=== PATIENT | male | born 1970 | race Two or more races ===

== ENCOUNTER 2017-09-03 15:36 | Emergency (ER) | payer SELFPAY ==
[~2017-09-03] VITALS: Ht 175.3 cm; Wt 95.3 kg
[2017-09-03 17:24] LABS: Basophils # (auto) 0.1 uL; Basophils % (auto) 0.7 % (0.0-2.0); Eosinophils # (auto) 0.1 uL; Hematocrit 48.8 % (41.0-53.0); Hemoglobin 16.6 g/dL (13.5-17.5); Lymphocytes % (auto) 23.8 % (10.0-50.0); Mean Corpuscular Hemoglobin 30.8 pg (28.0-32.0); Mean Corpuscular Volume 90.4 fL (80.0-100.0); Mean Platelet Volume 7.3 fL (6.9-10.8); Monocytes # (auto) 0.6 uL; Monocytes % (auto) 7.5 % (0.0-12.0); Neutrophils # (auto) 5.8 uL; Platelet Count (auto) 259 10^3/uL (140-450); Red Cell Distribution Width 13.4 % (11.8-14.3); White Blood Cell 8.6 10^3/uL (4.4-10.8)
[2017-09-03 17:44] LABS: BUN/Creatinine Ratio 15.4; Bilirubin, Total 0.7 mg/dL (0.2-1.0); Calcium 8.7 mg/dL (8.5-10.1); Potassium 3.6 mmol/L (3.5-5.1); Total Protein 7.9 g/dL (6.4-8.2)
[2017-09-03 18:57] VITALS: BP 168/132
[2017-09-03] MEDS ORDERED: cloNIDine HCL 0.1 MG TAB PO ONE (19:15)
== END 2017-09-03 18:46 | disposition home or self-care (01) ==
LOC: ER 15:41
DX: M54.9 Dorsalgia, unspecified (principal); I16.0 Hypertensive urgency; N28.9 Disorder of kidney and ureter, unspecified; I12.0 Hypertensive chronic kidney disease with stage 5 chronic kidney disease or end stage renal disease; N18.9 Chronic kidney disease, unspecified
CPT/HCPCS: 36415; 80053; 85025; 93971

== ENCOUNTER 2021-12-06 10:05 | Inpatient (IN) | payer MEDICAID, OTHER ==
[~2021-12-06] VITALS: Ht 177.8 cm; Wt 88.4 kg
[2021-12-06 11:29] LABS: Basophils # (auto) 0 10 ^3/uL (0-0.2); Basophils % (auto) 0.3 % (0.0-2.0); Eosinophils # (auto) 0 10 ^3/uL (0-0.8); Eosinophils % (auto) 0.1 % (0.0-7.0); Hematocrit 47.1 % (41.0-53.0); Hemoglobin 16.3 g/dL (13.5-17.5); Lymphocytes % (auto) 11.4 % (10.0-50.0); Mean Corpuscular Hemoglobin 31.4 pg (28.0-32.0); Mean Corpuscular Hgb Conc. 34.6 g/dL (32.0-36.0); Mean Corpuscular Volume 90.7 fL (80.0-100.0); Monocytes # (auto) 0.7 10 ^3/uL (0-1.3); Monocytes % (auto) 7.3 % (0.0-12.0); Neutrophils # (auto) 7.4 10 ^3/uL (1.6-8.6); Neutrophils % (auto) 80.9 % (37.0-80.0); Nucleated Red Blood Cells % 0.1 %; Red Blood Cells 5.19 10^6/uL (4.5-5.90); Red Cell Distribution Width 13.5 % (11.8-14.3); White Blood Cell 9.1 10^3/uL (4.4-10.8)
[2021-12-06 12:27] LABS: Albumin 4.1 g/dL (3.4-5.0); Calcium 9.1 mg/dL (8.5-10.1); Magnesium 3.1 mg/dL (1.6-2.6); Potassium 3.7 mmol/L (3.5-5.1)
[2021-12-06 12:33] LABS: BUN/Creatinine Ratio 15.5; Total Protein 8.3 g/dL (6.4-8.2)
[2021-12-06] MEDS ORDERED: MORPHINE SULFATE INJECTION 2 MG/ML SYRG IV PRN (21:30)
[2021-12-06] MEDS ORDERED: NITROGLYCERIN 0.4 MG SL TAB SL PRN (21:30)
[2021-12-06] MEDS ORDERED: SODIUM CHLORIDE 0.9% 1,000 ML IV ONE (21:45)
[2021-12-06 23:58] VITALS: BP 130/91
[2021-12-07 07:53] LABS: Basophils # (auto) 0 10 ^3/uL (0-0.2); Basophils % (auto) 0.5 % (0.0-2.0); Eosinophils # (auto) 0 10 ^3/uL (0-0.8); Hematocrit 41.4 % (41.0-53.0); Hemoglobin 14.4 g/dL (13.5-17.5); Lymphocytes # (auto) 1.4 10 ^3/uL (0.4-5.4); Lymphocytes % (auto) 33.1 % (10.0-50.0); Mean Corpuscular Hemoglobin 31.6 pg (28.0-32.0); Mean Corpuscular Hgb Conc. 34.9 g/dL (32.0-36.0); Mean Corpuscular Volume 90.6 fL (80.0-100.0); Monocytes # (auto) 0.7 10 ^3/uL (0-1.3); Neutrophils % (auto) 48.4 % (37.0-80.0); Nucleated Red Blood Cells % 0.2 %; Red Blood Cells 4.57 10^6/uL (4.5-5.90); Red Cell Distribution Width 13.2 % (11.8-14.3); White Blood Cell 4.1 10^3/uL (4.4-10.8)
[2021-12-07 08:09] LABS: Calcium 8.2 mg/dL (8.5-10.1); Potassium 3.2 mmol/L (3.5-5.1)
[2021-12-07 08:17] LABS: BUN/Creatinine Ratio 21.2
[2021-12-07] MEDS ORDERED: ENOXAPARIN SOD 40 MG/0.4 ML SYRINGE SC SCH (10:00)
[2021-12-07 13:00] VITALS: BP 124/92
[2021-12-07] MEDS ORDERED: DexAMETHasone SOD PHOS 10MG/1ML VIAL INJ IV ONE (14:17)
[2021-12-07] MEDS ORDERED: IVERMECTIN 3 MG TAB PO ONE (14:17)
[2021-12-07] MEDS ORDERED: CHOLECALCIFEROL (VITD3) 2,000 UNIT CAP/TAB PO ONE (14:17)
[2021-12-07] MEDS ORDERED: ASCORBIC ACID 1,000 MG TAB PO ONE (14:17)
[2021-12-07] MEDS ORDERED: ZINC SULFATE 220mg CAP or TAB PO ONE (14:17)
[2021-12-07] MEDS ORDERED: ASPirin-EC 81 mg tab PO ONE (14:30)
[2021-12-07 14:59] LABS: Urine WBC None Seen /hpf (0 - 3)
[2021-12-07] MEDS ORDERED: CAR125T PO (15:01)
[2021-12-07] MEDS ORDERED: ASPI-498 PO (15:01)
[2021-12-07] MEDS ORDERED: HYDR50TA15 PO (15:01)
[2021-12-07] MEDS ORDERED: ATOR40TA52 PO (15:01)
[2021-12-07] MEDS ORDERED: AMLO-496 PO (15:01)
[2021-12-07 15:08] LABS: Urine Bacteria NONE SEEN /hpf (None Seen); Urine Blood Negative /uL (Negative); Urine Specific Gravity 1.013 (1.001-1.035)
[2021-12-07 15:18] LABS: Amphetamine Screen, Urine NEGATIVE (NEGATIVE); Barbiturate Scree,Urine NEGATIVE (NEGATIVE); Benzodiazephine Screen, Urine NEGATIVE (NEGATIVE); Cannabinoid Screen, Urine POSITIVE (NEGATIVE); Cocaine Screen, Urine NEGATIVE (NEGATIVE); Opiate Scree,Urine NEGATIVE (NEGATIVE); Phencyclidine Screen, Urine NEGATIVE (NEGATIVE)
[2021-12-07 17:00] VITALS: BP 128/92
[2021-12-07] MEDS: ENOXAPARIN SOD 40 MG/0.4 ML SYRINGE SC SCH (21:14)
[2021-12-07 22:00] VITALS: BP 129/87
[2021-12-07] MEDS: ALBUTEROL SULF HFA 90MCG INH 200DOSE IN PRN (22:38)
[2021-12-08 05:00] VITALS: BP 123/74
[2021-12-08] MEDS: ALBUTEROL SULF HFA 90MCG INH 200DOSE IN PRN ×2 (05:57→08:53)
[2021-12-08 06:17] LABS: Albumin 3.7 g/dL (3.4-5.0); Calcium 8.6 mg/dL (8.5-10.1); Potassium 3.5 mmol/L (3.5-5.1)
[2021-12-08 06:23] LABS: BUN/Creatinine Ratio 16.7; Bilirubin, Total 0.5 mg/dL (0.2-1.0); CRP High Sensitivity 0.07 mg/dL (< 0.3); Total Protein 7.1 g/dL (6.4-8.2)
[2021-12-08 07:46] LABS: Thyroid Stimulating Hormone 0.38 uIU/mL (0.358-3.74)
[2021-12-08 08:00] VITALS: BP 122/78
[2021-12-08 09:00] VITALS: BP 122/78
[2021-12-08] MEDS ORDERED: IVERMECTIN 3 MG TAB PO SCH (10:00)
[2021-12-08] MEDS ORDERED: PANTOPRAZOLE 40 MG TAB PO SCH (10:00)
[2021-12-08] MEDS: ENOXAPARIN SOD 40 MG/0.4 ML SYRINGE SC SCH (10:00)
[2021-12-08] MEDS ORDERED: ASPirin-EC 81 mg tab PO SCH (10:00)
[2021-12-08] MEDS ORDERED: ASCORBIC ACID 1,000 MG TAB PO SCH (10:00)
[2021-12-08] MEDS ORDERED: ZINC SULFATE 220mg CAP or TAB PO SCH (10:00)
[2021-12-08] MEDS ORDERED: DexAMETHasone SOD PHOS 10MG/1ML VIAL INJ IV SCH (10:00)
[2021-12-08] MEDS ORDERED: CHOLECALCIFEROL (VITD3) 2,000 UNIT CAP/TAB PO SCH (10:00)
[2021-12-08] MEDS ORDERED: DEX4T PO (12:40)
[2021-12-08] MEDS ORDERED: ZINC220T6 PO (12:40)
[2021-12-08] MEDS ORDERED: ASCO10003 PO (12:40)
[2021-12-08] MEDS ORDERED: ALBUAER3 IN (12:40)
[2021-12-08] MEDS ORDERED: FAMO20TA10 PO (12:40)
[2021-12-08] MEDS ORDERED: IVER3TAB PO (12:40)
[2021-12-08] MEDS ORDERED: CHOL20007 PO (12:40)
== END 2021-12-08 16:23 | disposition home or self-care (01) | DRG 137 ==
LOC: EDBD 10:05 → ER 10:05 → TELE 21:27 → TELE-EAST 23:34 → OBSVTOIN 12-07 14:15
PROVIDERS: ADMIT Internal Medicine; ATTEND Internal Medicine
DX: U07.1 COVID-19 (principal); N17.0 Acute kidney failure with tubular necrosis; I50.33 Acute on chronic diastolic (congestive) heart failure; I25.110 Atherosclerotic heart disease of native coronary artery with unstable angina pectoris; I13.0 Hypertensive heart and chronic kidney disease with heart failure and stage 1 through stage 4 chronic kidney disease, or unspecified chronic kidney disease; N18.32 Chronic kidney disease, stage 3b; E55.9 Vitamin D deficiency, unspecified; E78.5 Hyperlipidemia, unspecified; F12.90 Cannabis use, unspecified, uncomplicated; Z98.61 Coronary angioplasty status
CPT/HCPCS: 36415; 71045; 80048; 80053; 80061; 80307; 81001; 82306; 82728; 83605; 83615; 83735; 83880; 84443; 84484; 85025; 85379; 86141; 87081; 87426; 93005; 93306; 94640; 96360; 96372; G0378; J1100

== ENCOUNTER 2023-08-29 08:33 | Inpatient (IN) | payer MEDICAID ==
[~2023-08-29] VITALS: Ht 177.8 cm; Wt 98.5 kg
[~2023-08-29 08:33] MED LIST: ALBUAER3 IN; AMLO1TAB23 PO; ASCO10003 PO; ASPI-498 PO; ATOR40TA52 PO; CAR125T PO; DEX4T PO; HYDR-4297 PO; IVER3TAB PO; ZINC220T6 PO
[2023-08-29] MEDS ORDERED: SODIUM CHLORIDE 0.9% 1,000 ML IV ONE (09:15)
[2023-08-29 09:17] VITALS: PULSE 50; RESP 16; O2SAT 96
[2023-08-29 10:00] LABS: Alanine Aminotransferase 25 U/L (7-40); Alkaline Phosphatase 64 U/L (46-116); Anion Gap 4 (5-15); Aspartate Aminotransferase 14 U/L (13-40); BUN/Creatinine Ratio 9.6 (10.0-20.0); Bilirubin, Total 0.8 mg/dL (0.2-1.0); Blood Urea Nitrogen 17 mg/dL (9-23); Calcium 9.2 mg/dL (8.5-10.1); Carbon Dioxide 27 mmol/L (20-30); Chloride 109 mmol/L (98-107); Glucose 147 mg/dL (74-106); Sodium 140 mmol/L (136-145)
[2023-08-29 10:01] LABS: Total Protein 6.7 g/dL (5.7-8.2)
[2023-08-29 10:07] LABS: Basophils # (auto) 0.1 10 ^3/uL (0-0.2); Basophils % (auto) 0.4 % (0.0-2.0); Eosinophils # (auto) 0.1 10 ^3/uL (0-0.8); Eosinophils % (auto) 0.9 % (0.0-7.0); Hematocrit 41.2 % (41.0-53.0); Hemoglobin 14.3 g/dL (13.5-17.5); Lymphocytes # (auto) 1.1 10 ^3/uL (0.4-5.4); Lymphocytes % (auto) 8.8 % (10.0-50.0); Mean Corpuscular Hemoglobin 32.1 pg (28.0-32.0); Mean Corpuscular Hgb Conc. 34.8 g/dL (32.0-36.0); Mean Corpuscular Volume 92.3 fL (80.0-100.0); Monocytes # (auto) 0.7 10 ^3/uL (0-1.3); Monocytes % (auto) 5.3 % (0.0-12.0); Neutrophils # (auto) 10.6 10 ^3/uL (1.6-8.6); Neutrophils % (auto) 84.6 % (37.0-80.0); Red Blood Cells 4.46 10^6/uL (4.5-5.90); Red Cell Distribution Width 13.9 % (11.8-14.3); White Blood Cell 12.5 10^3/uL (4.4-10.8)
[2023-08-29 10:16] LABS: INR 1.04 (0.9-1.15); Partial Thromboplastin Time 26.8 SEC (24.5-34.5); Prothrombin Time 10.9 sec (9.3-11.8)
[2023-08-29 11:21] LABS: Urine Bacteria NONE SEEN /hpf (None Seen); Urine Blood Negative /uL (Negative); Urine Clarity Clear (Clear); Urine Color Yellow (Yellow); Urine Protein, UAD Negative (Negative); Urine Specific Gravity 1.013 (1.001-1.035); Urine Urobilinogen Normal (Negative); Urine WBC 1 /hpf (0 - 3); Urine pH 5.5 (5.0-8.0)
[2023-08-29] MEDS ORDERED: AZITHROMYCIN 500MG/ 250ML 250 ML IV ONE (13:15)
[2023-08-29] MEDS ORDERED: cefTRIAXone 1GM/50ML D5W 50 ML IV ONE (13:15)
[2023-08-29] MEDS ORDERED: MORPHINE SULFATE 4 MG/ML SYR/VIAL IV PRN (15:15)
[2023-08-29] MEDS ORDERED: NITROGLYCERIN 0.4 MG SL TAB SL PRN (15:15)
[2023-08-29] MEDS ORDERED: ACETAMINOPHEN 325 MG TAB PO PRN (15:15)
[2023-08-29] MEDS ORDERED: hydrALAZINE HCL 20 MG/ML VL IV PRN (15:45)
[2023-08-29 15:51] LABS: Creatinine, Urine 114.94 mg/dL (30.0-125.0)
[2023-08-29] MEDS: ENOXAPARIN SOD 100 MG/1 ML SYRINGE SC SCH ×2 (15:53→23:21)
[2023-08-29 16:12] LABS: Triglycerides 128 mg/dL (< 150)
[2023-08-29 16:13] LABS: LDL Cholesterol 78 mg/dL (< 100)
[2023-08-29 16:14] LABS: Cholesterol 129 mg/dL (< 200); HDL Cholesterol 30 mg/dL (40-59)
[2023-08-29 16:25] LABS: INR 1.02 (0.9-1.15); Prothrombin Time 10.7 sec (9.3-11.8)
[2023-08-29] MEDS ORDERED: MAGNESIUM SULFATE 1GM/100ML 100 ML IV ONE (19:15)
[2023-08-29 19:30] VITALS: PULSE 102; RESP 23; O2SAT 98
[2023-08-29 19:46] LABS: Amphetamine Screen, Urine Neg (NEGATIVE); Barbiturate Scree,Urine Neg (NEGATIVE); Benzodiazephine Screen, Urine Pos (NEGATIVE); Cannabinoid Screen, Urine Pos (NEGATIVE); Cocaine Screen, Urine Neg (NEGATIVE); Opiate Scree,Urine Pos (NEGATIVE); Phencyclidine Screen, Urine Neg (NEGATIVE)
[2023-08-29 22:00] VITALS: BP_SYST 156; BP_SYST 164; BP_DIAS 113; PULSE 78; PULSE 96; RESP 18; TEMP 97.9; O2SAT 97
[2023-08-29] MEDS: ATORVASTATIN 20 MG TAB PO SCH ×2 (22:00→23:22)
[2023-08-29] MEDS: RANOLAZINE ER 500 MG TAB PO SCH ×2 (22:00→23:22)
[2023-08-29] MEDS: CARVEDILOL 3.125 MG TAB PO SCH ×2 (22:00→23:23)
[2023-08-29] MEDS: ISOSORBIDE MONONITRATE 20 MG TAB PO SCH ×2 (22:00→23:24)
[2023-08-30] VITALS (7 sets, daily range): BP systolic 139–156; BP diastolic 60–110; PULSE 59–70; RESP 16–19; TEMP 97.4–98; O2SAT 97–99
[2023-08-30] MEDS ORDERED: AML5T GT (03:08)
[2023-08-30] MEDS ORDERED: NITR1SPR TL (03:08)
[2023-08-30] MEDS ORDERED: CARV6.25 PO (03:08)
[2023-08-30] MEDS ORDERED: CLOP75TA28 PO (03:08)
[2023-08-30] MEDS ORDERED: ALPR0.5T PO (03:08)
[2023-08-30] MEDS ORDERED: RANO500T3 PO (03:08)
[2023-08-30] MEDS: PANTOPRAZOLE 40 MG/10 ML VIAL INJ IV SCH (09:00)
[2023-08-30] MEDS: ASPirin 81 mg TAB PO SCH (09:00)
[2023-08-30] MEDS: CARVEDILOL 3.125 MG TAB PO SCH ×2 (09:01→21:55)
[2023-08-30] MEDS: CLOPIDOGREL BISULFATE 75 MG TAB PO SCH (09:02)
[2023-08-30] MEDS: ISOSORBIDE MONONITRATE 20 MG TAB PO SCH ×2 (09:02→21:54)
[2023-08-30] MEDS: RANOLAZINE ER 500 MG TAB PO SCH ×2 (09:02→21:56)
[2023-08-30] MEDS: DOCUSATE SOD 100 MG CAP PO SCH (09:07)
[2023-08-30] MEDS: ENOXAPARIN SOD 100 MG/1 ML SYRINGE SC SCH ×2 (09:07→21:56)
[2023-08-30 10:19] LABS: Urine Bacteria NONE SEEN /hpf (None Seen); Urine Blood Negative /uL (Negative); Urine Clarity Clear (Clear); Urine Protein, UAD Negative (Negative); Urine Specific Gravity 1.011 (1.001-1.035); Urine Urobilinogen Normal (Negative); Urine WBC <1 /hpf (0 - 3)
[2023-08-30 10:20] LABS: Urine Color Straw (Yellow)
[2023-08-30] MEDS: ONDANSETRON HCL 4 MG/2 ML VIAL IV PRN (12:16)
[2023-08-30] MEDS: ATORVASTATIN 20 MG TAB PO SCH (21:55)
[2023-08-31 08:00] VITALS: PULSE 57; PULSE 59; RESP 18; O2SAT 97
[2023-08-31 09:00] VITALS: BP 129/85; PULSE 59; RESP 19; TEMP 98.5; O2SAT 98
[2023-08-31] MEDS: ENOXAPARIN SOD 100 MG/1 ML SYRINGE SC SCH ×2 (09:57→21:57)
[2023-08-31] MEDS: DOCUSATE SOD 100 MG CAP PO SCH (09:58)
[2023-08-31] MEDS: ISOSORBIDE MONONITRATE 20 MG TAB PO SCH ×2 (09:58→21:57)
[2023-08-31] MEDS: PANTOPRAZOLE 40 MG/10 ML VIAL INJ IV SCH (10:00)
[2023-08-31] MEDS: ASPirin 81 mg TAB PO SCH (10:00)
[2023-08-31] MEDS: CLOPIDOGREL BISULFATE 75 MG TAB PO SCH (10:00)
[2023-08-31] MEDS: CARVEDILOL 3.125 MG TAB PO SCH ×2 (10:00→22:00)
[2023-08-31] MEDS: RANOLAZINE ER 500 MG TAB PO SCH ×2 (10:00→22:00)
[2023-08-31] MEDS: ONDANSETRON HCL 4 MG/2 ML VIAL IV PRN (10:02)
[2023-08-31 10:55] LABS: Basophils # (auto) 0 10 ^3/uL (0-0.2); Basophils % (auto) 0.6 % (0.0-2.0); Eosinophils # (auto) 0.2 10 ^3/uL (0-0.8); Eosinophils % (auto) 2.7 % (0.0-7.0); Hematocrit 43.2 % (41.0-53.0); Hemoglobin 14.9 g/dL (13.5-17.5); Lymphocytes # (auto) 1.5 10 ^3/uL (0.4-5.4); Lymphocytes % (auto) 25.4 % (10.0-50.0); Mean Corpuscular Hemoglobin 31.6 pg (28.0-32.0); Mean Corpuscular Hgb Conc. 34.4 g/dL (32.0-36.0); Mean Corpuscular Volume 92.1 fL (80.0-100.0); Monocytes # (auto) 0.6 10 ^3/uL (0-1.3); Monocytes % (auto) 11.3 % (0.0-12.0); Neutrophils # (auto) 3.4 10 ^3/uL (1.6-8.6); Nucleated Red Blood Cells % 0.3 %; White Blood Cell 5.7 10^3/uL (4.4-10.8)
[2023-08-31 11:15] LABS: Alanine Aminotransferase 24 U/L (7-40); Alkaline Phosphatase 69 U/L (46-116); Anion Gap 7 (5-15); Aspartate Aminotransferase 13 U/L (13-40); BUN/Creatinine Ratio 10.2 (10.0-20.0); Bilirubin, Total 0.8 mg/dL (0.2-1.0); Blood Urea Nitrogen 19 mg/dL (9-23); Calcium 9.3 mg/dL (8.7-10.4); Carbon Dioxide 24 mmol/L (20-30); Chloride 106 mmol/L (98-107); Glucose 117 mg/dL (74-106); Potassium 3.7 mmol/L (3.5-5.1); Sodium 137 mmol/L (136-145); Total Protein 6.9 g/dL (5.7-8.2)
[2023-08-31 13:24] VITALS: BP 121/100; PULSE 84; RESP 17; TEMP 98; O2SAT 99
[2023-08-31] MEDS: hydrALAZINE HCL 25 MG TAB PO SCH ×2 (14:00→22:00)
[2023-08-31 17:00] VITALS: BP 109/82; PULSE 96; RESP 18; TEMP 97.2; O2SAT 97
[2023-08-31 20:00] VITALS: PULSE 64; PULSE 87; RESP 18
[2023-08-31] MEDS: ATORVASTATIN 20 MG TAB PO SCH (22:00)
[2023-08-31 23:32] VITALS: BP 120/84; PULSE 71; RESP 16; O2SAT 97
[2023-09-01 05:17] VITALS: BP 112/79; PULSE 77; RESP 16; TEMP 97.7; O2SAT 95
[2023-09-01] MEDS: hydrALAZINE HCL 25 MG TAB PO SCH ×3 (06:00→22:00)
[2023-09-01 08:00] VITALS: PULSE 60; PULSE 65; RESP 18; O2SAT 97
[2023-09-01 08:49] LABS: Chloride 107 mmol/L (98-107); Potassium 3.8 mmol/L (3.5-5.1); Sodium 139 mmol/L (136-145)
[2023-09-01 08:50] LABS: Anion Gap 7 (5-15); Carbon Dioxide 25 mmol/L (20-30)
[2023-09-01 08:51] LABS: Calcium 9.3 mg/dL (8.7-10.4)
[2023-09-01 08:55] LABS: Blood Urea Nitrogen 20 mg/dL (9-23); Glucose 100 mg/dL (74-106)
[2023-09-01 09:10] VITALS: BP 130/74; PULSE 59; RESP 19; TEMP 98.4; O2SAT 99
[2023-09-01] MEDS: ENOXAPARIN SOD 100 MG/1 ML SYRINGE SC SCH ×2 (09:41→22:31)
[2023-09-01] MEDS: ASPirin 81 mg TAB PO SCH (10:00)
[2023-09-01] MEDS: ISOSORBIDE MONONITRATE 20 MG TAB PO SCH ×2 (10:00→22:31)
[2023-09-01] MEDS: DOCUSATE SOD 100 MG CAP PO SCH (10:00)
[2023-09-01] MEDS: POLYETHYLENE GLYCOL 17 GM PWDR PO SCH (10:00)
[2023-09-01] MEDS: CARVEDILOL 3.125 MG TAB PO SCH ×2 (10:00→22:00)
[2023-09-01] MEDS: RANOLAZINE ER 500 MG TAB PO SCH ×2 (10:00→22:00)
[2023-09-01] MEDS: CLOPIDOGREL BISULFATE 75 MG TAB PO SCH (10:00)
[2023-09-01] MEDS: PANTOPRAZOLE 40 MG/10 ML VIAL INJ IV SCH (10:00)
[2023-09-01 20:00] VITALS: PULSE 82
[2023-09-01 22:00] VITALS: BP 146/117; PULSE 67; RESP 18; TEMP 98.7; O2SAT 99
[2023-09-01] MEDS: ATORVASTATIN 20 MG TAB PO SCH (22:00)
[2023-09-02 05:00] VITALS: BP 127/89; PULSE 76; RESP 18; TEMP 98.3; O2SAT 99
[2023-09-02] MEDS: hydrALAZINE HCL 25 MG TAB PO SCH ×2 (06:00→14:00)
[2023-09-02 10:46] VITALS: BP 160/112; PULSE 60; RESP 18; TEMP 98.4; O2SAT 100
[2023-09-02] MEDS: ISOSORBIDE MONONITRATE 20 MG TAB PO SCH (10:57)
[2023-09-02] MEDS: POLYETHYLENE GLYCOL 17 GM PWDR PO SCH (10:57)
[2023-09-02] MEDS: RANOLAZINE ER 500 MG TAB PO SCH (10:57)
[2023-09-02] MEDS: ASPirin 81 mg TAB PO SCH (10:58)
[2023-09-02] MEDS: CARVEDILOL 3.125 MG TAB PO SCH (10:58)
[2023-09-02] MEDS: PANTOPRAZOLE 40 MG/10 ML VIAL INJ IV SCH (10:58)
[2023-09-02] MEDS: DOCUSATE SOD 100 MG CAP PO SCH (10:58)
[2023-09-02] MEDS: CLOPIDOGREL BISULFATE 75 MG TAB PO SCH (10:59)
[2023-09-02] MEDS ORDERED: HYDR-4297 PO (11:23)
[2023-09-10] MEDS ORDERED: ISO20T PO (10:07)
== END 2023-09-02 14:24 | disposition home or self-care (01) | DRG 194 ==
LOC: ER 08:33 → TELE 15:11 → TELE-EAST 21:12
PROVIDERS: ADMIT Nurse Practitioner Family; ATTEND Family Medicine
DX: I13.0 Hypertensive heart and chronic kidney disease with heart failure and stage 1 through stage 4 chronic kidney disease, or unspecified chronic kidney disease (principal); N17.0 Acute kidney failure with tubular necrosis; I24.9 Acute ischemic heart disease, unspecified; I73.9 Peripheral vascular disease, unspecified; I50.33 Acute on chronic diastolic (congestive) heart failure; N18.4 Chronic kidney disease, stage 4 (severe); R00.1 Bradycardia, unspecified; D72.829 Elevated white blood cell count, unspecified; E83.42 Hypomagnesemia; F41.9 Anxiety disorder, unspecified; K21.9 Gastro-esophageal reflux disease without esophagitis; I25.10 Atherosclerotic heart disease of native coronary artery without angina pectoris; I16.0 Hypertensive urgency; K59.00 Constipation, unspecified; I25.2 Old myocardial infarction; Z86.73 Personal history of transient ischemic attack (TIA), and cerebral infarction without residual deficits; Z82.49 Family history of ischemic heart disease and other diseases of the circulatory system; Z91.148 Patient's other noncompliance with medication regimen for other reason
CPT/HCPCS: 36415; 70450; 71045; 74176; 76775; 80048; 80053; 80061; 80307; 81001; 82570; 82962; 83036; 83735; 83880; 84100; 84300; 84443; 84484; 85025; 85379; 85610; 85730; 93005; 93306; 93886; 93975; 96365; 96367; 96368; C9113; G0378; J0696; J2405

== ENCOUNTER 2023-09-02 18:44 | Emergency (ER) | payer SELFPAY ==
[~2023-09-02] VITALS: Ht 175.3 cm; Wt 81.0 kg
[~2023-09-02 18:44] MED LIST changes: +ALPR0.5T PO; +AML5T GT; -AMLO1TAB23 PO; -CAR125T PO; +CARV6.25 PO; +CLOP75TA28 PO; +NITR1SPR TL; +RANO500T3 PO
[2023-09-02] MEDS ORDERED: ASPirin 325 MG TAB PO ONE (19:00)
[2023-09-02 19:06] LABS: Basophils # (auto) 0 10 ^3/uL (0-0.2); Basophils % (auto) 0.5 % (0.0-2.0); Eosinophils # (auto) 0.1 10 ^3/uL (0-0.8); Hematocrit 45.2 % (41.0-53.0); Hemoglobin 15.6 g/dL (13.5-17.5); Lymphocytes # (auto) 1.3 10 ^3/uL (0.4-5.4); Lymphocytes % (auto) 16.5 % (10.0-50.0); Mean Corpuscular Hemoglobin 31.8 pg (28.0-32.0); Mean Corpuscular Hgb Conc. 34.5 g/dL (32.0-36.0); Mean Corpuscular Volume 92.2 fL (80.0-100.0); Monocytes # (auto) 0.9 10 ^3/uL (0-1.3); Monocytes % (auto) 11.9 % (0.0-12.0); Neutrophils # (auto) 5.4 10 ^3/uL (1.6-8.6); Neutrophils % (auto) 70.1 % (37.0-80.0); Nucleated Red Blood Cells % 0.1 %; Red Blood Cells 4.91 10^6/uL (4.5-5.90); Red Cell Distribution Width 13.7 % (11.8-14.3); White Blood Cell 7.7 10^3/uL (4.4-10.8)
[2023-09-02 19:23] LABS: INR 1.03 (0.9-1.15); Partial Thromboplastin Time 32.3 SEC (24.5-34.5); Prothrombin Time 10.8 sec (9.3-11.8)
[2023-09-02 19:30] LABS: Alanine Aminotransferase 251 U/L (7-40); Albumin 4.4 g/dL (3.2-4.8); Alkaline Phosphatase 84 U/L (46-116); Anion Gap 8 (5-15); Aspartate Aminotransferase 150 U/L (13-40); BUN/Creatinine Ratio 10.6 (10.0-20.0); Bilirubin, Total 0.9 mg/dL (0.2-1.0); Blood Urea Nitrogen 25 mg/dL (9-23); Calcium 9.4 mg/dL (8.7-10.4); Carbon Dioxide 23 mmol/L (20-30); Chloride 107 mmol/L (98-107); Glucose 120 mg/dL (74-106); Potassium 4.3 mmol/L (3.5-5.1); Sodium 138 mmol/L (136-145); Total Protein 7.3 g/dL (5.7-8.2)
[2023-09-02 19:47] LABS: Blood Alcohol < 3.0 mg/dL (<10); Lipase 45 U/L (12-53)
[2023-09-02 19:54] VITALS: PULSE 86; RESP 17; TEMP 98.5; O2SAT 97
[2023-09-02] MEDS ORDERED: LORazepam 2MG/ML-1ML VIAL IV ONE (20:45)
[2023-09-02 21:04] LABS: Urine Bacteria NONE SEEN /hpf (None Seen); Urine Blood Negative /uL (Negative); Urine Clarity Clear (Clear); Urine Color Yellow (Yellow); Urine Protein, UAD TRACE (Negative); Urine Specific Gravity 1.014 (1.001-1.035); Urine Urobilinogen Normal (Negative); Urine WBC <1 /hpf (0 - 3)
[2023-09-02 21:17] LABS: Amphetamine Screen, Urine Neg (NEGATIVE); Barbiturate Scree,Urine Neg (NEGATIVE); Benzodiazephine Screen, Urine Pos (NEGATIVE); Cannabinoid Screen, Urine Pos (NEGATIVE); Cocaine Screen, Urine Neg (NEGATIVE); Opiate Scree,Urine Neg (NEGATIVE); Phencyclidine Screen, Urine Neg (NEGATIVE)
[2023-09-02] MEDS ORDERED: hydrALAZINE HCL 25 MG TAB PO ONE (22:15)
[2023-09-02] MEDS ORDERED: METOCLOPRAMIDE HCL 5MG/ml INJ 2ml VIAL IV ONE (22:30)
[2023-09-02] MEDS ORDERED: diphenhdrAMINE HCL 50 MG/1 ML VL IV ONE (22:30)
[2023-09-03 01:12] VITALS: BP 127/87; PULSE 84; RESP 16; O2SAT 97
== END 2023-09-03 03:04 | disposition home or self-care (01) ==
LOC: ER 18:44
DX: G43.909 Migraine, unspecified, not intractable, without status migrainosus (principal); F41.9 Anxiety disorder, unspecified; I13.0 Hypertensive heart and chronic kidney disease with heart failure and stage 1 through stage 4 chronic kidney disease, or unspecified chronic kidney disease; N18.9 Chronic kidney disease, unspecified; I50.89 Other heart failure; Z98.890 Other specified postprocedural states; Z79.899 Other long term (current) drug therapy; Z79.82 Long term (current) use of aspirin
CPT/HCPCS: 36415; 71045; 73562; 80053; 80307; 80320; 81001; 82962; 83690; 83880; 84484; 85025; 85610; 85730; 93005; 96374; 96375; 99285; J1200; J2060; J2765

== ENCOUNTER 2023-09-09 04:43 | Inpatient (IN) | payer MEDICAID ==
[~2023-09-09] VITALS: Ht 177.8 cm; Wt 84.7 kg
[2023-09-09 06:03] LABS: Basophils # (auto) 0.1 10 ^3/uL (0-0.2); Basophils % (auto) 0.7 % (0.0-2.0); Eosinophils # (auto) 0.1 10 ^3/uL (0-0.8); Eosinophils % (auto) 2.1 % (0.0-7.0); Hematocrit 39.9 % (41.0-53.0); Hemoglobin 14.1 g/dL (13.5-17.5); Lymphocytes # (auto) 2.2 10 ^3/uL (0.4-5.4); Lymphocytes % (auto) 31.1 % (10.0-50.0); Mean Corpuscular Hemoglobin 32.7 pg (28.0-32.0); Mean Corpuscular Hgb Conc. 35.3 g/dL (32.0-36.0); Mean Corpuscular Volume 92.6 fL (80.0-100.0); Monocytes # (auto) 0.8 10 ^3/uL (0-1.3); Monocytes % (auto) 10.8 % (0.0-12.0); Neutrophils # (auto) 3.9 10 ^3/uL (1.6-8.6); Neutrophils % (auto) 55.3 % (37.0-80.0); Nucleated Red Blood Cells % 0.2 %; Red Blood Cells 4.31 10^6/uL (4.5-5.90); Red Cell Distribution Width 13.7 % (11.8-14.3); White Blood Cell 7.1 10^3/uL (4.4-10.8)
[2023-09-09 06:18] LABS: INR 1.03 (0.9-1.15); Partial Thromboplastin Time 29.2 SEC (24.5-34.5); Prothrombin Time 10.8 sec (9.3-11.8)
[2023-09-09 06:24] LABS: Alanine Aminotransferase 56 U/L (7-40); Alkaline Phosphatase 64 U/L (46-116); Anion Gap 10 (5-15); Aspartate Aminotransferase 20 U/L (13-40); BUN/Creatinine Ratio 6.7 (10.0-20.0); Bilirubin, Total 0.9 mg/dL (0.2-1.0); Blood Urea Nitrogen 12 mg/dL (9-23); Calcium 8.8 mg/dL (8.5-10.1); Carbon Dioxide 20 mmol/L (20-30); Chloride 111 mmol/L (98-107); Glucose 101 mg/dL (74-106); Potassium 3.5 mmol/L (3.5-5.1); Sodium 141 mmol/L (136-145); Total Protein 6.8 g/dL (5.7-8.2)
[2023-09-09 08:43] VITALS: PULSE 61; RESP 12; O2SAT 100
[2023-09-09] MEDS ORDERED: ASPirin-EC 81 mg tab PO ONE (09:30)
[2023-09-09] MEDS ORDERED: RANOLAZINE ER 500 MG TAB PO ONE (11:45)
[2023-09-09] MEDS ORDERED: MORPHINE SULFATE INJ 2 MG/ml SYRG IV PRN (11:45)
[2023-09-09] MEDS ORDERED: CITALOPRAM HYDROBR 20 MG TAB PO ONE (11:45)
[2023-09-09] MEDS ORDERED: ATORVASTATIN 20 MG TAB PO ONE (11:45)
[2023-09-09] MEDS ORDERED: amLODIPine BESYLATE 5 MG TAB PO ONE (11:45)
[2023-09-09] MEDS ORDERED: CARVEDILOL 3.125 MG TAB PO ONE (11:45)
[2023-09-09] MEDS ORDERED: hydrALAZINE HCL 25 MG TAB PO ONE (11:45)
[2023-09-09] MEDS ORDERED: ALPRAZolam 0.5 MG TAB PO ONE (11:45)
[2023-09-09] MEDS ORDERED: NITROGLYCERIN 0.4 MG SL TAB SL PRN ×2 (11:45)
[2023-09-09 12:29] LABS: Magnesium 1.8 mg/dL (1.6-2.6)
[2023-09-09] MEDS ORDERED: CLOPIDOGREL BISULFATE 75 MG TAB PO ONE (16:30)
[2023-09-09 17:39] VITALS: BP 128/88; PULSE 66; RESP 18; TEMP 98.5
[2023-09-09 20:00] VITALS: BP 129/89; PULSE 57; PULSE 61; RESP 18; TEMP 98.4
[2023-09-09] MEDS: ISOSORBIDE MONONITRATE 20 MG TAB PO SCH (22:00)
[2023-09-09] MEDS ORDERED: RANOLAZINE ER 500 MG TAB PO SCH (22:00)
[2023-09-09] MEDS: CARVEDILOL 3.125 MG TAB PO SCH (22:00)
[2023-09-09] MEDS ORDERED: ATORVASTATIN 20 MG TAB PO SCH (22:00)
[2023-09-09] MEDS: RANOLAZINE ER 500 MG TAB PO SCH (22:03)
[2023-09-09] MEDS: ALPRAZolam 0.25 MG TAB PO SCH (22:03)
[2023-09-09 23:14] VITALS: BP 129/89; PULSE 61; RESP 18; TEMP 98.4; O2SAT 97
[2023-09-10 04:47] VITALS: BP 118/72; PULSE 60; RESP 18; TEMP 98.5; O2SAT 99
[2023-09-10 06:22] LABS: Urine WBC None Seen /hpf (0 - 3)
[2023-09-10 06:26] LABS: Basophils # (auto) 0.1 10 ^3/uL (0-0.2); Basophils % (auto) 0.8 % (0.0-2.0); Eosinophils # (auto) 0.2 10 ^3/uL (0-0.8); Eosinophils % (auto) 2.3 % (0.0-7.0); Hemoglobin 13.8 g/dL (13.5-17.5); Lymphocytes # (auto) 1.6 10 ^3/uL (0.4-5.4); Lymphocytes % (auto) 23.5 % (10.0-50.0); Mean Corpuscular Hemoglobin 31.9 pg (28.0-32.0); Mean Corpuscular Hgb Conc. 34.5 g/dL (32.0-36.0); Mean Corpuscular Volume 92.5 fL (80.0-100.0); Monocytes # (auto) 0.8 10 ^3/uL (0-1.3); Monocytes % (auto) 11.9 % (0.0-12.0); Neutrophils # (auto) 4.3 10 ^3/uL (1.6-8.6); Neutrophils % (auto) 61.5 % (37.0-80.0); Red Blood Cells 4.33 10^6/uL (4.5-5.90); Red Cell Distribution Width 13.7 % (11.8-14.3); White Blood Cell 6.9 10^3/uL (4.4-10.8)
[2023-09-10 06:28] LABS: Chloride 109 mmol/L (98-107); Potassium 3.4 mmol/L (3.5-5.1); Sodium 140 mmol/L (136-145)
[2023-09-10 06:29] LABS: Anion Gap 8 (5-15); Calcium 8.7 mg/dL (8.5-10.1); Carbon Dioxide 23 mmol/L (20-30)
[2023-09-10 06:34] LABS: BUN/Creatinine Ratio 8.8 (10.0-20.0); Blood Urea Nitrogen 16 mg/dL (9-23); Glucose 95 mg/dL (74-106)
[2023-09-10 06:43] LABS: Amphetamine Screen, Urine Neg (NEGATIVE); Barbiturate Scree,Urine Neg (NEGATIVE); Benzodiazephine Screen, Urine Pos (NEGATIVE); Cannabinoid Screen, Urine Pos (NEGATIVE); Cocaine Screen, Urine Neg (NEGATIVE); Opiate Scree,Urine Neg (NEGATIVE); Phencyclidine Screen, Urine Neg (NEGATIVE)
[2023-09-10 06:51] LABS: Urine Bacteria NONE SEEN /hpf (None Seen); Urine Blood Negative /uL (Negative); Urine Clarity Clear (Clear); Urine Color Yellow (Yellow); Urine Protein, UAD TRACE (Negative); Urine Specific Gravity 1.017 (1.001-1.035); Urine Urobilinogen Normal (Negative); Urine pH 6.5 (5.0-8.0)
[2023-09-10] MEDS ORDERED: POTASSIUM EFFERVESENT TAB 25 MEQ PO ONE (08:15)
[2023-09-10 08:30] VITALS: PULSE 57; PULSE 66; RESP 18
[2023-09-10] MEDS: ISOSORBIDE MONONITRATE 20 MG TAB PO SCH (09:03)
[2023-09-10] MEDS: CARVEDILOL 3.125 MG TAB PO SCH ×2 (09:03→12:09)
[2023-09-10 09:22] VITALS: BP 135/88; PULSE 54; RESP 18; TEMP 97.3; O2SAT 99
[2023-09-10] MEDS ORDERED: hydrALAZINE HCL 25 MG TAB PO SCH (10:00)
[2023-09-10] MEDS ORDERED: amLODIPine BESYLATE 5 MG TAB PO SCH (10:00)
[2023-09-10] MEDS ORDERED: CITALOPRAM HYDROBR 20 MG TAB PO SCH (10:00)
[2023-09-10] MEDS ORDERED: ASPirin 81 mg TAB PO SCH (10:00)
[2023-09-10] MEDS ORDERED: ISO20T PO ×2 (10:07)
[2023-09-10] MEDS: ALPRAZolam 0.25 MG TAB PO SCH (12:09)
[2023-09-10] MEDS: RANOLAZINE ER 500 MG TAB PO SCH (12:09)
[2023-09-10 13:00] VITALS: BP 145/97; PULSE 63; RESP 18; TEMP 98.3; O2SAT 95
[2023-09-10] MEDS ORDERED: ISOSORBIDE MONONITRATE 20 MG TAB PO SCH (22:00)
== END 2023-09-10 15:28 | disposition home or self-care (01) | DRG 199 ==
LOC: ER 04:43 → TELE 11:51 → TELE-WESTW 18:28
PROVIDERS: ADMIT Internal Medicine Pulmonary Disease; ATTEND Internal Medicine Pulmonary Disease
DX: I16.0 Hypertensive urgency (principal); I50.32 Chronic diastolic (congestive) heart failure; I71.21 Aneurysm of the ascending aorta, without rupture; F41.9 Anxiety disorder, unspecified; I25.10 Atherosclerotic heart disease of native coronary artery without angina pectoris; I13.0 Hypertensive heart and chronic kidney disease with heart failure and stage 1 through stage 4 chronic kidney disease, or unspecified chronic kidney disease; N18.31 Chronic kidney disease, stage 3a; G89.29 Other chronic pain; Z98.61 Coronary angioplasty status; I25.2 Old myocardial infarction; Z79.899 Other long term (current) drug therapy; Z82.49 Family history of ischemic heart disease and other diseases of the circulatory system; Z87.891 Personal history of nicotine dependence; Z91.148 Patient's other noncompliance with medication regimen for other reason
CPT/HCPCS: 36415; 71045; 80048; 80053; 80307; 81001; 83690; 83735; 83880; 84484; 85025; 85610; 85730; 93005; G0378

== ENCOUNTER 2023-10-06 15:27 | Inpatient (IN) | payer MEDICAID ==
[~2023-10-06] VITALS: Ht 177.8 cm; Wt 81.8 kg
[~2023-10-06 15:27] MED LIST changes: +ISO20T PO
[2023-10-06 16:16] LABS: Basophils # (auto) 0 10 ^3/uL (0-0.2); Basophils % (auto) 0.8 % (0.0-2.0); Eosinophils # (auto) 0.1 10 ^3/uL (0-0.8); Eosinophils % (auto) 1.2 % (0.0-7.0); Hematocrit 40.6 % (41.0-53.0); Lymphocytes % (auto) 17.1 % (10.0-50.0); Mean Corpuscular Hemoglobin 31.9 pg (28.0-32.0); Mean Corpuscular Hgb Conc. 34.4 g/dL (32.0-36.0); Mean Corpuscular Volume 92.7 fL (80.0-100.0); Monocytes # (auto) 0.6 10 ^3/uL (0-1.3); Monocytes % (auto) 10.1 % (0.0-12.0); Neutrophils # (auto) 4.2 10 ^3/uL (1.6-8.6); Neutrophils % (auto) 70.8 % (37.0-80.0); Nucleated Red Blood Cells % 0.1 %; Red Blood Cells 4.38 10^6/uL (4.5-5.90); Red Cell Distribution Width 13.8 % (11.8-14.3); White Blood Cell 5.9 10^3/uL (4.4-10.8)
[2023-10-06 16:30] LABS: Alanine Aminotransferase 33 U/L (7-40); Albumin 4.3 g/dL (3.2-4.8); Alkaline Phosphatase 78 U/L (46-116); Anion Gap 9 (5-15); Aspartate Aminotransferase 29 U/L (13-40); BUN/Creatinine Ratio 11.3 (10.0-20.0); Bilirubin, Total 0.5 mg/dL (0.2-1.0); Blood Urea Nitrogen 21 mg/dL (9-23); Calcium 9.1 mg/dL (8.7-10.4); Carbon Dioxide 23 mmol/L (20-30); Chloride 108 mmol/L (98-107); Glucose 122 mg/dL (74-106); Potassium 3.5 mmol/L (3.5-5.1); Sodium 140 mmol/L (136-145)
[2023-10-06] MEDS ORDERED: ASPirin 325 MG TAB PO ONE (16:30)
[2023-10-06] MEDS ORDERED: NITROGLYCERIN 0.4 MG SL TAB SL ONE (17:00)
[2023-10-06 18:27] VITALS: PULSE 79; RESP 18; O2SAT 99
[2023-10-06] MEDS ORDERED: NITROGLYCERIN 0.4 MG SL TAB SL PRN (18:45)
[2023-10-06] MEDS ORDERED: MORPHINE SULFATE INJ 2 MG/ml SYRG IV PRN (18:45)
[2023-10-06] MEDS ORDERED: ACETAMINOPHEN 325 MG TAB PO PRN (18:45)
[2023-10-07] VITALS: O2SAT 98
[2023-10-07] MEDS: ISOSORBIDE MONONITRATE 20 MG TAB PO SCH ×3 (00:01→22:26)
[2023-10-07] MEDS: RANOLAZINE ER 500 MG TAB PO SCH ×3 (00:02→22:24)
[2023-10-07] MEDS: ALPRAZolam 0.5 MG TAB PO SCH ×3 (00:02→22:26)
[2023-10-07 00:56] LABS: Urine Bacteria NONE SEEN /hpf (None Seen); Urine Blood Negative /uL (Negative); Urine Clarity Clear (Clear); Urine Color Yellow (Yellow); Urine Protein, UAD 1+ (Negative); Urine Specific Gravity 1.023 (1.001-1.035); Urine Urobilinogen Normal (Negative); Urine WBC <1 /hpf (0 - 3); Urine pH 5.5 (5.0-8.0)
[2023-10-07 04:37] LABS: Basophils # (auto) 0.1 10 ^3/uL (0-0.2); Eosinophils # (auto) 0.2 10 ^3/uL (0-0.8); Eosinophils % (auto) 2.6 % (0.0-7.0); Hematocrit 36.4 % (41.0-53.0); Hemoglobin 12.4 g/dL (13.5-17.5); Lymphocytes # (auto) 2.1 10 ^3/uL (0.4-5.4); Lymphocytes % (auto) 31.1 % (10.0-50.0); Mean Corpuscular Hemoglobin 32.1 pg (28.0-32.0); Mean Corpuscular Volume 94.4 fL (80.0-100.0); Monocytes # (auto) 0.8 10 ^3/uL (0-1.3); Monocytes % (auto) 11.5 % (0.0-12.0); Neutrophils # (auto) 3.6 10 ^3/uL (1.6-8.6); Neutrophils % (auto) 53.8 % (37.0-80.0); Red Blood Cells 3.85 10^6/uL (4.5-5.90); Red Cell Distribution Width 13.6 % (11.8-14.3); White Blood Cell 6.6 10^3/uL (4.4-10.8)
[2023-10-07 04:59] LABS: Alanine Aminotransferase 30 U/L (7-40); Albumin 3.5 g/dL (3.2-4.8); Alkaline Phosphatase 58 U/L (46-116); Anion Gap 5 (5-15); Aspartate Aminotransferase 24 U/L (13-40); BUN/Creatinine Ratio 10.2 (10.0-20.0); Bilirubin, Total 0.5 mg/dL (0.2-1.0); Blood Urea Nitrogen 17 mg/dL (9-23); Calcium 8.3 mg/dL (8.5-10.1); Carbon Dioxide 27 mmol/L (20-30); Chloride 109 mmol/L (98-107); Glucose 149 mg/dL (74-106); Sodium 141 mmol/L (136-145)
[2023-10-07] MEDS ORDERED: ASPirin 81 mg TAB PO SCH (10:00)
[2023-10-07] MEDS ORDERED: ASCORBIC ACID 1,000 MG TAB PO SCH (10:00)
[2023-10-07] MEDS ORDERED: CLOPIDOGREL BISULFATE 75 MG TAB PO SCH (10:00)
[2023-10-07] MEDS ORDERED: ZINC SULFATE 220mg CAP or TAB PO SCH (10:00)
[2023-10-07] MEDS ORDERED: amLODIPine BESYLATE 5 MG TAB GT SCH (10:00)
[2023-10-07 10:45] VITALS: PULSE 66; RESP 20; O2SAT 97
[2023-10-07] MEDS: hydrALAZINE HCL 25 MG TAB PO SCH ×2 (11:27→22:25)
[2023-10-07] MEDS ORDERED: POTASSIUM CHL 20 Meq TABLET PO ONE (14:30)
[2023-10-07] MEDS ORDERED: SODIUM CHLORIDE 0.9% 1,000 ML IV SCH (16:30)
[2023-10-07] MEDS ORDERED: ATORVASTATIN 20 MG TAB PO SCH (18:00)
[2023-10-07 20:00] VITALS: TEMP 98.8
[2023-10-07 20:05] VITALS: PULSE 68; RESP 22; O2SAT 96
[2023-10-08] VITALS: BP 111/52; PULSE 75; RESP 12; O2SAT 96
[2023-10-08 08:07] LABS: PSA Free 0.29 ng/mL; Prostate Specific Antigen 0.9 ng/mL (0.0-4.0)
== END 2023-10-08 00:19 | disposition left against medical advice (07) | DRG 198 ==
LOC: EDBD 15:27 → ER 15:27 → TELE 18:40
PROVIDERS: ADMIT Nurse Practitioner Family; ATTEND Internal Medicine
DX: I25.10 Atherosclerotic heart disease of native coronary artery without angina pectoris (principal); N17.9 Acute kidney failure, unspecified; I13.0 Hypertensive heart and chronic kidney disease with heart failure and stage 1 through stage 4 chronic kidney disease, or unspecified chronic kidney disease; I24.9 Acute ischemic heart disease, unspecified; G20.A1 Parkinson's disease without dyskinesia, without mention of fluctuations; I50.32 Chronic diastolic (congestive) heart failure; R07.89 Other chest pain; N40.0 Benign prostatic hyperplasia without lower urinary tract symptoms; F02.84 Dementia in other diseases classified elsewhere, unspecified severity, with anxiety; E87.6 Hypokalemia; I35.1 Nonrheumatic aortic (valve) insufficiency; J44.9 Chronic obstructive pulmonary disease, unspecified; N18.32 Chronic kidney disease, stage 3b; Z53.29 Procedure and treatment not carried out because of patient's decision for other reasons; Z79.82 Long term (current) use of aspirin; Z82.49 Family history of ischemic heart disease and other diseases of the circulatory system; I25.2 Old myocardial infarction; Z86.73 Personal history of transient ischemic attack (TIA), and cerebral infarction without residual deficits; Z87.891 Personal history of nicotine dependence; Z91.199 Patient's noncompliance with other medical treatment and regimen due to unspecified reason; Z95.5 Presence of coronary angioplasty implant and graft
CPT/HCPCS: 36415; 70450; 71045; 80053; 81001; 83880; 84154; 84484; 85025; 93005; G0378

== ENCOUNTER 2024-01-07 15:04 | Inpatient (IN) | payer MEDICAID, OTHER ==
[~2024-01-07] VITALS: Ht 177.8 cm; Wt 94.4 kg
[~2024-01-07 15:04] MED LIST changes: -CARV6.25 PO; -DEX4T PO; -IVER3TAB PO
[2024-01-07 15:57] LABS: Basophils # (auto) 0.1 10 ^3/uL (0-0.2); Basophils % (auto) 1.3 % (0.0-2.0); Eosinophils # (auto) 0.2 10 ^3/uL (0-0.8); Eosinophils % (auto) 3.7 % (0.0-7.0); Hematocrit 44.9 % (41.0-53.0); Hemoglobin 14.9 g/dL (13.5-17.5); Lymphocytes # (auto) 1.8 10 ^3/uL (0.4-5.4); Lymphocytes % (auto) 31.1 % (10.0-50.0); Mean Corpuscular Hemoglobin 30.9 pg (28.0-32.0); Mean Corpuscular Hgb Conc. 33.3 g/dL (32.0-36.0); Monocytes # (auto) 0.7 10 ^3/uL (0-1.3); Monocytes % (auto) 11.3 % (0.0-12.0); Neutrophils # (auto) 3.1 10 ^3/uL (1.6-8.6); Neutrophils % (auto) 52.6 % (37.0-80.0); Nucleated Red Blood Cells % 0.1 %; Red Blood Cells 4.82 10^6/uL (4.5-5.90); White Blood Cell 5.9 10^3/uL (4.4-10.8)
[2024-01-07 16:18] LABS: Alanine Aminotransferase 41 U/L (7-40); Albumin 4.2 g/dL (3.2-4.8); Alkaline Phosphatase 73 U/L (46-116); Anion Gap 8 (5-15); Aspartate Aminotransferase 26 U/L (13-40); BUN/Creatinine Ratio 17.9 (10.0-20.0); Bilirubin, Total 0.4 mg/dL (0.2-1.0); Blood Urea Nitrogen 25 mg/dL (9-23); Carbon Dioxide 22 mmol/L (20-30); Chloride 112 mmol/L (98-107); Glucose 79 mg/dL (74-106); Potassium 3.9 mmol/L (3.5-5.1); Sodium 142 mmol/L (136-145); Total Protein 6.8 g/dL (5.7-8.2)
[2024-01-07 17:08] LABS: Prothrombin Time 10.5 sec (9.3-11.8)
[2024-01-07] MEDS: hydrALAZINE HCL 20 MG/ML VL IV ONE (19:00)
[2024-01-07] MEDS: MORPHINE SULFATE 4 MG/ML SYR/VIAL IV ONE (19:00)
[2024-01-07] MEDS ORDERED: ONDANSETRON HCL 4 MG/2 ML VIAL IV PRN (20:00)
[2024-01-07 20:38] LABS: INR 0.97 (0.9-1.15); Prothrombin Time 10.2 sec (9.3-11.8)
[2024-01-07] MEDS: ATORVASTATIN 20 MG TAB PO SCH (22:42)
[2024-01-07] MEDS: METOPROLOL TARTRATE 25 MG TAB PO SCH (22:42)
[2024-01-08] VITALS (8 sets, daily range): BP systolic 157–179; BP diastolic 93–118; PULSE 67–100; RESP 12–20; TEMP 97.7–98.1; O2SAT 94–98
[2024-01-08] MEDS: MORPHINE SULFATE 4 MG/ML SYR/VIAL IV PRN (01:24)
[2024-01-08 06:46] LABS: Basophils # (auto) 0.1 10 ^3/uL (0-0.2); Basophils % (auto) 0.7 % (0.0-2.0); Eosinophils # (auto) 0.3 10 ^3/uL (0-0.8); Hematocrit 42.2 % (41.0-53.0); Hemoglobin 14.2 g/dL (13.5-17.5); Lymphocytes # (auto) 2.4 10 ^3/uL (0.4-5.4); Lymphocytes % (auto) 30.8 % (10.0-50.0); Mean Corpuscular Hemoglobin 31.3 pg (28.0-32.0); Mean Corpuscular Hgb Conc. 33.7 g/dL (32.0-36.0); Mean Corpuscular Volume 92.9 fL (80.0-100.0); Monocytes # (auto) 0.8 10 ^3/uL (0-1.3); Neutrophils # (auto) 4.1 10 ^3/uL (1.6-8.6); Neutrophils % (auto) 53.5 % (37.0-80.0); Nucleated Red Blood Cells % 0.2 %; Red Blood Cells 4.54 10^6/uL (4.5-5.90); Red Cell Distribution Width 14.1 % (11.8-14.3); White Blood Cell 7.7 10^3/uL (4.4-10.8)
[2024-01-08 06:48] LABS: Alanine Aminotransferase 32 U/L (7-40); Albumin 3.7 g/dL (3.2-4.8); Alkaline Phosphatase 63 U/L (46-116); Anion Gap 7 (5-15); Aspartate Aminotransferase 18 U/L (13-40); BUN/Creatinine Ratio 16.2 (10.0-20.0); Bilirubin, Total 0.4 mg/dL (0.2-1.0); Blood Urea Nitrogen 25 mg/dL (9-23); Calcium 8.5 mg/dL (8.7-10.4); Carbon Dioxide 24 mmol/L (20-30); Chloride 110 mmol/L (98-107); Glucose 96 mg/dL (74-106); Potassium 3.7 mmol/L (3.5-5.1); Sodium 141 mmol/L (136-145); Total Protein 6.3 g/dL (5.7-8.2)
[2024-01-08] MEDS: DOCUSATE SOD 100 MG CAP PO SCH (09:51)
[2024-01-08] MEDS: CLOPIDOGREL BISULFATE 75 MG TAB PO SCH (09:51)
[2024-01-08] MEDS: ASPirin 81 mg TAB PO SCH (09:52)
[2024-01-08] MEDS ORDERED: NIFEdipine ER 30 MG TAB PO ONE (10:15)
[2024-01-08] MEDS: NIFEdipine ER 30 MG TAB PO ONE (10:25)
[2024-01-08] MEDS: hydrALAZINE HCL 20 MG/ML VL IV PRN (13:36)
[2024-01-08] MEDS: MORPHINE SULFATE INJ 2 MG/ml SYRG IV PRN (17:09)
[2024-01-08] MEDS: ISOSORBIDE MONONITRATE 20 MG TAB PO SCH (21:13)
[2024-01-08] MEDS: hydrALAZINE HCL 25 MG TAB PO SCH (21:14)
[2024-01-08] MEDS: CARVEDILOL 3.125 MG TAB PO SCH (21:15)
[2024-01-08] MEDS: RANOLAZINE ER 500 MG TAB PO SCH (21:15)
[2024-01-09] VITALS (8 sets, daily range): BP systolic 141–170; BP diastolic 93–124; PULSE 58–74; RESP 17–19; TEMP 97.6–98.3; O2SAT 96–99
[2024-01-09] MEDS: NIFEdipine ER 30 MG TAB PO SCH (09:09)
[2024-01-09] MEDS ORDERED: NIFEdipine ER 30 MG TAB PO SCH (10:00)
[2024-01-09 10:14] LABS: Chloride 107 mmol/L (98-107); Potassium 3.4 mmol/L (3.5-5.1); Sodium 140 mmol/L (136-145)
[2024-01-09 10:15] LABS: Anion Gap 4 (5-15); Calcium 9.1 mg/dL (8.5-10.1); Carbon Dioxide 29 mmol/L (20-30)
[2024-01-09 10:20] LABS: BUN/Creatinine Ratio 15.1 (10.0-20.0); Blood Urea Nitrogen 28 mg/dL (9-23); Glucose 136 mg/dL (74-106)
[2024-01-09 10:30] LABS: Basophils # (auto) 0.1 10 ^3/uL (0-0.2); Basophils % (auto) 0.8 % (0.0-2.0); Eosinophils # (auto) 0.3 10 ^3/uL (0-0.8); Hematocrit 44.8 % (41.0-53.0); Lymphocytes # (auto) 1.7 10 ^3/uL (0.4-5.4); Lymphocytes % (auto) 23.6 % (10.0-50.0); Mean Corpuscular Hemoglobin 31.1 pg (28.0-32.0); Mean Corpuscular Hgb Conc. 33.4 g/dL (32.0-36.0); Mean Corpuscular Volume 93.1 fL (80.0-100.0); Monocytes # (auto) 0.7 10 ^3/uL (0-1.3); Monocytes % (auto) 10.1 % (0.0-12.0); Neutrophils # (auto) 4.4 10 ^3/uL (1.6-8.6); Neutrophils % (auto) 61.5 % (37.0-80.0); Nucleated Red Blood Cells % 0.1 %; Red Blood Cells 4.81 10^6/uL (4.5-5.90); Red Cell Distribution Width 14.3 % (11.8-14.3); White Blood Cell 7.2 10^3/uL (4.4-10.8)
[2024-01-09] MEDS ORDERED: ALBUAER3 INH (13:45)
[2024-01-09] MEDS ORDERED: ALPR0.254 PO (13:48)
[2024-01-09] MEDS ORDERED: AMLO1TAB21 PO (13:49)
[2024-01-09] MEDS ORDERED: HYDR25TA87 PO (13:51)
[2024-01-09] MEDS ORDERED: ISOS10TA5 PO (13:52)
[2024-01-09] MEDS ORDERED: ZOLP5TAB5 PO (14:16)
[2024-01-09] MEDS ORDERED: BECL80AE11 INH (15:01)
[2024-01-09] MEDS ORDERED: LOSA50TA46 PO (15:01)
[2024-01-09] MEDS ORDERED: ASPI-543 PO (15:01)
[2024-01-09] MEDS ORDERED: PROP60CA34 PO (15:01)
[2024-01-09] MEDS ORDERED: TRAZ-227 PO (15:01)
[2024-01-09] MEDS ORDERED: GABA-339 PO (15:01)
[2024-01-09] MEDS ORDERED: CHOL20007 PO (15:01)
[2024-01-09] MEDS ORDERED: CARV6.2551 PO (15:01)
[2024-01-09] MEDS ORDERED: HYDR25TA4 PO (15:01)
[2024-01-09] MEDS ORDERED: CLON0.2T PO (15:01)
[2024-01-09] MEDS ORDERED: ESCI5TAB PO (15:01)
[2024-01-10] VITALS (8 sets, daily range): BP systolic 144–160; BP diastolic 89–104; PULSE 56–66; RESP 17–18; TEMP 97.5–98.3; O2SAT 97–100
[2024-01-10] MEDS: ACETAMINOPHEN 325 MG TAB PO PRN (01:53)
[2024-01-10] MEDS: NITROGLYCERIN 0.4 MG SL TAB SL PRN (02:00)
[2024-01-10 06:08] LABS: Basophils # (auto) 0.1 10 ^3/uL (0-0.2); Eosinophils # (auto) 0.2 10 ^3/uL (0-0.8); Eosinophils % (auto) 3.5 % (0.0-7.0); Hematocrit 41.8 % (41.0-53.0); Hemoglobin 14.2 g/dL (13.5-17.5); Lymphocytes # (auto) 2.1 10 ^3/uL (0.4-5.4); Lymphocytes % (auto) 30.5 % (10.0-50.0); Mean Corpuscular Hemoglobin 31.7 pg (28.0-32.0); Mean Corpuscular Volume 93.2 fL (80.0-100.0); Monocytes # (auto) 0.8 10 ^3/uL (0-1.3); Monocytes % (auto) 11.9 % (0.0-12.0); Neutrophils # (auto) 3.7 10 ^3/uL (1.6-8.6); Neutrophils % (auto) 53.1 % (37.0-80.0); Nucleated Red Blood Cells % 0.1 %; Red Blood Cells 4.48 10^6/uL (4.5-5.90); Red Cell Distribution Width 13.6 % (11.8-14.3); White Blood Cell 6.9 10^3/uL (4.4-10.8)
[2024-01-10 06:20] LABS: Anion Gap 5 (5-15); Carbon Dioxide 26 mmol/L (20-30); Chloride 109 mmol/L (98-107); Potassium 3.7 mmol/L (3.5-5.1); Sodium 140 mmol/L (136-145)
[2024-01-10 06:21] LABS: Calcium 8.8 mg/dL (8.5-10.1)
[2024-01-10 06:26] LABS: BUN/Creatinine Ratio 14.3 (10.0-20.0); Blood Urea Nitrogen 25 mg/dL (9-23); Glucose 86 mg/dL (74-106)
[2024-01-10] MEDS ORDERED: ALPR0.5T PO (10:44)
[2024-01-10] MEDS ORDERED: HYDR25TA87 PO (11:38)
[2024-01-10] MEDS ORDERED: NIFE1TAB31 PO (11:41)
== END 2024-01-10 14:09 | disposition home or self-care (01) | DRG 199 ==
LOC: ER 15:04 → EDUNIT# 15:04 → EDBD 15:04 → TELE 19:54 → TELE-CENTR 01-08 12:29
PROVIDERS: ADMIT Internal Medicine; ATTEND Internal Medicine
DX: I16.0 Hypertensive urgency (principal); N17.0 Acute kidney failure with tubular necrosis; N18.4 Chronic kidney disease, stage 4 (severe); E78.5 Hyperlipidemia, unspecified; I12.9 Hypertensive chronic kidney disease with stage 1 through stage 4 chronic kidney disease, or unspecified chronic kidney disease; F32.A Depression, unspecified; R07.89 Other chest pain; F02.84 Dementia in other diseases classified elsewhere, unspecified severity, with anxiety; R51.9 Headache, unspecified; I25.2 Old myocardial infarction; I25.10 Atherosclerotic heart disease of native coronary artery without angina pectoris; Z82.49 Family history of ischemic heart disease and other diseases of the circulatory system; Z87.891 Personal history of nicotine dependence; I69.954 Hemiplegia and hemiparesis following unspecified cerebrovascular disease affecting left non-dominant side
CPT/HCPCS: 36415; 71045; 80048; 80053; 83735; 84484; 85025; 85610; 87081; 93005; 93306; 99291; G0378

== ENCOUNTER 2024-03-04 23:05 | Inpatient (IN) | payer MEDICAID ==
[~2024-03-04] VITALS: Ht 177.8 cm; Wt 98.1 kg
[~2024-03-04 23:05] MED LIST changes: -ALBUAER3 IN; +ALPR0.254 PO; -AML5T GT; +APIX5TAB PO; +BECL80AE11 INH; +CARV6.2551 PO; +CEPH500C PO; +CHOL20007 PO; +CLON0.2T PO; +ESCI5TAB PO; +GABA-339 PO; -HYDR-4297 PO; +HYDR25TA4 PO; +HYDR25TA87 PO; -ISO20T PO; +ISOS10TA5 PO; +LOSA-534 PO; +NIFE1TAB31 PO; -NITR1SPR TL; +PROP60CA34 PO; +TRAZ-227 PO; +ZOLP5TAB5 PO
[2024-03-04 23:36] VITALS: PULSE 114; RESP 13; O2SAT 97
[2024-03-04 23:43] LABS: Basophils # (auto) 0.1 10 ^3/uL (0-0.2); Basophils % (auto) 1.3 % (0.0-2.0); Eosinophils # (auto) 0.3 10 ^3/uL (0-0.8); Eosinophils % (auto) 3.7 % (0.0-7.0); Hematocrit 41.3 % (41.0-53.0); Lymphocytes # (auto) 2.4 10 ^3/uL (0.4-5.4); Lymphocytes % (auto) 27.4 % (10.0-50.0); Mean Corpuscular Hemoglobin 30.8 pg (28.0-32.0); Mean Corpuscular Volume 90.6 fL (80.0-100.0); Monocytes # (auto) 1.1 10 ^3/uL (0-1.3); Monocytes % (auto) 12.3 % (0.0-12.0); Neutrophils # (auto) 4.9 10 ^3/uL (1.6-8.6); Neutrophils % (auto) 55.3 % (37.0-80.0); Nucleated Red Blood Cells % 0.1 %; Red Blood Cells 4.56 10^6/uL (4.5-5.90); Red Cell Distribution Width 13.9 % (11.8-14.3); White Blood Cell 8.8 10^3/uL (4.4-10.8)
[2024-03-04 23:59] LABS: Alanine Aminotransferase 40 U/L (7-40); Albumin 4.2 g/dL (3.2-4.8); Alkaline Phosphatase 91 U/L (46-116); Anion Gap 9 (5-15); Aspartate Aminotransferase 23 U/L (13-40); BUN/Creatinine Ratio 16.8 (10.0-20.0); Bilirubin, Total < 0.2 mg/dL (0.2-1.0); Blood Urea Nitrogen 28 mg/dL (9-23); Calcium 9.4 mg/dL (8.7-10.4); Carbon Dioxide 19 mmol/L (20-30); Chloride 109 mmol/L (98-107); Glucose 133 mg/dL (74-106); Potassium 3.7 mmol/L (3.5-5.1); Sodium 137 mmol/L (136-145); Total Protein 7.6 g/dL (5.7-8.2)
[2024-03-05] MEDS: KETOROLAC TROMETH 30 MG/ML 1ML VIAL IV ONE (01:46)
[2024-03-05] MEDS: ONDANSETRON HCL 4 MG/2 ML VIAL IV ONE (02:19)
[2024-03-05] MEDS: MORPHINE SULFATE 4 MG/ML SYR/VIAL IV ONE (02:20)
[2024-03-05] MEDS ORDERED: ACETAMINOPHEN 325 MG TAB PO PRN (03:15)
[2024-03-05 07:30] VITALS: PULSE 72; RESP 19; O2SAT 95
[2024-03-05] MEDS: ISOSORBIDE DINITRATE 10 MG TAB PO SCH (10:00)
[2024-03-05] MEDS: ASPirin 81 mg TAB PO SCH (10:00)
[2024-03-05] MEDS: RANOLAZINE ER 500 MG TAB PO SCH (10:00)
[2024-03-05] MEDS: LOSARTAN POTASSIUM 50 MG TAB PO SCH (10:00)
[2024-03-05] MEDS: APIXABAN 5 MG TAB PO SCH (10:00)
[2024-03-05] MEDS: amLODIPine BESYLATE 5 MG TAB PO SCH (10:00)
[2024-03-05] MEDS: CLOPIDOGREL BISULFATE 75 MG TAB PO SCH (10:25)
[2024-03-05] MEDS: CARVEDILOL 12.5 MG TAB PO SCH (10:26)
[2024-03-05 14:36] VITALS: BP 105/77; PULSE 60; RESP 18; TEMP 98.5; O2SAT 98
[2024-03-05 16:52] VITALS: BP 120/74; PULSE 80; RESP 17; TEMP 97.8; O2SAT 97
[2024-03-05 20:00] VITALS: PULSE 76
[2024-03-05] MEDS: HYDROcodone-ACET 7.5/325MG TAB PO ONE (20:15)
[2024-03-05 21:00] VITALS: BP 126/80; PULSE 68; RESP 16; O2SAT 97
[2024-03-05] MEDS: ATORVASTATIN 20 MG TAB PO SCH (21:13)
[2024-03-06 05:00] VITALS: BP 99/57; PULSE 61; RESP 19; TEMP 98.2; O2SAT 97
[2024-03-06 06:14] LABS: Basophils # (auto) 0 10 ^3/uL (0-0.2); Basophils % (auto) 0.7 % (0.0-2.0); Eosinophils # (auto) 0.3 10 ^3/uL (0-0.8); Eosinophils % (auto) 4.7 % (0.0-7.0); Hematocrit 38.1 % (41.0-53.0); Hemoglobin 12.8 g/dL (13.5-17.5); Lymphocytes # (auto) 1.6 10 ^3/uL (0.4-5.4); Lymphocytes % (auto) 27.2 % (10.0-50.0); Mean Corpuscular Hemoglobin 30.6 pg (28.0-32.0); Mean Corpuscular Hgb Conc. 33.6 g/dL (32.0-36.0); Monocytes # (auto) 0.6 10 ^3/uL (0-1.3); Neutrophils # (auto) 3.3 10 ^3/uL (1.6-8.6); Neutrophils % (auto) 56.4 % (37.0-80.0); Red Blood Cells 4.19 10^6/uL (4.5-5.90); White Blood Cell 5.8 10^3/uL (4.4-10.8)
[2024-03-06 06:21] LABS: Anion Gap 6 (5-15); Carbon Dioxide 24 mmol/L (20-30); Chloride 109 mmol/L (98-107); Potassium 3.6 mmol/L (3.5-5.1); Sodium 139 mmol/L (136-145)
[2024-03-06 06:27] LABS: BUN/Creatinine Ratio 14.9 (10.0-20.0); Blood Urea Nitrogen 30 mg/dL (9-23); Glucose 109 mg/dL (74-106)
[2024-03-06 08:00] VITALS: PULSE 61
[2024-03-06 08:52] VITALS: BP 128/87; PULSE 59; RESP 17; TEMP 98.4; O2SAT 99
[2024-03-06] MEDS: MORPHINE SULFATE INJ 2 MG/ml SYRG IV PRN (12:25)
[2024-03-06] MEDS ORDERED: ESCI20TA PO (14:13)
[2024-03-06] MEDS ORDERED: CARV25TA55 PO (14:13)
[2024-03-06] MEDS ORDERED: CLON-818 PO (14:13)
[2024-03-06] MEDS ORDERED: ISOS20TA5 PO (14:18)
[2024-03-06] MEDS ORDERED: AMLO1TAB22 PO (14:18)
[2024-03-06] MEDS ORDERED: LOSA-534 PO (14:18)
[2024-03-06] MEDS ORDERED: ALBU108A5 INH (14:20)
[2024-03-06 17:03] VITALS: BP 112/74; PULSE 66; RESP 17; TEMP 97.6; O2SAT 97
[2024-03-06 20:00] VITALS: PULSE 70; RESP 18
[2024-03-06 21:00] VITALS: BP 118/50; PULSE 65; RESP 18; TEMP 97.9; O2SAT 98
[2024-03-07] VITALS (11 sets, daily range): BP systolic 101–163; BP diastolic 54–100; PULSE 55–62; RESP 16–18; TEMP 97.6–98.7; O2SAT 97–100
[2024-03-07 06:54] LABS: Basophils # (auto) 0.1 10 ^3/uL (0-0.2); Basophils % (auto) 0.9 % (0.0-2.0); Eosinophils # (auto) 0.3 10 ^3/uL (0-0.8); Eosinophils % (auto) 4.8 % (0.0-7.0); Hematocrit 36.7 % (41.0-53.0); Hemoglobin 12.5 g/dL (13.5-17.5); Lymphocytes # (auto) 2.1 10 ^3/uL (0.4-5.4); Lymphocytes % (auto) 35.4 % (10.0-50.0); Mean Corpuscular Hemoglobin 30.7 pg (28.0-32.0); Mean Corpuscular Volume 90.4 fL (80.0-100.0); Monocytes # (auto) 0.8 10 ^3/uL (0-1.3); Monocytes % (auto) 13.1 % (0.0-12.0); Neutrophils # (auto) 2.7 10 ^3/uL (1.6-8.6); Neutrophils % (auto) 45.8 % (37.0-80.0); Red Blood Cells 4.06 10^6/uL (4.5-5.90); Red Cell Distribution Width 13.4 % (11.8-14.3); White Blood Cell 5.9 10^3/uL (4.4-10.8)
[2024-03-07 07:08] LABS: Alanine Aminotransferase 22 U/L (7-40); Alkaline Phosphatase 71 U/L (46-116); Anion Gap 7 (5-15); BUN/Creatinine Ratio 16.3 (10.0-20.0); Blood Urea Nitrogen 32 mg/dL (9-23); Calcium 8.7 mg/dL (8.5-10.1); Carbon Dioxide 24 mmol/L (20-30); Chloride 109 mmol/L (98-107); Glucose 91 mg/dL (74-106); Potassium 3.7 mmol/L (3.5-5.1); Sodium 140 mmol/L (136-145)
[2024-03-07 07:09] LABS: Albumin 3.7 g/dL (3.2-4.8); Aspartate Aminotransferase 15 U/L (13-40)
[2024-03-07 07:10] LABS: Bilirubin, Total 0.4 mg/dL (0.2-1.0); Total Protein 6.5 g/dL (5.7-8.2)
[2024-03-07] MEDS: cloNIDine HCL 0.1 MG TAB PO PRN (08:42)
[2024-03-07] MEDS: ONDANSETRON HCL 4 MG/2 ML VIAL IV PRN (08:43)
[2024-03-07] MEDS: CARVEDILOL 12.5 MG TAB PO SCH (21:24)
[2024-03-08] VITALS (9 sets, daily range): BP systolic 106–151; BP diastolic 76–101; PULSE 49–69; RESP 18–20; TEMP 98–98.5; O2SAT 93–99
[2024-03-08 06:38] LABS: Basophils # (auto) 0.1 10 ^3/uL (0-0.2); Basophils % (auto) 0.9 % (0.0-2.0); Eosinophils # (auto) 0.3 10 ^3/uL (0-0.8); Eosinophils % (auto) 4.4 % (0.0-7.0); Hematocrit 37.1 % (41.0-53.0); Hemoglobin 12.6 g/dL (13.5-17.5); Lymphocytes # (auto) 2.1 10 ^3/uL (0.4-5.4); Lymphocytes % (auto) 34.9 % (10.0-50.0); Mean Corpuscular Hemoglobin 30.9 pg (28.0-32.0); Mean Corpuscular Hgb Conc. 33.9 g/dL (32.0-36.0); Mean Corpuscular Volume 91.2 fL (80.0-100.0); Monocytes # (auto) 0.8 10 ^3/uL (0-1.3); Monocytes % (auto) 13.4 % (0.0-12.0); Neutrophils # (auto) 2.8 10 ^3/uL (1.6-8.6); Neutrophils % (auto) 46.4 % (37.0-80.0); Red Blood Cells 4.07 10^6/uL (4.5-5.90); Red Cell Distribution Width 13.6 % (11.8-14.3)
[2024-03-08 06:50] LABS: Alanine Aminotransferase 20 U/L (7-40); Albumin 3.5 g/dL (3.2-4.8); Alkaline Phosphatase 69 U/L (46-116); Anion Gap 4 (5-15); Aspartate Aminotransferase 14 U/L (13-40); BUN/Creatinine Ratio 14.5 (10.0-20.0); Bilirubin, Total 0.4 mg/dL (0.2-1.0); Blood Urea Nitrogen 27 mg/dL (9-23); Carbon Dioxide 27 mmol/L (20-30); Chloride 108 mmol/L (98-107); Glucose 89 mg/dL (74-106); Potassium 4.1 mmol/L (3.5-5.1); Sodium 139 mmol/L (136-145)
[2024-03-08 06:51] LABS: Total Protein 6.4 g/dL (5.7-8.2)
[2024-03-08] MEDS ORDERED: SACUBITRIL-VALSARTAN 24mg/26mg TAB PO ONE (17:15)
[2024-03-08] MEDS: SACUBITRIL-VALSARTAN 24mg/26mg TAB PO ONE (17:47)
[2024-03-09 01:00] VITALS: BP 152/91; PULSE 52; RESP 20; TEMP 98; O2SAT 98
[2024-03-09] MEDS ORDERED: ASPirin 81 mg TAB PO ONE (01:15)
[2024-03-09] MEDS ORDERED: MORPHINE SULFATE 4 MG/ML SYR/VIAL IV PRN (01:15)
[2024-03-09] MEDS ORDERED: NITROGLYCERIN 0.4 MG SL TAB SL PRN (01:15)
[2024-03-09 05:00] VITALS: BP 131/90; PULSE 61; RESP 18; TEMP 98.8; O2SAT 98
[2024-03-09 08:00] VITALS: BP 150/80; PULSE 53; PULSE 56; RESP 20; TEMP 97.7; O2SAT 100
[2024-03-09 08:45] VITALS: BP 150/80; PULSE 56; RESP 20; TEMP 97.7; O2SAT 100
[2024-03-09] MEDS: SACUBITRIL-VALSARTAN 24mg/26mg TAB PO SCH (09:04)
[2024-03-09] MEDS ORDERED: ASPirin 81 mg TAB PO SCH (10:00)
[2024-03-09] MEDS: CARVEDILOL 12.5 MG TAB PO SCH (10:00)
[2024-03-09 11:57] VITALS: BP 150/80; PULSE 56; RESP 20; TEMP 97.7; O2SAT 100
[2024-03-25] MEDS ORDERED: ACET500C8 PO (16:19)
[2024-03-25] MEDS ORDERED: NITR0.4S29 SL (16:19)
[2024-03-25] MEDS ORDERED: OMEG-20 PO (16:19)
[2024-03-25] MEDS ORDERED: SACU1TAB7 PO (16:19)
[2024-03-25] MEDS ORDERED: POTA8TAB38 PO (16:19)
[2024-03-25] MEDS ORDERED: ISOS20TA5 PO (16:19)
== END 2024-03-09 12:15 | disposition home or self-care (01) | DRG 199 ==
LOC: EDBD 23:05 → EDUNIT# 23:05 → ER 23:05 → OVERFLOW 03-05 03:11 → WEST WING 03-05 12:54 → TELE-WESTW 03-05 17:29
PROVIDERS: ADMIT Internal Medicine Pulmonary Disease; ATTEND Surgery
DX: I16.0 Hypertensive urgency (principal); N17.0 Acute kidney failure with tubular necrosis; R20.0 Anesthesia of skin; I13.0 Hypertensive heart and chronic kidney disease with heart failure and stage 1 through stage 4 chronic kidney disease, or unspecified chronic kidney disease; I50.32 Chronic diastolic (congestive) heart failure; R55 Syncope and collapse; R07.89 Other chest pain; M19.071 Primary osteoarthritis, right ankle and foot; R00.1 Bradycardia, unspecified; I69.354 Hemiplegia and hemiparesis following cerebral infarction affecting left non-dominant side; E78.5 Hyperlipidemia, unspecified; N18.32 Chronic kidney disease, stage 3b; F17.200 Nicotine dependence, unspecified, uncomplicated; F41.9 Anxiety disorder, unspecified; G47.30 Sleep apnea, unspecified; I25.10 Atherosclerotic heart disease of native coronary artery without angina pectoris; Z95.5 Presence of coronary angioplasty implant and graft; I25.2 Old myocardial infarction; Z82.49 Family history of ischemic heart disease and other diseases of the circulatory system; Z82.3 Family history of stroke; Z79.01 Long term (current) use of anticoagulants; Z79.82 Long term (current) use of aspirin; Z79.02 Long term (current) use of antithrombotics/antiplatelets; Z79.899 Other long term (current) drug therapy
CPT/HCPCS: 36415; 70450; 70551; 71045; 73700; 80048; 80053; 83880; 84484; 85025; 93005; 93970; 95819; 96374; 96375; G0378; J1885; J2405

== ENCOUNTER → 2024-03-17 | Outpatient (CLI) | payer MEDICAID ==
[~2024-03-17] VITALS: Ht 177.8 cm; Wt 88.5 kg
[~2024-03-17] MED LIST changes: +ACET500C8 PO; +ADENOSINE 74 MG in GIVE UN-DILUTED 0 ML IV ONE; +ADENOSINE 90 MG/30 ML INJ IV ONE; +ALBU108A5 INH; +AMLO1TAB22 PO; +CARV25TA55 PO; +CLON-818 PO; +ESCI20TA PO; +ISOS20TA5 PO; +NITR0.4S29 SL; +OMEG-20 PO; +POTA8TAB38 PO; +SACU1TAB7 PO
== END | disposition home or self-care (01) ==
LOC: Rad HDHVI 14:38
PROVIDERS: ATTEND Internal Medicine Cardiovascular Disease
DX: I11.0 Hypertensive heart disease with heart failure (principal); I50.9 Heart failure, unspecified; I25.10 Atherosclerotic heart disease of native coronary artery without angina pectoris; R07.89 Other chest pain; E78.00 Pure hypercholesterolemia, unspecified; Z82.49 Family history of ischemic heart disease and other diseases of the circulatory system
CPT/HCPCS: 78452; 93005; 96374; 96375; A9500; J0153

== ENCOUNTER → 2024-03-25 | Outpatient (CLI) | payer MEDICAID ==
[~2024-03-25] MED LIST changes: -ADENOSINE 74 MG in GIVE UN-DILUTED 0 ML IV ONE; -ADENOSINE 90 MG/30 ML INJ IV ONE; -ALPR0.254 PO; -ASPI-498 PO; -CARV6.2551 PO; -CLON0.2T PO; -ESCI5TAB PO; -ISOS10TA5 PO; -RANO500T3 PO
[2024-03-25 14:20] VITALS: BP 129/84; PULSE 88; RESP 18; O2SAT 98
[2024-03-25 14:36] VITALS: BP 127/71; PULSE 56; RESP 18; O2SAT 98
== END | disposition home or self-care (01) ==
LOC: Rad HDHVI 14:11
PROVIDERS: ATTEND Internal Medicine Cardiovascular Disease
DX: Z01.818 Encounter for other preprocedural examination (principal); R00.1 Bradycardia, unspecified
CPT/HCPCS: 71046; 93005; G0463

== ENCOUNTER 2024-04-08 01:50 | Inpatient (IN) | payer MEDICAID ==
[~2024-04-08] VITALS: Ht 182.9 cm; Wt 97.9 kg
[2024-04-08] VITALS (8 sets, daily range): BP systolic 109–142; BP diastolic 65–91; PULSE 60–72; RESP 12–20; TEMP 97.9–98.2; O2SAT 95–100
[~2024-04-08 01:50] MED LIST changes: -AMLO1TAB22 PO; -APIX5TAB PO; -ASCO10003 PO; -ATOR40TA52 PO; -CEPH500C PO; -CLON-818 PO; -ESCI20TA PO; -HYDR25TA4 PO; -HYDR25TA87 PO; -ISOS20TA5 PO; -LOSA-534 PO; -NIFE1TAB31 PO; -POTA8TAB38 PO; -PROP60CA34 PO; -TRAZ-227 PO; -ZINC220T6 PO; -ZOLP5TAB5 PO
[2024-04-08 02:07] LABS: Basophils # (auto) 0.1 10 ^3/uL (0-0.2); Basophils % (auto) 1.3 % (0.0-2.0); Eosinophils # (auto) 0.3 10 ^3/uL (0-0.8); Hematocrit 41.9 % (41.0-53.0); Hemoglobin 14.1 g/dL (13.5-17.5); Lymphocytes # (auto) 2.4 10 ^3/uL (0.4-5.4); Lymphocytes % (auto) 30.4 % (10.0-50.0); Mean Corpuscular Hemoglobin 30.8 pg (28.0-32.0); Mean Corpuscular Hgb Conc. 33.6 g/dL (32.0-36.0); Mean Corpuscular Volume 91.7 fL (80.0-100.0); Monocytes # (auto) 0.8 10 ^3/uL (0-1.3); Monocytes % (auto) 9.9 % (0.0-12.0); Neutrophils # (auto) 4.3 10 ^3/uL (1.6-8.6); Neutrophils % (auto) 54.4 % (37.0-80.0); Nucleated Red Blood Cells % 0.2 %; Red Blood Cells 4.57 10^6/uL (4.5-5.90); Red Cell Distribution Width 14.8 % (11.8-14.3); White Blood Cell 7.9 10^3/uL (4.4-10.8)
[2024-04-08 02:25] LABS: Alanine Aminotransferase 13 U/L (7-40); Albumin 3.9 g/dL (3.2-4.8); Alkaline Phosphatase 92 U/L (46-116); Anion Gap 9 (5-15); Aspartate Aminotransferase 20 U/L (13-40); Blood Urea Nitrogen 19 mg/dL (9-23); Calcium 9.1 mg/dL (8.5-10.1); Carbon Dioxide 20 mmol/L (20-30); Chloride 111 mmol/L (98-107); Glucose 146 mg/dL (74-106); Magnesium 1.9 mg/dL (1.6-2.6); Potassium 4.2 mmol/L (3.5-5.1); Sodium 140 mmol/L (136-145)
[2024-04-08 02:26] LABS: Bilirubin, Total 0.4 mg/dL (0.2-1.0)
[2024-04-08 02:27] LABS: INR 0.92 (0.9-1.15); Partial Thromboplastin Time 25.4 SEC (24.5-34.5); Prothrombin Time 9.8 sec (9.3-11.8)
[2024-04-08] MEDS ORDERED: ACETAMINOPHEN 325 MG TAB PO PRN (05:00)
[2024-04-08] MEDS ORDERED: MORPHINE SULFATE INJ 2 MG/ml SYRG IV PRN (05:00)
[2024-04-08] MEDS ORDERED: hydrALAZINE HCL 20 MG/ML VL IV PRN ×2 (05:00→10:30)
[2024-04-08] MEDS ORDERED: ONDANSETRON HCL 4 MG/2 ML VIAL IV PRN (05:00)
[2024-04-08] MEDS ORDERED: NITROGLYCERIN 0.4 MG SL TAB SL PRN (05:00)
[2024-04-08] MEDS ORDERED: APIXABAN 5 MG TAB PO SCH (10:00)
[2024-04-08] MEDS ORDERED: cloNIDine HCL 0.1 MG TAB PO SCH (10:00)
[2024-04-08] MEDS: SACUBITRIL-VALSARTAN 24mg/26mg TAB PO SCH (10:00)
[2024-04-08] MEDS: CARVEDILOL 12.5 MG TAB PO SCH (10:00)
[2024-04-08] MEDS: amLODIPine BESYLATE 5 MG TAB PO SCH (10:00)
[2024-04-08 10:59] LABS: Triglycerides 263 mg/dL (< 150)
[2024-04-08] MEDS: ASPirin 81 mg TAB PO SCH (10:59)
[2024-04-08 11:00] LABS: LDL Cholesterol 134 mg/dL (< 100)
[2024-04-08] MEDS: CLOPIDOGREL BISULFATE 75 MG TAB PO ONE (11:00)
[2024-04-08 11:01] LABS: Cholesterol 205 mg/dL (< 200); HDL Cholesterol 38 mg/dL (40-59)
[2024-04-08] MEDS: SODIUM CHLORIDE 0.9% 1,000 ML IV SCH (11:07)
[2024-04-08] MEDS: ACETYLCYSTEINE ORAL for CIN 20%(200MG/ML) 4ML PO ONE (12:29)
[2024-04-08] MEDS: IODIXANOL 320MG/ML 100ML BTL IV ONE ×2 (12:49→14:05)
[2024-04-08] MEDS: LIDOCAINE 2%HCL (LOCAL ANESTH.) INJ 20ML MDV ONE (12:49)
[2024-04-08] MEDS: VERAPAMIL 2.5MG/ML INJ 2ML VIAL IV ONE (14:04)
[2024-04-08] MEDS: fentaNYL CITRATE 100 MCG/2 ML VL ONE (14:04)
[2024-04-08] MEDS: MIDAZOLAM HCL 2MG/2ML 2ml VIAL (1mg/ml) ONE (14:05)
[2024-04-08] MEDS: HEPARIN SODIUM (PORCINE) 5000 UNITS/ML 1ML VIAL ONE (14:09)
[2024-04-08] MEDS: ATORVASTATIN 20 MG TAB PO SCH (21:28)
[2024-04-08] MEDS: ACETYLCYSTEINE ORAL for CIN 20%(200MG/ML) 4ML PO SCH (21:30)
[2024-04-09 01:00] VITALS: BP 139/86; PULSE 64; RESP 20; TEMP 97.9; O2SAT 98
[2024-04-09 02:13] LABS: Urine Bacteria None Seen /hpf (None Seen)
[2024-04-09 02:33] LABS: Amphetamine Screen, Urine Neg (NEGATIVE); Barbiturate Scree,Urine Neg (NEGATIVE); Benzodiazephine Screen, Urine Pos (NEGATIVE); Cannabinoid Screen, Urine Neg (NEGATIVE); Cocaine Screen, Urine Neg (NEGATIVE); Opiate Scree,Urine Neg (NEGATIVE); Phencyclidine Screen, Urine Neg (NEGATIVE)
[2024-04-09 03:02] LABS: Urine Blood Negative /uL (Negative); Urine Clarity Clear (Clear); Urine Color Light-Yellow (Yellow); Urine Mucus FEW (None Seen); Urine Protein, UAD Negative (Negative); Urine Specific Gravity 1.031 (1.001-1.035); Urine Urobilinogen Normal (Negative); Urine WBC <1 /hpf (0 - 3); Urine pH 5.5 (5.0-9.0)
[2024-04-09 05:00] VITALS: BP 137/69; PULSE 62; RESP 20; TEMP 97.8; O2SAT 97
[2024-04-09 07:44] LABS: Basophils # (auto) 0.1 10 ^3/uL (0-0.2); Basophils % (auto) 0.8 % (0.0-2.0); Eosinophils # (auto) 0.4 10 ^3/uL (0-0.8); Eosinophils % (auto) 5.1 % (0.0-7.0); Hematocrit 42.6 % (41.0-53.0); Hemoglobin 14.2 g/dL (13.5-17.5); Lymphocytes % (auto) 27.6 % (10.0-50.0); Mean Corpuscular Hemoglobin 30.4 pg (28.0-32.0); Mean Corpuscular Hgb Conc. 33.4 g/dL (32.0-36.0); Mean Corpuscular Volume 91.1 fL (80.0-100.0); Monocytes # (auto) 0.7 10 ^3/uL (0-1.3); Monocytes % (auto) 9.2 % (0.0-12.0); Neutrophils # (auto) 4.1 10 ^3/uL (1.6-8.6); Neutrophils % (auto) 57.3 % (37.0-80.0); Nucleated Red Blood Cells % 0.1 %; Red Blood Cells 4.68 10^6/uL (4.5-5.90); Red Cell Distribution Width 14.4 % (11.8-14.3); White Blood Cell 7.1 10^3/uL (4.4-10.8)
[2024-04-09 08:00] VITALS: BP 144/96; PULSE 60; RESP 19; TEMP 98; O2SAT 99
[2024-04-09 08:05] LABS: Alanine Aminotransferase 13 U/L (7-40); Alkaline Phosphatase 85 U/L (46-116); Anion Gap 7 (5-15); Calcium 8.9 mg/dL (8.5-10.1); Carbon Dioxide 22 mmol/L (20-30); Chloride 111 mmol/L (98-107); Glucose 95 mg/dL (74-106); Sodium 140 mmol/L (136-145)
[2024-04-09 08:06] LABS: BUN/Creatinine Ratio 9.9 (10.0-20.0); Blood Urea Nitrogen 19 mg/dL (9-23); Magnesium 1.8 mg/dL (1.6-2.6)
[2024-04-09 08:07] LABS: Albumin 3.5 g/dL (3.2-4.8); Aspartate Aminotransferase < 8 U/L (13-40)
[2024-04-09 08:08] LABS: Bilirubin, Total 0.7 mg/dL (0.2-1.0); Phosphorus 2.7 mg/dL (2.4-5.1); Total Protein 6.4 g/dL (5.7-8.2)
[2024-04-09 08:50] VITALS: BP 144/96; PULSE 60; RESP 19; TEMP 98; O2SAT 99
[2024-04-09] MEDS: CLOPIDOGREL BISULFATE 75 MG TAB PO SCH (11:24)
[2024-04-09] MEDS ORDERED: ATOR20TA50 PO (12:40)
[2024-04-09] MEDS ORDERED: ASPI-325 PO (12:40)
[2024-04-09] MEDS ORDERED: AML5T PO (12:40)
[2024-04-09] MEDS ORDERED: [UNRECOGNIZED DRUG - CODE] PO (12:40)
[2024-04-09 12:56] VITALS: BP 139/85; PULSE 60; RESP 18; TEMP 98.4; O2SAT 98
[2024-04-09] MEDS ORDERED: ATORVASTATIN 20 MG TAB PO SCH (22:00)
== END 2024-04-09 13:14 | disposition left against medical advice (07) | DRG 191 ==
LOC: EDBD 01:50 → ER 01:50 → OVERFLOW 05:03 → TELE-E-ADS 10:18 → TELE-WESTW 18:00
PROVIDERS: ADMIT Internal Medicine Pulmonary Disease; ATTEND Internal Medicine Pulmonary Disease
PROC: 4A023N7 Measurement of Cardiac Sampling and Pressure, Left Heart, Percutaneous Approach (ICD-10-PCS; principal; 2024-04-08)
PROC: B211YZZ Fluoroscopy of Multiple Coronary Arteries using Other Contrast (ICD-10-PCS; 2024-04-08)
DX: I20.0 Unstable angina (principal); N17.9 Acute kidney failure, unspecified; I13.0 Hypertensive heart and chronic kidney disease with heart failure and stage 1 through stage 4 chronic kidney disease, or unspecified chronic kidney disease; I50.9 Heart failure, unspecified; G20.A1 Parkinson's disease without dyskinesia, without mention of fluctuations; I69.354 Hemiplegia and hemiparesis following cerebral infarction affecting left non-dominant side; Z53.29 Procedure and treatment not carried out because of patient's decision for other reasons; N18.32 Chronic kidney disease, stage 3b; E78.5 Hyperlipidemia, unspecified; I16.0 Hypertensive urgency; F02.84 Dementia in other diseases classified elsewhere, unspecified severity, with anxiety; I25.2 Old myocardial infarction; Z95.0 Presence of cardiac pacemaker; Z82.49 Family history of ischemic heart disease and other diseases of the circulatory system; Z82.3 Family history of stroke; Z98.61 Coronary angioplasty status
CPT/HCPCS: 36415; 71045; 80053; 80061; 80307; 81001; 82306; 82607; 83036; 83605; 83735; 83880; 84100; 84443; 84484; 85025; 85610; 85730; 93005; 93458; 99152; 99291; G0378; J2250; Q9967

== ENCOUNTER 2024-07-27 11:47 | Inpatient (IN) | payer MEDICAID ==
[~2024-07-27] VITALS: Ht 177.8 cm; Wt 103.3 kg
[~2024-07-27 11:47] MED LIST changes: +AML5T PO; +ASPI-325 PO; +ATOR20TA50 PO; +[UNRECOGNIZED DRUG - CODE] PO
[2024-07-27 12:24] LABS: Basophils # (auto) 0 10 ^3/uL (0-0.2); Basophils % (auto) 0.7 % (0.0-2.0); Eosinophils # (auto) 0.2 10 ^3/uL (0-0.8); Eosinophils % (auto) 2.3 % (0.0-7.0); Hematocrit 42.2 % (41.0-53.0); Hemoglobin 14.9 g/dL (13.5-17.5); Lymphocytes # (auto) 1.6 10 ^3/uL (0.4-5.4); Mean Corpuscular Hemoglobin 32.9 pg (28.0-32.0); Mean Corpuscular Hgb Conc. 35.4 g/dL (32.0-36.0); Monocytes # (auto) 0.6 10 ^3/uL (0-1.3); Monocytes % (auto) 7.9 % (0.0-12.0); Neutrophils # (auto) 4.7 10 ^3/uL (1.6-8.6); Neutrophils % (auto) 66.1 % (37.0-80.0); Nucleated Red Blood Cells % 0.1 %; Platelet Count (auto) 230 10^3/uL (140-450); Red Blood Cells 4.54 10^6/uL (4.5-5.90); Red Cell Distribution Width 14.3 % (11.8-14.3); White Blood Cell 7.2 10^3/uL (4.4-10.8)
[2024-07-27 12:32] LABS: Chloride 110 mmol/L (98-107); Potassium 4.1 mmol/L (3.5-5.1); Sodium 137 mmol/L (136-145)
[2024-07-27 12:33] LABS: Anion Gap 6 (5-15); Carbon Dioxide 21 mmol/L (20-30)
[2024-07-27 12:34] LABS: Calcium 9.6 mg/dL (8.7-10.4)
[2024-07-27 12:38] LABS: BUN/Creatinine Ratio 11.8 (10.0-20.0); Blood Urea Nitrogen 22 mg/dL (9-23); Glucose 96 mg/dL (74-106)
[2024-07-27 16:42] VITALS: PULSE 62; RESP 19; O2SAT 98
[2024-07-27] MEDS ORDERED: MECLIZINE HCL 25 MG TAB PO PRN (19:30)
[2024-07-27] MEDS ORDERED: ACETAMINOPHEN 325 MG TAB PO PRN (19:30)
[2024-07-27] MEDS ORDERED: HYDROcodone-ACET 5/325MG TAB PO PRN (19:30)
[2024-07-27] MEDS ORDERED: DOCUSATE SOD 100 MG CAP PO PRN (19:30)
[2024-07-27] MEDS ORDERED: NITROGLYCERIN 0.4 MG SL TAB SL PRN (20:00)
[2024-07-27] MEDS: CARVEDILOL 3.125 MG TAB PO SCH (22:00)
[2024-07-27] MEDS: SODIUM CHLORIDE 0.9% 1,000 ML IV SCH (22:27)
[2024-07-27] MEDS: ATORVASTATIN 20 MG TAB PO SCH (22:27)
[2024-07-28] MEDS: ONDANSETRON HCL 4 MG/2 ML VIAL IV PRN (02:07)
[2024-07-28] MEDS: MORPHINE SULFATE INJ 2 MG/ml SYRG IV PRN (02:08)
[2024-07-28 05:06] LABS: Basophils # (auto) 0 10 ^3/uL (0-0.2); Basophils % (auto) 0.7 % (0.0-2.0); Eosinophils # (auto) 0.2 10 ^3/uL (0-0.8); Eosinophils % (auto) 3.8 % (0.0-7.0); Hematocrit 39.5 % (41.0-53.0); Hemoglobin 13.7 g/dL (13.5-17.5); Mean Corpuscular Hemoglobin 32.3 pg (28.0-32.0); Mean Corpuscular Hgb Conc. 34.6 g/dL (32.0-36.0); Mean Corpuscular Volume 93.5 fL (80.0-100.0); Monocytes # (auto) 0.8 10 ^3/uL (0-1.3); Monocytes % (auto) 13.6 % (0.0-12.0); Neutrophils % (auto) 48.9 % (37.0-80.0); Platelet Count (auto) 216 10^3/uL (140-450); Red Blood Cells 4.23 10^6/uL (4.5-5.90); Red Cell Distribution Width 14.4 % (11.8-14.3); White Blood Cell 6.2 10^3/uL (4.4-10.8)
[2024-07-28 05:16] LABS: Alanine Aminotransferase 20 U/L (7-40); Alkaline Phosphatase 66 U/L (46-116); Anion Gap 5 (5-15); Aspartate Aminotransferase 14 U/L (13-40); BUN/Creatinine Ratio 15.4 (10.0-20.0); Blood Urea Nitrogen 27 mg/dL (9-23); Calcium 8.5 mg/dL (8.7-10.4); Carbon Dioxide 23 mmol/L (20-30); Chloride 113 mmol/L (98-107); Glucose 73 mg/dL (74-106); Potassium 4.1 mmol/L (3.5-5.1); Sodium 141 mmol/L (136-145)
[2024-07-28 05:17] LABS: Bilirubin, Total 0.6 mg/dL (0.2-1.0); Total Protein 6.6 g/dL (5.7-8.2)
[2024-07-28 08:45] VITALS: PULSE 61; RESP 14; O2SAT 95
[2024-07-28] MEDS: FAMOTIDINE (10MG/ML) 2ML VL IV SCH (09:46)
[2024-07-28] MEDS: CLOPIDOGREL BISULFATE 75 MG TAB PO SCH (09:46)
[2024-07-28] MEDS: ASPirin 81 mg TAB PO SCH (09:47)
[2024-07-28 11:30] LABS: Urine Bacteria None Seen /hpf (None Seen)
[2024-07-28 11:53] LABS: Urine Blood Negative /uL (Negative); Urine Clarity Clear (Clear); Urine Color Light-Yellow (Yellow); Urine Protein, UAD Negative (Negative); Urine Specific Gravity 1.012 (1.001-1.035); Urine Urobilinogen Normal (Negative); Urine WBC <1 /hpf (0 - 3)
[2024-07-28 20:00] VITALS: PULSE 70
[2024-07-28 21:50] VITALS: BP 140/98; PULSE 68; RESP 16; TEMP 98.6; O2SAT 99
[2024-07-28 21:53] VITALS: PULSE 88; RESP 14; O2SAT 98
[2024-07-28] MEDS ORDERED: CARV6.2551 PO (22:29)
[2024-07-28] MEDS ORDERED: ATOR40TA52 PO (22:29)
[2024-07-28 22:30] VITALS: BP 140/98; PULSE 68; RESP 14; TEMP 98.6; O2SAT 99
[2024-07-29] VITALS (8 sets, daily range): BP systolic 120–143; BP diastolic 60–90; PULSE 60–91; RESP 19–20; TEMP 97.7–98.5; O2SAT 96–99
[2024-07-29 09:23] LABS: Chloride 113 mmol/L (98-107); Potassium 3.8 mmol/L (3.5-5.1); Sodium 141 mmol/L (136-145)
[2024-07-29 09:24] LABS: Anion Gap 5 (5-15); Carbon Dioxide 23 mmol/L (20-30)
[2024-07-29 09:25] LABS: Calcium 8.7 mg/dL (8.7-10.4)
[2024-07-29 09:30] LABS: Blood Urea Nitrogen 23 mg/dL (9-23); Glucose 101 mg/dL (74-106)
[2024-07-30] VITALS (11 sets, daily range): BP systolic 96–166; BP diastolic 72–107; PULSE 60–74; RESP 18–20; TEMP 97.7–98.9; O2SAT 94–99
[2024-07-30 11:40] LABS: Amphetamine Screen, Urine Neg (NEGATIVE); Barbiturate Scree,Urine Neg (NEGATIVE); Benzodiazephine Screen, Urine Neg (NEGATIVE); Cannabinoid Screen, Urine Neg (NEGATIVE); Cocaine Screen, Urine Neg (NEGATIVE); Opiate Scree,Urine Neg (NEGATIVE); Phencyclidine Screen, Urine Neg (NEGATIVE)
[2024-07-30 16:27] LABS: Chloride 108 mmol/L (98-107); Potassium 4.1 mmol/L (3.5-5.1); Sodium 139 mmol/L (136-145)
[2024-07-30 16:28] LABS: Anion Gap 8 (5-15); Carbon Dioxide 23 mmol/L (20-30)
[2024-07-30] MEDS ORDERED: hydrALAZINE HCL 20 MG/ML VL IV PRN (16:30)
[2024-07-30 16:33] LABS: BUN/Creatinine Ratio 12.4 (10.0-20.0); Blood Urea Nitrogen 23 mg/dL (9-23); Glucose 96 mg/dL (74-106)
[2024-07-31 01:00] VITALS: BP 140/83; PULSE 61; RESP 19; TEMP 97.6; O2SAT 98
[2024-07-31 05:00] VITALS: BP 133/80; PULSE 69; RESP 22; TEMP 98.1; O2SAT 99
[2024-07-31 06:43] LABS: Anion Gap 6 (5-15); Carbon Dioxide 24 mmol/L (20-30); Chloride 110 mmol/L (98-107); Sodium 140 mmol/L (136-145)
[2024-07-31 06:45] LABS: Calcium 9.3 mg/dL (8.7-10.4)
[2024-07-31 06:49] LABS: BUN/Creatinine Ratio 16.3 (10.0-20.0); Blood Urea Nitrogen 31 mg/dL (9-23); Glucose 95 mg/dL (74-106)
[2024-07-31 08:00] VITALS: PULSE 60; PULSE 71; RESP 16; O2SAT 97
[2024-07-31 09:19] VITALS: BP 149/76; PULSE 71; RESP 16; TEMP 98.3; O2SAT 97
[2024-07-31] MEDS ORDERED: CARVEDILOL 3.125 MG TAB PO ONE (11:15)
[2024-07-31 12:03] VITALS: BP 149/76; PULSE 71
[2024-07-31] MEDS ORDERED: CARVEDILOL 3.125 MG TAB PO SCH (22:00)
== END 2024-07-31 15:06 | disposition home or self-care (01) | DRG 58 ==
LOC: EDBD 11:47 → ER 11:47 → TELE 19:52 → TELE-WESTW 07-28 21:48
PROVIDERS: ADMIT Nurse Practitioner Family; ATTEND Internal Medicine Geriatric Medicine
DX: G47.19 Other hypersomnia (principal); N17.9 Acute kidney failure, unspecified; I69.354 Hemiplegia and hemiparesis following cerebral infarction affecting left non-dominant side; I12.9 Hypertensive chronic kidney disease with stage 1 through stage 4 chronic kidney disease, or unspecified chronic kidney disease; N18.32 Chronic kidney disease, stage 3b; I25.10 Atherosclerotic heart disease of native coronary artery without angina pectoris; F41.9 Anxiety disorder, unspecified; F17.200 Nicotine dependence, unspecified, uncomplicated; G47.30 Sleep apnea, unspecified; E78.5 Hyperlipidemia, unspecified; I73.9 Peripheral vascular disease, unspecified; Z98.61 Coronary angioplasty status; Z82.3 Family history of stroke; Z82.49 Family history of ischemic heart disease and other diseases of the circulatory system; I25.2 Old myocardial infarction; Z79.82 Long term (current) use of aspirin; Z79.02 Long term (current) use of antithrombotics/antiplatelets; Z79.899 Other long term (current) drug therapy; Z95.0 Presence of cardiac pacemaker
CPT/HCPCS: 36415; 70450; 70551; 71045; 80048; 80053; 80307; 81001; 83036; 84484; 85025; 87081; 93005; 93886; 95819; G0378; J2405; J3490

== ENCOUNTER 2024-08-19 11:21 | Inpatient (IN) | payer MEDICAID ==
[~2024-08-19] VITALS: Ht 175.3 cm; Wt 98.7 kg
[~2024-08-19 11:21] MED LIST changes: -ACET500C8 PO; -AML5T PO; -ASPI-325 PO; -ATOR20TA50 PO; +ATOR40TA52 PO; -CARV25TA55 PO; +CARV6.2551 PO; -CHOL20007 PO; -GABA-339 PO; -NITR0.4S29 SL; -OMEG-20 PO; -[UNRECOGNIZED DRUG - CODE] PO
[2024-08-19 11:46] VITALS: PULSE 64; RESP 18; O2SAT 96
[2024-08-19] MEDS: SODIUM CHLORIDE 0.9% 1,000 ML IV ONE ×2 (12:00→16:45)
[2024-08-19] MEDS: MORPHINE SULFATE INJ 2 MG/ml SYRG IV ONE ×2 (12:03→16:45)
[2024-08-19 12:06] LABS: Basophils # (auto) 0.1 10 ^3/uL (0-0.2); Basophils % (auto) 0.9 % (0.0-2.0); Eosinophils # (auto) 0.1 10 ^3/uL (0-0.8); Eosinophils % (auto) 2.4 % (0.0-7.0); Hematocrit 39.7 % (41.0-53.0); Hemoglobin 13.9 g/dL (13.5-17.5); Lymphocytes # (auto) 1.4 10 ^3/uL (0.4-5.4); Lymphocytes % (auto) 23.1 % (10.0-50.0); Mean Corpuscular Hemoglobin 32.4 pg (28.0-32.0); Mean Corpuscular Volume 92.5 fL (80.0-100.0); Monocytes # (auto) 0.6 10 ^3/uL (0-1.3); Monocytes % (auto) 9.1 % (0.0-12.0); Neutrophils % (auto) 64.5 % (37.0-80.0); Platelet Count (auto) 260 10^3/uL (140-450); Red Blood Cells 4.29 10^6/uL (4.5-5.90); Red Cell Distribution Width 14.5 % (11.8-14.3); White Blood Cell 6.2 10^3/uL (4.4-10.8)
[2024-08-19 12:20] LABS: Alanine Aminotransferase 27 U/L (7-40); Alkaline Phosphatase 77 U/L (46-116); Anion Gap 8 (5-15); Aspartate Aminotransferase 15 U/L (13-40); BUN/Creatinine Ratio 10.6 (10.0-20.0); Bilirubin, Total 0.7 mg/dL (0.2-1.0); Blood Urea Nitrogen 19 mg/dL (9-23); Carbon Dioxide 21 mmol/L (20-30); Chloride 111 mmol/L (98-107); Glucose 162 mg/dL (74-106); Potassium 3.5 mmol/L (3.5-5.1); Sodium 140 mmol/L (136-145); Total Protein 6.7 g/dL (5.7-8.2)
[2024-08-19] MEDS ORDERED: ACETAMINOPHEN 325 MG TAB PO PRN ×2 (14:00→23:00)
[2024-08-19] MEDS ORDERED: ALPRAZolam 0.5 MG TAB PO PRN ×2 (14:00→16:30)
[2024-08-19] MEDS ORDERED: ONDANSETRON HCL 4 MG/2 ML VIAL IV PRN ×2 (14:00→23:00)
[2024-08-19] MEDS ORDERED: NITROGLYCERIN 0.4 MG SL TAB SL PRN ×2 (14:00→23:00)
[2024-08-19 14:30] LABS: INR 0.99 (0.9-1.15); Prothrombin Time 10.5 sec (9.3-11.8)
[2024-08-19] MEDS: FUROSEMIDE 20 MG/2 ML VIAL IV ONE (14:47)
[2024-08-19 15:10] LABS: Urine Bacteria None Seen /hpf (None Seen); Urine WBC None Seen /hpf (0 - 3)
[2024-08-19 15:42] LABS: Urine Blood Negative /uL (Negative); Urine Clarity Clear (Clear); Urine Color Light-Yellow (Yellow); Urine Protein, UAD Negative (Negative); Urine Specific Gravity 1.011 (1.001-1.035); Urine Urobilinogen Normal (Negative); Urine pH 5.5 (5.0-9.0)
[2024-08-19] MEDS: NITROGLYCERIN 0.4 MG SL TAB SL PRN (16:25)
[2024-08-19] MEDS: ATORVASTATIN 20 MG TAB PO SCH (16:33)
[2024-08-19] MEDS: CARVEDILOL 3.125 MG TAB PO SCH ×2 (16:34→23:00)
[2024-08-19 18:02] VITALS: BP 167/91; PULSE 60; RESP 18; TEMP 97.9; O2SAT 96; O2SAT 97
[2024-08-19] MEDS: FUROSEMIDE 20 MG/2 ML VIAL IV SCH (19:04)
[2024-08-19 20:00] VITALS: PULSE 62
[2024-08-19 21:00] VITALS: BP 158/98; PULSE 61; RESP 20; TEMP 98.3; O2SAT 99
[2024-08-19] MEDS ORDERED: Sacubitril-Valsartan (Entresto 49-51 mg) 1 TAB PO SCH ×2 (22:00)
[2024-08-19] MEDS ORDERED: CARVEDILOL 3.125 MG TAB PO SCH (22:00)
[2024-08-19] MEDS: Sacubitril-Valsartan (Entresto 49-51 mg) 1 TAB PO SCH (23:00)
[2024-08-20] VITALS (8 sets, daily range): BP systolic 126–173; BP diastolic 90–113; PULSE 59–92; RESP 18–20; TEMP 97.7–98.3; O2SAT 97–99
[2024-08-20] MEDS: MORPHINE SULFATE INJ 2 MG/ml SYRG IV PRN (02:11)
[2024-08-20] MEDS: cloNIDine HCL 0.1 MG TAB PO ONE (02:45)
[2024-08-20] MEDS: CARVEDILOL 3.125 MG TAB PO ONE (03:00)
[2024-08-20 06:43] LABS: Alanine Aminotransferase 21 U/L (7-40); Albumin 4.1 g/dL (3.2-4.8); Alkaline Phosphatase 81 U/L (46-116); Anion Gap 8 (5-15); Aspartate Aminotransferase 13 U/L (13-40); BUN/Creatinine Ratio 10.3 (10.0-20.0); Blood Urea Nitrogen 18 mg/dL (9-23); Calcium 9.1 mg/dL (8.7-10.4); Carbon Dioxide 24 mmol/L (20-30); Chloride 110 mmol/L (98-107); Cholesterol 125 mg/dL (< 200); Glucose 105 mg/dL (74-106); LDL Cholesterol 72 mg/dL (< 100); Potassium 3.3 mmol/L (3.5-5.1); Sodium 142 mmol/L (136-145); Triglycerides 134 mg/dL (< 150)
[2024-08-20 06:44] LABS: Bilirubin, Total 0.9 mg/dL (0.2-1.0); HDL Cholesterol 31 mg/dL (40-59)
[2024-08-20] MEDS: FUROSEMIDE 20 MG/2 ML VIAL IV SCH (06:51)
[2024-08-20 07:03] LABS: Basophils # (auto) 0.1 10 ^3/uL (0-0.2); Basophils % (auto) 0.7 % (0.0-2.0); Eosinophils # (auto) 0.2 10 ^3/uL (0-0.8); Eosinophils % (auto) 2.9 % (0.0-7.0); Hematocrit 43.8 % (41.0-53.0); Lymphocytes % (auto) 28.2 % (10.0-50.0); Mean Corpuscular Hemoglobin 32.3 pg (28.0-32.0); Mean Corpuscular Hgb Conc. 34.3 g/dL (32.0-36.0); Mean Corpuscular Volume 94.3 fL (80.0-100.0); Monocytes # (auto) 0.9 10 ^3/uL (0-1.3); Monocytes % (auto) 12.4 % (0.0-12.0); Neutrophils % (auto) 55.8 % (37.0-80.0); Nucleated Red Blood Cells % 0.2 %; Platelet Count (auto) 247 10^3/uL (140-450); Red Blood Cells 4.64 10^6/uL (4.5-5.90); Red Cell Distribution Width 14.5 % (11.8-14.3); White Blood Cell 7.2 10^3/uL (4.4-10.8)
[2024-08-20] MEDS: FUROSEMIDE 20 MG/2 ML VIAL ONE (08:00)
[2024-08-20] MEDS: ALPRAZolam 0.5 MG TAB PO PRN (09:16)
[2024-08-20] MEDS: ASPirin 81 mg TAB PO SCH (09:16)
[2024-08-20] MEDS: DOCUSATE SOD 100 MG CAP PO SCH (09:16)
[2024-08-20] MEDS: CLOPIDOGREL BISULFATE 75 MG TAB PO SCH (09:16)
[2024-08-20] MEDS: PATIENTS OWN MEDICATION (Atorvastatin Calcium 1 TAB) PO SCH (10:00)
[2024-08-20] MEDS ORDERED: CLOPIDOGREL BISULFATE 75 MG TAB PO SCH ×2 (10:00)
[2024-08-20] MEDS ORDERED: ASPirin 81 mg TAB PO SCH ×2 (10:00)
[2024-08-20] MEDS ORDERED: PATIENTS OWN MEDICATION (Atorvastatin Calcium 1 TAB) PO SCH ×2 (10:00)
[2024-08-20] MEDS ORDERED: DOCUSATE SOD 100 MG CAP PO SCH (10:00)
[2024-08-20] MEDS ORDERED: Sacubitril-Valsartan (Entresto 49-51 mg) 1 TAB PO SCH (10:00)
[2024-08-20] MEDS: POTASSIUM CHL 20 Meq TABLET PO ONE (11:15)
[2024-08-21 01:00] VITALS: BP 142/104; PULSE 86; RESP 20; TEMP 98.5; O2SAT 97
[2024-08-21 06:56] VITALS: BP 155/98; PULSE 77; RESP 18; TEMP 98.4; O2SAT 96
[2024-08-21 08:00] VITALS: PULSE 72
[2024-08-21 09:00] VITALS: BP 148/104; PULSE 74; RESP 15; TEMP 98.2; O2SAT 92
[2024-08-21 11:14] LABS: Chloride 105 mmol/L (98-107); Potassium 3.4 mmol/L (3.5-5.1)
[2024-08-21 11:15] LABS: Anion Gap 7 (5-15); Calcium 9.4 mg/dL (8.7-10.4); Carbon Dioxide 24 mmol/L (20-30)
[2024-08-21 11:16] LABS: Sodium 136 mmol/L (136-145)
[2024-08-21 11:20] LABS: BUN/Creatinine Ratio 12.6 (10.0-20.0); Blood Urea Nitrogen 23 mg/dL (9-23); Glucose 122 mg/dL (74-106)
[2024-08-21] MEDS ORDERED: TRAM-626 PO (12:08)
[2024-08-21] MEDS: POTASSIUM CHL 20 Meq TABLET PO ONE (12:15)
[2024-08-21 12:50] VITALS: BP 138/104; PULSE 105; RESP 15; TEMP 96.6; O2SAT 92
== END 2024-08-21 16:00 | disposition home or self-care (01) | DRG 198 ==
LOC: EDBD 11:21 → ER 11:21 → TELE-E-ADS 14:02 → ER 15:28 → TELE-EAST 08-20 03:20
PROVIDERS: ADMIT Nurse Practitioner Family; ATTEND Internal Medicine Geriatric Medicine
DX: R07.89 Other chest pain (principal); I25.10 Atherosclerotic heart disease of native coronary artery without angina pectoris; I69.354 Hemiplegia and hemiparesis following cerebral infarction affecting left non-dominant side; I12.9 Hypertensive chronic kidney disease with stage 1 through stage 4 chronic kidney disease, or unspecified chronic kidney disease; E78.5 Hyperlipidemia, unspecified; F41.9 Anxiety disorder, unspecified; G47.30 Sleep apnea, unspecified; N18.9 Chronic kidney disease, unspecified; E87.6 Hypokalemia; I25.2 Old myocardial infarction; Z95.0 Presence of cardiac pacemaker; Z79.82 Long term (current) use of aspirin; Z79.02 Long term (current) use of antithrombotics/antiplatelets; Z95.5 Presence of coronary angioplasty implant and graft
CPT/HCPCS: 36415; 71045; 80048; 80053; 80061; 81001; 83735; 84484; 85025; 85610; 93005; G0378

== ENCOUNTER 2024-08-22 14:43 | Inpatient (IN) | payer MEDICAID ==
[~2024-08-22] VITALS: Ht 177.8 cm; Wt 101.0 kg
[~2024-08-22 14:43] MED LIST changes: +TRAM-626 PO
[2024-08-22 15:00] VITALS: PULSE 76; RESP 17; O2SAT 97
[2024-08-22] MEDS: SODIUM CHLORIDE 0.9% 1,000 ML IV ONE ×2 (15:22→16:07)
[2024-08-22 16:00] LABS: Basophils # (auto) 0 10 ^3/uL (0-0.2); Basophils % (auto) 0.2 % (0.0-2.0); Eosinophils # (auto) 0 10 ^3/uL (0-0.8); Eosinophils % (auto) 0.3 % (0.0-7.0); Hematocrit 45.6 % (41.0-53.0); Hemoglobin 15.6 g/dL (13.5-17.5); Lymphocytes # (auto) 1.1 10 ^3/uL (0.4-5.4); Lymphocytes % (auto) 9.2 % (10.0-50.0); Mean Corpuscular Hemoglobin 31.9 pg (28.0-32.0); Mean Corpuscular Hgb Conc. 34.2 g/dL (32.0-36.0); Mean Corpuscular Volume 93.1 fL (80.0-100.0); Monocytes # (auto) 0.9 10 ^3/uL (0-1.3); Monocytes % (auto) 7.5 % (0.0-12.0); Neutrophils # (auto) 10.2 10 ^3/uL (1.6-8.6); Neutrophils % (auto) 82.8 % (37.0-80.0); Nucleated Red Blood Cells % 0.1 %; Platelet Count (auto) 265 10^3/uL (140-450); Red Blood Cells 4.89 10^6/uL (4.5-5.90); Red Cell Distribution Width 14.3 % (11.8-14.3); White Blood Cell 12.3 10^3/uL (4.4-10.8)
[2024-08-22] MEDS: IOHEXOL 350 MG/ML 100ML IJ ONE (16:02)
[2024-08-22] MEDS: ONDANSETRON HCL 4 MG/2 ML VIAL IV ONE (16:06)
[2024-08-22] MEDS: MORPHINE SULFATE 4 MG/ML SYR/VIAL IV ONE (16:07)
[2024-08-22 16:12] LABS: Alanine Aminotransferase 16 U/L (7-40); Alkaline Phosphatase 77 U/L (46-116)
[2024-08-22 16:13] LABS: Albumin 3.7 g/dL (3.2-4.8); Anion Gap 8 (5-15); Aspartate Aminotransferase 12 U/L (13-40); BUN/Creatinine Ratio 11.9 (10.0-20.0); Bilirubin, Total < 0.2 mg/dL (0.2-1.0); Blood Urea Nitrogen 28 mg/dL (9-23); Calcium 8.7 mg/dL (8.7-10.4); Carbon Dioxide 20 mmol/L (20-30); Chloride 110 mmol/L (98-107); Glucose 171 mg/dL (74-106); Magnesium 1.9 mg/dL (1.6-2.6); Potassium 3.9 mmol/L (3.5-5.1); Sodium 138 mmol/L (136-145); Total Protein 6.5 g/dL (5.7-8.2)
[2024-08-22] MEDS: NOREPINEPHRINE 8 MG/250ML KIT 250 ML IV ONE (16:19)
[2024-08-22 16:20] LABS: INR 1.06 (0.9-1.15); Partial Thromboplastin Time 25.8 SEC (24.5-34.5); Prothrombin Time 11.2 sec (9.3-11.8)
[2024-08-22] MEDS: NOREPINEPHRINE 8 MG/250ML KIT 250 ML IV SCH (16:24)
[2024-08-22] MEDS ORDERED: DOCUSATE SOD 100 MG CAP PO PRN (23:30)
[2024-08-22] MEDS ORDERED: ACETAMINOPHEN 325 MG TAB PO PRN (23:30)
[2024-08-22] MEDS ORDERED: HYDROcodone-ACET 5/325MG TAB PO PRN (23:30)
[2024-08-22 23:31] LABS: Urine Bacteria None Seen /hpf (None Seen)
[2024-08-22 23:42] LABS: Urine Blood Negative /uL (Negative); Urine Clarity Clear (Clear); Urine Color Light-Yellow (Yellow); Urine Protein, UAD Negative (Negative); Urine Specific Gravity 1.013 (1.001-1.035); Urine Urobilinogen Normal (Negative); Urine WBC 1 /hpf (0 - 3)
[2024-08-22] MEDS ORDERED: NITROGLYCERIN 0.4 MG SL TAB SL PRN (23:45)
[2024-08-22] MEDS: SODIUM CHLORIDE 0.9% 1,000 ML IV SCH (23:49)
[2024-08-22] MEDS: cefTRIAXone 1GM/50ML D5W 50 ML IV ONE (23:49)
[2024-08-22 23:57] LABS: Amphetamine Screen, Urine Neg (NEGATIVE); Barbiturate Scree,Urine Neg (NEGATIVE); Benzodiazephine Screen, Urine Pos (NEGATIVE); Cannabinoid Screen, Urine Neg (NEGATIVE); Cocaine Screen, Urine Neg (NEGATIVE); Opiate Scree,Urine Neg (NEGATIVE); Phencyclidine Screen, Urine Neg (NEGATIVE)
[2024-08-23] MEDS: MORPHINE SULFATE INJ 2 MG/ml SYRG IV PRN (00:42)
[2024-08-23] MEDS: ONDANSETRON HCL 4 MG/2 ML VIAL IV PRN (01:29)
[2024-08-23 08:00] VITALS: PULSE 87; RESP 12; O2SAT 97
[2024-08-23] MEDS: cefTRIAXone 1GM/50ML D5W 50 ML IV SCH (09:12)
[2024-08-23] MEDS: ASPirin 81 mg TAB PO SCH (10:00)
[2024-08-23] MEDS: SODIUM CHLORIDE 0.9% 1,000 ML IV SCH (11:30)
[2024-08-23 12:06] LABS: Basophils # (auto) 0.1 10 ^3/uL (0-0.2); Basophils % (auto) 0.6 % (0.0-2.0); Eosinophils # (auto) 0.2 10 ^3/uL (0-0.8); Eosinophils % (auto) 1.7 % (0.0-7.0); Hematocrit 42.8 % (41.0-53.0); Hemoglobin 14.8 g/dL (13.5-17.5); Lymphocytes # (auto) 1.6 10 ^3/uL (0.4-5.4); Lymphocytes % (auto) 16.1 % (10.0-50.0); Mean Corpuscular Hemoglobin 32.2 pg (28.0-32.0); Mean Corpuscular Hgb Conc. 34.6 g/dL (32.0-36.0); Mean Corpuscular Volume 92.9 fL (80.0-100.0); Monocytes # (auto) 1.6 10 ^3/uL (0-1.3); Monocytes % (auto) 15.8 % (0.0-12.0); Neutrophils # (auto) 6.6 10 ^3/uL (1.6-8.6); Neutrophils % (auto) 65.8 % (37.0-80.0); Nucleated Red Blood Cells % 0.2 %; Platelet Count (auto) 253 10^3/uL (140-450); Red Blood Cells 4.61 10^6/uL (4.5-5.90); Red Cell Distribution Width 14.6 % (11.8-14.3); White Blood Cell 10.1 10^3/uL (4.4-10.8)
[2024-08-23 12:26] LABS: Albumin 3.9 g/dL (3.2-4.8); Alkaline Phosphatase 74 U/L (46-116); Anion Gap 10 (5-15); Aspartate Aminotransferase 13 U/L (13-40); BUN/Creatinine Ratio 10.1 (10.0-20.0); Blood Urea Nitrogen 22 mg/dL (9-23); Calcium 8.8 mg/dL (8.7-10.4); Carbon Dioxide 20 mmol/L (20-30); Chloride 109 mmol/L (98-107); Glucose 166 mg/dL (74-106); Magnesium 1.7 mg/dL (1.6-2.6); Phosphorus 1.9 mg/dL (2.4-5.1); Potassium 3.1 mmol/L (3.5-5.1); Sodium 139 mmol/L (136-145)
[2024-08-23 12:27] LABS: Bilirubin, Total 0.3 mg/dL (0.2-1.0); Total Protein 6.7 g/dL (5.7-8.2)
[2024-08-23 12:46] LABS: Alanine Aminotransferase 15 U/L (7-40)
[2024-08-23] MEDS: POTASSIUM CHL 20MEQ/100ML 100 ML IV ONE (15:00)
[2024-08-23] MEDS: ATORVASTATIN 20 MG TAB PO SCH (22:03)
[2024-08-24] VITALS (7 sets, daily range): BP systolic 114–124; BP diastolic 61–78; PULSE 76–96; RESP 14–17; TEMP 98–99.4; O2SAT 94–98
[2024-08-24] MEDS: traMADol HCL 50 MG TAB PO ONE (00:48)
[2024-08-24 05:17] LABS: Basophils # (auto) 0 10 ^3/uL (0-0.2); Basophils % (auto) 0.4 % (0.0-2.0); Eosinophils # (auto) 0.1 10 ^3/uL (0-0.8); Eosinophils % (auto) 0.9 % (0.0-7.0); Hematocrit 41.8 % (41.0-53.0); Hemoglobin 14.6 g/dL (13.5-17.5); Lymphocytes # (auto) 1.3 10 ^3/uL (0.4-5.4); Lymphocytes % (auto) 12.2 % (10.0-50.0); Mean Corpuscular Hgb Conc. 34.9 g/dL (32.0-36.0); Mean Corpuscular Volume 94.6 fL (80.0-100.0); Monocytes # (auto) 1.6 10 ^3/uL (0-1.3); Monocytes % (auto) 14.7 % (0.0-12.0); Neutrophils # (auto) 7.9 10 ^3/uL (1.6-8.6); Neutrophils % (auto) 71.8 % (37.0-80.0); Platelet Count (auto) 213 10^3/uL (140-450); Red Blood Cells 4.42 10^6/uL (4.5-5.90); Red Cell Distribution Width 14.5 % (11.8-14.3)
[2024-08-24 05:32] LABS: Alanine Aminotransferase 13 U/L (7-40); Albumin 3.7 g/dL (3.2-4.8); Alkaline Phosphatase 68 U/L (46-116); Anion Gap 8 (5-15); Aspartate Aminotransferase 12 U/L (13-40); BUN/Creatinine Ratio 8.1 (10.0-20.0); Blood Urea Nitrogen 16 mg/dL (9-23); Calcium 8.7 mg/dL (8.7-10.4); Carbon Dioxide 21 mmol/L (20-30); Chloride 110 mmol/L (98-107); Glucose 124 mg/dL (74-106); Magnesium 1.6 mg/dL (1.6-2.6); Potassium 3.3 mmol/L (3.5-5.1); Sodium 139 mmol/L (136-145); Total Protein 6.5 g/dL (5.7-8.2); Uric Acid 9.9 mg/dL (3.7-9.2)
[2024-08-24] MEDS: NAPROXEN 500 MG TAB PO PRN (12:58)
[2024-08-25] VITALS (10 sets, daily range): BP systolic 108–152; BP diastolic 58–109; PULSE 55–82; RESP 16–20; TEMP 97.9–98.6; O2SAT 94–98
[2024-08-26] VITALS (8 sets, daily range): BP systolic 114–151; BP diastolic 70–100; PULSE 60–97; RESP 16–24; TEMP 97.8–98.2; O2SAT 95–99
== END 2024-08-26 18:00 | disposition home or self-care (01) | DRG 720 ==
LOC: EDBD 14:43 → EDUNIT# 14:43 → ER 14:43 → OVERFLOW 23:45 → TELE-WESTW 08-24 09:30 → TELE-CENTR 08-25 21:20
PROVIDERS: ADMIT Nurse Practitioner Family; ATTEND Internal Medicine
DX: A41.9 Sepsis, unspecified organism (principal); J96.01 Acute respiratory failure with hypoxia; N17.0 Acute kidney failure with tubular necrosis; E11.22 Type 2 diabetes mellitus with diabetic chronic kidney disease; I95.9 Hypotension, unspecified; D72.829 Elevated white blood cell count, unspecified; N18.4 Chronic kidney disease, stage 4 (severe); E11.65 Type 2 diabetes mellitus with hyperglycemia; E87.6 Hypokalemia; I20.81 Angina pectoris with coronary microvascular dysfunction; I12.9 Hypertensive chronic kidney disease with stage 1 through stage 4 chronic kidney disease, or unspecified chronic kidney disease; Z79.899 Other long term (current) drug therapy; Z82.3 Family history of stroke; Z86.73 Personal history of transient ischemic attack (TIA), and cerebral infarction without residual deficits; Z82.49 Family history of ischemic heart disease and other diseases of the circulatory system; Z88.1 Allergy status to other antibiotic agents; Z76.5 Malingerer [conscious simulation]
CPT/HCPCS: 36415; 71045; 71250; 76775; 80053; 80307; 81001; 82306; 83615; 83735; 83880; 83970; 84100; 84484; 84550; 85025; 85610; 85730; 87040; 93005; 96374; 96375; 99291; G0378; J2405; J3480

== ENCOUNTER 2025-03-07 16:23 | Inpatient (IN) | payer MEDICAID ==
[~2025-03-07] VITALS: Ht 170.2 cm; Wt 106.0 kg
--- NOTE | 2025-03-07 16:31 | ED.PDOC ---
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 Patient describes pain as sharp, constant, rating a 8/10 on the pain scale and has no alleviating factors. Patient reports pain feels similar to previous NM episodes. EMS reports patient drove himself to urgent care for c/o. On scene, EMS administrated one NTG but had no pain relief. Patient is currently on Eliquis for his PE diagnosed last month and additionally is on Plavix. Patient denies any substance, alcohol or tobacco use. Chief Complaint: Chest Pain Time Seen by MD: 16:19 Primary Care Provider: UNKNOWN Reviewed Notes: Nurses Notes, [employer] Member Notes, Medications, Allergies Allergies: Coded Allergies: Amlodipine (Verified Allergy, Severe, 03/07/25) Vancomycin (Verified Allergy, Intermediate, 08/23/24) Home Meds Active Scripts Tramadol HCl (Tramadol HCl) 50 Mg Tab, 50 MG PO Q6HP PRN for 30 Days, #20 TAB Prov:SADE WILSON MD 08/21/24 Alprazolam (Xanax) 0.5 Mg Tb, 1 TAB PO BID PRN, #30 TAB Prov:DWAINE JOHN MD 01/10/24 Reported Medications Atorvastatin Calcium (ATORVASTATIN CALCIUM) 40 Mg Tab, 1 TAB PO DAILY 07/28/24 Carvedilol (Carvedilol) 6.25 Mg Tab, 1 TAB PO BID 07/28/24 Clopidogrel Bisulfate (Plavix) 75 Mg Tab, 1 TAB PO DAILY, #90 TAB 1 Refill 03/25/24 Sacubitril-Valsartan (Entresto 49-51 mg) 1 Tab Tab, 1 TAB PO BID, TAB 03/25/24 Beclomethasone Dipropionate (Qvar Redihaler) 80 Mcg/Act Aer, 2 PUFF INH BID 03/06/24 Albuterol Sulfate (Albuterol Sulfate Hfa) 108 Mcg/Act Aer, 2 PUFF INH Q4HR PRN for WHEEZING 03/06/24 Information Source: Patient, Emergency Med Personnel Mode of Arrival: EMS Severity: Moderate Timing: Hours Duration: Since onset Prehospital treatment: 12 Lead EKG, Aws Developer, NTG Location: Chest (L), Substernal Radiation: Neck, Jaw, Shoulder (L) Quality: Sharp Onset: At Rest Cardiac Risk Factors: Family History, Hyperlipidemia, HTN PE Risk Factors: None History of: Similar pain in past, NM, DVT/PE (PE ), Aspirin Modifying Factors: Nothing Associated Signs and Symptoms: SOB, N/V (nausea only ) Past Medical History PAST MEDICAL HISTORY: CAD, CKF, CVA, High Lipids, HTN, NM, PE Surgical History: Hernia Repair, Pacemaker, PTCA (6) Family History Family History: Reviewed,noncontributory to illness, Family hx of Cancer, Family hx of stroke Social History Smoker: Non-Smoker Alcohol: Denies ETOH Use Drugs: Denies Drug Use Lives In: Home Constitutional: reports: chills; denies: diaphoresis, fatigue, fever, malaise, sweats, weakness, others EENTM: denies: blurred vision, double vision, ear bleeding, ear discharge, ear drainage, ear pain, ear ringing, eye pain, eye redness, hearing loss, mouth pain, mouth swelling, nasal discharge, nose bleeding, nose congestion, nose pain, photophobia, tearing, throat pain, throat swelling, voice changes, others Respiratory: reports: shortness of breath; denies: cough, hemoptysis, orthopnea, SOB at rest, SOB with excertion, stridor, wheezing, others Cardiovascular: reports: chest pain, lightheadedness; denies: dizzy spells, diaphoresis, Dyspnea on exertion, edema, irregular heart beat, left arm pain, palpitations, PND, syncope, others Gastrointestinal: denies: abdomen distended, abdominal pain, blood streaked bowels, constipated, diarrhea, dysphagia, difficulty swallowing, hematemesis, melena, nausea, poor appetite, poor fluid intake, rectal bleeding, rectal pain, vomiting, others Genitourinary: denies: burning, dysuria, flank pain, frequency, hematuria, incontinence, penile discharge, penile sore, pain, testicle pain, testicle swelling, urgency, others Neurological: denies: dizziness, fainting, headache, left sided numbness, left sided weakness, numbness, paresthesia, pre-existing deficit, right sided numbness, right sided weakness, seizure, speech problems, tingling, tremors, weakness, others Musculoskeletal: reports: neck pain, others (left sided jaw and shoulder pain ); denies: back pain, gout, joint pain, joint swelling, muscle pain, muscle stiffness Integumetry: denies: bruises, change in color, change in hair/nails, dryness, laceration, lesions, lumps, rash, wounds, others Allergic/Immunocompromised: denies: Difficulty Healing, Frequent Infections, Hives, Itching, others Hematologic/Lymphatic: denies: anemia, blood clots, easy bleeding, easy bruising, swollen glands, others Endocrine: denies: excessive hunger, excessive sweating, excessive thirst, excessive urination, flushing, intolerance to cold, intolerance to heat, unexplained weight gain, unexplained weight loss, others Psychiatric: denies: anxiety, bipolar disorder, depression, hopeless, panic disorder, schizophrenia, sleepless, suicidal, others All Other Systems: Reviewed and Negative Physical Exam General Appearance: Moderate Distress HEENT: Normal ENT Inspection, Pharynx Normal, TMs Normal Neck: Full Range of Motion, Non-Tender, Normal, Normal Inspection Respiratory: Chest Non-Tender, Lungs Clear, No Accessory Muscle Use, No Res piratory Distress, Normal Breath Sounds Cardiovascular: No Edema, No JVD, No Murmur, No Gallop, Normal Peripheral Pulses, Regular Rate/Rhythm Breast Exam: Deferred Gastrointestinal: No Organomegaly, Non Tender, No Pulsatile Mass, Normal Bowel Sounds, Soft Genitalia: Deferred Pelvic: Deferred Rectal: Deferred Extremities: No calf tenderness, Normal capillary refill, Normal inspection, Normal range of motion, Non-tender, No pedal edema Musculoskeletal : Apperance: Normal Neurologic: Alert, mica paster II-XII nml as Tested, No Motor Deficits, Normal Affect, Normal Mood, No Sensory Deficits Cerebellar Function: Normal Reflexes: Normal Skin: Dry, Normal Color, Warm Lymphatic: No Adenopathy EKG EKG : Pulse Rate (adult): 73 Cardiac Rhythm: NSR Hypertrophy: LAE Was a procedure done? Was a procedure done?: No CP Differential Dx Differential Diagnosis: N/A Differential Diagnosis: Angina, Cholelithiasis, Costochondritis, Gastritis, Myocardial Infarction, Pericarditis, Pulmonary Embolus X-Ray, Labs, Meds, VS Vital Signs Date Time Temp Pulse Resp B/P (MAP) Pulse Ox O2 Delivery O2 Flow Rate FiO2 03/07/25 18:12 78 16 172/121 (138) 98 03/07/25 17:15 68 03/07/25 16:44 97.9 80 18 157/117 (130) 97 97.9 03/07/25 16:44 80 18 98 Room Air* 0 21 03/07/25 16:31 73 03/07/25 16:25 99.0 83 16 188/129 (148) 97 99.0 03/07/25 16:23 73 Lab Test 03/07/25 18:12 03/07/25 16:54 Range/Units Troponin I High Sensitivity Pending 21 </=54 ng/L White Blood Count 6.8 4.4-10.8 10^3/uL Red Blood Count 4.67 4.5-5.90 10^6/uL Hemoglobin 14.9 13.5-17.5 g/dL Hematocrit 42.8 41.0-53.0 % Mean Corpuscular Volume 91.6 80.0-100.0 fL Mean Corpuscular Hemoglobin 31.8 28.0-32.0 pg Mean Corpuscular Hemoglobin Concent 34.8 32.0-36.0 g/dL Red Cell Distribution Width 13.7 11.8-14.3 % Platelet Count 242 140-450 10^3/uL Mean Platelet Volume 6.9 6.9-10.8 fL Neutrophils (%) (Auto) 59.0 37.0-80.0 % Lymphocytes (%) (Auto) 23.7 10.0-50.0 % Monocytes (%) (Auto) 10.4 0.0-12.0 % Eosinophils (%) (Auto) 5.8 0.0-7.0 % Basophils (%) (Auto) 1.1 0.0-2.0 % Neutrophils # (Auto) 4.0 1.6-8.6 10 ^3/uL Lymphocytes # (Auto) 1.6 0.4-5.4 10 ^3/uL Monocytes # (Auto) 0.7 0-1.3 10 ^3/uL Eosinophils # (Auto) 0.4 0-0.8 10 ^3/uL Basophils # (Auto) 0.1 0-0.2 10 ^3/uL Nucleated Red Blood Cells 0.1 % Sodium Level 141 136-145 mmol/L Potassium Level 3.6 3.5-5.1 mmol/L Chloride Level 110 H 98-107 mmol/L Carbon Dioxide Level 22 20-31 mmol/L Anion Gap 9 5-15 Blood Urea Nitrogen 22 9-23 mg/dL Creatinine 1.74 H 0.700-1.30 mg/dL Glomerular Filtration Rate Calc 47 >90 mL/min BUN/Creatinine Ratio 12.6 10.0-20.0 Serum Glucose 90 74-106 mg/dL Calcium Level 9.1 8.7-10.4 mg/dL B-Type Natriuretic Peptide 64.65 0-100 pg/mL CHEST RADIOGRAPH IMPRESSION: 1. No significant change from 08/22/2024. IV Hep-Lock was established The patient is already on blood thinners so not taking aspirin The patient's CBC is within normal limits The chemistry panel is within normal limits The BNP is 64.65 The troponin level is negative The patient was being admitted to the hospitalist Images Reviewed?: Images reviewed and evaluated by me Time of 1ST Reevaluation: 16:25 Reevaluation 1ST: Unchanged Patient Education/Counseling: Diagnosis, Treatment, Prognosis Family Education/Counseling: No Family Present Departure 1 Departure Time of Disposition: 18:47 Impression: Primary Impression: ACS (acute coronary syndrome) Additional Impression: CKD (chronic kidney disease) stage 3, GFR 30-59 ml/min Qualified Codes: N18.31 - Chronic kidney disease, stage 3a Disposition: ADMITTED INPATIENT Admit to: Tele Condition: Fair Critical Care Note Critical Care Time?: Yes Stability Stability form required: Yes Unstable for transfer: Telemetry monitoring (Telemetry monitoring required), ED Physician Assesment (Clinical assesment) Heart Score Heart Score: Heart Score Response (Comments) Value History Highly Suspicious 2 EKG Normal 0 Age 45-64 1 Risk Factors >3 or Hx ASHD 2 Troponin Normal limit 0 Total 5 I personally scribed for RYAN PERRY MD ([email or web address]) on 03/07/25 at 16:31. Electronically submitted by Malu Matias ([email or web address]). I personally scribed for RYAN PERRY MD ([email or web address]) on 03/07/25 at 18:42. Electronically submitted by Malu Matias ([facility]). RYAN PERRY MD Mar 07, 2025 16:31
[2025-03-07 16:44] VITALS: PULSE 80; RESP 18; O2SAT 98
--- NOTE | 2025-03-07 17:01 | DVH ---
CHEST RADIOGRAPH Indication: cp Technique: Single frontal view of the chest was obtained Comparison: XY CHEST PORTABLE on DOS: 08/22/24, XY CHEST PORTABLE on DOS: 08/19/24, XY CHEST PORTABLE o n DOS: 07/27/24 FINDINGS: Lines and Tubes: Pacemaker in place unchanged Lungs: No focal consolidation. Pleura: No effusion. No pneumothorax. Cardiomediastinal contours: Unremarkable Bones: No acute osseous abnormality. IMPRESSION: 1. No significant change from 08/22/2024.
[2025-03-07 17:02] LABS: Basophils # (auto) 0.1 10 ^3/uL (0-0.2); Basophils % (auto) 1.1 % (0.0-2.0); Eosinophils # (auto) 0.4 10 ^3/uL (0-0.8); Eosinophils % (auto) 5.8 % (0.0-7.0); Hematocrit 42.8 % (41.0-53.0); Hemoglobin 14.9 g/dL (13.5-17.5); Lymphocytes # (auto) 1.6 10 ^3/uL (0.4-5.4); Lymphocytes % (auto) 23.7 % (10.0-50.0); Mean Corpuscular Hemoglobin 31.8 pg (28.0-32.0); Mean Corpuscular Hgb Conc. 34.8 g/dL (32.0-36.0); Mean Corpuscular Volume 91.6 fL (80.0-100.0); Monocytes # (auto) 0.7 10 ^3/uL (0-1.3); Monocytes % (auto) 10.4 % (0.0-12.0); Nucleated Red Blood Cells % 0.1 %; Platelet Count (auto) 242 10^3/uL (140-450); Red Blood Cells 4.67 10^6/uL (4.5-5.90); Red Cell Distribution Width 13.7 % (11.8-14.3); White Blood Cell 6.8 10^3/uL (4.4-10.8)
[2025-03-07 17:14] LABS: Potassium 3.6 mmol/L (3.5-5.1); Sodium 141 mmol/L (136-145)
[2025-03-07 17:15] LABS: Anion Gap 9 (5-15); Carbon Dioxide 22 mmol/L (20-31)
[2025-03-07 17:16] LABS: Calcium 9.1 mg/dL (8.7-10.4)
[2025-03-07 17:18] LABS: Chloride 110 mmol/L (98-107)
[2025-03-07 17:20] LABS: BUN/Creatinine Ratio 12.6 (10.0-20.0); Blood Urea Nitrogen 22 mg/dL (9-23); Glucose 90 mg/dL (74-106)
[2025-03-07] MEDS: ACETAMINOPHEN 325 MG TAB PO ONE (21:00)
[2025-03-07] MEDS: ONDANSETRON HCL 4 MG/2 ML VIAL IV ONE ×2 (21:00→22:17)
[2025-03-07] MEDS: MORPHINE SULFATE 4 MG/ML SYR/VIAL IV ONE (22:17)
[2025-03-07] MEDS: NITROGLYCERIN 50MG/250ML 250 ML IV ONE (22:30)
[2025-03-07] MEDS ORDERED: NITROGLYCERIN 0.4 MG SL TAB SL PRN (23:00)
[2025-03-07] MEDS ORDERED: ONDANSETRON HCL 4 MG/2 ML VIAL IV PRN (23:00)
--- NOTE | 2025-03-07 23:04 | DVHHPRES ---
History of Present Illness Resident Creating Document: DEVEN COSBY RESIDENT History of Present Illness Jose Osuna is a 54-year-old male patient presents to the ED with chief complaint of constant, radiating towards jaw/neck/shoulder, retrosternal oppressive chest pain intensity 08/11 which started today at 11:00 a.m., associated with bilateral hand numbness, nausea, chills and dyspnea in functional class IV. Patient reports systolic blood pressure of 240 mmHg, he is compliant with all his home medication. Denies palpitation, syncope, vomiting, diarrhea, bleeding, sick contacts, recent travel and other motor or sensory deficits. Past medical history: Hypertension, dyslipidemia, myocardial infarction 6 opportunities with a total of 6 stents placed (Dr. Couch) last one was over a year ago, presented strokes in 2 opportunities (11/20/2023 and 01/21/2024), per patient presents "tear in aorta" (per EMR has ascending aortic aneurysm dilatati on of 4.2 cm), chronic kidney disease, PE on Eliquis, bradyarrhythmia with requirement of permanent pacemaker placement in 03/2024, obstructive sleep apnea with indications CPAP during bedtime, early onset of dementia (probable vascular), Parkinson's disease, anxiety, vaso-occlusive disease. Surgical history: PCI with placement of 6 stents last coronary angiography on 04/2024 which showed chronic [id number] coronary disease, 03/2024 permanent pacemaker placement, hernia repair Family history: Mother had stroke, cancer, GA, and hypertension. Father had heart disease. Social history: Denies tobacco, alcohol and other drug abuse Allergies: Denies Home medication: Carvedilol 6.25mg PO bid,, Entresto and Plavix, apixaban 5 mg p.o. b.i.d., tramadol, atorvastatin 40mg PO daily, Albuterol PRN Patient seen and examined at bedside. Continues with retrosternal oppressive chest pain, intensity decreased (/10). Currently is on a nitroglycerin drip. Ordered Win CT due to history of tear of aorta. Past Medical History Per HPI Past Surgical History Per HPI Family History Per HPI Past Social History Per HPI Review of Systems Review of Systems Per HPI Allergies: Coded Allergies: Amlodipine (Verified Allergy, Severe, 03/07/25) Vancomycin (Verified Allergy, Intermediate, 08/23/24) Medications Current Medications Medications Dose Ordered Sig/[place] Route Start Time Stop Time Status Last Admin Dose Admin Ondansetron HCl 4 mg Q4HP PRN IV 03/07/25 23:00 Morphine Sulfate 2 mg Q4HPRN PRN IV 03/07/25 23:00 Nitroglycerin 0.4 mg Q5MINP PRN SL 03/07/25 23:00 UNV Morphine Sulfate 2 mg Q30M PRN IV 03/07/25 23:00 Exam Vital Signs Vital Signs Date Time Temp Pulse Resp B/P (MAP) Pulse Ox O2 Delivery O2 Flow Rate FiO2 03/07/25 22:30 211/129 03/07/25 22:17 75 19 03/07/25 21:30 98.2 97 98.2 03/07/25 16:44 Room Air* 0 21 Exam Physical Examination Patient lying in bed, in no acute distress General: Lucid, afebrile, mucosae are moist Cardiovascular: Normal S1 and S2. No murmurs, gallops or rubs. Has generator of pacemaker in left subclavian area Respiratory: Normal ventilation mechanics. Clear lung sounds on auscultation Abdomen: Soft, nontender, no organomegaly, normal bowel sounds MSK/skin: Mobilizes 4 limbs. Skin is dry and warm Neurological: Oriented in 3 spheres. No motor no sensitive deficits. Pupils are isocoric and reactive Labs/Xrays Labs Test 03/07/25 18:12 03/07/25 16:54 Range/Units Troponin I High Sensitivity 20 </=54 ng/L White Blood Count 6.8 4.4-10.8 10^3/uL Red Blood Count 4.67 4.5-5.90 10^6/uL Hemoglobin 14.9 13.5-17.5 g/dL Hematocrit 42.8 41.0-53.0 % Mean Corpuscular Volume 91.6 80.0-100.0 fL Mean Corpuscular Hemoglobin 31.8 28.0-32.0 pg Mean Corpuscular Hemoglobin Concent 34.8 32.0-36.0 g/dL Red Cell Distribution Width 13.7 11.8-14.3 % Platelet Count 242 140-450 10^3/uL Mean Platelet Volume 6.9 6.9-10.8 fL Neutrophils (%) (Auto) 59.0 37.0-80.0 % Lymphocytes (%) (Auto) 23.7 10.0-50.0 % Monocytes (%) (Auto) 10.4 0.0-12.0 % Eosinophils (%) (Auto) 5.8 0.0-7.0 % Basophils (%) (Auto) 1.1 0.0-2.0 % Neutrophils # (Auto) 4.0 1.6-8.6 10 ^3/uL Lymphocytes # (Auto) 1.6 0.4-5.4 10 ^3/uL Monocytes # (Auto) 0.7 0-1.3 10 ^3/uL Eosinophils # (Auto) 0.4 0-0.8 10 ^3/uL Basophils # (Auto) 0.1 0-0.2 10 ^3/uL Nucleated Red Blood Cells 0.1 % Sodium Level 141 136-145 mmol/L Potassium Level 3.6 3.5-5.1 mmol/L Chloride Level 110 H 98-107 mmol/L Carbon Dioxide Level 22 20-31 mmol/L Anion Gap 9 5-15 Blood Urea Nitrogen 22 9-23 mg/dL Creatinine 1.74 H 0.700-1.30 mg/dL Glomerular Filtration Rate Calc 47 >90 mL/min BUN/Creatinine Ratio 12.6 10.0-20.0 Serum Glucose 90 74-106 mg/dL Calcium Level 9.1 8.7-10.4 mg/dL B-Type Natriuretic Peptide 64.65 0-100 pg/mL Assessment/Plan Assessment/Plan Assessment: Hypertensive emergency Rule out aortic dissection Rule out ACS - questionable unstable angina (TABATHA 4, SALOME: 49, CRUSADE: 43) Recent diagnosis of PE currently on apixaban Obstructive sleep apnea on CPAP Coronary artery disease history of GA- status PCI in multiple opportunities Vaso-occlusive disease History of multiple strokes - probable vascular dementia History of ascending aorta aneurysm Chronic kidney disease stage IIIb Bradycardia arrhythmia -status post permanent pacemaker placement DDD Anxiety Hypertension Dyslipidemia Plan: Ordered Angio CT to rule out aortic dissection. We will continue blood thinners once aortic dissection is ruled out Patient is currently on a nitroglycerin drip, status ICU. Probable cause of angina secondary to increased afterload. Optimize loading conditions Patient's last coronary angiogram completed on 04/2024 where he presented chronic [id number] coronary disease and no procedure was completed at that point. Goals of care discussed with patient for over 18 minutes: Full code status Discussed plan with Dr. Senior, patient and nurses: Ordered angio CT to rule out aortic dissection, once ruled out we will continue with blood thinners (patient is on Plavix and Eliquis), he is ICU status due to hypertensive emergency with requirement of IV nitroglycerin, planning on optimizing loading conditions at this point. If patient continues symptomatic with normal blood pressure, consider consulting Cardiology for eventual coronary angiography. Patient has poor prognosis Plan discussed with: Patient, Other (Nurses) My Orders Orders - DEVEN COSBY RESIDENT Procedure Category Date Status Time Aortagram W/Runoff XY 03/07/25 Transmitted 22:[address] 03/07/25 Logged 22:52 Admit ADMIT 03/07/25 Transmitted 22:55 Code Status CODE 03/07/25 Transmitted 22:55 Vital Signs GINNY 03/07/25 In Process 22:55 Review Orders With GINNY 03/07/25 In Process Adm. 22:55 Npo (Nothing By DIET 03/08/25 Transmitted Mouth) Diet Breakfast Notify Md Of Changes GINNY 03/07/25 In Process From Base 22:55 Advance Directive GINNY 03/07/25 In Process 22:55 Echo 2d Mode Cardiac US 03/07/25 Logged DOP 22:55 Patient Condition ORDERS 03/07/25 Transmitted 22:55 Allergies GINNY 03/07/25 In Process 22:55 Ondansetron Hcl PHA 03/07/25 In Process (Zofran) 23:00 Drug Screen LAB 03/07/25 Logged 22:55 Morphine Sulfate PHA 03/07/25 In Process Injection 23:00 Nitroglycerin PHA 03/07/25 Logged Sublingual (Ntrostat 23:00 Morphine Sulfate PHA 03/07/25 In Process Injection 23:00 Oxygen By Nasal RT 03/07/25 Transmitted Cannula 22:55 Stat Ekg For Chest GINNY 03/07/25 In Process Pain 22:55 Notify Of Changes GINNY 03/07/25 In Process From Base 22:55 Production Control Specialist For GINNY 03/07/25 In Process 24 Hours 22:55 Emergency Dysrhythmia GINNY 03/07/25 In Process Protocol 22:55 Rhythm Strips Once GINNY 03/07/25 In Process Every Shift 22:55 Date of Service: Mar 08, 2025 Billing Provider: CHELO SENIOR MD Common Visit Codes: [id number] INP/OBS CARE (HIGH) DEVEN COSBY RESIDENT Mar 07, 2025 23:04 CHELO SENIOR MD Mar 15, 2025 22:02
[2025-03-07] MEDS: MORPHINE SULFATE INJ 2 MG/ml SYRG IV PRN (23:13)
[2025-03-07 23:29] VITALS: PULSE 78; O2SAT 94
[2025-03-08] VITALS (65 sets, daily range): BP systolic 109–183; BP diastolic 61–146; PULSE 61–108; RESP 11–28; TEMP 97–98.8; O2SAT 90–98
--- NOTE | 2025-03-08 01:13 | DVH ---
CT ANGIOGRAM ABDOMEN AND PELVIS HISTORY: Rule out Aortic dissection COMPARISON: None TECHNIQUE: Helical axial CT images of the abdomen and pelvis were obtained with intravenous contrast . Multiplanar reformats. 3-D postprocessing is performed by technologist including MIP imaging. One o r more of the following radiation dose reduction techniques were used for this examination: automated exposure control, adjustment of the mA and/or kV according to patient size, use of iterative reconst ruction technique. FINDINGS: Vasculature: Mild aortoiliac atherosclerotic changes. Otherwise no evidence of aortic aneurysm or dis section at this time. The imaged major aortic branch vessels appear patent. IMAGED THORAX: Mediastinum: Left ventricular hypertrophy is noted. Coronary artery calcifications. No pericardial e ffusion. No mediastinal adenopathy. No central pulmonary embolism. Pleural cavity: No sizable pleural effusion Lungs: Mild atelectasis/ scarring in the left lower lobe. Imaged lungs are otherwise grossly clear. ABDOMEN AND PELVIS: Liver: No discrete hepatic lesions as visualized. Gallbladder and biliary system: No sizable, radiopaque cholelithiasis or biliary ductal dilatation. Pancreas: Negative. Spleen: Negative. Adrenal Glands: Approximately 1.2 cm fat containing left adrenal lesion. This may be an adenoma or my elolipoma. Kidneys and collecting system: No hydroureteronephrosis. Cystic hypodensities in the right kidney. Ul trasound may be obtained to further evaluate. Bowel: No evidence of bowel obstruction. Visualized appendix appears normal caliber. No free intraper itoneal air or fluid identified. Pelvis: No sizable bladder calculus. Osseous structures: No destructive osseous lesions identified. IMPRESSION: No evidence of aortic aneurysm or dissection. A few other findings as above. HS:Y
[2025-03-08] MEDS: MORPHINE SULFATE INJ 2 MG/ml SYRG IV PRN (02:15)
[2025-03-08] MEDS ORDERED: APIX2.5T PO (02:41)
[2025-03-08 04:01] LABS: Basophils # (auto) 0.1 10 ^3/uL (0-0.2); Basophils % (auto) 1.1 % (0.0-2.0); Eosinophils # (auto) 0.3 10 ^3/uL (0-0.8); Eosinophils % (auto) 4.4 % (0.0-7.0); Hematocrit 42.7 % (41.0-53.0); Hemoglobin 14.7 g/dL (13.5-17.5); Lymphocytes # (auto) 2.2 10 ^3/uL (0.4-5.4); Lymphocytes % (auto) 33.2 % (10.0-50.0); Mean Corpuscular Hemoglobin 31.7 pg (28.0-32.0); Mean Corpuscular Hgb Conc. 34.5 g/dL (32.0-36.0); Mean Corpuscular Volume 91.9 fL (80.0-100.0); Monocytes # (auto) 0.6 10 ^3/uL (0-1.3); Neutrophils # (auto) 3.3 10 ^3/uL (1.6-8.6); Neutrophils % (auto) 51.3 % (37.0-80.0); Nucleated Red Blood Cells % 0.3 %; Platelet Count (auto) 234 10^3/uL (140-450); Red Blood Cells 4.65 10^6/uL (4.5-5.90); White Blood Cell 6.5 10^3/uL (4.4-10.8)
[2025-03-08 04:04] LABS: Alanine Aminotransferase 18 U/L (7-40); Alkaline Phosphatase 71 U/L (46-116); Anion Gap 9 (5-15); BUN/Creatinine Ratio 11.5 (10.0-20.0); Blood Urea Nitrogen 21 mg/dL (9-23); Calcium 9.2 mg/dL (8.7-10.4); Carbon Dioxide 25 mmol/L (20-31); Chloride 106 mmol/L (98-107); Potassium 3.6 mmol/L (3.5-5.1); Sodium 140 mmol/L (136-145); Total Protein 6.8 g/dL (5.7-8.2)
[2025-03-08 04:05] LABS: Albumin 3.9 g/dL (3.2-4.8); Aspartate Aminotransferase 14 U/L (13-40)
[2025-03-08 04:06] LABS: Bilirubin, Total 0.6 mg/dL (0.2-1.0); Phosphorus 3.2 mg/dL (2.4-5.1)
[2025-03-08 04:20] LABS: Glucose 145 mg/dL (74-106)
--- NOTE | 2025-03-08 06:15 | ECG ---
[facility] Test Date: 2025-03-07 Test Time: 19:36:13 Pat Name: LIBRADO BAEZ Department: ED Room: 0291T Gender: M Cleaners: : 1970 Requested By: RYAN PERRY Order Number: [id number] Reading MD: Marcus Boyce Measurements Intervals [place] Rate: 80 P: 30 W[place]: 160 QRS: -1 QRSD: 99 T: 64 QT: 386 QTc: 446 Interpretive Statements Sinus rhythm Anterior infarct, old Electronically Signed On 03-11-2025 20:37:16 PDT by Marcus Boyce Please click the below link to view image of tracing.
--- NOTE | 2025-03-08 07:32 | ECG ---
[facility] Test Date: 2025-03-07 Test Time: 17:15:25 Pat Name: LIBRADO BAEZ Department: ED Room: 0291T Gender: M Development Trainer: mary grace : 1970 Requested By: RYAN PERRY Order Number: [id number] Reading MD: Marcus Boyce Measurements Intervals [place] Rate: 68 P: 30 GA: 162 QRS: -7 QRSD: 91 T: 76 QT: 398 QTc: 424 Interpretive Statements Sinus rhythm Consider left atrial enlargement Anterior infarct, old Electronically Signed On 03-11-2025 20:32:04 PDT by Marcus Boyce Please click the below link to view image of tracing.
[2025-03-08] MEDS: CARVEDILOL 3.125 MG TAB PO SCH (09:17)
[2025-03-08] MEDS: CLOPIDOGREL BISULFATE 75 MG TAB PO SCH (09:17)
[2025-03-08] MEDS: ENOXAPARIN SOD 100 MG/1 ML SYRINGE SC SCH (09:18)
[2025-03-08] MEDS: PANTOPRAZOLE 40 MG/10 ML VIAL INJ IV SCH (09:18)
[2025-03-08] MEDS: SODIUM CHLORIDE 0.9% 500 ML IV ONE (10:00)
[2025-03-08 10:09] LABS: INR 0.96 (0.9-1.15); Partial Thromboplastin Time 27.1 SEC (24.5-34.5); Prothrombin Time 10.2 sec (9.3-11.8)
--- NOTE | 2025-03-08 10:29 | ECG ---
[facility] Test Date: 2025-03-07 Test Time: 16:20:29 Pat Name: LIBRADO BAEZ Department: ED Room: 0291T Gender: M Shipping Room Helper: mary grace : 1970 Requested By: RYAN PERRY Order Number: [id number] Reading MD: Marcus Boyce Measurements Intervals [place] Rate: 73 P: 34 W[place]: 173 QRS: -5 QRSD: 92 T: 77 QT: 382 QTc: 421 Interpretive Statements Sinus rhythm Probable left atrial enlargement Probable anteroseptal infarct, old Baseline wander in lead(s) I,aVL Electronically Signed On 03-10-2025 14:19:15 PDT by Marcus Boyce Please click the below link to view image of tracing.
[2025-03-08] MEDS: SACUBITRIL-VALSARTAN 24mg/26mg TAB PO SCH (10:31)
[2025-03-08] MEDS: CARVEDILOL 12.5 MG TAB PO ONE (10:33)
--- NOTE | 2025-03-08 12:30 | DVHSR ---
APPROVED REPORT EXAM: Two-dimensional and M-mode echocardiogram with Doppler and color Doppler. Blood Pressure: 123/70 mmHg INDICATION Chest Pain RISK FACTORS Height: 5'7", Weight: 228 DIMENSIONS LVDd4.2 (3.8-5.7cm)LA (2D)4.5 (1.9-4.0cm)Aortic Root (2.0-3.7cm) LVDs2.7 (2.5-4.0cm)LA (MM) (1.9-4.0cm)Aortic Cusp Exc (1.5-2.0cm) EF (%) 65.0 (55-70%)Rt. Atrium (1.9-4.0cm)Asc. Aorta3.9 cm IVSd1.5 (0.7-1.1cm)RV (D) (1.8-2.4cm) PWd1.2 (0.7-1.1cm) Mitral Valve MitralMitral Stenosis E wave0.68m/sMV Mean GR.mmHg A wave1.16m/sMV Peak GR.mmHg E/A ratio0.62D MVAcm2 DECEL [id number] 1/2 Timems Aortic Valve Aortic ValveAortic Stenosis V10.97m/Berna Mean GR.4mmHg V21.34m/Berna Peak GR.7mmHg LVOT Diameter2.0 (1.8-2.4cm)Doppler AVA2.27cm2 AI P 1/2 [id number] Other Information Quality : Technically LimitedRhythm : Technically limited study due to body habitus and pt sitting up Conclusion lvef 55% normal lv function severe LVH --asymetric septal hypertrophy rigth atrium enlarged no severe valve abnormaliites noted
[2025-03-08] MEDS ORDERED: hydrALAZINE HCL 20 MG/ML VL IV PRN (16:00)
--- NOTE | 2025-03-08 16:41 | DVHPN2 ---
Progress Note - Dictate Date Seen: Mar 08, 2025 Medical Necessity Reason Pt with a Central, PICC or Fol: No Subjective PT WITH CHEST PAIN CTA NEGATIVE FOR ANEURYSM HX OF PE HTN AFIB SSS S/P PPI SLEEP APNEA ON CPAP CAD MULTIPLE CORONARY STENTS TROPONIN NEGATIVE ECG NEGATIVE vital signs Vital Sign Date Time Temp Pulse Resp B/P (MAP) Pulse Ox O2 Delivery O2 Flow Rate FiO2 03/08/25 16:00 82 17 159/103 (121) 96 03/08/25 16:00 Room Air* 0 21 03/08/25 15:45 98.7 98.7 Total Intake and Output 03/07/25 03/07/25 03/08/25 15:00 23:00 07:00 Intake Total 1194.5 ml Output Total 600 ml Balance 594.5 ml medications Current Medications Medications Dose Ordered Sig/[place] Route Start Time Stop Time Status Last Admin Dose Admin Ondansetron HCl 4 mg Q4HP PRN IV 03/07/25 23:00 Morphine Sulfate 2 mg Q4HPRN PRN IV 03/07/25 23:00 03/08/25 02:15 2 MG Nitroglycerin 0.4 mg Q5MINP PRN SL 03/07/25 23:00 Hold Morphine Sulfate 2 mg Q30M PRN IV 03/07/25 23:00 03/08/25 08:50 2 MG Enoxaparin Sodium 100 mg Q12HR SC 03/08/25 10:00 03/08/25 09:18 100 MG Clopidogrel Bisulfate 75 mg DAILY PO 03/08/25 10:00 03/08/25 09:17 75 MG Atorvastatin Calcium 40 mg HS PO 03/08/25 22:00 Sacubitril/ Valsartan 2 tab BID PO 03/08/25 10:00 03/08/25 10:31 2 TAB Carvedilol 25 mg BID PO 03/08/25 22:00 Hydralazine HCl 10 mg Q6HP PRN IV 03/08/25 16:00 UNV laboratory and microbiology Laboratory Tests 03/08/25 03:04 Test 03/08/25 03:04 Range/Units Serum Glucose 145 H 74-106 mg/dL Problem List CHEST PAIN CTA NEGATIVE FOR ANEURYSM HX OF PE HTN AFIB SSS S/P PPI SLEEP APNEA ON CPAP CAD MULTIPLE CORONARY STENTS TROPONIN NEGATIVE ECG NEGATIVE Assessment/Plan STRESS CONSIDE CARDIOLITE Plan discussed with: Patient DEBORAH ROMERO MD Mar 08, 2025 16:41
[2025-03-08] MEDS: CARVEDILOL 12.5 MG TAB PO SCH (21:15)
[2025-03-08] MEDS: ATORVASTATIN 20 MG TAB PO SCH (21:16)
--- NOTE | 2025-03-08 22:57 | DVHPNRES ---
Progress Note Date Seen: Mar 08, 2025 Resident Creating Document: CONNIE SAENZROSENDO RESIDENT Medical Necessity Reason Pt with a Central, PICC or Fol: No Subjective Review of Systems Patient is a 54-year-old male patient presented to the ED with chief complaint of chest pain constant, radiating towards jaw/neck/shoulder, retrosternal, severe in intensity 08/11 which started yesterday at 11:00 a.m., associated with bilateral hand numbness, nausea, chills and dyspnea in functional class IV. Patient reports systolic blood pressure of 240 mmHg at home following which she went to the urgent care where his blood pressure was recorded at 220 mmHg, he reports to be compliant with all his home medication. Denies palpitation, syncope, vomiting, diarrhea, bleeding, sick contacts, recent travel and other motor or sensory deficits. Past medical history: Hypertension, dyslipidemia, myocardial infarction with a 6 drug-eluting stents (Dr. 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 Past surgical history: PCI with placement of 6 stents last coronary angiography on 04/2024 which showed chronic [id number] coronary disease, 03/2024 permanent pacemaker placement, hernia repair Family history: Mother had stroke, cancer, [place], and hypertension. Father had heart disease. Social history: Denies tobacco, alcohol and other drug abuse Allergies: Denies Home medication: Carvedilol 25 mg PO bid,, Entresto 49-51 mg b.i.d., clopidogrel 75 mg, apixaban 5 mg p.o. b.i.d., tramadol, atorvastatin 40mg PO daily, Albuterol PRN Review of systems Patient seen and examined at the bedside Patient complained of episodes of left-sided chest pain radiating to his left upper arm. ECG was repeated which showed no ST segment changes, T-wave inversion in lateral leads 1, aVL, V5 and V6 Troponin level within normal limits Patient's blood pressure remained below 160 SBP and nitroglycerin drip was discontinued Objective vital signs Vital Sign Date Time Temp Pulse Resp B/P (MAP) Pulse Ox O2 Delivery O2 Flow Rate FiO2 03/08/25 21:57 74 20 158/89 03/08/25 21:00 98.0 97 98.0 03/08/25 16:00 Room Air* 0 21 Total Intake and Output 03/07/25 03/07/25 03/08/25 14:59 22:59 06:59 Intake Total 1194.5 ml Output Total 600 ml Balance 594.5 ml medications Current Medications Medications Dose Ordered Sig/[place] Route Start Time Stop Time Status Last Admin Dose Admin Ondansetron HCl 4 mg Q4HP PRN IV 03/07/25 23:00 Morphine Sulfate 2 mg Q4HPRN PRN IV 03/07/25 23:00 03/08/25 21:57 2 MG Nitroglycerin 0.4 mg Q5MINP PRN SL 03/07/25 23:00 Hold Morphine Sulfate 2 mg Q30M PRN IV 03/07/25 23:00 03/08/25 08:50 2 MG Enoxaparin Sodium 100 mg Q12HR SC 03/08/25 10:00 03/08/25 21:17 100 MG Clopidogrel Bisulfate 75 mg DAILY PO 03/08/25 10:00 03/08/25 09:17 75 MG Atorvastatin Calcium 40 mg HS PO 03/08/25 22:00 03/08/25 21:16 40 MG Sacubitril/ Valsartan 2 tab BID PO 03/08/25 10:00 03/08/25 21:16 2 TAB Carvedilol 25 mg BID PO 03/08/25 22:00 03/08/25 21:15 25 MG Hydralazine HCl 10 mg Q6HP PRN IV 03/08/25 16:00 Examination Constitutional: Patient was alert and oriented to time, place and person and does not appear to be in any acute distress Gen - no pallor, no icterus, no cyanosis, no clubbing, no LAD, no edema . Skin - Patients skin is warm and dry.. HEENT - normocephalic, atraumatic, moist mucous membranes. Neck - full ROM, no LAD, no JVD Pulmonary - B/L equal breath sounds. no crackles , no wheezing, no stridor. cardiovascular - variable S1,S2 heard, no added sounds, no murmurs heard. Has a generator a pacemaker in the left subclavian area. capillary refill normal <2 secs. GI - soft, nontender abdomen. no hepatospleenomegaly. Bowel sounds normoactive Neurological - Bilateral upper extremity strength 5/5, bilateral lower extremity strength 5/5, no facial droop, normal speech, no tremor, no sensory deficiets. laboratory and microbiology Laboratory Tests 03/08/25 03:04 Test 03/08/25 03:04 Range/Units Serum Glucose 145 H 74-106 mg/dL Microbiology Date/Time Source Procedure Growth Status 03/08/25 02:00 Nose MRSA Screen - Final Complete Problem List/Assessment/Plan Problem List/Assessment/Plan Assessment Hypertensive urgency Typical chest pain, likely unstable angina Aortic dissection ruled out Recently diagnosed PE Obstructive sleep apnea h/o Coronary artery disease s/p PCI with 6 MARIELLE h/o multiple strokes Probable vascular dementia Chronic kidney disease stage 3 h/o bradycardia arrhythmia-s/p permanent pacemaker Hypertensive heart disease CT angio showed no evidence of aortic aneurysm or dissection Echocardiogram showed LVEF 55% with severe LVH, asymmetric septal hypertrophy, right atrium enlarged, no severe valvular abnormalities noted Plan - patient was initially placed on nitroglycerin drip in the ED which was gradually weaned off - started on carvedilol 25 mg b.i.d., Entresto 2 p.o. b.i.d. - hydralazine p.r.n. for SBP more than 160 mmHg - cardiology consulted with Dr. Starr , recommends Cardiolite stress test - patient given 500 mL IV fluid bolus following IV contrast - we will monitor blood pressure, renal function - patient recently diagnosed with a PE in January, on enoxaparin therapeutic dose while inpatient DVT prophylaxis: Enoxaparin PUD prophylaxis: Protonix Goals of care discussed with the patient for over 25 minutes. Full code Plan discussed with Dr. Owen Plan discussed with: Patient, Other (RN ( Theresa )) My Orders My Orders Orders - ALMA SAENZ RESIDENT Procedure Category Date Status Time Cardiac DIET 03/08/25 Transmitted Diet-2gna,Lofat,Lochol Lunch Sacubitril-Valsartan PHA 03/08/25 In Process (Entresto 24-26 Mg 10:00 Transfer Orders XFER 03/08/25 Transmitted 09:57 Carvedilol Tablet PHA 03/08/25 In Process (Coreg Tablet) 22:00 *Consult Dr[address] Starr CONS 03/08/25 Transmitted [place]un[place] 10:01 Hydralazine Injection PHA 03/08/25 In Process (Apresoline Inject 16:00 Bipap/Cpap For Sleep RT 03/08/25 Logged Apnea 17:35 Date of Service: Mar 08, 2025 Billing Provider: JI OWEN MD Common Visit Codes: NOT BILLABLE ALMA SAENZ RESIDENT Mar 08, 2025 22:57 JI OWEN MD Mar 15, 2025 11:04
[2025-03-09] VITALS (8 sets, daily range): BP systolic 142–169; BP diastolic 89–114; PULSE 70–90; RESP 18–20; TEMP 96.3–99.1; O2SAT 96–97
--- NOTE | 2025-03-09 03:04 | DVH ---
Clinical History: LUE PAIN Comparison: None Technique: Duplex Doppler evaluation of the deep venous system of the left upper extremity from the common femor al vein to the popliteal vein including color Doppler and spectral/pulsed waveform analysis was perfo rmed. Findings: The interrogated upper extremity veins demonstrate appropriate compressibility and waveform variabili ty . Impression: 1. No left upper extremity deep venous thrombosis. 2. If clinical concern/symptoms persist or worsen, short-interval follow-up study is suggested.
[2025-03-09] MEDS: PANTOPRAZOLE 40 MG TAB PO SCH (06:00)
[2025-03-09 07:59] LABS: Calcium 9.2 mg/dL (8.7-10.4); Chloride 106 mmol/L (98-107); Potassium 3.5 mmol/L (3.5-5.1); Sodium 139 mmol/L (136-145)
[2025-03-09 08:00] LABS: Anion Gap 9 (5-15); Carbon Dioxide 24 mmol/L (20-31)
[2025-03-09 08:05] LABS: BUN/Creatinine Ratio 9.5 (10.0-20.0); Blood Urea Nitrogen 17 mg/dL (9-23); Glucose 101 mg/dL (74-106)
[2025-03-09] MEDS: KETOROLAC TROMETH 30 MG/ML 1ML VIAL IV ONE (09:15)
--- NOTE | 2025-03-09 11:08 | DVHPN2 ---
Progress Note - Dictate Date Seen: Mar 09, 2025 Medical Necessity Reason Pt with a Central, PICC or Fol: No Subjective PT WITH CHEST PAIN CTA NEGATIVE FOR ANEURYSM HX OF PE HTN AFIB SSS S/P PPI SLEEP APNEA ON CPAP CAD MULTIPLE CORONARY STENTS TROPONIN NEGATIVE ECG NEGATIVE vital signs Vital Sign Date Time Temp Pulse Resp B/P (MAP) Pulse Ox O2 Delivery O2 Flow Rate FiO2 03/09/25 10:37 65 18 140/68 03/09/25 08:30 Room Air* 0 21 03/09/25 05:00 99.1 96 99.1 Total Intake and Output 03/08/25 03/08/25 03/09/25 15:00 23:00 07:00 Intake Total 1.5 ml 1440 ml 1010 ml Output Total 1225 ml 950 ml Balance 1.5 ml 215 ml 60 ml medications Current Medications Medications Dose Ordered Sig/[place] Route Start Time Stop Time Status Last Admin Dose Admin Ondansetron HCl 4 mg Q4HP PRN IV 03/07/25 23:00 Morphine Sulfate 2 mg Q4HPRN PRN IV 03/07/25 23:00 03/09/25 10:37 2 MG Nitroglycerin 0.4 mg Q5MINP PRN SL 03/07/25 23:00 Hold Morphine Sulfate 2 mg Q30M PRN IV 03/07/25 23:00 03/08/25 08:50 2 MG Enoxaparin Sodium 100 mg Q12HR SC 03/08/25 10:00 03/09/25 09:23 100 MG Clopidogrel Bisulfate 75 mg DAILY PO 03/08/25 10:00 03/09/25 09:16 75 MG Atorvastatin Calcium 40 mg HS PO 03/08/25 22:00 03/08/25 21:16 40 MG Sacubitril/ Valsartan 2 tab BID PO 03/08/25 10:00 03/09/25 09:52 2 TAB Carvedilol 25 mg BID PO 03/08/25 22:00 03/09/25 09:53 25 MG Hydralazine HCl 10 mg Q6HP PRN IV 03/08/25 16:00 Pantoprazole Sodium 40 mg DAILY@0600 PO 03/09/25 06:00 laboratory and microbiology Laboratory Tests 03/09/25 06:30 03/08/25 03:04 Test 03/09/25 06:30 Range/Units Serum Glucose 101 74-106 mg/dL Problem List CHEST PAIN CTA NEGATIVE FOR ANEURYSM HX OF PE HTN AFIB SSS S/P PPI SLEEP APNEA ON CPAP CAD MULTIPLE CORONARY STENTS TROPONIN NEGATIVE ECG NEGATIVE Assessment/Plan STRESS CONSIDE CARDIOLITE MAY DC HOME OUT PT WORKUP Plan discussed with: Patient DEBORAH ROMERO MD Mar 09, 2025 11:08
--- NOTE | 2025-03-09 12:22 | ECG ---
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
[2025-03-09] MEDS ORDERED: hydrALAZINE HCL 20 MG/ML VL IV PRN (18:30)
--- NOTE | 2025-03-09 20:23 | DVHPNRES ---
Progress Note Date Seen: Mar 09, 2025 Resident Creating Document: ADRIANLondonCONNIEROSENDO RESIDENT Medical Necessity Reason Pt with a Central, PICC or Fol: No Subjective Review of Systems Patient is a 54-year-old male patient presented to the ED with chief complaint of chest pain constant, radiating towards jaw/neck/shoulder, retrosternal, severe in intensity 08/11 which started yesterday at 11:00 a.m., associated with bilateral hand numbness, nausea, chills and dyspnea in functional class IV. Patient reports systolic blood pressure of 240 mmHg at home following which she went to the urgent care where his blood pressure was recorded at 220 mmHg, he reports to be compliant with all his home medication. Denies palpitation, syncope, vomiting, diarrhea, bleeding, sick contacts, recent travel and other motor or sensory deficits. Past medical history: Hypertension, dyslipidemia, myocardial infarction with a 6 drug-eluting stents (Dr. 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 Past surgical history: PCI with placement of 6 stents last coronary angiography on 04/2024 which showed chronic [id number] coronary disease, 03/2024 permanent pacemaker placement, hernia repair Family history: Mother had stroke, cancer, [place], and hypertension. Father had heart disease. Social history: Denies tobacco, alcohol and other drug abuse Allergies: Denies Home medication: Carvedilol 25 mg PO bid,, Entresto 49-51 mg b.i.d., clopidogrel 75 mg, apixaban 5 mg p.o. b.i.d., tramadol, atorvastatin 40mg PO daily, Albuterol PRN Review of systems Patient seen and examined at the bedside Patient complained of left elbow pain in the morning stating that he has history of gout which might have flared up. moderately tender reports chest pain had improved but still has episodes of dizziness Objective vital signs Vital Sign Date Time Temp Pulse Resp B/P (MAP) Pulse Ox O2 Delivery O2 Flow Rate FiO2 03/09/25 19:10 80 18 155/97 03/09/25 18:30 97.3 97.3 03/09/25 17:00 97 03/09/25 08:30 Room Air* 0 21 Total Intake and Output 03/08/25 03/08/25 03/09/25 15:00 23:00 07:00 Intake Total 1.5 ml 1440 ml 1010 ml Output Total 1225 ml 950 ml Balance 1.5 ml 215 ml 60 ml medications Current Medications Medications Dose Ordered Sig/[place] Route Start Time Stop Time Status Last Admin Dose Admin Ondansetron HCl 4 mg Q4HP PRN IV 03/07/25 23:00 Morphine Sulfate 2 mg Q4HPRN PRN IV 03/07/25 23:00 03/09/25 18:40 2 MG Morphine Sulfate 2 mg Q30M PRN IV 03/07/25 23:00 03/08/25 08:50 2 MG Clopidogrel Bisulfate 75 mg DAILY PO 03/08/25 10:00 03/09/25 09:16 75 MG Atorvastatin Calcium 40 mg HS PO 03/08/25 22:00 03/08/25 21:16 40 MG Sacubitril/ Valsartan 2 tab BID PO 03/08/25 10:00 03/09/25 09:52 2 TAB Carvedilol 25 mg BID PO 03/08/25 22:00 03/09/25 09:53 25 MG Pantoprazole Sodium 40 mg DAILY@0600 PO 03/09/25 06:00 Hydralazine HCl 10 mg Q6HP PRN IV 03/09/25 18:30 Apixaban 5 mg BID PO 03/09/25 22:00 Examination Constitutional: Patient was alert and oriented to time, place and person and does not appear to be in any acute distress Gen - no pallor, no icterus, no cyanosis, no clubbing, no LAD, no edema . Skin - Patients skin is warm and dry.. HEENT - normocephalic, atraumatic, moist mucous membranes. Neck - full ROM, no LAD, no JVD Pulmonary - B/L equal breath sounds. no crackles , no wheezing, no stridor. cardiovascular - variable S1,S2 heard, no added sounds, no murmurs heard. Has a generator a pacemaker in the left subclavian area. capillary refill normal <2 secs. GI - soft, nontender abdomen. no hepatospleenomegaly. Bowel sounds normoactive Neurological - Bilateral upper extremity strength 5/5, bilateral lower extremity strength 5/5, no facial droop, normal speech, no tremor, no sensory deficiets. laboratory and microbiology Laboratory Tests 03/09/25 06:30 03/08/25 03:04 Test 03/09/25 06:30 Range/Units Serum Glucose 101 74-106 mg/dL Microbiology Date/Time Source Procedure Growth Status 03/08/25 02:00 Nose MRSA Screen - Final Complete Problem List/Assessment/Plan Problem List/Assessment/Plan Assessment Hypertensive urgency Typical chest pain, likely unstable angina Aortic dissection ruled out Recently diagnosed PE Obstructive sleep apnea h/o Coronary artery disease s/p PCI with 6 MARIELLE h/o multiple strokes Probable vascular dementia Chronic kidney disease stage 3 h/o bradycardia arrhythmia-s/p permanent pacemaker Hypertensive heart disease CT angio showed no evidence of aortic aneurysm or dissection Echocardiogram showed LVEF 55% with severe LVH, asymmetric septal hypertrophy, right atrium enlarged, no severe valvular abnormalities noted Plan - patient was initially placed on nitroglycerin drip in the ED which was gradually weaned off - started on carvedilol 25 mg b.i.d., Entresto 2 p.o. b.i.d. - hydralazine p.r.n. for SBP more than 170 mmHg - cardiology consulted with Dr. Starr , recommends outpatient cardiolite stress test - patient given 500 mL IV fluid bolus following IV contrast - renal function improving - patient recently diagnosed with a PE in January, on eliquis - patient has an upcoming appointment with Dr. Hernandez, development associate in the outpatient clinic DVT prophylaxis: on eliquis PUD prophylaxis: Protonix Goals of care discussed with the patient for over 29 minutes. Full code Plan discussed with Dr. Bernstein Plan discussed with: Patient My Orders My Orders Orders - ALMA SAENZ RESIDENT Procedure Category Date Status Time Pantoprazole Tablet PHA 03/09/25 In Process (Protonix Tablet) 06:00 Communication Order ORDERS 03/08/25 Transmitted 22:55 Cardiac DIET 03/09/25 Transmitted Diet-2gna,Lofat,Lochol Lunch Hydralazine Injection PHA 03/09/25 In Process (Apresoline Inject 18:30 Apixaban (Eliquis) PHA 03/09/25 In Process 22:00 Melatonin (Melatonin) PHA 03/09/25 In Process 22:00 Dietary Evaluation Review Comments: 1) Advance diet as medically feasible 2) Continue current plan of care Expected Outcomes/Goals: Pt will meet >75% estimated needs Fu 3-5 days Date of Service: Mar 09, 2025 Billing Provider: LIBRADO BERNSTEIN MD Common Visit Codes: [id number] INP/OBS CARE(HIGH) Secondary Visit Codes: [id number] CARE PLAN 30 MINUTES ALMA SAENZ RESIDENT Mar 09, 2025 20:23 LIBRADO BERNSTEIN MD Mar 10, 2025 15:54
[2025-03-09] MEDS: APIXABAN 2.5 MG TAB PO SCH (22:25)
[2025-03-09] MEDS: MELATONIN 5 MG TAB PO ONE (22:25)
[2025-03-09 23:10] LABS: Urine Bacteria None Seen /hpf (None Seen)
[2025-03-09 23:21] LABS: Urine Blood Negative /uL (Negative); Urine Clarity Clear (Clear); Urine Color Colorless (Yellow); Urine Protein, UAD Negative (Negative); Urine Squamous Epithelial Cell None Seen /hpf (<5); Urine Urobilinogen Normal (Negative); Urine WBC < 1 /HPF (0-3)
[2025-03-09 23:33] LABS: Opiate Scree,Urine Neg (NEGATIVE)
[2025-03-09 23:35] LABS: Amphetamine Screen, Urine Neg (NEGATIVE); Barbiturate Scree,Urine Neg (NEGATIVE); Benzodiazephine Screen, Urine Neg (NEGATIVE); Cannabinoid Screen, Urine Neg (NEGATIVE); Cocaine Screen, Urine Neg (NEGATIVE); Phencyclidine Screen, Urine Neg (NEGATIVE)
[2025-03-10] VITALS (8 sets, daily range): BP systolic 141–189; BP diastolic 103–130; PULSE 75–104; RESP 17–18; TEMP 97.4–98.4; O2SAT 94–97
[2025-03-10] MEDS: LABETALOL HCL 20 MG/4 ML VL IV ONE (02:28)
[2025-03-10 07:26] LABS: Calcium 9.1 mg/dL (8.7-10.4); Chloride 106 mmol/L (98-107); Potassium 3.7 mmol/L (3.5-5.1); Sodium 138 mmol/L (136-145)
[2025-03-10 07:27] LABS: Anion Gap 9 (5-15); Carbon Dioxide 23 mmol/L (20-31)
[2025-03-10 07:32] LABS: BUN/Creatinine Ratio 12.4 (10.0-20.0); Glucose 89 mg/dL (74-106)
[2025-03-10 07:38] LABS: Blood Urea Nitrogen 24 mg/dL (9-23)
[2025-03-10] MEDS: COLCHICINE 0.6 MG CAP PO ONE ×2 (11:27→16:08)
[2025-03-10] MEDS: predniSONE 20 MG TAB PO ONE (11:38)
--- NOTE | 2025-03-10 12:31 | DVHPN2 ---
Progress Note - Dictate Date Seen: Mar 10, 2025 Medical Necessity Reason Pt with a Central, PICC or Fol: No Subjective PT WITH CHEST PAIN CTA NEGATIVE FOR ANEURYSM HX OF PE HTN AFIB SSS S/P PPI SLEEP APNEA ON CPAP CAD MULTIPLE CORONARY STENTS TROPONIN NEGATIVE ECG NEGATIVE vital signs Vital Sign Date Time Temp Pulse Resp B/P (MAP) Pulse Ox O2 Delivery O2 Flow Rate FiO2 03/10/25 10:37 84 146/103 03/10/25 09:11 18 03/10/25 08:49 98.2 96 98.2 03/10/25 08:00 Room Air* 0 21 Total Intake and Output 03/09/25 03/09/25 03/10/25 15:00 23:00 07:00 Intake Total 600 ml 400 ml 900 ml Output Total 680 ml 450 ml 1350 ml Balance -80 ml -50 ml -450 ml medications Current Medications Medications Dose Ordered Sig/[place] Route Start Time Stop Time Status Last Admin Dose Admin Ondansetron HCl 4 mg Q4HP PRN IV 03/07/25 23:00 Morphine Sulfate 2 mg Q4HPRN PRN IV 03/07/25 23:00 03/10/25 08:41 2 MG Morphine Sulfate 2 mg Q30M PRN IV 03/07/25 23:00 03/08/25 08:50 2 MG Clopidogrel Bisulfate 75 mg DAILY PO 03/08/25 10:00 03/10/25 09:37 75 MG Atorvastatin Calcium 40 mg HS PO 03/08/25 22:00 03/09/25 22:25 40 MG Sacubitril/ Valsartan 2 tab BID PO 03/08/25 10:00 03/10/25 09:37 2 TAB Carvedilol 25 mg BID PO 03/08/25 22:00 03/10/25 09:37 25 MG Pantoprazole Sodium 40 mg DAILY@0600 PO 03/09/25 06:00 Hydralazine HCl 10 mg Q6HP PRN IV 03/09/25 18:30 Apixaban 5 mg BID PO 03/09/25 22:00 03/10/25 09:36 5 MG Clonidine HCl 0.1 mg TID PRN PO 03/10/25 07:30 laboratory and microbiology Laboratory Tests 03/10/25 06:27 03/08/25 03:04 Test 03/10/25 06:27 Range/Units Serum Glucose 89 74-106 mg/dL Problem List CHEST PAIN CTA NEGATIVE FOR ANEURYSM HX OF PE HTN AFIB SSS S/P PPI SLEEP APNEA ON CPAP CAD MULTIPLE CORONARY STENTS TROPONIN NEGATIVE ECG NEGATIVE Assessment/Plan STRESS CONSIDE CARDIOLITE MAY DC HOME OUT PT WORKUP Dietary Evaluation Review Comments: 1) Advance diet as medically feasible 2) Continue current plan of care Expected Outcomes/Goals: Pt will meet >75% estimated needs Fu 3-5 days Plan discussed with: Patient DEBORAH ROMERO MD Mar 10, 2025 12:31
[2025-03-10] MEDS: cloNIDine HCL 0.1 MG TAB PO PRN (16:37)
[2025-03-10] MEDS: methylPREDNISolone SOD SUCC 40 MG/ML VL IV ONE (17:58)
[2025-03-10] MEDS: ALLOPURINOL 100 MG TAB PO ONE (17:58)
[2025-03-10] MEDS: SODIUM CHLORIDE 0.9% 500 ML IV ONE (18:06)
--- NOTE | 2025-03-10 20:39 | DVHPNRES ---
Progress Note Date Seen: Mar 10, 2025 Resident Creating Document: JHAJJALMA RESIDENT Medical Necessity Reason Pt with a Central, PICC or Fol: No Subjective Review of Systems Patient seen and examined at the bedside Patient complained of left elbow pain in the morning stating that he has history of gout which might have flared up. moderately tender reports chest pain had improved but still has episodes of dizziness Objective vital signs Vital Sign Date Time Temp Pulse Resp B/P (MAP) Pulse Ox O2 Delivery O2 Flow Rate FiO2 03/10/25 18:29 101 18 166/119 03/10/25 17:00 97.4 97 97.4 03/10/25 08:00 Room Air* 0 21 Total Intake and Output 03/09/25 03/09/25 03/10/25 15:00 23:00 07:00 Intake Total 600 ml 400 ml 900 ml Output Total 680 ml 450 ml 1350 ml Balance -80 ml -50 ml -450 ml medications Current Medications Medications Dose Ordered Sig/Lincoln Route Start Time Stop Time Status Last Admin Dose Admin Ondansetron HCl 4 mg Q4HP PRN IV 03/07/25 23:00 Morphine Sulfate 2 mg Q4HPRN PRN IV 03/07/25 23:00 03/10/25 17:59 2 MG Morphine Sulfate 2 mg Q30M PRN IV 03/07/25 23:00 03/08/25 08:50 2 MG Clopidogrel Bisulfate 75 mg DAILY PO 03/08/25 10:00 03/10/25 09:37 75 MG Atorvastatin Calcium 40 mg HS PO 03/08/25 22:00 03/09/25 22:25 40 MG Sacubitril/ Valsartan 2 tab BID PO 03/08/25 10:00 03/10/25 09:37 2 TAB Carvedilol 25 mg BID PO 03/08/25 22:00 03/10/25 09:37 25 MG Pantoprazole Sodium 40 mg DAILY@0600 PO 03/09/25 06:00 Hydralazine HCl 10 mg Q6HP PRN IV 03/09/25 18:30 Apixaban 5 mg BID PO 03/09/25 22:00 03/10/25 09:36 5 MG Allopurinol 100 mg DAILY PO 03/11/25 10:00 Methylprednisolone Sodium Succinate 40 mg BID IV 03/11/25 09:00 Clonidine HCl 0.2 mg TID PRN PO 03/10/25 19:30 Examination Constitutional: Patient was alert and oriented to time, place and person and does not appear to be in any acute distress Gen - no pallor, no icterus, no cyanosis, no clubbing, no LAD, no edema . Skin - Patients skin is warm and dry.. HEENT - normocephalic, atraumatic, moist mucous membranes. Neck - full ROM, no LAD, no JVD Pulmonary - B/L equal breath sounds. no crackles , no wheezing, no stridor. cardiovascular - variable S1,S2 heard, no added sounds, no murmurs heard. Has a generator a pacemaker in the left subclavian area. capillary refill normal <2 secs. GI - soft, nontender abdomen. no hepatospleenomegaly. Bowel sounds normoactive Neurological - Bilateral upper extremity strength 5/5, bilateral lower extremity strength 5/5, no facial droop, normal speech, no tremor, no sensory deficiets. laboratory and microbiology Laboratory Tests 03/10/25 06:27 03/08/25 03:04 Test 03/10/25 06:27 Range/Units Serum Glucose 89 74-106 mg/dL Microbiology Date/Time Source Procedure Growth Status 03/08/25 02:00 Nose MRSA Screen - Final Complete Problem List/Assessment/Plan Problem List/Assessment/Plan Assessment Hypertensive urgency Typical chest pain, likely unstable angina Aortic dissection ruled out Recently diagnosed PE Obstructive sleep apnea h/o Coronary artery disease s/p PCI with 6 MARIELLE h/o multiple strokes Probable vascular dementia Chronic kidney disease stage 3 h/o bradycardia arrhythmia-s/p permanent pacemaker Hypertensive heart disease Acute Gout flare CT angio showed no evidence of aortic aneurysm or dissection Echocardiogram showed LVEF 55% with severe LVH, asymmetric septal hypertrophy, right atrium enlarged, no severe valvular abnormalities noted Plan - patient was initially placed on nitroglycerin drip in the ED which was gradually weaned off - started on carvedilol 25 mg b.i.d., Entresto 2 p.o. b.i.d. - clonidine 0.2mg p.r.n. for SBP more than 160 mmHg - cardiology consulted with Dr. Starr , recommends outpatient cardiolite stress test - patient given 500 mL IV fluid bolus following IV contrast - renal function improving - patient recently diagnosed with a PE in March, on eliquis - patient has an upcoming appointment with Dr. Hernandez, clinical data management director in the outpatient clinic - IV Solu-Medrol and colchicine for acute gout flare-up DVT prophylaxis: on eliquis PUD prophylaxis: Protonix Goals of care discussed with the patient for over 31 minutes. Full code Plan discussed with Dr. Bernstein Plan discussed with: Patient, Other (RN ( Sana )) My Orders My Orders Orders - ALMA SAENZ RESIDENT Procedure Category Date Status Time Allopurinol Tablet PHA 03/11/25 In Process (Zyloprim Tablet) 10:00 Methylprednisolone PHA 03/11/25 In Process Sod Succ (Solu Medrol 09:00 Complete Blood Count LAB 03/11/25 Verified 04:00 Basic Metabolic Panel LAB 03/11/25 Verified 04:00 Electrocardigram EKG 03/10/25 Logged 19:34 Dietary Evaluation Review Comments: 1) Advance diet as medically feasible 2) Continue current plan of care Expected Outcomes/Goals: Pt will meet >75% estimated needs Fu 3-5 days Date of Service: Mar 10, 2025 Billing Provider: LIBRADO BERNSTEIN MD Common Visit Codes: [id number] INP/OBS CARE(HIGH) Secondary Visit Codes: [id number] CARE PLAN 30 MINUTES ALMA SAENZ RESIDENT Mar 10, 2025 20:39 LIBRADO BERNSTEIN MD Mar 13, 2025 20:25
[2025-03-10] MEDS: cloNIDine HCL 0.1 MG TAB PO ONE (21:18)
[2025-03-11] VITALS (7 sets, daily range): BP systolic 164–180; BP diastolic 112–152; PULSE 60–84; RESP 18–20; TEMP 97.4–97.6; O2SAT 96–98
[2025-03-11] MEDS: cloNIDine HCL 0.1 MG TAB PO PRN (06:23)
[2025-03-11 07:50] LABS: Basophils # (auto) 0.1 10 ^3/uL (0-0.2); Basophils % (auto) 0.5 % (0.0-2.0); Eosinophils # (auto) 0 10 ^3/uL (0-0.8); Hematocrit 47.7 % (41.0-53.0); Hemoglobin 16.5 g/dL (13.5-17.5); Lymphocytes # (auto) 0.7 10 ^3/uL (0.4-5.4); Lymphocytes % (auto) 5.6 % (10.0-50.0); Mean Corpuscular Hemoglobin 31.6 pg (28.0-32.0); Mean Corpuscular Hgb Conc. 34.6 g/dL (32.0-36.0); Mean Corpuscular Volume 91.4 fL (80.0-100.0); Monocytes # (auto) 0.6 10 ^3/uL (0-1.3); Monocytes % (auto) 5.6 % (0.0-12.0); Neutrophils # (auto) 10.3 10 ^3/uL (1.6-8.6); Neutrophils % (auto) 88.3 % (37.0-80.0); Platelet Count (auto) 242 10^3/uL (140-450); Red Blood Cells 5.22 10^6/uL (4.5-5.90); Red Cell Distribution Width 13.8 % (11.8-14.3); White Blood Cell 11.7 10^3/uL (4.4-10.8)
[2025-03-11 07:52] LABS: Chloride 105 mmol/L (98-107); Potassium 4.2 mmol/L (3.5-5.1); Sodium 136 mmol/L (136-145)
[2025-03-11 07:53] LABS: Anion Gap 10 (5-15); Carbon Dioxide 21 mmol/L (20-31)
[2025-03-11 07:54] LABS: Calcium 9.9 mg/dL (8.7-10.4)
--- NOTE | 2025-03-11 07:56 | ECG ---
[facility] Test Date: 2025-03-08 Test Time: 18:00:08 Pat Name: LIBRADO BAEZ Department: Room: 0291T A Gender: M Ophthalmic Nurse: kenisha : 1970 Requested By: ALMA SAENZ Order Number: [id number] Reading MD: Marcus Boyce Measurements Intervals Onset Rate: 67 P: 18 CA: 148 QRS: 34 QRSD: 94 T: 67 QT: 389 QTc: 411 Interpretive Statements Sinus rhythm Consider left atrial enlargement Borderline T abnormalities, lateral leads Electronically Signed On 03-11-2025 20:23:33 PDT by Marcus Boyce Please click the below link to view image of tracing.
[2025-03-11 07:58] LABS: BUN/Creatinine Ratio 13.2 (10.0-20.0)
[2025-03-11 07:59] LABS: Blood Urea Nitrogen 25 mg/dL (9-23); Glucose 157 mg/dL (74-106)
[2025-03-11] MEDS: ALLOPURINOL 100 MG TAB PO SCH (10:20)
[2025-03-11] MEDS: methylPREDNISolone SOD SUCC 40 MG/ML VL IV SCH (10:20)
[2025-03-11] MEDS ORDERED: PRED20TA2 PO (10:44)
[2025-03-11] MEDS ORDERED: COLC1CAP PO (10:44)
[2025-03-11] MEDS ORDERED: AMLO1TAB22 PO (10:44)
[2025-03-11] MEDS ORDERED: ALL100T PO (10:44)
[2025-03-11] MEDS ORDERED: CARV25TA55 PO (10:44)
--- NOTE | 2025-03-11 10:45 | DVHDSRES ---
Discharge Summary Date of Admission Resident Creating Document: ALMA SAENZ RESIDENT Mar 07, 2025 at 22:55 Date of Discharge: Mar 11, 2025 Labs/Diagnostic Data: Laboratory Results Test 03/11/25 07:22 03/10/25 06:27 03/09/25 22:30 03/08/25 08:54 White Blood Count 11.7 10^3/uL (4.4-10.8) Red Blood Count 5.22 10^6/uL (4.5-5.90) Hemoglobin 16.5 g/dL (13.5-17.5) Hematocrit 47.7 % (41.0-53.0) Mean Corpuscular Volume 91.4 fL (80.0-100.0) Mean Corpuscular Hemoglobin 31.6 pg (28.0-32.0) Mean Corpuscular Hemoglobin Concent 34.6 g/dL (32.0-36.0) Red Cell Distribution Width 13.8 % (11.8-14.3) Platelet Count 242 10^3/uL (140-450) Mean Platelet Volume 7.1 fL (6.9-10.8) Neutrophils (%) (Auto) 88.3 % (37.0-80.0) Lymphocytes (%) (Auto) 5.6 % (10.0-50.0) Monocytes (%) (Auto) 5.6 % (0.0-12.0) Eosinophils (%) (Auto) 0.0 % (0.0-7.0) Basophils (%) (Auto) 0.5 % (0.0-2.0) Neutrophils # (Auto) 10.3 10 ^3/uL (1.6-8.6) Lymphocytes # (Auto) 0.7 10 ^3/uL (0.4-5.4) Monocytes # (Auto) 0.6 10 ^3/uL (0-1.3) Eosinophils # (Auto) 0 10 ^3/uL (0-0.8) Basophils # (Auto) 0.1 10 ^3/uL (0-0.2) Nucleated Red Blood Cells 0.0 % Sodium Level 136 mmol/L (136-145) Potassium Level 4.2 mmol/L (3.5-5.1) Chloride Level 105 mmol/L (98-107) Carbon Dioxide Level 21 mmol/L (20-31) Anion Gap 10 (5-15) Blood Urea Nitrogen 25 mg/dL (9-23) Creatinine 1.89 mg/dL (0.700-1.30) Glomerular Filtration Rate Calc 42 mL/min (>90) BUN/Creatinine Ratio 13.2 (10.0-20.0) Serum Glucose 157 mg/dL (74-106) Calcium Level 9.9 mg/dL (8.7-10.4) Uric Acid 9.5 mg/dL (3.7-9.2) Urine Color Colorless (Yellow) Urine Clarity Clear (Clear) Urine pH 7.0 (5.0-9.0) Urine Specific Alma 1.010 (1.001-1.035) Urine Protein Negative (Negative) Urine Ketones Negative (Negative) Urine Blood Negative /uL (Negative) Urine Nitrite Negative (Negative) Urine Bilirubin Negative (Negative) Urine Urobilinogen Normal mg/dL (Negative) Urine Leukocyte Esterase Negative /uL (Negative) Urine RBC <1 /hpf (0 - 3) Urine Microscopic WBC < 1 /HPF (0-3) Urine Squamous Epithelial Cells None seen /hpf (<5) Urine Bacteria None seen /hpf (None Seen) Urine Glucose Normal mg/dL (Normal) Urine Opiates Screen Neg (NEGATIVE) Urine Fentanyl Screen Neg (NEGATIVE) Urine Barbiturates Screen Neg (NEGATIVE) Urine Phencyclidine Screen Neg (NEGATIVE) Urine Amphetamines Screen Neg (NEGATIVE) Urine Benzodiazepines Screen Neg (NEGATIVE) Urine Cocaine Screen Neg (NEGATIVE) Urine Cannabinoids Screen Neg (NEGATIVE) Prothrombin Time 10.2 sec (9.3-11.8) Prothrombin Time INR 0.96 (0.9-1.15) Activated Partial Thromboplast Time 27.1 SEC (24.5-34.5) Test 03/08/25 03:04 03/07/25 18:12 03/07/25 16:54 Phosphorus Level 3.2 mg/dL (2.4-5.1) Magnesium Level 2.0 mg/dL (1.6-2.6) Total Bilirubin 0.6 mg/dL (0.2-1.0) Aspartate Amino Transferase (AST) 14 U/L (13-40) Alanine Aminotransferase (ALT) 18 U/L (7-40) Alkaline Phosphatase 71 U/L (46-116) Total Protein 6.8 g/dL (5.7-8.2) Albumin 3.9 g/dL (3.2-4.8) Troponin I High Sensitivity 20 ng/L (</=54) B-Type Natriuretic Peptide 64.65 pg/mL (0-100) Other Laboratory Tests 03/11/25 07:22 Final Diagnosis/Problems List Hypertensive urgency Typical chest pain, likely unstable angina Aortic dissection ruled out Recently diagnosed PE Obstructive sleep apnea h/o Coronary artery disease s/p PCI with 6 MARIELLE h/o multiple strokes Probable vascular dementia Chronic kidney disease stage 3 h/o bradycardia arrhythmia-s/p permanent pacemaker Hypertensive heart disease Acute Gout flare Discharge Disposition: Home Discharge Instruct/Medications Diet: Cardiac 2g Na,low cholest, See Comment Diet comment: avoid red meat, orgran meats and other foods high in purines Activity: No Restrictions, As Tolerated Follow Up/Referral: Follow up with the PCP and the mud jack nozzle worker in one week Medications: as per EMR Discharge Statement: "Patient was advised to return to the ER or call 911 if any headaches, dizziness, shortness of breath, chest pain, abdominal pain, bleeding, fevers, or worsening of medical condition. Patient was counseled about treatment plan, medications, possible side effects, patientverbalized understanding. All questions were answered to the best of my ability. This discharge took greater then 30 minutes in planning, reviewing documentation, counseling the patient, and discussing with other team members." ASSESSMENT ASSESSMENT Assessment Hypertensive urgency Typical chest pain, likely unstable angina Aortic dissection ruled out Recently diagnosed PE Obstructive sleep apnea h/o Coronary artery disease s/p PCI with 6 MARIELLE h/o multiple strokes Probable vascular dementia Chronic kidney disease stage 3 h/o bradycardia arrhythmia-s/p permanent pacemaker Hypertensive heart disease Acute Gout flare ALMA SAENZ RESIDENT Mar 11, 2025 10:45
[2025-03-11] MEDS: COLCHICINE 0.6 MG CAP PO ONE (12:59)
--- NOTE | 2025-03-11 15:24 | DVH ---
EXAM: CT HEAD WITHOUT CONTRAST HISTORY: Post Fall Assessment COMPARISON: CT HEAD WITHOUT CONTRAST on DOS: 07/27/24, CT HEAD WITHOUT CONTRAST on DOS: 03/04/24 TECHNIQUE: Axial images of the head were obtained and reformatted in coronal and sagittal planes. All CT scans at this medical facility are performed using dose modulation techniques as appropriate t o a performed exam including the following: Automated exposure control was utilized; adjustment of th e MA and/or KV according to patient size; and use of iterative reconstruction technique. CT Dose: CTDI volume is 53.76 mGy. Dose-length product is 969.48 mGy*cm FINDINGS: There is no evidence of acute intracranial hemorrhage, mass, mass effect midline shift. There is no h ydrocephalus or extra-axial fluid collection. There are stable prominent Virchow Marky space in the r ight basal ganglia. There is also stable nonspecific hypodense focus adjacent to the frontal horn of the right lateral ventricle. Fenton-white matter differentiation is maintained. The visualized paranasal sinuses and mastoid air cells are clear. The calvarium is intact. IMPRESSION: 1. No acute intracranial process. HS:Y
[2025-03-11] MEDS: cloNIDine 0.2 mg/24hr 7DAY PATCH TD ONE (16:21)
[2025-03-11] MEDS: SACUBITRIL-VALSARTAN 24mg/26mg TAB PO ONE (16:28)
[2025-03-11] MEDS ORDERED: SACU1TAB7 PO (16:51)
[2025-03-11] MEDS ORDERED: LORazepam 2MG/ML-1ML VIAL IV ONE (19:00)
[2025-03-11] MEDS: LABETALOL HCL 20 MG/4 ML VL IV ONE (19:00)
[2025-03-11] MEDS: LORazepam 0.5 MG TAB PO ONE (19:54)
[2025-03-11] MEDS ORDERED: POLYETHYLENE GLYCOL 17 GM PWDR PO ONE (20:30)
--- NOTE | 2025-03-11 22:41 | DVHPNRES ---
Progress Note Date Seen: Mar 11, 2025 Resident Creating Document: JHAJJALMA RESIDENT Medical Necessity Reason Pt with a Central, PICC or Fol: No Subjective Review of Systems Patient seen and examined at the bedside Patient's left elbow pain improved significantly since yesterday reported intermittant chest pressure Objective vital signs Vital Sign Date Time Temp Pulse Resp B/P (MAP) Pulse Ox O2 Delivery O2 Flow Rate FiO2 03/11/25 21:13 100 18 176/120 03/11/25 21:00 97.4 98 97.4 03/11/25 20:20 Room Air* 0 21 Total Intake and Output 03/10/25 03/10/25 03/11/25 15:00 23:00 07:00 Intake Total 1450 ml 1240 ml Balance 1450 ml 1240 ml medications Current Medications Medications Dose Ordered Sig/Lincoln Route Start Time Stop Time Status Last Admin Dose Admin Ondansetron HCl 4 mg Q4HP PRN IV 03/07/25 23:00 Morphine Sulfate 2 mg Q4HPRN PRN IV 03/07/25 23:00 03/11/25 21:13 2 MG Morphine Sulfate 2 mg Q30M PRN IV 03/07/25 23:00 03/08/25 08:50 2 MG Clopidogrel Bisulfate 75 mg DAILY PO 03/08/25 10:00 03/11/25 10:18 75 MG Atorvastatin Calcium 40 mg HS PO 03/08/25 22:00 03/11/25 21:08 40 MG Sacubitril/ Valsartan 2 tab BID PO 03/08/25 10:00 03/11/25 21:07 2 TAB Carvedilol 25 mg BID PO 03/08/25 22:00 03/11/25 21:08 25 MG Pantoprazole Sodium 40 mg DAILY@0600 PO 03/09/25 06:00 Apixaban 5 mg BID PO 03/09/25 22:00 03/11/25 21:08 5 MG Allopurinol 100 mg DAILY PO 03/11/25 10:00 03/11/25 10:20 100 MG Methylprednisolone Sodium Succinate 40 mg BID IV 03/11/25 09:00 03/11/25 21:09 40 MG Clonidine HCl 0.2 mg TID PRN PO 03/10/25 19:30 03/11/25 13:00 0.2 MG Examination Constitutional: Patient was alert and oriented to time, place and person and does not appear to be in any acute distress Gen - no pallor, no icterus, no cyanosis, no clubbing, no LAD, no edema . Skin - Patients skin is warm and dry.. HEENT - normocephalic, atraumatic, moist mucous membranes. Neck - full ROM, no LAD, no JVD Pulmonary - B/L equal breath sounds. no crackles , no wheezing, no stridor. cardiovascular - variable S1,S2 heard, no added sounds, no murmurs heard. Has a generator a pacemaker in the left subclavian area. capillary refill normal <2 secs. GI - soft, nontender abdomen. no hepatospleenomegaly. Bowel sounds normoactive Neurological - Bilateral upper extremity strength 5/5, bilateral lower extremity strength 5/5, no facial droop, normal speech, no tremor, no sensory deficiets. laboratory and microbiology Laboratory Tests 03/11/25 07:22 Test 03/11/25 07:22 Range/Units Serum Glucose 157 H 74-106 mg/dL Microbiology Date/Time Source Procedure Growth Status 03/08/25 02:00 Nose MRSA Screen - Final Complete Problem List/Assessment/Plan Problem List/Assessment/Plan Assessment Hypertensive urgency Typical chest pain, likely unstable angina Aortic dissection ruled out Recently diagnosed PE Obstructive sleep apnea h/o Coronary artery disease s/p PCI with 6 MARIELLE h/o multiple strokes Probable vascular dementia Chronic kidney disease stage 3 h/o bradycardia arrhythmia-s/p permanent pacemaker Hypertensive heart disease Acute Gout flare CT angio showed no evidence of aortic aneurysm or dissection Echocardiogram showed LVEF 55% with severe LVH, asymmetric septal hypertrophy, right atrium enlarged, no severe valvular abnormalities noted Plan - patient was initially placed on nitroglycerin drip in the ED which was gradually weaned off - started on carvedilol 25 mg b.i.d., Entresto 2 p.o. b.i.d. - clonidine 0.2mg p.r.n. for SBP more than 160 mmHg - cardiology consulted with Dr. Starr , recommends outpatient cardiolite stress test - renal function improving - patient recently diagnosed with a PE in January, eliquis - patient has an upcoming appointment with Dr. Hernandez, institute director in the outpatient clinic - steroids and colchicine for acute gout flare-up As patient's blood pressure was not under control even with carvedilol 25mg bid and entresto 49-51mg bid and clonidine 0.2mg PRN, we wanted to start CCB or hydralazine as the next line of management which the patient refused to take as he was instructed by his primary institute director . we called who has recommended increasing frequency of entresto to 3 times a day. Today patient also reported a fall while he was in the restroom following straining to pass stool. Head CT showed no acute intracranial abnormality. Miralax was given. DVT prophylaxis: on eliquis PUD prophylaxis: Protonix Goals of care discussed with the patient for over 33 minutes. Full code Plan discussed with Dr. Bernstein Plan discussed with: Patient, Other (RN ( Lu )) My Orders My Orders Orders - ALMA SAENZ Procedure Category Date Status Time Pt Request For Service PT 03/11/25 Logged 06:59 Discharge DISCHARGE 03/11/25 Transmitted 10:28 Sacubitril-Valsartan PHA 03/12/25 Transmitted (Entresto 24-26 Mg 06:00 Prednisone Tablet PHA 03/12/25 Transmitted 10:00 Basic Metabolic Panel LAB 03/12/25 Verified 04:00 Complete Blood Count LAB 03/12/25 Verified 04:00 Dietary Evaluation Review Comments: 1) Advance diet as medically feasible 2) Continue current plan of care Expected Outcomes/Goals: Pt will meet >75% estimated needs Fu 3-5 days Date of Service: Mar 11, 2025 Billing Provider: LIBRADO BERNSTEIN MD Common Visit Codes: [id number] INP/OBS CARE(HIGH) Secondary Visit Codes: [id number] CARE PLAN 30 MINUTES ALMA SAENZ Mar 11, 2025 22:41 LIBRADO BERNSTEIN MD Mar 13, 2025 20:37
[2025-03-12] MEDS ORDERED: SACUBITRIL-VALSARTAN 24mg/26mg TAB PO SCH ×2 (06:00→08:15)
[2025-03-12 07:07] LABS: Basophils # (auto) 0 10 ^3/uL (0-0.2); Basophils % (auto) 0.2 % (0.0-2.0); Eosinophils # (auto) 0 10 ^3/uL (0-0.8); Hematocrit 47.1 % (41.0-53.0); Hemoglobin 16.2 g/dL (13.5-17.5); Lymphocytes # (auto) 0.7 10 ^3/uL (0.4-5.4); Lymphocytes % (auto) 5.1 % (10.0-50.0); Mean Corpuscular Hemoglobin 31.6 pg (28.0-32.0); Mean Corpuscular Hgb Conc. 34.4 g/dL (32.0-36.0); Mean Corpuscular Volume 91.9 fL (80.0-100.0); Monocytes # (auto) 0.6 10 ^3/uL (0-1.3); Monocytes % (auto) 4.2 % (0.0-12.0); Neutrophils % (auto) 90.5 % (37.0-80.0); Platelet Count (auto) 262 10^3/uL (140-450); Red Blood Cells 5.13 10^6/uL (4.5-5.90); Red Cell Distribution Width 13.5 % (11.8-14.3); White Blood Cell 14.4 10^3/uL (4.4-10.8)
[2025-03-12 07:18] LABS: Chloride 105 mmol/L (98-107); Potassium 4.2 mmol/L (3.5-5.1); Sodium 136 mmol/L (136-145)
[2025-03-12 07:19] VITALS: BP 168/116
[2025-03-12 07:19] LABS: Anion Gap 10 (5-15); Calcium 9.7 mg/dL (8.7-10.4); Carbon Dioxide 21 mmol/L (20-31)
[2025-03-12 07:24] LABS: BUN/Creatinine Ratio 17.9 (10.0-20.0)
[2025-03-12 07:38] LABS: Blood Urea Nitrogen 36 mg/dL (9-23); Glucose 194 mg/dL (74-106)
[2025-03-12 08:00] VITALS: PULSE 63; RESP 18; O2SAT 98
--- NOTE | 2025-03-12 08:13 | DVHPN2 ---
Progress Note - Dictate Date Seen: Mar 11, 2025 Medical Necessity Reason Pt with a Central, PICC or Fol: No Subjective PT WITH CHEST PAIN CTA NEGATIVE FOR ANEURYSM HX OF PE HTN AFIB SSS S/P PPI SLEEP APNEA ON CPAP CAD MULTIPLE CORONARY STENTS TROPONIN NEGATIVE ECG NEGATIVE vital signs Vital Sign Date Time Temp Pulse Resp B/P (MAP) Pulse Ox O2 Delivery O2 Flow Rate FiO2 03/12/25 06:49 97 18 176/99 03/11/25 21:00 97.4 98 97.4 03/11/25 20:20 Room Air* 0 21 Total Intake and Output 03/11/25 03/11/25 03/12/25 15:00 23:00 07:00 Intake Total 1625 ml 300 ml Output Total 1000 ml Balance 625 ml 300 ml medications Current Medications Medications Dose Ordered Sig/Lincoln Route Start Time Stop Time Status Last Admin Dose Admin Ondansetron HCl 4 mg Q4HP PRN IV 03/07/25 23:00 Morphine Sulfate 2 mg Q4HPRN PRN IV 03/07/25 23:00 03/12/25 06:49 2 MG Morphine Sulfate 2 mg Q30M PRN IV 03/07/25 23:00 03/08/25 08:50 2 MG Clopidogrel Bisulfate 75 mg DAILY PO 03/08/25 10:00 03/11/25 10:18 75 MG Atorvastatin Calcium 40 mg HS PO 03/08/25 22:00 03/11/25 21:08 40 MG Carvedilol 25 mg BID PO 03/08/25 22:00 03/11/25 21:08 25 MG Pantoprazole Sodium 40 mg DAILY@0600 PO 03/09/25 06:00 Apixaban 5 mg BID PO 03/09/25 22:00 03/11/25 21:08 5 MG Allopurinol 100 mg DAILY PO 03/11/25 10:00 03/11/25 10:20 100 MG Clonidine HCl 0.2 mg TID PRN PO 03/10/25 19:30 03/11/25 23:26 0.2 MG Sacubitril/ Valsartan 2 tab TID PO 03/12/25 06:00 UNV Prednisone 40 mg DAILY PO 03/12/25 10:00 laboratory and microbiology Laboratory Tests 03/12/25 06:25 Test 03/12/25 06:25 Range/Units Serum Glucose 194 H 74-106 mg/dL Problem List CHEST PAIN CTA NEGATIVE FOR ANEURYSM HX OF PE HTN AFIB SSS S/P PPI SLEEP APNEA ON CPAP CAD MULTIPLE CORONARY STENTS TROPONIN NEGATIVE ECG NEGATIVE Assessment/Plan STRESS CONSIDE CARDIOLITE MAY DC HOME OUT PT WORKUP TITRATE UP ON ENTRESTO ADD CLONIDINE/ CARDURA Dietary Evaluation Review Comments: 1) Advance diet as medically feasible 2) Continue current plan of care Expected Outcomes/Goals: Pt will meet >75% estimated needs Fu 3-5 days Plan discussed with: Patient Critical Care Time(min): 35 DEBORAH ROMERO MD Mar 12, 2025 08:13
[2025-03-12] MEDS: predniSONE 20 MG TAB PO SCH (09:47)
--- NOTE | 2025-03-12 13:16 | DVHDSRES ---
Discharge Summary Date of Admission Resident Creating Document: MELI PEREZ RESIDENT Mar 07, 2025 at 22:55 Date of Discharge: Mar 11, 2025 Admitting Diagnosis Chest pain Labs/Diagnostic Data: Laboratory Results Test 03/12/25 06:25 03/10/25 06:27 03/09/25 22:30 03/08/25 08:54 White Blood Count 14.4 10^3/uL (4.4-10.8) Red Blood Count 5.13 10^6/uL (4.5-5.90) Hemoglobin 16.2 g/dL (13.5-17.5) Hematocrit 47.1 % (41.0-53.0) Mean Corpuscular Volume 91.9 fL (80.0-100.0) Mean Corpuscular Hemoglobin 31.6 pg (28.0-32.0) Mean Corpuscular Hemoglobin Concent 34.4 g/dL (32.0-36.0) Red Cell Distribution Width 13.5 % (11.8-14.3) Platelet Count 262 10^3/uL (140-450) Mean Platelet Volume 7.5 fL (6.9-10.8) Neutrophils (%) (Auto) 90.5 % (37.0-80.0) Lymphocytes (%) (Auto) 5.1 % (10.0-50.0) Monocytes (%) (Auto) 4.2 % (0.0-12.0) Eosinophils (%) (Auto) 0.0 % (0.0-7.0) Basophils (%) (Auto) 0.2 % (0.0-2.0) Neutrophils # (Auto) 13.0 10 ^3/uL (1.6-8.6) Lymphocytes # (Auto) 0.7 10 ^3/uL (0.4-5.4) Monocytes # (Auto) 0.6 10 ^3/uL (0-1.3) Eosinophils # (Auto) 0 10 ^3/uL (0-0.8) Basophils # (Auto) 0 10 ^3/uL (0-0.2) Nucleated Red Blood Cells 0.0 % Sodium Level 136 mmol/L (136-145) Potassium Level 4.2 mmol/L (3.5-5.1) Chloride Level 105 mmol/L (98-107) Carbon Dioxide Level 21 mmol/L (20-31) Anion Gap 10 (5-15) Blood Urea Nitrogen 36 mg/dL (9-23) Creatinine 2.01 mg/dL (0.700-1.30) Glomerular Filtration Rate Calc 39 mL/min (>90) BUN/Creatinine Ratio 17.9 (10.0-20.0) Serum Glucose 194 mg/dL (74-106) Calcium Level 9.7 mg/dL (8.7-10.4) Uric Acid 9.5 mg/dL (3.7-9.2) Urine Color Colorless (Yellow) Urine Clarity Clear (Clear) Urine pH 7.0 (5.0-9.0) Urine Specific [place] 1.010 (1.001-1.035) Urine Protein Negative (Negative) Urine Ketones Negative (Negative) Urine Blood Negative /uL (Negative) Urine Nitrite Negative (Negative) Urine Bilirubin Negative (Negative) Urine Urobilinogen Normal mg/dL (Negative) Urine Leukocyte Esterase Negative /uL (Negative) Urine RBC <1 /hpf (0 - 3) Urine Microscopic WBC < 1 /HPF (0-3) Urine Squamous Epithelial Cells None seen /hpf (<5) Urine Bacteria None seen /hpf (None Seen) Urine Glucose Normal mg/dL (Normal) Urine Opiates Screen Neg (NEGATIVE) Urine Fentanyl Screen Neg (NEGATIVE) Urine Barbiturates Screen Neg (NEGATIVE) Urine Phencyclidine Screen Neg (NEGATIVE) Urine Amphetamines Screen Neg (NEGATIVE) Urine Benzodiazepines Screen Neg (NEGATIVE) Urine Cocaine Screen Neg (NEGATIVE) Urine Cannabinoids Screen Neg (NEGATIVE) Prothrombin Time 10.2 sec (9.3-11.8) Prothrombin Time INR 0.96 (0.9-1.15) Activated Partial Thromboplast Time 27.1 SEC (24.5-34.5) Test 03/08/25 03:04 03/07/25 18:12 03/07/25 16:54 Phosphorus Level 3.2 mg/dL (2.4-5.1) Magnesium Level 2.0 mg/dL (1.6-2.6) Total Bilirubin 0.6 mg/dL (0.2-1.0) Aspartate Amino Transferase (AST) 14 U/L (13-40) Alanine Aminotransferase (ALT) 18 U/L (7-40) Alkaline Phosphatase 71 U/L (46-116) Total Protein 6.8 g/dL (5.7-8.2) Albumin 3.9 g/dL (3.2-4.8) Troponin I High Sensitivity 20 ng/L (</=54) B-Type Natriuretic Peptide 64.65 pg/mL (0-100) Other Laboratory Tests 03/12/25 06:25 Brief Hx & Hospital Course: Patient is a 54-year-old male patient presented to the ED with chief complaint of chest pain constant, radiating towards jaw/neck/shoulder, retrosternal, severe in intensity 08/11 which started yesterday at 11:00 a.m., associated with bilateral hand numbness, nausea, chills and dyspnea in functional class IV. Patient reports systolic blood pressure of 240 mmHg at home following which she went to the urgent care where his blood pressure was recorded at 220 mmHg, he reports to be compliant with all his home medication. Denies palpitation, syncope, vomiting, diarrhea, bleeding, sick contacts, recent travel and other motor or sensory deficits. Past medical history: Hypertension, dyslipidemia, myocardial infarction with a 6 drug-eluting stents (Dr. 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 Past surgical history: PCI with placement of 6 stents last coronary angiography on 04/2024 which showed chronic [id number] coronary disease, 03/2024 permanent pacemaker placement, hernia repair Family history: Mother had stroke, cancer, MS, and hypertension. Father had heart disease. Social history: Denies tobacco, alcohol and other drug abuse Allergies: Denies Home medication: Carvedilol 25 mg PO bid,, Entresto 49-51 mg b.i.d., clopidogrel 75 mg, apixaban 5 mg p.o. b.i.d., tramadol, atorvastatin 40mg PO daily, Albuterol PRN CT angio showed no evidence of aortic aneurysm or dissection Echocardiogram showed LVEF 55% with severe LVH, asymmetric septal hypertrophy, right atrium enlarged, no severe valvular abnormalities noted Patient has a CTA which rule out and out the resection, patient's blood pressure continued to fluctuate throughout his hospitalization, patient was started on different blood pressure medications, he is asymptomatic, he had an episode of near-syncope in which he fell and hit his head, head CT was unremarkable. Patient states feeling well, and no neurologic deficits, patient was given Lopressor medications and we have noticed that the patient would remove his clonidine patch, so blood pressure kept bleeding high. As patient's blood pressure was not under control even with carvedilol 25mg bid and entresto 49-51mg bid and clonidine 0.2mg PRN, we wanted to start CCB or hydralazine as the next line of management which the patient refused to take as he was instructed by his primary director of transportation . we called who has recommended increasing frequency of entresto to 3 times a day. We consulted director of transportation was explain her to be compliant with the medication and with medical therapy. Patient's blood pressure improved and he will follow with director of transportation in outpatient clinic. On my assessment, patient was seen and examined at bedside. Currently states feeling well, denies any significant shortness of breath, chest pain, abdominal pain, dysuria, nausea, vomiting, diarrhea, constipation, dizziness, lightheadedness. Currently tolerating diet. He is ambulatory. Physical examination: Constitutional: Patient was alert and oriented to time, place and person and does not appear to be in any acute distress Gen - no pallor, no icterus, no cyanosis, no clubbing, no LAD, no edema . Skin - Patients skin is warm and dry.. HEENT - normocephalic, atraumatic, moist mucous membranes. Neck - full ROM, no LAD, no JVD Pulmonary - B/L equal breath sounds. no crackles , no wheezing, no stridor. cardiovascular - variable S1,S2 heard, no added sounds, no murmurs heard. Has a generator a pacemaker in the left subclavian area. capillary refill normal <2 secs. GI - soft, nontender abdomen. no hepatospleenomegaly. Bowel sounds normoactive Neurological - Bilateral upper extremity strength 5/5, bilateral lower extremity strength 5/5, no facial droop, normal speech, no tremor, no sensory deficiets. Patient will be discharge home, will continue home medications as prescribed. Follow-up with PCP in 1-2 weeks. Patient verbalized understanding and agree with the DC plan, we spent over 41 minutes explaining the plan. Plan discussed with Dr. Bernstein Consults/Reason for consult Cardiology was following with due to chest pain Operations or Procedures [place] [id number] Ph: [phone] DIAGNOSTIC IMAGING Diagnostic Imaging Report : [id number] Signed PATIENT: LIBRADO HOLLOWAY IACCT: [id number] UNIT: [id number] : 1970 LOC: ER ROOM / BED: / AGE / SEX: 54 / M ADM STATUS: REG ER SERVICE 1625 ORDERING PHYSICIAN: RYAN PERRY MD PROCEDURE(s): CXRP - CHEST PORTABLE REASON: cp ORDER NUMBER(s): [id number], ACCESSION NUMBER(s): [id number] CHEST RADIOGRAPH Indication: cp Technique: Single frontal view of the chest was obtained Comparison: XY CHEST PORTABLE on DOS: 08/22/24, XY CHEST PORTABLE on DOS: 08/19/24, XY CHEST PORTABLE on DOS: 07/27/24 FINDINGS: Lines and Tubes: Pacemaker in place unchanged Lungs: No focal consolidation. Pleura: No effusion. No pneumothorax. Cardiomediastinal contours: Unremarkable Bones: No acute osseous abnormality. IMPRESSION: 1. No significant change from 08/22/2024. ATED BY: MELIDA KENYON Jr., DO DICTATED DATE/TIME: 03/07/251658 SIGNED BY: MELIDA KENYON Jr., SIGNED DATE/TIME: 03/07/251658 CC: [place] [id number] Ph: [phone] DIAGNOSTIC IMAGING Diagnostic Imaging Report : [id number] Signed PATIENT: LIBRADO HOLLOWAY IACCT: [id number] UNIT: [id number] : 1970 LOC: ICU WEST ROOM / BED: 0111-CC / A AGE / SEX: 54 / M ADM STATUS: ADM IN SERVICE 2796 ORDERING PHYSICIAN: DEVEN COSBY RESIDENT PROCEDURE(s): ANGAC - ANGIO AORTIC ABDOMINAL REASON: Rule out Aortic dissection ORDER NUMBER(s): [id number], ACCESSION NUMBER(s): [id number] CT ANGIOGRAM ABDOMEN AND PELVIS HISTORY: Rule out Aortic dissection COMPARISON: None TECHNIQUE: Helical axial CT images of the abdomen and pelvis were obtained with intravenous contrast. Multiplanar reformats. 3-D postprocessing is performed by technologist including MIP imaging. One or more of the following radiation dose reduction techniques were used for this examination: automated exposure control, adjustment of the mA and/or kV according to patient size, use of iterative reconstruction technique. FINDINGS: Vasculature: Mild aortoiliac atherosclerotic changes. Otherwise no evidence of aortic aneurysm or dissection at this time. The imaged major aortic branch vessels appear patent. IMAGED THORAX: Mediastinum: Left ventricular hypertrophy is noted. Coronary artery calcifications. No pericardial effusion. No mediastinal adenopathy. No central pulmonary embolism. Pleural cavity: No sizable pleural effusion Lungs: Mild atelectasis/ scarring in the left lower lobe. Imaged lungs are otherwise grossly clear. ABDOMEN AND PELVIS: Liver: No discrete hepatic lesions as visualized. Gallbladder and biliary system: No sizable, radiopaque cholelithiasis or biliary ductal dilatation. Pancreas: Negative. Spleen: Negative. Adrenal Glands: Approximately 1.2 cm fat containing left adrenal lesion. This may be an adenoma or myelolipoma. Kidneys and collecting system: No hydroureteronephrosis. Cystic hypodensities in the right kidney. Ultrasound may be obtained to further evaluate. Bowel: No evidence of bowel obstruction. Visualized appendix appears normal caliber. No free intraperitoneal air or fluid identified. Pelvis: No sizable bladder calculus. Osseous structures: No destructive osseous lesions identified. IMPRESSION: No evidence of aortic aneurysm or dissection. A few other findings as above. HS:Y ATED BY: ANDI MERCADO MD DICTATED DATE/TIME: 03/08/25109 SIGNED BY: ANDI MERCADO MD SIGNED DATE/TIME: 03/08/25109 CC: [place] [id number] Ph: [phone] DIAGNOSTIC IMAGING Diagnostic Imaging Report : [id number] Signed PATIENT: LIBRADO HOLLOWAY IACCT: [id number] UNIT: [id number] : 1970 [facility]GE / SEX: 54 / M ADM STATUS: ADM IN SERVICE 2323 ORDERING PHYSICIAN: CHARLIE MOREIRA PROCEDURE(s): LUDVT - LT Upper DVT REASON: LUE PAIN ORDER NUMBER(s): [id number], ACCESSION NUMBER(s): [id number] Clinical History: LUE PAIN Comparison: None Technique: Duplex Doppler evaluation of the deep venous system of the left upper extremity from the common femoral vein to the popliteal vein including color Doppler and spectral/pulsed waveform analysis was performed. Findings: The interrogated upper extremity veins demonstrate appropriate compressibility and waveform variability . Impression: 1. No left upper extremity deep venous thrombosis. 2. If clinical concern/symptoms persist or worsen, short-interval follow-up study is suggested. ATED BY: MAICOL OLIVIA MD DICTATED DATE/TIME: 03/09/25300 SIGNED BY: MAICOL OLIVIA MD SIGNED DATE/TIME: 03/09/25300 CC: [place] [id number] Ph: [phone] DIAGNOSTIC IMAGING Diagnostic Imaging Report : [id number] Signed PATIENT: LIBRADO HOLLOWAY IACCT: [id number] UNIT: [id number] : 1970 LOC: [facility] AGE / SEX: 55 / M ADM STATUS: ADM IN SERVICE 1424 ORDERING PHYSICIAN: LIBRADO BERNSTEIN MD PROCEDURE(s): HWOCT - HEAD WITHOUT CONTRAST REASON: Post Fall Assessment ORDER NUMBER(s): [id number], ACCESSION NUMBER(s): [id number] EXAM: CT HEAD WITHOUT CONTRAST HISTORY: Post Fall Assessment COMPARISON: CT HEAD WITHOUT CONTRAST on DOS: 07/27/24, CT HEAD WITHOUT CONTRAST on DOS: 03/04/24 TECHNIQUE: Axial images of the head were obtained and reformatted in coronal and sagittal planes. All CT scans at this medical facility are performed using dose modulation techniques as appropriate to a performed exam including the following: Automated exposure control was utilized; adjustment of the MA and/or KV according to patient size; and use of iterative reconstruction technique. CT Dose: CTDI volume is 53.76 mGy. Dose-length product is 969.48 mGy*cm FINDINGS: There is no evidence of acute intracranial hemorrhage, mass, mass effect midline shift. There is no hydrocephalus or extra-axial fluid collection. There are stable prominent Virchow Marky space in the right basal ganglia. There is also stable nonspecific hypodense focus adjacent to the frontal horn of the right lateral ventricle. Fenton-white matter differentiation is maintained. The visualized paranasal sinuses and mastoid air cells are clear. The calvarium is intact. IMPRESSION: 1. No acute intracranial process. 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 Chronic kidney disease stage 3 h/o bradycardia arrhythmia-s/p permanent pacemaker Hypertensive heart disease Acute Gout flare Discharge Disposition: Home Discharge Instruct/Medications Diet: Cardiac 2g Na,low cholest, See Comment Diet comment: avoid red meat, orgran meats and other foods high in purines Activity: No Restrictions, As Tolerated Follow Up/Referral: Follow up with the PCP and the director of transportation in one week Medications: as per EMR Discharge Statement: "Patient was advised to return to the ER or call 911 if any headaches, dizziness, shortness of breath, chest pain, abdominal pain, bleeding, fevers, or worsening of medical condition. Patient was counseled about treatment plan, medications, possible side effects, patientverbalized understanding. All questions were answered to the best of my ability. 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
--- NOTE | 2025-03-12 14:51 | ECG ---
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
== END 2025-03-12 11:45 | disposition home or self-care (01) | DRG 199 ==
LOC: EDBD 16:23 → ER 16:23 → OVERFLOW 22:55 → ICU WEST 03-08 01:05 → TELE-WESTW 03-08 16:24
PROVIDERS: ADMIT Internal Medicine Pulmonary Disease; ATTEND Internal Medicine Pulmonary Disease
DX: I16.0 Hypertensive urgency (principal); I20.0 Unstable angina; F01.50 Vascular dementia, unspecified severity, without behavioral disturbance, psychotic disturbance, mood disturbance, and anxiety; I11.9 Hypertensive heart disease without heart failure; E78.5 Hyperlipidemia, unspecified; N18.32 Chronic kidney disease, stage 3b; G47.33 Obstructive sleep apnea (adult) (pediatric); M10.9 Gout, unspecified; F41.9 Anxiety disorder, unspecified; Z95.5 Presence of coronary angioplasty implant and graft; Z79.51 Long term (current) use of inhaled steroids; Z79.899 Other long term (current) drug therapy; I25.2 Old myocardial infarction; Z95.0 Presence of cardiac pacemaker; Z86.711 Personal history of pulmonary embolism; Z88.8 Allergy status to other drugs, medicaments and biological substances
CPT/HCPCS: 36415; 70450; 71045; 74175; 80048; 80053; 80307; 81001; 83735; 83880; 84100; 84484; 84550; 85025; 85610; 85730; 87081; 93005; 93306; 93971; 96365; 96375; G0378; J1885; J2405; J2470

== ENCOUNTER → 2025-04-19 | Outpatient (CLI) | payer MEDICAID ==
[~2025-04-19] VITALS: Ht 177.8 cm; Wt 97.5 kg
[~2025-04-19] MED LIST changes: +ADENOSINE 82 MG in GIVE UN-DILUTED 0 ML IV ONE; +ADENOSINE 90 MG/30 ML INJ IV ONE; +ALL100T PO; +APIX2.5T PO; +CARV25TA55 PO; -CARV6.2551 PO; +COLC1CAP PO; +PRED20TA2 PO; +cloNIDine HCL 0.1 MG TAB ONE
== END | disposition home or self-care (01) ==
LOC: Rad HDHVI 13:01
PROVIDERS: ATTEND Internal Medicine Cardiovascular Disease
DX: I49.3 Ventricular premature depolarization (principal); I49.1 Atrial premature depolarization; I13.0 Hypertensive heart and chronic kidney disease with heart failure and stage 1 through stage 4 chronic kidney disease, or unspecified chronic kidney disease; I50.22 Chronic systolic (congestive) heart failure; N18.32 Chronic kidney disease, stage 3b; R07.89 Other chest pain; I25.119 Atherosclerotic heart disease of native coronary artery with unspecified angina pectoris; I63.9 Cerebral infarction, unspecified; E78.5 Hyperlipidemia, unspecified; Z95.0 Presence of cardiac pacemaker; Z86.73 Personal history of transient ischemic attack (TIA), and cerebral infarction without residual deficits
CPT/HCPCS: 78452; 93017; A9500; J0153

== ENCOUNTER 2025-05-03 13:50 | Outpatient (CLI) | payer MEDICAID ==
[~2025-05-03 13:50] MED LIST changes: -ADENOSINE 82 MG in GIVE UN-DILUTED 0 ML IV ONE; -ADENOSINE 90 MG/30 ML INJ IV ONE; -cloNIDine HCL 0.1 MG TAB ONE
== END 2025-05-03 17:00 | disposition home or self-care (01) ==
LOC: Rad HDHVI 13:50
PROVIDERS: ATTEND Internal Medicine Cardiovascular Disease
DX: I08.0 Rheumatic disorders of both mitral and aortic valves (principal); I25.119 Atherosclerotic heart disease of native coronary artery with unspecified angina pectoris; I50.9 Heart failure, unspecified
CPT/HCPCS: 93306

== ENCOUNTER 2025-06-22 08:22 | Inpatient (IN) | payer MEDICARE, MEDICAID ==
[~2025-06-22] VITALS: Ht 177.8 cm; Wt 108.2 kg
--- NOTE | 2025-06-22 08:35 | ECG ---
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
--- NOTE | 2025-06-22 08:57 | ED.PDOC ---
HPI (NEURO) HPI Comments 55 y/o M, BIBA, with PMHx of CVA, CAD, CKF, NC, HTN and HLD presents to the ED for CC of dizziness. EMS reports, patient is coming from [facility] where he c/o dizziness following finishing his breakfast. Patient reports, to have been experiencing symptoms of vertigo prior to having breakfast and believed symptoms to be d/t not having breakfast however, symptoms persisted. Upon arrival to the ED patient c/o substernal chest pain. Patient denies headache, nausea, vomiting, or photophobia. No other associated symptoms, modifiers, recent injuries or sick contacts present at this time. Chief Complaint: Dizziness Time Seen by MD: 08:45 Primary Care Provider: UNKNOWN Reviewed Notes: Nurses Notes, Medications, Allergies Information Source: Patient Mode of Arrival: EMS Severity: Moderate Dizziness/Weakness Severity: Unable to do activities Headache Severity: None Timing: Minutes Duration: Since onset Prehospital treatment: None Onset: At rest Circumstances: Spontaneous Symptoms: Vertigo Before: Normal During: Awake After: Normal Mentation History of: None Modifying factors: Nothing Associated Signs and Symptoms: Chest Pain Past Medical History PAST MEDICAL HISTORY: CAD, CKF, CVA, High Lipids, HTN, NC, PE Surgical History: Hernia Repair, Pacemaker, PTCA Family History Family History: Reviewed,noncontributory to illness, Family hx of Cancer, Family hx of stroke Social History Smoker: Non-Smoker Alcohol: Denies ETOH Use Drugs: Denies Drug Use Lives In: Home Constitutional: denies: chills, diaphoresis, fatigue, fever, malaise, sweats, weakness, others EENTM: denies: blurred vision, double vision, ear bleeding, ear discharge, ear drainage, ear pain, ear ringing, eye pain, eye redness, hearing loss, mouth pain, mouth swelling, nasal discharge, nose bleeding, nose congestion, nose pain, photophobia, tearing, throat pain, throat swelling, voice changes, others Respiratory: denies: cough, hemoptysis, orthopnea, SOB at rest, shortness of breath, SOB with excertion, stridor, wheezing, others Cardiovascular: reports: chest pain; denies: dizzy spells, diaphoresis, Dyspnea on exertion, edema, irregular heart beat, left arm pain, lightheadedness, palpitations, PND, syncope, others Gastrointestinal: denies: abdomen distended, abdominal pain, blood streaked bowels, constipated, diarrhea, dysphagia, difficulty swallowing, hematemesis, melena, nausea, poor appetite, poor fluid intake, rectal bleeding, rectal pain, vomiting, others Genitourinary: denies: burning, dysuria, flank pain, frequency, hematuria, incontinence, penile discharge, penile sore, pain, testicle pain, testicle swelling, urgency, others Neurological: reports: dizziness; denies: fainting, headache, left sided numbness, left sided weakness, numbness, paresthesia, pre-existing deficit, right sided numbness, right sided weakness, seizure, speech problems, tingling, tremors, weakness, others Musculoskeletal: denies: back pain, gout, joint pain, joint swelling, muscle pain, muscle stiffness, neck pain, others Integumetry: denies: bruises, change in color, change in hair/nails, dryness, laceration, lesions, lumps, rash, wounds, others Allergic/Immunocompromised: denies: Difficulty Healing, Frequent Infections, Hives, Itching, others Hematologic/Lymphatic: denies: anemia, blood clots, easy bleeding, easy bruising, swollen glands, others Endocrine: denies: excessive hunger, excessive sweating, excessive thirst, excessive urination, flushing, intolerance to cold, intolerance to heat, unex plained weight gain, unexplained weight loss, others Psychiatric: denies: anxiety, bipolar disorder, depression, hopeless, panic disorder, schizophrenia, sleepless, suicidal, others All Other Systems: Reviewed and Negative Physical Exam General Appearance: Moderate Distress HEENT: Normal ENT Inspection, Pharynx Normal, TMs Normal Neck: Full Range of Motion, Non-Tender, Normal, Normal Inspection Respiratory: Chest Non-Tender, Lungs Clear, No Accessory Muscle Use, No Respiratory Distress, Normal Breath Sounds Cardiovascular: No Edema, No JVD, No Murmur, No Gallop, Normal Peripheral Pulses, Regular Rate/Rhythm Breast Exam: Deferred Gastrointestinal: No Organomegaly, Non Tender, No Pulsatile Mass, Normal Bowel Sounds, Soft Genitalia: Deferred Pelvic: Deferred Rectal: Deferred Extremities: No calf tenderness, Normal capillary refill, Normal inspection, Normal range of motion, Non-tender, No pedal edema Musculoskeletal : Apperance: Normal Neurologic: Alert, hr coordinator II-XII nml as Tested, No Motor Deficits, Normal Affect, Normal Mood, No Sensory Deficits Cerebellar Function: NOT DONE Reflexes: NOT DONE Skin: Dry, Normal Color, Warm Peripheral Pulses: 3+ Radial (R), 3+ Radial (L) Lymphatic: No Adenopathy Was a procedure done? Was a procedure done?: No Differential Diagnosis (SZ) Seizure: Psychogenic Seizure, Closed Head Injury, CVA/TIA, N/A General Weakness: Vertigo: central, Vertigo: peripheral Headache: N/A X-Ray, Labs, Meds, VS Vital Signs Date Time Temp Pulse Resp B/P (MAP) Pulse Ox O2 Delivery O2 Flow Rate FiO2 06/22/25 10:17 68 18 87/63 (71) 95 06/22/25 10:15 98.2 70 15 87/63 (71) 94 98.2 06/22/25 08:48 98.0 71 15 118/74 (89) 99 98.0 06/22/25 08:29 70 06/22/25 08:29 98.5 65 18 112/81 (91) 98 98.5 Lab Test 06/22/25 09:05 Range/Units White Blood Count 7.1 4.4-10.8 10^3/uL Red Blood Count 5.00 4.5-5.90 10^6/uL Hemoglobin 15.8 13.5-17.5 g/dL Hematocrit 45.4 41.0-53.0 % Mean Corpuscular Volume 90.7 80.0-100.0 fL Mean Corpuscular Hemoglobin 31.7 28.0-32.0 pg Mean Corpuscular Hemoglobin Concent 34.9 32.0-36.0 g/dL Red Cell Distribution Width 14.0 11.8-14.3 % Platelet Count 281 140-450 10^3/uL Mean Platelet Volume 7.1 6.9-10.8 fL Neutrophils (%) (Auto) 71.7 37.0-80.0 % Lymphocytes (%) (Auto) 17.3 10.0-50.0 % Monocytes (%) (Auto) 8.8 0.0-12.0 % Eosinophils (%) (Auto) 1.6 0.0-7.0 % Basophils (%) (Auto) 0.6 0.0-2.0 % Neutrophils # (Auto) 5.1 1.6-8.6 10 ^3/uL Lymphocytes # (Auto) 1.2 0.4-5.4 10 ^3/uL Monocytes # (Auto) 0.6 0-1.3 10 ^3/uL Eosinophils # (Auto) 0.1 0-0.8 10 ^3/uL Basophils # (Auto) 0 0-0.2 10 ^3/uL Nucleated Red Blood Cells 0.1 % Sodium Level 140 136-145 mmol/L Potassium Level 3.9 3.5-5.1 mmol/L Chloride Level 105 98-107 mmol/L Carbon Dioxide Level 24 20-31 mmol/L Anion Gap 11 5-15 Blood Urea Nitrogen 30 H 9-23 mg/dL Creatinine 2.09 H 0.700-1.30 mg/dL Glomerular Filtration Rate Calc 37 >90 mL/min BUN/Creatinine Ratio 14.4 10.0-20.0 Serum Glucose 223 H 74-106 mg/dL Calcium Level 9.9 8.7-10.4 mg/dL Troponin I High Sensitivity 12 </=54 ng/L Current Medications Medications (Trade) Dose Ordered Sig/[place]incoln Route Start Time Stop Time Status Last Admin Sodium Chloride 1,000 ml @ 1,000 mls/hr Q1H ONCE IV 06/22/25 10:30 06/22/25 11:29 06/22/25 10:36 Patient alert. Complaining of dizziness chest discomfort. Vitals stable. Answering questions. He does come regularly. EKG reviewed does not show any acute changes. Neurological exam pristine. Reviewed his previous visit. Blood pressure low. Establish intravenous access. Was given fluids. Cardiac marker within normal limits. Had near-syncope while going to the bathroom. Reviewed his previous visit. Explained to the patient. Continue monitoring. Time of 1ST Reevaluation: 09:15 Reevaluation 1ST: Unchanged Patient Education/Counseling: Diagnosis, Treatment Family Education/Counseling: No Family Present Departure 1 Departure Time of Disposition: :25 Impression: Primary Impression: Hypotension, unspecified Qualified Codes: I95.9 - Hypotension, unspecified Additional Impressions: Autonomic disorder Near syncope Disposition: ADMITTED INPATIENT Admit to: Med Surg Condition: Guarded Critical Care Note Critical Care Time?: Yes (90 min-critical care time only) Critical care comment: Continue monitoring Stability Stability form required: No Heart Score Heart Score: Heart Score Response (Comments) Value History Slightly Suspicious 0 EKG Normal 0 Age 45-64 1 Risk Factors >3 or Hx ASHD 2 Troponin Normal limit 0 Total 3 I personally scribed for RILEY ANGELA MD ([email or web address]) on 06/22/25 at 08:57. Electronically submitted by Nicol Haque ([email or web address]). I personally scribed for RILEY ANGELA MD ([email or web address]) on 06/22/25 at 09:07. Electronically submitted by Nicol Haque ([email or web address]). I personally scribed for RILEY ANGELA MD ([email or web address]) on 06/22/25 at 09:14. Electronically submitted by Nicol Haque ([email or web address]). RILEY ANGELA MD Jun 22, 2025 08:57
[2025-06-22 09:30] LABS: Hematocrit 45.4 % (41.0-53.0); Hemoglobin 15.8 g/dL (13.5-17.5); Mean Corpuscular Hemoglobin 31.7 pg (28.0-32.0); Mean Corpuscular Volume 90.7 fL (80.0-100.0); Nucleated Red Blood Cells % 0.1 %
[2025-06-22 09:41] LABS: Chloride 105 mmol/L (98-107); Potassium 3.9 mmol/L (3.5-5.1); Sodium 140 mmol/L (136-145)
[2025-06-22 09:42] LABS: Anion Gap 11 (5-15); Calcium 9.9 mg/dL (8.7-10.4); Carbon Dioxide 24 mmol/L (20-31)
[2025-06-22 09:47] LABS: BUN/Creatinine Ratio 14.4 (10.0-20.0); Blood Urea Nitrogen 30 mg/dL (9-23); Glucose 223 mg/dL (74-106)
[2025-06-22] MEDS: SODIUM CHLORIDE 0.9% 1,000 ML IV ONE ×3 (10:36→12:01)
[2025-06-22 11:29] VITALS: PULSE 69; RESP 11; O2SAT 98
[2025-06-22] MEDS: KETOROLAC TROMETH 30 MG/ML 1ML VIAL IV ONE (12:03)
--- NOTE | 2025-06-22 12:09 | DVH ---
CLINICAL INFORMATION: 55 years old, Male; syncope. TECHNIQUE: Axial imaging was obtained through the brain without contrast. Coronal and sagittal reform atted images were obtained, reviewed, and stored. Images were reviewed in brain and bone windows. Al l CT scans at this medical facility are performed using dose modulation techniques as appropriate to a performed exam including the following: Automated exposure control was utilized; adjustment of the MA and/or KV according to patient size; and use of iterative reconstruction technique. CTDIvol = 56.1 3 mGy DLP = 1104.73 mGy-cm COMPARISON: CT HEAD WITHOUT CONTRAST on DOS: 03/11/25, CT HEAD WITHOUT CONTRAST on DOS: 07/27/24, CT HE AD WITHOUT CONTRAST on DOS: 03/04/24 FINDINGS: There is no acute intracranial hemorrhage. No mass effect or midline shift. Grossly stable appearing hypodense foci in the right basal ganglia and adjacent to the anterior horn of the right la teral ventricle. The ventricles and sulci are within normal limits in size for age. Basal cisterns ar e patent. The calvarium is unremarkable. Paranasal sinuses and mastoid air cells are clear. IMPRESSION: 1. No CT evidence of acute intracranial abnormality. 2. Stable nonacute findings as described above.
[2025-06-22] MEDS ORDERED: NITROGLYCERIN 0.4 MG SL TAB SL PRN (12:15)
[2025-06-22] MEDS ORDERED: ACETAMINOPHEN 325 MG TAB PO PRN (12:15)
[2025-06-22] MEDS: ONDANSETRON HCL 4 MG/2 ML VIAL IV PRN (12:34)
[2025-06-22] MEDS ORDERED: TAMS0.4C39 PO (12:46)
[2025-06-22] MEDS ORDERED: NIFE1TAB30 PO (12:46)
--- NOTE | 2025-06-22 12:47 | DVHHP2 ---
History of Present Illness Reason for Visit: Dizziness History of Present Illness Jose Morrell is a 55-year-old male with past medical history of CVA, chronic kidney disease, AL, hypertension, and hyperlipidemia, who came to the hospital due to dizziness. Patient states he started feeling bad last night. This morning he woke up dizzy and light headed. He thought he just needed to eat. He ate breakfast and was still feeling dizzy, lightheaded, and had blurry vision so he called EMS. Patient did not take any of his medications this morning. 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: CVA Renal/: Chronic renal insuff Endocrine: Diabetes Past Surgical History: Hernia Repair, Other (PTCA wiht cardiac stents, pacemaker) Smoke: No ALCOHOL: none Drugs: None Lives: with Family Domestic Violence: Neg Review of Systems Constitutional: No: Fever, Chills, Sweats, Weakness, Malaise, Other Eyes: No: Pain, Vision change, Conjunctivae inflammation, Eyelid inflammation, Other, Redness ENT: No: Ear pain, Ear discharge, Nose pain, Nose discharge, Nose congestion, Mouth pain, Mouth swelling, Throat pain, Throat swelling, Other Respiratory: No: Cough, Dry, Shortness of breath, SOB with excertion, Wheezing, Hemoptysis, Pleuritic Pain, Sputum, Wheezing, Other Cardiovascular: No: Chest Pain, Palpitations, Orthopnea, Paroxysmal Noc. Dyspnea, Edema, Lt Headedness, Other Gastrointestinal: No: Nausea, Vomiting, Abdominal Pain, Diarrhea, Constipation, Melena, Hematochezia, Other Genitourinary: No Dysuria, No Frequency, No Incontinence, No Hematuria, No Retention, No Other Musculoskeletal: No: other, neck pain, shoulder pain, arm pain, back pain, hand pain, leg pain, foot pain Skin: No: Rash, Lesions, Jaundice, Bruising, Other Neurological: Weakness, Incoordination, Other (dizzzy, blurry vision, lightheaded, syncopal episode); No: Numbness, Change in speech, Confusion, Seizures Allergies: Coded Allergies: Amlodipine (Verified Allergy, Severe, 03/07/25) Vancomycin (Verified Allergy, Intermediate, 08/23/24) Exam Vital Signs Vital Signs Date Time Temp Pulse Resp B/P (MAP) Pulse Ox O2 Delivery O2 Flow Rate FiO2 06/22/25 12:05 116 21 90/55 (67) 97 06/22/25 11:29 Room Air* 0 21 06/22/25 10:15 98.2 98.2 General Appearance: Alert, Oriented X3, Cooperative, moderate distress HEENT: Atraumatic, PERRLA Respiratory: Clear to auscultation, Normal air movement Cardiovascular: Normal S1, Normal S2, Other (SR-ST, hypotensive) Abdominal: Normal bowel sounds, Soft, No tenderness, No hepatospenomegaly Extremities: No clubbing, No cyanosis, No edema, Normal pulses, No tenderness/swelling Skin: No rashes, No breakdown, No significant lesion Neuro: Normal gait, Normal speech, Strength at 5/5 X4 ext Psych/Mental Status: Mental status NL, Mood NL Labs/Xrays Labs Test 06/22/25 09:05 Range/Units White Blood Count 7.1 4.4-10.8 10^3/uL Red Blood Count 5.00 4.5-5.90 10^6/uL Hemoglobin 15.8 13.5-17.5 g/dL Hematocrit 45.4 41.0-53.0 % Mean Corpuscular Volume 90.7 80.0-100.0 fL Mean Corpuscular Hemoglobin 31.7 28.0-32.0 pg Mean Corpuscular Hemoglobin Concent 34.9 32.0-36.0 g/dL Red Cell Distribution Width 14.0 11.8-14.3 % Platelet Count 281 140-450 10^3/uL Mean Platelet Volume 7.1 6.9-10.8 fL Neutrophils (%) (Auto) 71.7 37.0-80.0 % Lymphocytes (%) (Auto) 17.3 10.0-50.0 % Monocytes (%) (Auto) 8.8 0.0-12.0 % Eosinophils (%) (Auto) 1.6 0.0-7.0 % Basophils (%) (Auto) 0.6 0.0-2.0 % Neutrophils # (Auto) 5.1 1.6-8.6 10 ^3/uL Lymphocytes # (Auto) 1.2 0.4-5.4 10 ^3/uL Monocytes # (Auto) 0.6 0-1.3 10 ^3/uL Eosinophils # (Auto) 0.1 0-0.8 10 ^3/uL Basophils # (Auto) 0 0-0.2 10 ^3/uL Nucleated Red Blood Cells 0.1 % Sodium Level 140 136-145 mmol/L Potassium Level 3.9 3.5-5.1 mmol/L Chloride Level 105 98-107 mmol/L Carbon Dioxide Level 24 20-31 mmol/L Anion Gap 11 5-15 Blood Urea Nitrogen 30 H 9-23 mg/dL Creatinine 2.09 H 0.700-1.30 mg/dL Glomerular Filtration Rate Calc 37 >90 mL/min BUN/Creatinine Ratio 14.4 10.0-20.0 Serum Glucose 223 H 74-106 mg/dL Calcium Level 9.9 8.7-10.4 mg/dL Troponin I High Sensitivity 12 </=54 ng/L TECHNIQUE: Axial imaging was obtained through the brain without contrast. FINDINGS: There is no acute intracranial hemorrhage. No mass effect or midline shift. Grossly stable appearing hypodense foci in the right basal ganglia and adjacent to the anterior horn of the right lateral ventricle. The ventricles and sulci are within normal limits in size for age. Basal cisterns are patent. The calvarium is unremarkable. Paranasal sinuses and mastoid air cells are clear. IMPRESSION: 1. No CT evidence of acute intracranial abnormality. 2. Stable nonacute findings as described above. SEPSIS Sepsis Screen Date sepsis recognized/suspect: Jun 22, 2025 Time Sepsis recognized/suspect: 0849 Recent Procedure: No On Antibiotic Therapy: No Respiratory Rate >20: No Heart Rate >90: No Temp<36 C (96.8 F) or >38.3 C: No SBP <90 or MAP <65 mmHG: No New Acute Mental Status Change: No Is the patient on CPAP, BIPAP,: No Physician Orders Head Without Contrast (06/22/25 11:13) Sodium Chloride 0.9% (06/22/25 11:15) Admit (06/22/25 12:11) Code Status (06/22/25 12:11) 2 Gm Sodium Diet (06/22/25 Lunch) Hydrocodone-Acet 5/325mg Tab ([place] 5/32 (06/22/25 12:15) Ondansetron Hcl (Zofran) (06/22/25 12:15) Docusate Sodium Capsule (Colace Capsule) (06/22/25 12:15) Fall Risk Precautions In Place QSHIFT (06/22/25 12:11) Complete Blood Count (06/23/25 04:00) Comprehensive Metabolic Panel (06/23/25 04:00) Echo 2d Mode Cardiac Dop (06/22/25 12:11) Carotid Duplx W Color Dop (06/22/25 12:11) Condition: Serious (06/22/25 12:11) Acetaminophen Tablet (Tylenol Tablet) (06/22/25 12:15) Nitroglycerin Sublingual (Ntrostat Subli (06/22/25 12:15) Morphine Sulfate Injection (06/22/25 12:15) Stat Ekg For Chest Pain (06/22/25 12:11) Notify Md Of Changes From Base (06/22/25 12:11) Unemployment Claims Adjudicator For 24 Hours (06/22/25 12:11) Emergency Dysrhythmia Protocol (06/22/25 12:11) Rhythm Strips Once Every Shift (06/22/25 12:11) Oxygen By Nasal Cannula (06/22/25 12:11) Vital Signs Date Time Temp Pulse Resp B/P (MAP) Pulse Ox O2 Delivery O2 Flow Rate FiO2 06/22/25 12:05 116 21 90/55 (67) 97 06/22/25 11:29 69 11 98 Room Air* 0 21 06/22/25 10:17 68 18 87/63 (71) 95 06/22/25 10:15 98.2 70 15 87/63 (71) 94 98.2 06/22/25 08:48 98.0 71 15 118/74 (89) 99 98.0 06/22/25 08:29 70 06/22/25 08:29 98.5 65 18 112/81 (91) 98 98.5 Laboratory Tests Test 06/22/25 09:05 White Blood Count 7.1 10^3/uL (4.4-10.8) Medications Medications Dose Ordered Sig/Lincoln Route Start Time Stop Time Status Last Admin Dose Admin Ketorolac Tromethamine 15 mg ONCE ONCE IV 06/22/25 12:00 06/22/25 12:01 DC 06/22/25 12:03 15 MG Sodium Chloride 1,000 ml @ 1,000 mls/hr Q1H ONCE IV 06/22/25 10:30 06/22/25 11:29 DC 06/22/25 10:36 1,000 MLS/HR Sodium Chloride 1,000 ml @ 1,000 mls/hr Q1H ONCE IV 06/22/25 11:15 06/22/25 12:14 DC 06/22/25 12:01 1,000 MLS/HR Assessment/Plan Assessment/Plan Assessment: Hypotension, Unspecified, Syncope, acute on chronic kidney injury, Hyperlipidemia, Obstructive sleep apnea, Plan: Admit to Tele, Cardiology consult, IV hydration, IV antibiotics, Blood cultures, Urine analysis, Urine culture, BiPAP while sleeping, Accu checks Q AC&HS with sliding scale, A1c, Home mediations reconciled, carvedilol held Plan discussed with: Patient My Orders Orders - BIGG MURPHY EMBROIDERY DESIGNER Procedure Category Date Status Time Admit ADMIT 06/22/25 Verified 12:11 Code Status CODE 06/22/25 Verified 12:11 2 Gm Sodium Diet DIET 06/22/25 Verified Lunch Hydrocodone-Acet PHA 06/22/25 Verified 5/325mg Tab ([place] 12:15 Ondansetron Hcl PHA 06/22/25 Verified (Zofran) 12:15 Docusate Sodium PHA 06/22/25 Verified Capsule (Colace 12:15 Fall Risk Precautions [facility] 06/22/[address] 12:11 Complete Blood Count LAB 06/23/25 Verified 04:00 Comprehensive LAB 06/23/25 Verified Metabolic Panel 04:00 Echo 2d Mode Cardiac US 06/22/25 Verified DOP 12:11 Carotid Duplx W Color US 06/22/25 Verified DOP 12:11 Condition: Serious [facility] 06/22/25 Verified 12:11 Acetaminophen Tablet PHA 06/22/25 Verified (Tylenol Tablet) 12:15 Nitroglycerin PHA 06/22/25 Verified Sublingual (Ntrostat 12:15 Morphine Sulfate PHA 06/22/25 Verified Injection 12:15 Stat Ekg For Chest [facility] 06/22/25 Verified Pain 12:11 Notify Of Changes [facility] 06/22/25 Verified From Base 12:11 Unemployment Claims Adjudicator For [facility] 06/22/25 Verified 24 Hours 12:11 Emergency Dysrhythmia [facility] 06/22/25 Verified Protocol 12:11 Rhythm Strips Once [facility] 06/22/25 Verified Every Shift 12:11 Oxygen By Nasal RT 06/22/25 Verified Cannula 12:11 Date of Service: Jun 22, 2025 Billing Provider: BIGG MURPHY Common Visit Codes: [id number] INP/OBS CARE (MOD) BIGG MURPHY Jun 22, 2025 12:47
[2025-06-22] MEDS ORDERED: DEXTROSE (50%) 50ML SYRG IV PRN (13:00)
[2025-06-22] MEDS: NOREPINEPHRINE 8 MG/250ML KIT 250 ML IV SCH (13:20)
[2025-06-22] MEDS: NOREPINEPHRINE 8 MG/250ML KIT 250 ML IV ONE (13:39)
[2025-06-22 14:34] LABS: INR 1.0 (0.9-1.15); Partial Thromboplastin Time 26.4 SEC (24.5-34.5); Prothrombin Time 10.6 sec (9.3-11.8)
--- NOTE | 2025-06-22 14:51 | DVHPN2 ---
Progress Note - Dictate Date Seen: Jun 22, 2025 Medical Necessity Reason Pt with a Central, PICC or Fol: No Subjective PT WITH HYPOTENSION SS COMPLEX OF DIZZINESS CT HEAD NEGATIVE CAROTID DUPLEX NEGATIVE ECHO LVH EF >55% MILD MR PMH ; ORGANIC HD HX OF IL S/P PTCA STENT CAD HX OF CVA CAROTID DUPLEC NL CKD STAGE II SLEEP APNEA vital signs Vital Sign Date Time Temp Pulse Resp B/P (MAP) Pulse Ox O2 Delivery O2 Flow Rate FiO2 06/22/25 14:08 80/47 06/22/25 13:15 112 14 95 06/22/25 11:29 Room Air* 0 21 06/22/25 10:15 98.2 98.2 medications Current Medications Medications Dose Ordered Sig/Lincoln Route Start Time Stop Time Status Last Admin Dose Admin Acetaminophen/ Hydrocodone Bitart 1 tab Q4HP PRN PO 06/22/25 12:15 Ondansetron HCl 4 mg Q4HP PRN IV 06/22/25 12:15 06/22/25 12:34 4 MG Docusate Sodium 100 mg BIDPRN PRN PO 06/22/25 12:15 Acetaminophen 650 mg Q6HP PRN PO 06/22/25 12:15 Nitroglycerin 0.4 mg Q5MINP PRN SL 06/22/25 12:15 Morphine Sulfate 2 mg Q30M PRN IV 06/22/25 12:15 Alprazolam 0.5 mg BID PRN PO 06/22/25 12:45 Clopidogrel Bisulfate 75 mg DAILY PO 06/23/25 10:00 Patient Own Medication 1 tab DAILY PO 06/23/25 10:00 Cancel Patient Own Medication 2 puff BID IN 06/22/25 22:00 Patient Own Medication 25 mg BID PO 06/22/25 22:00 UNV Diagnostic Test (Pha) 1 strip ACHS 06/22/25 17:00 Insulin Human Regular HS SC 06/22/25 22:00 Insulin Human Regular AC SC 06/22/25 17:00 Dextrose 50 ml UD PRN IV 06/22/25 13:00 Norepinephrine Bitartrate 250 ml @ 3.75 mls/hr Q24H IV 06/22/25 13:30 06/22/25 13:20 3.75 MLS/HR Atorvastatin Calcium 40 mg HS PO 06/22/25 22:00 Carvedilol 25 mg BIDWM PO 06/22/25 18:00 laboratory and microbiology Laboratory Tests 06/22/25 09:05 Test 06/22/25 09:05 Range/Units Serum Glucose 223 H 74-106 mg/dL Problem List HYPOTENSION SS COMPLEX OF DIZZINESS CT HEAD NEGATIVE CAROTID DUPLEX NEGATIVE ECHO LVH EF >55% MILD MR PMH ; ORGANIC HD HX OF IL S/P PTCA STENT CAD HX OF CVA CAROTID DUPLEC NL CKD STAGE II SLEEP APNEA GOUT Assessment/Plan ORTHOSTATIC BP IV FLUID AUTONOMIC DYSFUNCTION HOLD BP MEDS Plan discussed with: Patient DEBORAH ROMERO MD Jun 22, 2025 14:51
--- NOTE | 2025-06-22 16:02 | DVH ---
Carotid Duplex Date: 06/22/2025 03:29 PM Clinical History: Hypotension, syncope Comparison: US CAROTID DUPLX W COLOR DOP on DOS: 07/28/24, US CAROTID DUPLX W COLOR DOP on DOS: 3 Technique: Duplex Doppler evaluation of the extracranial carotid and vertebral arteries including col or Doppler and spectral/pulsed waveform analysis was performed. Findings: Velocities and ratios within normal limits IMPRESSION: No hemodynamically significant stenosis noted in the right carotid system. No hemodynamically significant stenosis noted in the left carotid system. Reference: Radiology 2003; 229:[id number]
[2025-06-22] MEDS: cefTRIAXone 1GM/50ML D5W 50 ML IV ONE (16:21)
[2025-06-22] MEDS: ACCU-CHEK COMFORT CURVE STRIP VI SCH (17:08)
[2025-06-22] MEDS: InsuLIN REG 1unit/0.01ml Soln (100units/ml) SC SCH ×2 (17:08→22:07)
--- NOTE | 2025-06-22 17:59 | DVHNC2 ---
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: Attending Physician Indication: Hypotension, CVP monitoring Room prepared for procedure: Yes Corporate Representative performed hand hygien: Yes Maximal sterile barrier precau: Mask/Eye shield, Sterile gown Skin Preparation: Chlorhexidine gluconate, Providine iodine Skin preparation completely dr: Yes Insertion site: Right, Internal jugular Central line catheter type: Vjn-[id number] dialysis Number of lumens: 3 Antiseptic ointment applied to: Yes Post Assessment: Chest X-Ray Date of Service: Jun 22, 2025 Billing Provider: RILEY ANGELA MD Common Visit Codes: [id number] INP/OBS CARE (HIGH) Secondary Visit Codes: 41152-THVSYNARL STANDBY SERVICE Consultation Codes: [id number] CONSULT <45MIN Procedure Codes: [id number] NON-TUNNEL CV CATH RILEY ANGELA MD Jun 22, 2025 17:59
[2025-06-22] MEDS ORDERED: CARVEDILOL 12.5 MG TAB PO SCH (18:00)
[2025-06-22 19:20] VITALS: PULSE 84; RESP 15; O2SAT 98
[2025-06-22 20:37] VITALS: BP 114/96; PULSE 64; RESP 12; O2SAT 94
[2025-06-22 20:46] LABS: Urine Protein, UAD TRACE (Negative)
--- NOTE | 2025-06-22 20:53 | DVH ---
CHEST RADIOGRAPH Indication: CENTRAL LINE PLACEMENT Technique: Single frontal view of the chest was obtained Comparison: XY CHEST PORTABLE on DOS: 03/07/25, XY CHEST PORTABLE on DOS: 08/22/24, XY CHEST PORTABLE on DOS: 08/19/24, XY CHEST PORTABLE on DOS: 07/27/24, XY CHEST PORTABLE on DOS: 04/08/24 FINDINGS: Lines and Tubes: Left chest pacer. right IJ line. Lungs: Mild pulmonary vascular congestion. No focal consolidation. Pleura: No effusion. No pneumothorax. Cardiomediastinal contours: Mild cardiomegaly. Bones: No acute osseous abnormality. IMPRESSION: 1. Mild pulmonary vascular congestion. Mild cardiomegaly. No focal consolidations.
[2025-06-22] MEDS: ATORVASTATIN 20 MG TAB PO SCH (21:46)
[2025-06-22] MEDS: MORPHINE SULFATE INJ 2 MG/ml SYRG IV PRN (21:46)
[2025-06-22] MEDS: BECLOMETHASONE DIPROPIONATE IN SCH (22:00)
[2025-06-22] MEDS ORDERED: PATIENTS OWN MEDICATION (Carvedilol 25 MG) PO SCH (22:00)
[2025-06-23] VITALS (8 sets, daily range): BP systolic 116–135; BP diastolic 85–87; PULSE 77–88; RESP 17–23; TEMP 98.1; O2SAT 92–96
[2025-06-23 03:57] LABS: Hematocrit 40.2 % (41.0-53.0); Hemoglobin 14.1 g/dL (13.5-17.5); Mean Corpuscular Hemoglobin 31.8 pg (28.0-32.0); Mean Corpuscular Volume 90.2 fL (80.0-100.0); Nucleated Red Blood Cells % 0.1 %
[2025-06-23 04:13] LABS: Albumin 3.8 g/dL (3.2-4.8); Alkaline Phosphatase 90 U/L (46-116); Anion Gap 10 (5-15); BUN/Creatinine Ratio 16.1 (10.0-20.0); Bilirubin, Total 0.7 mg/dL (0.2-1.0); Carbon Dioxide 21 mmol/L (20-31); Potassium 3.5 mmol/L (3.5-5.1); Sodium 141 mmol/L (136-145); Total Protein 6.5 g/dL (5.7-8.2)
[2025-06-23 04:14] LABS: Alanine Aminotransferase 41 U/L (7-40); Blood Urea Nitrogen 33 mg/dL (9-23); Calcium 8.2 mg/dL (8.7-10.4); Chloride 110 mmol/L (98-107); Glucose 131 mg/dL (74-106)
[2025-06-23] MEDS: cefTRIAXone 1GM/50ML D5W 50 ML IV SCH (09:43)
[2025-06-23] MEDS ORDERED: PATIENTS OWN MEDICATION (Atorvastatin Calcium 1 TAB) PO SCH (10:00)
[2025-06-23] MEDS: CLOPIDOGREL BISULFATE 75 MG TAB PO SCH (10:07)
--- NOTE | 2025-06-23 12:51 | DVHPN2 ---
Progress Note - Dictate Date Seen: Jun 23, 2025 Medical Necessity Reason Pt with a Central, PICC or Fol: No Subjective PT WITH HYPOTENSION SS COMPLEX OF DIZZINESS CT HEAD NEGATIVE CAROTID DUPLEX NEGATIVE ECHO LVH EF >55% MILD MR PMH ; ORGANIC HD HX OF AR S/P PTCA STENT CAD HX OF CVA CAROTID DUPLEC NL CKD STAGE II SLEEP APNEA vital signs Vital Sign Date Time Temp Pulse Resp B/P (MAP) Pulse Ox O2 Delivery O2 Flow Rate FiO2 06/23/25 12:00 128/83 06/23/25 11:45 80 13 94 06/23/25 07:50 Room Air* 0 21 06/23/25 07:16 97.9 97.9 Total Intake and Output 06/22/25 06/22/25 06/23/25 15:00 23:00 07:00 Intake Total 2150 ml 927.50 ml 195.00 ml Balance 2150 ml 927.50 ml 195.00 ml medications Current Medications Medications Dose Ordered Sig/[place] Route Start Time Stop Time Status Last Admin Dose Admin Acetaminophen/ Hydrocodone Bitart 1 tab Q4HP PRN PO 06/22/25 12:15 Ondansetron HCl 4 mg Q4HP PRN IV 06/22/25 12:15 06/23/25 08:42 4 MG Docusate Sodium 100 mg BIDPRN PRN PO 06/22/25 12:15 Acetaminophen 650 mg Q6HP PRN PO 06/22/25 12:15 Nitroglycerin 0.4 mg Q5MINP PRN SL 06/22/25 12:15 Morphine Sulfate 2 mg Q30M PRN IV 06/22/25 12:15 06/23/25 10:46 2 MG Alprazolam 0.5 mg BID PRN PO 06/22/25 12:45 Clopidogrel Bisulfate 75 mg DAILY PO 06/23/25 10:00 06/23/25 10:07 75 MG Patient Own Medication 1 tab DAILY PO 06/23/25 10:00 Cancel Patient Own Medication 2 puff BID IN 06/22/25 22:00 Patient Own Medication 25 mg BID PO 06/22/25 22:00 UNV Diagnostic Test (Pha) 1 strip ACHS 06/22/25 17:00 06/23/25 11:43 1 STRIP Insulin Human Regular HS SC 06/22/25 22:00 06/22/25 22:07 3 UNITS Insulin Human Regular AC SC 06/22/25 17:00 06/23/25 11:43 3 UNITS Dextrose 50 ml UD PRN IV 06/22/25 13:00 Norepinephrine Bitartrate 250 ml @ 3.75 mls/hr Q24H IV 06/22/25 13:30 06/23/25 06:33 26.25 MLS/HR Atorvastatin Calcium 40 mg HS PO 06/22/25 22:00 06/22/25 21:46 40 MG Ceftriaxone Sodium 50 ml @ 100 mls/hr DAILY@09 IV 06/23/25 09:00 06/23/25 09:43 100 MLS/HR laboratory and microbiology Laboratory Tests 06/23/25 03:21 Test 06/23/25 03:21 Range/Units Serum Glucose 131 H 74-106 mg/dL Problem List HYPOTENSION SS COMPLEX OF DIZZINESS CT HEAD NEGATIVE CAROTID DUPLEX NEGATIVE ECHO LVH EF >55% MILD MR PMH ; ORGANIC HD HX OF AR S/P PTCA STENT CAD HX OF CVA CAROTID DUPLEC NL CKD STAGE II SLEEP APNEA GOUT Assessment/Plan ORTHOSTATIC BP IV FLUID AUTONOMIC DYSFUNCTION HOLD BP MEDS AMBULATE PT HOLD BP MEDS WILL CONTINUE TO MONITOR BP AND TITRATE BP MEDS NEEDED Plan discussed with: Patient DEBORAH ROMERO MD Jun 23, 2025 12:51
--- NOTE | 2025-06-23 15:15 | DVHINCON2 ---
Date of service: Jun 23, 2025 Referring Physician Hospitalist Reason for Consultation Chronic kidney disease History of Present Illness 55-year-old male with past medical history of coronary artery disease, chronic kidney disease stage IIIB known to renal office, hypertension, hyperlipidemia, history of stroke, coronary artery disease with ICD/pacemaker. Patient presents to the hospital complaining of dizziness and near-syncope. He was admitted with noted significant hypotension systolic blood pressure was in the 70s. Nephrology consulted due to elevated creatinine level. Upon last evaluation in medical office patient was taking Entresto and carvedilol Allergies: Coded Allergies: Amlodipine (Verified Allergy, Severe, 03/07/25) Vancomycin (Verified Allergy, Intermediate, 08/23/24) Home Meds Active Scripts Sacubitril-Valsartan (Entresto 49-51 mg) 1 Tab Tab, 1 TAB PO TID for 30 Days, #90 TAB Prov:ALMA SAENZ 03/11/25 Carvedilol (Carvedilol) 25 Mg Tab, 25 MG PO BID for 14 Days, #28 TAB 0 Refills Prov:ALMA SAENZ 03/11/25 Allopurinol (ZYLOPRIM TABLET) 100 Mg Tb, 100 MG PO DAILY for 14 Days, #14 TAB 0 Refills Prov:ALMA SAENZ 03/11/25 Colchicine (Colchicine) 0.6 Mg Cap, 0.6 MG PO DAILY for 7 Days, #7 CAP 0 Refills Prov:ALMA SAENZ 03/11/25 Alprazolam (Xanax) 0.5 Mg Tb, 1 TAB PO BID PRN, #30 TAB Prov:DWAINE JOHN MD 01/10/24 Reported Medications Nifedipine (Nifedipine Er) 60 Mg Tab, 1 TAB PO BID 06/22/25 Tamsulosin Hcl (Tamsulosin Hcl) 0.4 Mg Cap, 1 PO DAILY 06/22/25 Apixaban Base (ELIQUIS) 2.5 Mg Tab, 2.5 MG PO BID, TAB 03/08/25 Atorvastatin Calcium (ATORVASTATIN CALCIUM) 40 Mg Tab, 1 TAB PO DAILY 07/28/24 Clopidogrel Bisulfate (Plavix) 75 Mg Tab, 1 TAB PO DAILY, #90 TAB 1 Refill 03/25/24 Beclomethasone Dipropionate (Qvar Redihaler) 80 Mcg/Act Aer, 2 PUFF INH BID 03/06/24 Albuterol Sulfate (Albuterol Sulfate Hfa) 108 Mcg/Act Aer, 2 PUFF INH Q4HR PRN for WHEEZING 03/06/24 Discontinued Scripts Prednisone (Prednisone) 20 Mg Tab, 20 MG PO DAILY for 5 Days, #5 MG Prov:ALMA SAENZ 03/11/25 Tramadol HCl (Tramadol HCl) 50 Mg Tab, 50 MG PO Q6HP PRN for 30 Days, #20 TAB Prov:SADE WILSON MD 08/21/24 Current Medications Current Medications Medications (Trade) Dose Ordered Sig/[place] Route PRN Reason Start Time Stop Time Status Last Admin Clopidogrel Bisulfate (Plavix) 75 mg DAILY PO 06/23/25 10:00 06/23/25 10:07 Patient Own Medication 1 tab DAILY PO 06/23/25 10:00 Cancel Patient Own Medication 2 puff BID IN 06/22/25 22:00 Patient Own Medication 25 mg BID PO 06/22/25 22:00 UNV Diagnostic Test (Pha) (Accu-Chek Comfort Curve T) 1 strip ACHS 06/22/25 17:00 06/23/25 11:43 Insulin Human Regular (InsuLIN R) HS SC 06/22/25 22:00 06/22/25 22:07 Insulin Human Regular (InsuLIN R) AC SC 06/22/25 17:00 06/23/25 11:43 Atorvastatin Calcium (Lipitor) 40 mg HS PO 06/22/25 22:00 06/22/25 21:46 Carvedilol (Coreg Tablet) 25 mg BIDWM PO 06/22/25 18:00 06/22/25 15:27 DC Ceftriaxone Sodium 50 ml @ 100 mls/hr DAILY@ IV 06/23/25 09:00 06/23/25 09:43 Family History: Cerebrovascular accident (CVA) G8 MOTHER, Onset:Unknown FH: cancer G8 MOTHER, Onset:Unknown FH: heart attack G8 MOTHER, Onset:Unknown FH: heart disease G8 MOTHER, Onset:Unknown GRANDPA, Onset:Unknown Hypertension G8 MOTHER, Onset:Unknown H&P Exam Vital Signs/I&O Vital Sign Date Time Temp Pulse Resp B/P (MAP) Pulse Ox O2 Delivery O2 Flow Rate FiO2 06/23/25 14:15 87 17 121/85 (97) 97 06/23/25 07:50 Room Air* 0 21 06/23/25 07:16 97.9 97.9 Intake and Output 06/22/25 06/23/25 19:00 07:00 Intake Total 2957.50 ml 315.00 ml Balance 2957.50 ml 315.00 ml Intake IV Total 2957.50 ml 315.00 ml Physical Exam Middle-aged male Nonacute distress Abdomen is soft 1+ bilateral ankle edema Regular rate and rhythm Labs/Diagnostic Data Labs/Diagnostic Data Laboratory Tests Test 06/23/25 11:36 06/23/25 06:36 06/23/25 03:21 06/22/25 17:04 Range/Units POC Glucose 187 H 134 H 191 H 70-106 mg/dl White Blood Count 9.3 # 4.4-10.8 10^3/uL Red Blood Count 4.45 L 4.5-5.90 10^6/uL Hemoglobin 14.1 13.5-17.5 g/dL Hematocrit 40.2 #L 41.0-53.0 % Mean Corpuscular Volume 90.2 80.0-100.0 fL Mean Corpuscular Hemoglobin 31.8 28.0-32.0 pg Mean Corpuscular Hemoglobin Concent 35.2 32.0-36.0 g/dL Red Cell Distribution Width 13.7 11.8-14.3 % Platelet Count 256 140-450 10^3/uL Mean Platelet Volume 6.8 L 6.9-10.8 fL Neutrophils (%) (Auto) 65.1 37.0-80.0 % Lymphocytes (%) (Auto) 20.7 10.0-50.0 % Monocytes (%) (Auto) 10.7 0.0-12.0 % Eosinophils (%) (Auto) 2.7 0.0-7.0 % Basophils (%) (Auto) 0.8 0.0-2.0 % Neutrophils # (Auto) 6.0 1.6-8.6 10 ^3/uL Lymphocytes # (Auto) 1.9 0.4-5.4 10 ^3/uL Monocytes # (Auto) 1.0 0-1.3 10 ^3/uL Eosinophils # (Auto) 0.2 0-0.8 10 ^3/uL Basophils # (Auto) 0.1 0-0.2 10 ^3/uL Nucleated Red Blood Cells 0.1 % Sodium Level 141 136-145 mmol/L Potassium Level 3.5 3.5-5.1 mmol/L Chloride Level 110 H 98-107 mmol/L Carbon Dioxide Level 21 20-31 mmol/L Anion Gap 10 5-15 Blood Urea Nitrogen 33 H 9-23 mg/dL Creatinine 2.05 H 0.700-1.30 mg/dL Glomerular Filtration Rate Calc 38 >90 mL/min BUN/Creatinine Ratio 16.1 10.0-20.0 Serum Glucose 131 H 74-106 mg/dL Calcium Level 8.2 L 8.7-10.4 mg/dL Total Bilirubin 0.7 0.2-1.0 mg/dL Aspartate Amino Transferase (AST) 29 13-40 U/L Alanine Aminotransferase (ALT) 41 H 7-40 U/L Alkaline Phosphatase 90 46-116 U/L Total Protein 6.5 5.7-8.2 g/dL Albumin 3.8 3.2-4.8 g/dL Test 06/22/25 13:48 06/22/25 11:26 06/22/25 09:05 Range/Units Prothrombin Time 10.6 9.3-11.8 sec Prothrombin Time INR 1.00 0.9-1.15 Activated Partial Thromboplast Time 26.4 24.5-34.5 SEC Urine Color Yellow Yellow Urine Clarity Clear Clear Urine pH 5.5 5.0-9.0 Urine Specific [place] 1.020 1.001-1.035 Urine Protein Trace H Negative Urine Ketones Negative Negative Urine Blood Negative Negative /uL Urine Nitrite Negative Negative Urine Bilirubin Negative Negative Urine Urobilinogen Normal Negative mg/dL Urine Leukocyte Esterase Negative Negative /uL Urine RBC <1 0 - 3 /hpf Urine Microscopic WBC < 1 0-3 /HPF Urine Squamous Epithelial Cells None seen <5 /hpf Urine Bacteria None seen None Seen /hpf Urine Glucose Normal Normal mg/dL White Blood Count 7.1 4.4-10.8 10^3/uL Red Blood Count 5.00 4.5-5.90 10^6/uL Hemoglobin 15.8 13.5-17.5 g/dL Hematocrit 45.4 41.0-53.0 % Mean Corpuscular Volume 90.7 80.0-100.0 fL Mean Corpuscular Hemoglobin 31.7 28.0-32.0 pg Mean Corpuscular Hemoglobin Concent 34.9 32.0-36.0 g/dL Red Cell Distribution Width 14.0 11.8-14.3 % Platelet Count 281 140-450 10^3/uL Mean Platelet Volume 7.1 6.9-10.8 fL Neutrophils (%) (Auto) 71.7 37.0-80.0 % Lymphocytes (%) (Auto) 17.3 10.0-50.0 % Monocytes (%) (Auto) 8.8 0.0-12.0 % Eosinophils (%) (Auto) 1.6 0.0-7.0 % Basophils (%) (Auto) 0.6 0.0-2.0 % Neutrophils # (Auto) 5.1 1.6-8.6 10 ^3/uL Lymphocytes # (Auto) 1.2 0.4-5.4 10 ^3/uL Monocytes # (Auto) 0.6 0-1.3 10 ^3/uL Eosinophils # (Auto) 0.1 0-0.8 10 ^3/uL Basophils # (Auto) 0 0-0.2 10 ^3/uL Nucleated Red Blood Cells 0.1 % Sodium Level 140 136-145 mmol/L Potassium Level 3.9 3.5-5.1 mmol/L Chloride Level 105 98-107 mmol/L Carbon Dioxide Level 24 20-31 mmol/L Anion Gap 11 5-15 Blood Urea Nitrogen 30 H 9-23 mg/dL Creatinine 2.09 H 0.700-1.30 mg/dL Glomerular Filtration Rate Calc 37 >90 mL/min BUN/Creatinine Ratio 14.4 10.0-20.0 Serum Glucose 223 H 74-106 mg/dL Hemoglobin A1c 6.4 H <5.7 % A1C Calcium Level 9.9 8.7-10.4 mg/dL Troponin I High Sensitivity 12 </=54 ng/L Assessment 55-year-old male with past medical history of chronic kidney disease stage 3b, CVA, coronary artery disease, congestive heart failure presents to the hospital with near syncopal episode was noted to be hypotensive. Acute kidney injury hemodynamically mediated in the setting of hypotension Chronic kidney disease stage IIIB; Dr. Lau Coronary artery disease History of CVA Congestive heart failure Near-syncope appears to be volume induced possibly due to blood pressure. Patient currently receiving IV fluids All blood pressure medications on hold Status post pressors to maintain mean arterial pressure greater than 65 now off. Continue to monitoring Monitor urinary output Telemetry monitoring and evaluation of pacemaker and cardiology input has been noted. Avoid nonsteroidal anti-inflammatory drugs, caution was contrast at this time as risk of contrast induced nephropathy is moderate. Care time 60 minutes Plan discussed with: Patient RICKIE COOK MD Jun 23, 2025 15:15
--- NOTE | 2025-06-23 15:24 | DVHPN2 ---
Reviewed: Care Plan, H&P, Labs, Medications Changes from previous H/P or p: No Changes General: Per HPI Eyes: No Pain, No Vision change, No Conjunctivae inflammation, No Eyelid inflammation, No Other, No Redness ENT: No Ear pain, No Ear discharge, No Nose pain, No Nose discharge, No Nose congestion, No Mouth pain, No Mouth swelling, No Throat pain, No Throat swelling, No Other Cardiovascular: No Chest Pain, No Palpitations, No Orthopnea, No Paroxysmal Noc. Dyspnea, No Edema, No Lt Headedness, No Other Respiratory: No Cough, No Dry, No Shortness of breath, No SOB with excertion, No Wheezing, No Hemoptysis, No Pleuritic Pain, No Sputum, No Other Gastrointestinal: No Nausea, No Vomiting, No Abdominal Pain, No Diarrhea, No Constipation, No Melena, No Hematochezia, No Other Genitourinary: No Dysuria, No Frequency, No Incontinence, No Hematuria, No Retention, No Other Musculoskeletal: No other, No neck pain, No shoulder pain, No arm pain, No back pain, No hand pain, No leg pain, No foot pain Skin: No Rash, No Lesions, No Jaundice, No Bruising, No Other Objective Vitals Vital Signs Date Time Temp Pulse Resp B/P (MAP) Pulse Ox O2 Delivery O2 Flow Rate FiO2 06/23/25 14:15 87 17 121/85 (97) 97 06/23/25 07:50 Room Air* 0 21 06/23/25 07:16 97.9 97.9 Intake/Output Intake and Output 06/23/25 07:00 Intake Total 3272.50 ml Balance 3272.50 ml Intake IV Total 3272.50 ml General Appearance: Alert, Oriented X3, Cooperative Cardiovascular: Regular rate, Normal S1, Normal S2 Neuro: Normal gait, Normal speech Medications Current Medications Medications Dose Ordered Sig/[place] Route Start Time Stop Time Status Last Admin Dose Admin Acetaminophen/ Hydrocodone Bitart 1 tab Q4HP PRN PO 06/22/25 12:15 Ondansetron HCl 4 mg Q4HP PRN IV 06/22/25 12:15 06/23/25 08:42 4 MG Docusate Sodium 100 mg BIDPRN PRN PO 06/22/25 12:15 Acetaminophen 650 mg Q6HP PRN PO 06/22/25 12:15 Nitroglycerin 0.4 mg Q5MINP PRN SL 06/22/25 12:15 Morphine Sulfate 2 mg Q30M PRN IV 06/22/25 12:15 06/23/25 10:46 2 MG Alprazolam 0.5 mg BID PRN PO 06/22/25 12:45 Clopidogrel Bisulfate 75 mg DAILY PO 06/23/25 10:00 06/23/25 10:07 75 MG Patient Own Medication 1 tab DAILY PO 06/23/25 10:00 Cancel Patient Own Medication 2 puff BID IN 06/22/25 22:00 Patient Own Medication 25 mg BID PO 06/22/25 22:00 UNV Diagnostic Test (Pha) 1 strip ACHS 06/22/25 17:00 06/23/25 11:43 1 STRIP Insulin Human Regular HS SC 06/22/25 22:00 06/22/25 22:07 3 UNITS Insulin Human Regular AC SC 06/22/25 17:00 06/23/25 11:43 3 UNITS Dextrose 50 ml UD PRN IV 06/22/25 13:00 Norepinephrine Bitartrate 250 ml @ 3.75 mls/hr Q24H IV 06/22/25 13:30 06/23/25 06:33 26.25 MLS/HR Atorvastatin Calcium 40 mg HS PO 06/22/25 22:00 06/22/25 21:46 40 MG Ceftriaxone Sodium 50 ml @ 100 mls/hr DAILY@09 IV 06/23/25 09:00 06/23/25 09:43 100 MLS/HR Laboratory Results Laboratory Tests 06/23/25 03:21 Chemistry Test 06/23/25 03:21 Albumin 3.8 g/dL (3.2-4.8) Calcium Level 8.2 mg/dL (8.7-10.4) L Total Protein 6.5 g/dL (5.7-8.2) LFT Test 06/23/25 03:21 Alanine Aminotransferase (ALT) 41 U/L (7-40) H Alkaline Phosphatase 90 U/L (46-116) Aspartate Amino Transferase (AST) 29 U/L (13-40) Total Bilirubin 0.7 mg/dL (0.2-1.0) Urinalysis Test 06/22/25 11:26 Urine Color Yellow (Yellow) Urine Clarity Clear (Clear) Urine pH 5.5 (5.0-9.0) Urine Specific [place] 1.020 (1.001-1.035) Urine Protein Trace (Negative) H Urine Ketones Negative (Negative) Urine Blood Negative /uL (Negative) Urine Nitrite Negative (Negative) Urine Bilirubin Negative (Negative) Urine Urobilinogen Normal mg/dL (Negative) Urine Leukocyte Esterase Negative /uL (Negative) Urine RBC <1 /hpf (0 - 3) Urine Microscopic WBC < 1 /HPF (0-3) Urine Squamous Epithelial Cells None seen /hpf (<5) Urine Bacteria None seen /hpf (None Seen) Urine Glucose Normal mg/dL (Normal) Microbiology Microbiology Date/Time Source Procedure Growth Status 06/22/25 16:01 Blood Blood Culture - Preliminary Resulted 06/22/25 11:26 Voided Urine Urine Culture - Preliminary Resulted Labs and/or images reviewed: Labs reviewed by me, Image(s) reviewed by me Assessment/Plan Assessment/Plan Hypotension, Unspecified, Syncope, acute on chronic kidney injury, Hyperlipidemia, Obstructive sleep apnea, 06/23/2025 nephro consulted cardio consulted Plan discussed with: Patient Date of Service: Jun 23, 2025 Billing Provider: GIORGIO TOUSSAINT DO Common Visit Codes: [id number] INP/OBS CARE(HIGH) GIORGIO TOUSSAINT DO Jun 23, 2025 15:24
[2025-06-24] VITALS (27 sets, daily range): BP systolic 91–142; BP diastolic 51–92; PULSE 59–92; RESP 11–24; TEMP 97.4–98.3; O2SAT 83–97
[2025-06-24 04:06] LABS: Hematocrit 38.7 % (41.0-53.0); Hemoglobin 13.7 g/dL (13.5-17.5); Mean Corpuscular Hemoglobin 31.8 pg (28.0-32.0); Mean Corpuscular Volume 90.0 fL (80.0-100.0); Nucleated Red Blood Cells % 0.1 %
[2025-06-24 04:12] LABS: Anion Gap 7 (5-15); Carbon Dioxide 24 mmol/L (20-31); Potassium 3.6 mmol/L (3.5-5.1); Sodium 141 mmol/L (136-145)
[2025-06-24 04:16] LABS: Calcium 8.4 mg/dL (8.7-10.4); Chloride 110 mmol/L (98-107)
[2025-06-24 04:17] LABS: BUN/Creatinine Ratio 13.0 (10.0-20.0); Blood Urea Nitrogen 25 mg/dL (9-23); Glucose 113 mg/dL (74-106)
--- NOTE | 2025-06-24 10:06 | DVHPN2 ---
Progress Note - Dictate Date Seen: Jun 24, 2025 Medical Necessity Reason Pt with a Central, PICC or Fol: No Subjective PT WITH HYPOTENSION SS COMPLEX OF DIZZINESS CT HEAD NEGATIVE CAROTID DUPLEX NEGATIVE ECHO LVH EF >55% MILD MR PMH ; ORGANIC HD HX OF PR S/P PTCA STENT CAD HX OF CVA CAROTID DUPLEC NL CKD STAGE II SLEEP APNEA vital signs Vital Sign Date Time Temp Pulse Resp B/P (MAP) Pulse Ox O2 Delivery O2 Flow Rate FiO2 06/24/25 09:58 65 06/24/25 09:58 16 96 Nasal Cannula* 2 28 06/24/25 08:16 112/70 06/24/25 08:00 97.4 97.4 Total Intake and Output 06/23/25 06/23/25 06/24/25 15:00 23:00 07:00 Intake Total 50 ml Output Total 420 ml 1600 ml Balance -370 ml -1600 ml medications Current Medications Medications Dose Ordered Sig/[place] Route Start Time Stop Time Status Last Admin Dose Admin Acetaminophen/ Hydrocodone Bitart 1 tab Q4HP PRN PO 06/22/25 12:15 Ondansetron HCl 4 mg Q4HP PRN IV 06/22/25 12:15 06/23/25 20:35 4 MG Docusate Sodium 100 mg BIDPRN PRN PO 06/22/25 12:15 Acetaminophen 650 mg Q6HP PRN PO 06/22/25 12:15 Nitroglycerin 0.4 mg Q5MINP PRN SL 06/22/25 12:15 Morphine Sulfate 2 mg Q30M PRN IV 06/22/25 12:15 06/24/25 08:16 2 MG Alprazolam 0.5 mg BID PRN PO 06/22/25 12:45 Clopidogrel Bisulfate 75 mg DAILY PO 06/23/25 10:00 06/24/25 08:13 75 MG Patient Own Medication 1 tab DAILY PO 06/23/25 10:00 Cancel Patient Own Medication 2 puff BID IN 06/22/25 22:00 Patient Own Medication 25 mg BID PO 06/22/25 22:00 UNV Diagnostic Test (Pha) 1 strip ACHS 06/22/25 17:00 06/24/25 06:51 1 STRIP Insulin Human Regular HS SC 06/22/25 22:00 06/22/25 22:07 3 UNITS Insulin Human Regular AC SC 06/22/25 17:00 06/23/25 11:43 3 UNITS Dextrose 50 ml UD PRN IV 06/22/25 13:00 Norepinephrine Bitartrate 250 ml @ 3.75 mls/hr Q24H IV 06/22/25 13:30 06/23/25 06:33 26.25 MLS/HR Atorvastatin Calcium 40 mg HS PO 06/22/25 22:00 06/23/25 20:36 40 MG Ceftriaxone Sodium 50 ml @ 100 mls/hr DAILY@09 IV 06/23/25 09:00 06/24/25 08:16 100 MLS/HR laboratory and microbiology Laboratory Tests 06/24/25 03:20 Test 06/24/25 03:20 Range/Units Serum Glucose 113 H 74-106 mg/dL Problem List HYPOTENSION SS COMPLEX OF DIZZINESS CT HEAD NEGATIVE CAROTID DUPLEX NEGATIVE ECHO LVH EF >55% MILD MR PMH ; ORGANIC HD HX OF PR S/P PTCA STENT CAD HX OF CVA CAROTID DUPLEC NL CKD STAGE II SLEEP APNEA GOUT Assessment/Plan ORTHOSTATIC BP IV FLUID AUTONOMIC DYSFUNCTION HOLD BP MEDS AMBULATE PT HOLD BP MEDS WILL CONTINUE TO MONITOR BP AND TITRATE BP MEDS NEEDED check orthostattic bp IF BP STABLE MAY DC HOME WITHOUT BP MEDS Plan discussed with: Patient DEBORAH ROMERO MD Jun 24, 2025 10:06
--- NOTE | 2025-06-24 12:43 | DVHPN2 ---
Progress Note Date Seen: Jun 24, 2025 Medical Necessity Reason Pt with a Central, PICC or Fol: No Subjective Patient reports: Feels better Objective vital signs Vital Sign Date Time Temp Pulse Resp B/P (MAP) Pulse Ox O2 Delivery O2 Flow Rate FiO2 06/24/25 11:55 60 06/24/25 11:55 13 97 Nasal Cannula* 2 28 06/24/25 11:01 91/51 (64) 06/24/25 08:00 97.4 97.4 Total Intake and Output 06/23/25 06/23/25 06/24/25 15:00 23:00 07:00 Intake Total 50 ml Output Total 420 ml 1600 ml Balance -370 ml -1600 ml medications Current Medications Medications Dose Ordered Sig/[place] Route Start Time Stop Time Status Last Admin Dose Admin Acetaminophen/ Hydrocodone Bitart 1 tab Q4HP PRN PO 06/22/25 12:15 Ondansetron HCl 4 mg Q4HP PRN IV 06/22/25 12:15 06/23/25 20:35 4 MG Docusate Sodium 100 mg BIDPRN PRN PO 06/22/25 12:15 Acetaminophen 650 mg Q6HP PRN PO 06/22/25 12:15 Nitroglycerin 0.4 mg Q5MINP PRN SL 06/22/25 12:15 Morphine Sulfate 2 mg Q30M PRN IV 06/22/25 12:15 06/24/25 08:16 2 MG Alprazolam 0.5 mg BID PRN PO 06/22/25 12:45 Clopidogrel Bisulfate 75 mg DAILY PO 06/23/25 10:00 06/24/25 08:13 75 MG Patient Own Medication 1 tab DAILY PO 06/23/25 10:00 Cancel Patient Own Medication 2 puff BID IN 06/22/25 22:00 Patient Own Medication 25 mg BID PO 06/22/25 22:00 UNV Diagnostic Test (Pha) 1 strip ACHS 06/22/25 17:00 06/24/25 11:30 1 STRIP Insulin Human Regular HS SC 06/22/25 22:00 06/22/25 22:07 3 UNITS Insulin Human Regular AC SC 06/22/25 17:00 06/24/25 11:30 2 UNITS Dextrose 50 ml UD PRN IV 06/22/25 13:00 Norepinephrine Bitartrate 250 ml @ 3.75 mls/hr Q24H IV 06/22/25 13:30 06/23/25 06:33 26.25 MLS/HR Atorvastatin Calcium 40 mg HS PO 06/22/25 22:00 06/23/25 20:36 40 MG Ceftriaxone Sodium 50 ml @ 100 mls/hr DAILY@09 IV 06/23/25 09:00 06/24/25 08:16 100 MLS/HR Examination: GENERAL:Normal, CVS:Normal, ABDOMEN:Normal laboratory and microbiology Laboratory Tests 06/24/25 03:20 Test 06/24/25 03:20 Range/Units Serum Glucose 113 H 74-106 mg/dL Microbiology Date/Time Source Procedure Growth Status 06/22/25 16:05 Blood Blood Culture - Preliminary NO GROWTH AFTER 24 HOURS OF INCUBATION. Resulted 06/22/25 11:26 Voided Urine Urine Culture - Final Complete Problem List/Assessment/Plan Problem List/Assessment/Plan 55-year-old male with past medical history of chronic kidney disease stage 3b, [facility], coronary artery disease, congestive heart failure presents to the hospital with near syncopal episode was noted to be hypotensive. Acute kidney injury hemodynamically mediated in the setting of hypotension Chronic kidney disease stage IIIB; Dr. Lau Coronary artery disease History of CVA Congestive heart failure 1 bcx was + rec followup r/o bacteremia Near-syncope appears to be volume induced possibly due to blood pressure. now improving completed IV fluids BP remains low continue to hold meds Status post pressors to maintain mean arterial pressure greater than 65 now off. Continue to monitoring Monitor urinary output Telemetry monitoring and evaluation of pacemaker and cardiology input has been noted. Avoid nonsteroidal anti-inflammatory drugs, caution was contrast at this time as risk of contrast induced nephropathy is moderate. Plan discussed with: Patient Total Time (mins): 33 RICKIE COOK MD Jun 24, 2025 12:43
--- NOTE | 2025-06-24 15:54 | DVHPN2 ---
Reviewed: Care Plan, H&P, Labs, Medications Changes from previous H/P or p: No Changes General: Per HPI Eyes: No Pain, No Vision change, No Conjunctivae inflammation, No Eyelid inflammation, No Other, No Redness ENT: No Ear pain, No Ear discharge, No Nose pain, No Nose discharge, No Nose congestion, No Mouth pain, No Mouth swelling, No Throat pain, No Throat swelling, No Other Cardiovascular: No Chest Pain, No Palpitations, No Orthopnea, No Paroxysmal Noc. Dyspnea, No Edema, No Lt Headedness, No Other Respiratory: No Cough, No Dry, No Shortness of breath, No SOB with excertion, No Wheezing, No Hemoptysis, No Pleuritic Pain, No Sputum, No Other Gastrointestinal: No Nausea, No Vomiting, No Abdominal Pain, No Diarrhea, No Constipation, No Melena, No Hematochezia, No Other Genitourinary: No Dysuria, No Frequency, No Incontinence, No Hematuria, No Retention, No Other Musculoskeletal: No other, No neck pain, No shoulder pain, No arm pain, No back pain, No hand pain, No leg pain, No foot pain Skin: No Rash, No Lesions, No Jaundice, No Bruising, No Other Objective Vitals Vital Signs Date Time Temp Pulse Resp B/P (MAP) Pulse Ox O2 Delivery O2 Flow Rate FiO2 06/24/25 13:46 15 96 Nasal Cannula* 2 28 06/24/25 13:46 72 06/24/25 12:01 97.6 99/65 (76) 97.6 Intake/Output Intake and Output 06/24/25 07:00 Intake Total 50 ml Output Total 2020 ml Balance -1970 ml Intake IV Total 50 ml Output Urine Total 2020 ml General Appearance: Alert, Oriented X3, Cooperative Cardiovascular: Regular rate, Normal S1, Normal S2 Neuro: Normal gait, Normal speech Medications Current Medications Medications Dose Ordered Sig/[place] Route Start Time Stop Time Status Last Admin Dose Admin Acetaminophen/ Hydrocodone Bitart 1 tab Q4HP PRN PO 06/22/25 12:15 Ondansetron HCl 4 mg Q4HP PRN IV 06/22/25 12:15 06/23/25 20:35 4 MG Docusate Sodium 100 mg BIDPRN PRN PO 06/22/25 12:15 Acetaminophen 650 mg Q6HP PRN PO 06/22/25 12:15 Nitroglycerin 0.4 mg Q5MINP PRN SL 06/22/25 12:15 Morphine Sulfate 2 mg Q30M PRN IV 06/22/25 12:15 06/24/25 08:16 2 MG Alprazolam 0.5 mg BID PRN PO 06/22/25 12:45 Clopidogrel Bisulfate 75 mg DAILY PO 06/23/25 10:00 06/24/25 08:13 75 MG Patient Own Medication 1 tab DAILY PO 06/23/25 10:00 Cancel Patient Own Medication 2 puff BID IN 06/22/25 22:00 Patient Own Medication 25 mg BID PO 06/22/25 22:00 UNV Diagnostic Test (Pha) 1 strip ACHS 06/22/25 17:00 06/24/25 11:30 1 STRIP Insulin Human Regular HS SC 06/22/25 22:00 06/22/25 22:07 3 UNITS Insulin Human Regular AC SC 06/22/25 17:00 06/24/25 11:30 2 UNITS Dextrose 50 ml UD PRN IV 06/22/25 13:00 Norepinephrine Bitartrate 250 ml @ 3.75 mls/hr Q24H IV 06/22/25 13:30 06/23/25 06:33 26.25 MLS/HR Atorvastatin Calcium 40 mg HS PO 06/22/25 22:00 06/23/25 20:36 40 MG Ceftriaxone Sodium 50 ml @ 100 mls/hr DAILY@09 IV 06/23/25 09:00 06/24/25 08:16 100 MLS/HR Laboratory Results Laboratory Tests 06/24/25 03:20 Chemistry Test 06/24/25 03:20 Calcium Level 8.4 mg/dL (8.7-10.4) L Phosphorus Level 2.7 mg/dL (2.4-5.1) Urinalysis Test 06/22/25 11:26 Urine Color Yellow (Yellow) Urine Clarity Clear (Clear) Urine pH 5.5 (5.0-9.0) Urine Specific [place] 1.020 (1.001-1.035) Urine Protein Trace (Negative) H Urine Ketones Negative (Negative) Urine Blood Negative /uL (Negative) Urine Nitrite Negative (Negative) Urine Bilirubin Negative (Negative) Urine Urobilinogen Normal mg/dL (Negative) Urine Leukocyte Esterase Negative /uL (Negative) Urine RBC <1 /hpf (0 - 3) Urine Microscopic WBC < 1 /HPF (0-3) Urine Squamous Epithelial Cells None seen /hpf (<5) Urine Bacteria None seen /hpf (None Seen) Urine Glucose Normal mg/dL (Normal) Microbiology Microbiology Date/Time Source Procedure Growth Status 06/22/25 16:05 Blood Blood Culture - Preliminary NO GROWTH AFTER 24 HOURS OF INCUBATION. Resulted 06/22/25 11:26 Voided Urine Urine Culture - Final Complete Labs and/or images reviewed: Labs reviewed by me, Image(s) reviewed by me Assessment/Plan Assessment/Plan Lyle OsunaJose is a 55-year-old male with past medical history of CVA, chronic kidney disease, [place], hypertension, and hyperlipidemia, who came to the hospital due to dizziness. Patient states he started feeling bad last night. This morning he woke up dizzy and light headed. He thought he just needed to eat. He ate breakfast and was still feeling dizzy, lightheaded, and had blurry vision so he called EMS. Patient did not take any of his medications this morning. Hypotension, Unspecified, Syncope, acute on chronic kidney injury, Hyperlipidemia, Obstructive sleep apnea, 06/23/2025 nephro consulted cardio consulted 06/24/2025 symptoms improving Plan discussed with: Patient Date of Service: Jun 24, 2025 Billing Provider: GIORGIO TOUSSAINT DO Common Visit Codes: [id number] INP/OBS CARE(HIGH) GIORGIO TOUSSAINT DO Jun 24, 2025 15:54
[2025-06-25] VITALS (9 sets, daily range): BP systolic 107–128; BP diastolic 66–85; PULSE 73–91; RESP 17–18; TEMP 96.3–98.6; O2SAT 94–99
[2025-06-25 05:53] LABS: Chloride 105 mmol/L (98-107); Sodium 139 mmol/L (136-145)
[2025-06-25 05:54] LABS: Anion Gap 11 (5-15); Calcium 9.6 mg/dL (8.7-10.4); Carbon Dioxide 23 mmol/L (20-31)
[2025-06-25 05:59] LABS: BUN/Creatinine Ratio 12.6 (10.0-20.0); Glucose 94 mg/dL (74-106)
[2025-06-25 06:02] LABS: Blood Urea Nitrogen 24 mg/dL (9-23); Potassium 3.3 mmol/L (3.5-5.1)
[2025-06-25] MEDS: ALPRAZolam 0.5 MG TAB PO PRN (09:58)
--- NOTE | 2025-06-25 11:11 | DVHPN2 ---
Progress Note - Dictate Date Seen: Jun 25, 2025 Medical Necessity Reason Pt with a Central, PICC or Fol: No Subjective Patient seen earlier today, was reporting chest discomfort. Patient's primary RN and given IV morphine for this. vital signs Vital Sign Date Time Temp Pulse Resp B/P (MAP) Pulse Ox O2 Delivery O2 Flow Rate FiO2 06/25/25 09:16 84 18 127/83 06/25/25 09:00 98.1 98 98.1 06/24/25 20:00 Room Air* 0 21 Total Intake and Output 06/24/25 06/24/25 06/25/25 15:00 23:00 07:00 Intake Total 1200 ml Output Total 1100 ml 1050 ml Balance -1100 ml 150 ml medications Current Medications Medications Dose Ordered Sig/[place] Route Start Time Stop Time Status Last Admin Dose Admin Acetaminophen/ Hydrocodone Bitart 1 tab Q4HP PRN PO 06/22/25 12:15 Ondansetron HCl 4 mg Q4HP PRN IV 06/22/25 12:15 06/23/25 20:35 4 MG Docusate Sodium 100 mg BIDPRN PRN PO 06/22/25 12:15 Acetaminophen 650 mg Q6HP PRN PO 06/22/25 12:15 Nitroglycerin 0.4 mg Q5MINP PRN SL 06/22/25 12:15 Morphine Sulfate 2 mg Q30M PRN IV 06/22/25 12:15 06/25/25 09:16 2 MG Alprazolam 0.5 mg BID PRN PO 06/22/25 12:45 06/25/25 09:58 0.5 MG Clopidogrel Bisulfate 75 mg DAILY PO 06/23/25 10:00 06/25/25 09:15 75 MG Patient Own Medication 1 tab DAILY PO 06/23/25 10:00 Cancel Patient Own Medication 2 puff BID IN 06/22/25 22:00 Patient Own Medication 25 mg BID PO 06/22/25 22:00 UNV Diagnostic Test (Pha) 1 strip ACHS 06/22/25 17:00 06/25/25 06:54 1 STRIP Insulin Human Regular HS SC 06/22/25 22:00 06/22/25 22:07 3 UNITS Insulin Human Regular AC SC 06/22/25 17:00 06/24/25 11:30 2 UNITS Dextrose 50 ml UD PRN IV 06/22/25 13:00 Norepinephrine Bitartrate 250 ml @ 3.75 mls/hr Q24H IV 06/22/25 13:30 06/23/25 06:33 26.25 MLS/HR Atorvastatin Calcium 40 mg HS PO 06/22/25 22:00 06/24/25 23:06 40 MG Ceftriaxone Sodium 50 ml @ 100 mls/hr DAILY@09 IV 06/23/25 09:00 06/25/25 09:58 100 MLS/HR objective Gen: nad heent: nc/at, mmm lungs: cta anteriorly cvs: no rub abd: soft, bowel sounds audible ext: no edema laboratory and microbiology Laboratory Tests 06/25/25 04:00 06/24/25 03:20 Test 06/25/25 04:00 Range/Units Serum Glucose 94 74-106 mg/dL Assessment/Plan Acute kidney injury hemodynamically mediated in the setting of hypotension Chronic kidney disease stage IIIB; Dr. Lau Coronary artery disease History of CVA Congestive heart failure 1 bcx was + rec followup r/o bacteremia - essentially stable GFR - discussed with primary RN to notify Cardiology for ongoing evaluation of chest pain/ management recommendations. - general recommendations to avoid Dario I/ ARB, IV contrast studies if able - discussed with Mr. Lyle Osuna. He appears significantly anxious but felt better after conversation Plan discussed with: Patient MERRITT SANON MD Jun 25, 2025 11:11
--- NOTE | 2025-06-25 13:51 | DVHPN2 ---
Progress Note - Dictate Date Seen: Jun 25, 2025 Medical Necessity Reason Pt with a Central, PICC or Fol: No Subjective PT WITH HYPOTENSION SS COMPLEX OF DIZZINESS CT HEAD NEGATIVE CAROTID DUPLEX NEGATIVE ECHO LVH EF >55% MILD MR PMH ; ORGANIC HD HX OF [place] S/P PTCA STENT CAD HX OF CVA CAROTID DUPLEC NL CKD STAGE II SLEEP APNEA vital signs Vital Sign Date Time Temp Pulse Resp B/P (MAP) Pulse Ox O2 Delivery O2 Flow Rate FiO2 06/25/25 09:16 84 18 127/83 06/25/25 09:00 98.1 98 98.1 06/25/25 08:00 Room Air* 0 21 Total Intake and Output 06/24/25 06/24/25 06/25/25 15:00 23:00 07:00 Intake Total 1200 ml Output Total 1100 ml 1050 ml Balance -1100 ml 150 ml medications Current Medications Medications Dose Ordered Sig/[place] Route Start Time Stop Time Status Last Admin Dose Admin Acetaminophen/ Hydrocodone Bitart 1 tab Q4HP PRN PO 06/22/25 12:15 Ondansetron HCl 4 mg Q4HP PRN IV 06/22/25 12:15 06/23/25 20:35 4 MG Docusate Sodium 100 mg BIDPRN PRN PO 06/22/25 12:15 Acetaminophen 650 mg Q6HP PRN PO 06/22/25 12:15 Nitroglycerin 0.4 mg Q5MINP PRN SL 06/22/25 12:15 Morphine Sulfate 2 mg Q30M PRN IV 06/22/25 12:15 06/25/25 09:16 2 MG Alprazolam 0.5 mg BID PRN PO 06/22/25 12:45 06/25/25 09:58 0.5 MG Clopidogrel Bisulfate 75 mg DAILY PO 06/23/25 10:00 06/25/25 09:15 75 MG Patient Own Medication 1 tab DAILY PO 06/23/25 10:00 Cancel Patient Own Medication 2 puff BID IN 06/22/25 22:00 Patient Own Medication 25 mg BID PO 06/22/25 22:00 UNV Diagnostic Test (Pha) 1 strip ACHS 06/22/25 17:00 06/25/25 11:15 1 STRIP Insulin Human Regular HS SC 06/22/25 22:00 06/22/25 22:07 3 UNITS Insulin Human Regular AC SC 06/22/25 17:00 06/24/25 11:30 2 UNITS Dextrose 50 ml UD PRN IV 06/22/25 13:00 Norepinephrine Bitartrate 250 ml @ 3.75 mls/hr Q24H IV 06/22/25 13:30 06/23/25 06:33 26.25 MLS/HR Atorvastatin Calcium 40 mg HS PO 06/22/25 22:00 06/24/25 23:06 40 MG Ceftriaxone Sodium 50 ml @ 100 mls/hr DAILY@09 IV 06/23/25 09:00 06/25/25 09:58 100 MLS/HR laboratory and microbiology Laboratory Tests 06/25/25 04:00 06/24/25 03:20 Test 06/25/25 04:00 Range/Units Serum Glucose 94 74-106 mg/dL Problem List HYPOTENSION SS COMPLEX OF DIZZINESS CT HEAD NEGATIVE CAROTID DUPLEX NEGATIVE ECHO LVH EF >55% MILD MR PMH ; ORGANIC HD HX OF [place]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
[2025-06-25] MEDS: DOCUSATE SOD 100 MG CAP PO PRN (23:24)
[2025-06-26] VITALS (9 sets, daily range): BP systolic 112–131; BP diastolic 77–93; PULSE 83–98; RESP 16–20; TEMP 97.2–98; O2SAT 91–99
[2025-06-26] MEDS: MORPHINE SULFATE INJ 2 MG/ml SYRG IV PRN (03:56)
--- NOTE | 2025-06-26 13:08 | DVHPN2 ---
Reviewed: Care Plan, H&P, Labs, Medications Changes from previous H/P or p: No Changes General: Per HPI Eyes: No Pain, No Vision change, No Conjunctivae inflammation, No Eyelid inflammation, No Other, No Redness ENT: No Ear pain, No Ear discharge, No Nose pain, No Nose discharge, No Nose congestion, No Mouth pain, No Mouth swelling, No Throat pain, No Throat swelling, No Other Cardiovascular: No Chest Pain, No Palpitations, No Orthopnea, No Paroxysmal Noc. Dyspnea, No Edema, No Lt Headedness, No Other Respiratory: No Cough, No Dry, No Shortness of breath, No SOB with excertion, No Wheezing, No Hemoptysis, No Pleuritic Pain, No Sputum, No Other Gastrointestinal: No Nausea, No Vomiting, No Abdominal Pain, No Diarrhea, No Constipation, No Melena, No Hematochezia, No Other Genitourinary: No Dysuria, No Frequency, No Incontinence, No Hematuria, No Retention, No Other Musculoskeletal: No other, No neck pain, No shoulder pain, No arm pain, No back pain, No hand pain, No leg pain, No foot pain Skin: No Rash, No Lesions, No Jaundice, No Bruising, No Other Objective Vitals Vital Signs Date Time Temp Pulse Resp B/P (MAP) Pulse Ox O2 Delivery O2 Flow Rate FiO2 06/26/25 12:39 97.9 94 20 112/77 (89) 97 97.9 06/26/25 08:05 Room Air* 0 21 Intake/Output Intake and Output 06/26/25 07:00 Intake Total 1770 ml Output Total 4250 ml Balance -2480 ml Intake Oral 1770 ml Output Urine Total 4250 ml General Appearance: Alert, Oriented X3, Cooperative Cardiovascular: Regular rate, Normal S1, Normal S2 Neuro: Normal gait, Normal speech Medications Current Medications Medications Dose Ordered Sig/[place] Route Start Time Stop Time Status Last Admin Dose Admin Acetaminophen/ Hydrocodone Bitart 1 tab Q4HP PRN PO 06/22/25 12:15 Ondansetron HCl 4 mg Q4HP PRN IV 06/22/25 12:15 06/25/25 22:18 4 MG Docusate Sodium 100 mg BIDPRN PRN PO 06/22/25 12:15 06/25/25 23:24 100 MG Acetaminophen 650 mg Q6HP PRN PO 06/22/25 12:15 Nitroglycerin 0.4 mg Q5MINP PRN SL 06/22/25 12:15 Morphine Sulfate 2 mg Q30M PRN IV 06/22/25 12:15 06/25/25 21:57 2 MG Alprazolam 0.5 mg BID PRN PO 06/22/25 12:45 06/25/25 23:34 0.5 MG Clopidogrel Bisulfate 75 mg DAILY PO 06/23/25 10:00 06/26/25 09:05 75 MG Patient Own Medication 1 tab DAILY PO 06/23/25 10:00 Cancel Patient Own Medication 2 puff BID IN 06/22/25 22:00 Patient Own Medication 25 mg BID PO 06/22/25 22:00 UNV Diagnostic Test (Pha) 1 strip ACHS 06/22/25 17:00 06/26/25 12:24 1 STRIP Insulin Human Regular HS SC 06/22/25 22:00 06/25/25 23:23 2 UNITS Insulin Human Regular AC SC 06/22/25 17:00 06/26/25 07:00 3 UNITS Dextrose 50 ml UD PRN IV 06/22/25 13:00 Norepinephrine Bitartrate 250 ml @ 3.75 mls/hr Q24H IV 06/22/25 13:30 06/23/25 06:33 26.25 MLS/HR Atorvastatin Calcium 40 mg HS PO 06/22/25 22:00 06/25/25 23:24 40 MG Ceftriaxone Sodium 50 ml @ 100 mls/hr DAILY@09 IV 06/23/25 09:00 06/26/25 08:08 100 MLS/HR Morphine Sulfate 1 mg Q4HP PRN IV 06/25/25 22:45 06/26/25 12:10 1 MG Laboratory Results Laboratory Tests 06/24/25 03:20 06/25/25 04:00 Urinalysis Test 06/22/25 11:26 Urine Color Yellow (Yellow) Urine Clarity Clear (Clear) Urine pH 5.5 (5.0-9.0) Urine Specific [place] 1.020 (1.001-1.035) Urine Protein Trace (Negative) H Urine Ketones Negative (Negative) Urine Blood Negative /uL (Negative) Urine Nitrite Negative (Negative) Urine Bilirubin Negative (Negative) Urine Urobilinogen Normal mg/dL (Negative) Urine Leukocyte Esterase Negative /uL (Negative) Urine RBC <1 /hpf (0 - 3) Urine Microscopic WBC < 1 /HPF (0-3) Urine Squamous Epithelial Cells None seen /hpf (<5) Urine Bacteria None seen /hpf (None Seen) Urine Glucose Normal mg/dL (Normal) Microbiology Microbiology Date/Time Source Procedure Growth Status 06/24/25 17:13 Nose MRSA Screen - Final Complete 06/22/25 16:05 Blood Blood Culture - Preliminary NO GROWTH AFTER 72 HOURS OF INCUBATION. Resulted 06/22/25 11:26 Voided Urine Urine Culture - Final Complete Labs and/or images reviewed: Labs reviewed by me, Image(s) reviewed by me Assessment/Plan Assessment/Plan Lyle Osuna is a 55-year-old male with past medical history of CVA, chronic kidney disease, [place], hypertension, and hyperlipidemia, who came to the hospital due to dizziness. Patient states he started feeling bad last night. This morning he woke up dizzy and light headed. He thought he just needed to eat. He ate breakfast and was still feeling dizzy, lightheaded, and had blurry vision so he called EMS. Patient did not take any of his medications this morning. Hypotension, Unspecified, Syncope, acute on chronic kidney injury, Hyperlipidemia, Obstructive sleep apnea, 06/23/2025 nephro consulted cardio consulted 06/24/2025 symptoms improving 06/25/2025 seen by cardiology no new BP meds Plan discussed with: Patient Date of Service: Jun 25, 2025 Billing Provider: GIORGIO TOUSSAINT DO Common Visit Codes: [id number] INP/OBS CARE(HIGH) GIORGIO TOUSSAINT DO Jun 26, 2025 13:08
--- NOTE | 2025-06-26 15:44 | DVHPN2 ---
Reviewed: Care Plan, H&P, Labs, Medications Changes from previous H/P or p: No Changes General: Per HPI Eyes: No Pain, No Vision change, No Conjunctivae inflammation, No Eyelid inflammation, No Other, No Redness ENT: No Ear pain, No Ear discharge, No Nose pain, No Nose discharge, No Nose congestion, No Mouth pain, No Mouth swelling, No Throat pain, No Throat swelling, No Other Cardiovascular: No Chest Pain, No Palpitations, No Orthopnea, No Paroxysmal Noc. Dyspnea, No Edema, No Lt Headedness, No Other Respiratory: No Cough, No Dry, No Shortness of breath, No SOB with excertion, No Wheezing, No Hemoptysis, No Pleuritic Pain, No Sputum, No Other Gastrointestinal: No Nausea, No Vomiting, No Abdominal Pain, No Diarrhea, No Constipation, No Melena, No Hematochezia, No Other Genitourinary: No Dysuria, No Frequency, No Incontinence, No Hematuria, No Retention, No Other Musculoskeletal: No other, No neck pain, No shoulder pain, No arm pain, No back pain, No hand pain, No leg pain, No foot pain Skin: No Rash, No Lesions, No Jaundice, No Bruising, No Other Objective Vitals Vital Signs Date Time Temp Pulse Resp B/P (MAP) Pulse Ox O2 Delivery O2 Flow Rate FiO2 06/26/25 12:40 84 18 117/83 06/26/25 12:39 97.9 97 97.9 06/26/25 08:05 Room Air* 0 21 Intake/Output Intake and Output 06/26/25 07:00 Intake Total 1770 ml Output Total 4250 ml Balance -2480 ml Intake Oral 1770 ml Output Urine Total 4250 ml General Appearance: Alert, Oriented X3, Cooperative Cardiovascular: Regular rate, Normal S1, Normal S2 Neuro: Normal gait, Normal speech Medications Current Medications Medications Dose Ordered Sig/[place] Route Start Time Stop Time Status Last Admin Dose Admin Acetaminophen/ Hydrocodone Bitart 1 tab Q4HP PRN PO 06/22/25 12:15 Ondansetron HCl 4 mg Q4HP PRN IV 06/22/25 12:15 06/25/25 22:18 4 MG Docusate Sodium 100 mg BIDPRN PRN PO 06/22/25 12:15 06/26/25 13:56 100 MG Acetaminophen 650 mg Q6HP PRN PO 06/22/25 12:15 Nitroglycerin 0.4 mg Q5MINP PRN SL 06/22/25 12:15 Morphine Sulfate 2 mg Q30M PRN IV 06/22/25 12:15 06/25/25 21:57 2 MG Alprazolam 0.5 mg BID PRN PO 06/22/25 12:45 06/25/25 23:34 0.5 MG Clopidogrel Bisulfate 75 mg DAILY PO 06/23/25 10:00 06/26/25 09:05 75 MG Patient Own Medication 1 tab DAILY PO 06/23/25 10:00 Cancel Patient Own Medication 2 puff BID IN 06/22/25 22:00 Patient Own Medication 25 mg BID PO 06/22/25 22:00 UNV Diagnostic Test (Pha) 1 strip ACHS 06/22/25 17:00 06/26/25 12:24 1 STRIP Insulin Human Regular HS SC 06/22/25 22:00 06/25/25 23:23 2 UNITS Insulin Human Regular AC SC 06/22/25 17:00 06/26/25 07:00 3 UNITS Dextrose 50 ml UD PRN IV 06/22/25 13:00 Atorvastatin Calcium 40 mg HS PO 06/22/25 22:00 06/25/25 23:24 40 MG Ceftriaxone Sodium 50 ml @ 100 mls/hr DAILY@09 IV 06/23/25 09:00 06/26/25 08:08 100 MLS/HR Morphine Sulfate 1 mg Q4HP PRN IV 06/25/25 22:45 06/26/25 12:10 1 MG Laboratory Results Laboratory Tests 06/24/25 03:20 06/25/25 04:00 Urinalysis Test 06/22/25 11:26 Urine Color Yellow (Yellow) Urine Clarity Clear (Clear) Urine pH 5.5 (5.0-9.0) Urine Specific [place] 1.020 (1.001-1.035) Urine Protein Trace (Negative) H Urine Ketones Negative (Negative) Urine Blood Negative /uL (Negative) Urine Nitrite Negative (Negative) Urine Bilirubin Negative (Negative) Urine Urobilinogen Normal mg/dL (Negative) Urine Leukocyte Esterase Negative /uL (Negative) Urine RBC <1 /hpf (0 - 3) Urine Microscopic WBC < 1 /HPF (0-3) Urine Squamous Epithelial Cells None seen /hpf (<5) Urine Bacteria None seen /hpf (None Seen) Urine Glucose Normal mg/dL (Normal) Microbiology Microbiology Date/Time Source Procedure Growth Status 06/24/25 17:13 Nose MRSA Screen - Final Complete 06/22/25 16:05 Blood Blood Culture - Preliminary NO GROWTH AFTER 72 HOURS OF INCUBATION. Resulted 06/22/25 11:26 Voided Urine Urine Culture - Final Complete Labs and/or images reviewed: Labs reviewed by me, Image(s) reviewed by me Assessment/Plan Assessment/Plan Lyle OsunaJose is a 55-year-old male with past medical history of CVA, chronic kidney disease, [place], hypertension, and hyperlipidemia, who came to the hospital due to dizziness. Patient states he started feeling bad last night. This morning he woke up dizzy and light headed. He thought he just needed to eat. He ate breakfast and was still feeling dizzy, lightheaded, and had blurry vision so he called EMS. Patient did not take any of his medications this morning. Hypotension, Unspecified, Syncope, acute on chronic kidney injury, Hyperlipidemia, Obstructive sleep apnea, 06/23/2025 nephro consulted cardio consulted 06/24/2025 symptoms improving 06/25/2025 seen by cardiology no new BP meds 06/26/2025 worsening pain in left knee unable to walk, PT consulted, if can ambulate well, possible d/c in AM Plan discussed with: Patient My Orders Orders - GIORGIO TOUSSAINT DO Procedure Category Date Status Time Pt Request For Service PT 06/26/25 Logged 14:12 Date of Service: Jun 26, 2025 Billing Provider: GIORGIO TOUSSAINT DO Common Visit Codes: [id number] INP/OBS CARE(HIGH) GIORGIO TOUSSAINT DO Jun 26, 2025 15:44
[2025-06-26] MEDS: POTASSIUM CHL 20 Meq TABLET PO ONE (16:08)
--- NOTE | 2025-06-26 16:37 | DVHPN2 ---
Progress Note Date Seen: Jun 26, 2025 Medical Necessity Reason Pt with a Central, PICC or Fol: No Subjective Review of Systems Pt states he feels better today. Patient reports: No new complaints, Feels better Objective vital signs Vital Sign Date Time Temp Pulse Resp B/P (MAP) Pulse Ox O2 Delivery O2 Flow Rate FiO2 06/26/25 16:11 91 18 131/93 06/26/25 12:39 97.9 97 97.9 06/26/25 08:05 Room Air* 0 21 Total Intake and Output 06/25/25 06/25/25 06/26/25 15:00 23:00 07:00 Intake Total 1650 ml 120 ml Output Total 2450 ml 1800 ml Balance -800 ml -1680 ml medications Current Medications Medications Dose Ordered Sig/[place] Route Start Time Stop Time Status Last Admin Dose Admin Acetaminophen/ Hydrocodone Bitart 1 tab Q4HP PRN PO 06/22/25 12:15 Ondansetron HCl 4 mg Q4HP PRN IV 06/22/25 12:15 06/25/25 22:18 4 MG Docusate Sodium 100 mg BIDPRN PRN PO 06/22/25 12:15 06/26/25 13:56 100 MG Acetaminophen 650 mg Q6HP PRN PO 06/22/25 12:15 Nitroglycerin 0.4 mg Q5MINP PRN SL 06/22/25 12:15 Morphine Sulfate 2 mg Q30M PRN IV 06/22/25 12:15 06/25/25 21:57 2 MG Alprazolam 0.5 mg BID PRN PO 06/22/25 12:45 06/25/25 23:34 0.5 MG Clopidogrel Bisulfate 75 mg DAILY PO 06/23/25 10:00 06/26/25 09:05 75 MG Patient Own Medication 1 tab DAILY PO 06/23/25 10:00 Cancel Patient Own Medication 2 puff BID IN 06/22/25 22:00 Patient Own Medication 25 mg BID PO 06/22/25 22:00 UNV Diagnostic Test (Pha) 1 strip ACHS 06/22/25 17:00 06/26/25 12:24 1 STRIP Insulin Human Regular HS SC 06/22/25 22:00 06/25/25 23:23 2 UNITS Insulin Human Regular AC SC 06/22/25 17:00 06/26/25 07:00 3 UNITS Dextrose 50 ml UD PRN IV 06/22/25 13:00 Atorvastatin Calcium 40 mg HS PO 06/22/25 22:00 06/25/25 23:24 40 MG Ceftriaxone Sodium 50 ml @ 100 mls/hr DAILY@09 IV 06/23/25 09:00 06/26/25 08:08 100 MLS/HR Morphine Sulfate 1 mg Q4HP PRN IV 06/25/25 22:45 06/26/25 16:11 1 MG Colchicine 0.6 mg DAILY PO 06/27/25 10:00 Examination Gen: NAD, appears stated age Lungs: CTA, bilateral air entry Heart: RRR, normal S1 and S2 Ext: No edema Neuro: A&O x4 laboratory and microbiology Laboratory Tests 06/25/25 04:00 06/24/25 03:20 Test 06/25/25 04:00 Range/Units Serum Glucose 94 74-106 mg/dL Microbiology Date/Time Source Procedure Growth Status 06/24/25 17:13 Nose MRSA Screen - Final Complete 06/22/25 16:05 Blood Blood Culture - Preliminary NO GROWTH AFTER 72 HOURS OF INCUBATION. Resulted 06/22/25 11:26 Voided Urine Urine Culture - Final Complete Labs and/or images reviewed: Labs reviewed by me Problem List/Assessment/Plan Problem List/Assessment/Plan IMP Acute kidney injury hemodynamically mediated in the setting of hypotension Chronic kidney disease stage IIIB; Dr. Lau Coronary artery disease History of CVA Congestive heart failure 1 bcx was + rec followup r/o bacteremia REC - Serial chemistry panels - Strict I&Os - Glycemic control - Avoidance of ACEI/ARB during time course of SKIP - Avoidance of NSAIDs and IV contrast studies if able - Potassium supplementation as needed - We will continue to follow Plan discussed with: Patient Dietary Evaluation Review Comments: 1) CCHO 75gm + renal specific 70gm 2) Refer Analytical Chemistry Teacher for diabetes education Expected Outcomes/Goals: To meet >75% estimated needs Fu 3-5 days VADIM LAURA Jun 26, 2025 16:37
[2025-06-27 01:00] VITALS: BP 116/92; PULSE 89; RESP 18; TEMP 97.7; O2SAT 97
[2025-06-27 05:00] VITALS: BP 122/89; PULSE 80; RESP 18; TEMP 98; O2SAT 98
[2025-06-27 07:09] LABS: Chloride 105 mmol/L (98-107); Potassium 3.7 mmol/L (3.5-5.1); Sodium 140 mmol/L (136-145)
[2025-06-27 07:10] LABS: Anion Gap 10 (5-15); Calcium 9.7 mg/dL (8.7-10.4); Carbon Dioxide 25 mmol/L (20-31)
[2025-06-27 07:15] LABS: BUN/Creatinine Ratio 14.1 (10.0-20.0)
[2025-06-27 07:28] LABS: Blood Urea Nitrogen 27 mg/dL (9-23); Glucose 81 mg/dL (74-106)
[2025-06-27 08:00] VITALS: PULSE 81; RESP 17
--- NOTE | 2025-06-27 09:11 | DVHPN2 ---
Reviewed: Care Plan, H&P, Labs, Medications Changes from previous H/P or p: No Changes General: Per HPI Eyes: No Pain, No Vision change, No Conjunctivae inflammation, No Eyelid inflammation, No Other, No Redness ENT: No Ear pain, No Ear discharge, No Nose pain, No Nose discharge, No Nose congestion, No Mouth pain, No Mouth swelling, No Throat pain, No Throat swelling, No Other Cardiovascular: No Chest Pain, No Palpitations, No Orthopnea, No Paroxysmal Noc. Dyspnea, No Edema, No Lt Headedness, No Other Respiratory: No Cough, No Dry, No Shortness of breath, No SOB with excertion, No Wheezing, No Hemoptysis, No Pleuritic Pain, No Sputum, No Other Gastrointestinal: No Nausea, No Vomiting, No Abdominal Pain, No Diarrhea, No Constipation, No Melena, No Hematochezia, No Other Genitourinary: No Dysuria, No Frequency, No Incontinence, No Hematuria, No Retention, No Other Musculoskeletal: No other, No neck pain, No shoulder pain, No arm pain, No back pain, No hand pain, No leg pain, No foot pain Skin: No Rash, No Lesions, No Jaundice, No Bruising, No Other Objective Vitals Vital Signs Date Time Temp Pulse Resp B/P (MAP) Pulse Ox O2 Delivery O2 Flow Rate FiO2 06/27/25 06:12 83 17 118/78 06/27/25 05:00 98.0 98 98.0 06/26/25 21:56 Room Air* 0 21 Intake/Output Intake and Output 06/27/25 07:00 Intake Total 2210 ml Output Total 1550 ml Balance 660 ml Intake Oral 2160 ml IV Total 50 ml Output Urine Total 1550 ml # Bowel Movements 1 General Appearance: Alert, Oriented X3, Cooperative Cardiovascular: Regular rate, Normal S1, Normal S2 Neuro: Normal gait, Normal speech Medications Current Medications Medications Dose Ordered Sig/[place] Route Start Time Stop Time Status Last Admin Dose Admin Acetaminophen/ Hydrocodone Bitart 1 tab Q4HP PRN PO 06/22/25 12:15 Ondansetron HCl 4 mg Q4HP PRN IV 06/22/25 12:15 06/25/25 22:18 4 MG Docusate Sodium 100 mg BIDPRN PRN PO 06/22/25 12:15 06/26/25 13:56 100 MG Acetaminophen 650 mg Q6HP PRN PO 06/22/25 12:15 Nitroglycerin 0.4 mg Q5MINP PRN SL 06/22/25 12:15 Morphine Sulfate 2 mg Q30M PRN IV 06/22/25 12:15 06/25/25 21:57 2 MG Alprazolam 0.5 mg BID PRN PO 06/22/25 12:45 06/27/25 04:04 0.5 MG Clopidogrel Bisulfate 75 mg DAILY PO 06/23/25 10:00 06/26/25 09:05 75 MG Patient Own Medication 1 tab DAILY PO 06/23/25 10:00 Cancel Patient Own Medication 2 puff BID IN 06/22/25 22:00 Patient Own Medication 25 mg BID PO 06/22/25 22:00 UNV Diagnostic Test (Pha) 1 strip ACHS 06/22/25 17:00 06/27/25 05:41 1 STRIP Insulin Human Regular HS SC 06/22/25 22:00 06/25/25 23:23 2 UNITS Insulin Human Regular AC SC 06/22/25 17:00 06/26/25 16:59 3 UNITS Dextrose 50 ml UD PRN IV 06/22/25 13:00 Atorvastatin Calcium 40 mg HS PO 06/22/25 22:00 06/26/25 22:13 40 MG Ceftriaxone Sodium 50 ml @ 100 mls/hr DAILY@09 IV 06/23/25 09:00 06/26/25 08:08 100 MLS/HR Morphine Sulfate 1 mg Q4HP PRN IV 06/25/25 22:45 06/27/25 05:42 1 MG Colchicine 0.6 mg DAILY PO 06/27/25 10:00 Laboratory Results Laboratory Tests 06/24/25 03:20 06/27/25 06:02 Chemistry Test 06/27/25 06:02 Calcium Level 9.7 mg/dL (8.7-10.4) Urinalysis Test 06/22/25 11:26 Urine Color Yellow (Yellow) Urine Clarity Clear (Clear) Urine pH 5.5 (5.0-9.0) Urine Specific [place] 1.020 (1.001-1.035) Urine Protein Trace (Negative) H Urine Ketones Negative (Negative) Urine Blood Negative /uL (Negative) Urine Nitrite Negative (Negative) Urine Bilirubin Negative (Negative) Urine Urobilinogen Normal mg/dL (Negative) Urine Leukocyte Esterase Negative /uL (Negative) Urine RBC <1 /hpf (0 - 3) Urine Microscopic WBC < 1 /HPF (0-3) Urine Squamous Epithelial Cells None seen /hpf (<5) Urine Bacteria None seen /hpf (None Seen) Urine Glucose Normal mg/dL (Normal) Microbiology Microbiology Date/Time Source Procedure Growth Status 06/24/25 17:13 Nose MRSA Screen - Final Complete 06/22/25 16:05 Blood Blood Culture - Preliminary NO GROWTH AFTER 72 HOURS OF INCUBATION. Resulted 06/22/25 11:26 Voided Urine Urine Culture - Final Complete Assessment/Plan Assessment/Plan Jose Morrell is a 55-year-old male with past medical history of CVA, chronic kidney disease, [place], hypertension, and hyperlipidemia, who came to the hospital due to dizziness. Patient states he started feeling bad last night. This morning he woke up dizzy and light headed. He thought he just needed to eat. He ate breakfast and was still feeling dizzy, lightheaded, and had blurry vision so he called EMS. Patient did not take any of his medications this morning. Hypotension, Unspecified, Syncope, acute on chronic kidney injury, Hyperlipidemia, Obstructive sleep apnea, weakness 06/23/2025 nephro consulted cardio consulted 06/24/2025 symptoms improving 06/25/2025 seen by cardiology no new BP meds 06/26/2025 worsening pain in left knee unable to walk, PT consulted, if can ambulate well, possible d/c in AM 06/27/2025 pt states he is still feeling weak PT to evaluate possible d/c in 24 hours Plan discussed with: Patient My Orders Orders - GIORGIO TOUSSAINT DO Procedure Category Date Status Time Pt Request For Service PT 06/26/25 Logged 14:12 Colchicine (Colcrys) PHA 06/27/25 In Process 10:00 Date of Service: Jun 27, 2025 Billing Provider: GIORGIO TOUSSAINT DO Common Visit Codes: [id number] INP/OBS CARE(HIGH) GIORGIO TOUSSAINT DO Jun 27, 2025 09:11
[2025-06-27] MEDS: COLCHICINE 0.6 MG CAP PO SCH (10:16)
[2025-06-27 12:41] VITALS: BP 120/75; PULSE 85; RESP 20; TEMP 98.4; O2SAT 99
--- NOTE | 2025-06-27 18:23 | DVHPN2 ---
Progress Note Date Seen: Jun 27, 2025 Medical Necessity Reason Pt with a Central, PICC or Fol: No Subjective Review of Systems The patient resting on bed. Patient reports: No new complaints Objective vital signs Vital Sign Date Time Temp Pulse Resp B/P (MAP) Pulse Ox O2 Delivery O2 Flow Rate FiO2 06/27/25 15:37 87 17 133/99 06/27/25 12:41 98.4 99 98.4 06/27/25 08:00 Room Air* 0 21 Total Intake and Output 06/26/25 06/26/25 06/27/25 15:00 23:00 07:00 Intake Total 290 ml 1020 ml 900 ml Output Total 650 ml 900 ml Balance 290 ml 370 ml 0 ml medications Current Medications Medications Dose Ordered Sig/[place] Route Start Time Stop Time Status Last Admin Dose Admin Acetaminophen/ Hydrocodone Bitart 1 tab Q4HP PRN PO 06/22/25 12:15 Ondansetron HCl 4 mg Q4HP PRN IV 06/22/25 12:15 06/25/25 22:18 4 MG Docusate Sodium 100 mg BIDPRN PRN PO 06/22/25 12:15 06/26/25 13:56 100 MG Acetaminophen 650 mg Q6HP PRN PO 06/22/25 12:15 Nitroglycerin 0.4 mg Q5MINP PRN SL 06/22/25 12:15 Morphine Sulfate 2 mg Q30M PRN IV 06/22/25 12:15 06/25/25 21:57 2 MG Alprazolam 0.5 mg BID PRN PO 06/22/25 12:45 06/27/25 17:30 0.5 MG Clopidogrel Bisulfate 75 mg DAILY PO 06/23/25 10:00 06/27/25 10:16 75 MG Patient Own Medication 1 tab DAILY PO 06/23/25 10:00 Cancel Patient Own Medication 2 puff BID IN 06/22/25 22:00 Patient Own Medication 25 mg BID PO 06/22/25 22:00 UNV Diagnostic Test (Pha) 1 strip ACHS 06/22/25 17:00 06/27/25 17:00 1 STRIP Insulin Human Regular HS SC 06/22/25 22:00 06/25/25 23:23 2 UNITS Insulin Human Regular AC SC 06/22/25 17:00 06/27/25 11:30 6 UNITS Dextrose 50 ml UD PRN IV 06/22/25 13:00 Atorvastatin Calcium 40 mg HS PO 06/22/25 22:00 06/26/25 22:13 40 MG Ceftriaxone Sodium 50 ml @ 100 mls/hr DAILY@09 IV 06/23/25 09:00 06/27/25 10:15 100 MLS/HR Morphine Sulfate 1 mg Q4HP PRN IV 06/25/25 22:45 06/27/25 15:07 1 MG Colchicine 0.6 mg DAILY PO 06/27/25 10:00 06/27/25 10:16 0.6 MG Examination Gen: NAD, appears stated age Lungs: CTA, bilateral air entry Heart: RRR, normal S1 and S2 Ext: No edema Neuro: A&O x4 laboratory and microbiology Laboratory Tests 06/27/25 06:02 06/24/25 03:20 Test 06/27/25 06:02 Range/Units Serum Glucose 81 74-106 mg/dL Microbiology Date/Time Source Procedure Growth Status 06/24/25 17:13 Nose MRSA Screen - Final Complete 06/22/25 16:05 Blood Blood Culture - Final NO GROWTH AFTER 5 DAYS OF INCUBATION. Complete 06/22/25 11:26 Voided Urine Urine Culture - Final Complete Labs and/or images reviewed: Labs reviewed by me Problem List/Assessment/Plan Problem List/Assessment/Plan IMP Acute kidney injury hemodynamically mediated in the setting of hypotension- improving Chronic kidney disease stage IIIB; Dr. Lau Coronary artery disease History of CVA Congestive heart failure 1 bcx was + rec followup r/o bacteremia REC - Chemistry panel - Strict I&Os -glycemic control - Avoidance of ACEI/ARB during time course of SKIP - Avoidance of NSAIDs and IV contrast studies if able - We will continue to follow Plan discussed with: Patient Dietary Evaluation Review Comments: 1) CCHO 75gm + renal specific 70gm 2) Refer [employer] for diabetes education Expected Outcomes/Goals: To meet >75% estimated needs Fu 3-5 days VADIM LAURA Jun 27, 2025 18:23
[2025-06-27 20:00] VITALS: PULSE 81; RESP 18
[2025-06-28] VITALS (8 sets, daily range): BP systolic 90–133; BP diastolic 60–93; PULSE 70–78; RESP 15–20; TEMP 97.6–98.2; O2SAT 0–100
[2025-06-28 07:17] LABS: Chloride 104 mmol/L (98-107); Potassium 4.0 mmol/L (3.5-5.1); Sodium 137 mmol/L (136-145)
[2025-06-28 07:18] LABS: Anion Gap 12 (5-15); Calcium 9.6 mg/dL (8.7-10.4); Carbon Dioxide 21 mmol/L (20-31)
[2025-06-28 07:23] LABS: BUN/Creatinine Ratio 13.3 (10.0-20.0)
[2025-06-28 07:28] LABS: Blood Urea Nitrogen 30 mg/dL (9-23); Glucose 130 mg/dL (74-106)
--- NOTE | 2025-06-28 10:10 | ECG ---
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
--- NOTE | 2025-06-28 11:42 | DVHPN2 ---
Reviewed: Care Plan, H&P, Labs, Medications General: Per HPI Eyes: No Pain, No Vision change, No Conjunctivae inflammation, No Eyelid inflammation, No Other, No Redness ENT: No Ear pain, No Ear discharge, No Nose pain, No Nose discharge, No Nose congestion, No Mouth pain, No Mouth swelling, No Throat pain, No Throat swelling, No Other Cardiovascular: No Chest Pain, No Palpitations, No Orthopnea, No Paroxysmal Noc. Dyspnea, No Edema, No Lt Headedness, No Other Respiratory: No Cough, No Dry, No Shortness of breath, No SOB with excertion, No Wheezing, No Hemoptysis, No Pleuritic Pain, No Sputum, No Other Gastrointestinal: No Nausea, No Vomiting, No Abdominal Pain, No Diarrhea, No Constipation, No Melena, No Hematochezia, No Other Genitourinary: No Dysuria, No Frequency, No Incontinence, No Hematuria, No Retention, No Other Musculoskeletal: No other, No neck pain, No shoulder pain, No arm pain, No back pain, No hand pain, No leg pain, No foot pain Skin: No Rash, No Lesions, No Jaundice, No Bruising, No Other Objective Vitals Vital Signs Date Time Temp Pulse Resp B/P (MAP) Pulse Ox O2 Delivery O2 Flow Rate FiO2 06/28/25 10:34 78 20 108/68 06/28/25 08:42 97.9 91 97.9 06/28/25 08:00 Room Air* 0 21 Intake/Output Intake and Output 06/28/25 07:00 Intake Total 2886 ml Output Total 1250 ml Balance 1636 ml Intake Oral 2836 ml IV Total 50 ml Output Urine Total 1250 ml General Appearance: Alert, Oriented X3, Cooperative Cardiovascular: Regular rate, Normal S1, Normal S2 Neuro: Normal gait, Normal speech Medications Current Medications Medications Dose Ordered Sig/[place] Route Start Time Stop Time Status Last Admin Dose Admin Acetaminophen/ Hydrocodone Bitart 1 tab Q4HP PRN PO 06/22/25 12:15 Ondansetron HCl 4 mg Q4HP PRN IV 06/22/25 12:15 06/25/25 22:18 4 MG Docusate Sodium 100 mg BIDPRN PRN PO 06/22/25 12:15 06/26/25 13:56 100 MG Acetaminophen 650 mg Q6HP PRN PO 06/22/25 12:15 Nitroglycerin 0.4 mg Q5MINP PRN SL 06/22/25 12:15 Morphine Sulfate 2 mg Q30M PRN IV 06/22/25 12:15 06/28/25 10:34 2 MG Alprazolam 0.5 mg BID PRN PO 06/22/25 12:45 06/27/25 17:30 0.5 MG Clopidogrel Bisulfate 75 mg DAILY PO 06/23/25 10:00 06/28/25 10:25 75 MG Patient Own Medication 1 tab DAILY PO 06/23/25 10:00 Cancel Patient Own Medication 2 puff BID IN 06/22/25 22:00 Patient Own Medication 25 mg BID PO 06/22/25 22:00 UNV Diagnostic Test (Pha) 1 strip ACHS 06/22/25 17:00 06/28/25 06:27 1 STRIP Insulin Human Regular HS SC 06/22/25 22:00 06/27/25 21:53 2 UNITS Insulin Human Regular AC SC 06/22/25 17:00 06/28/25 06:30 3 UNITS Dextrose 50 ml UD PRN IV 06/22/25 13:00 Atorvastatin Calcium 40 mg HS PO 06/22/25 22:00 06/27/25 21:43 40 MG Ceftriaxone Sodium 50 ml @ 100 mls/hr DAILY@09 IV 06/23/25 09:00 06/28/25 09:06 100 MLS/HR Morphine Sulfate 1 mg Q4HP PRN IV 06/25/25 22:45 06/28/25 05:56 1 MG Colchicine 0.6 mg DAILY PO 06/27/25 10:00 06/28/25 10:24 0.6 MG Laboratory Results Laboratory Tests 06/24/25 03:20 06/28/25 05:32 Chemistry Test 06/28/25 05:32 Calcium Level 9.6 mg/dL (8.7-10.4) Urinalysis Test 06/22/25 11:26 Urine Color Yellow (Yellow) Urine Clarity Clear (Clear) Urine pH 5.5 (5.0-9.0) Urine Specific [place] 1.020 (1.001-1.035) Urine Protein Trace (Negative) H Urine Ketones Negative (Negative) Urine Blood Negative /uL (Negative) Urine Nitrite Negative (Negative) Urine Bilirubin Negative (Negative) Urine Urobilinogen Normal mg/dL (Negative) Urine Leukocyte Esterase Negative /uL (Negative) Urine RBC <1 /hpf (0 - 3) Urine Microscopic WBC < 1 /HPF (0-3) Urine Squamous Epithelial Cells None seen /hpf (<5) Urine Bacteria None seen /hpf (None Seen) Urine Glucose Normal mg/dL (Normal) Microbiology Microbiology Date/Time Source Procedure Growth Status 06/24/25 17:13 Nose MRSA Screen - Final Complete 06/22/25 16:05 Blood Blood Culture - Final NO GROWTH AFTER 5 DAYS OF INCUBATION. Complete 06/22/25 11:26 Voided Urine Urine Culture - Final Complete DWAINE JOHN MD Jun 28, 2025 11:42
--- NOTE | 2025-06-28 13:53 | DVHPN2 ---
Progress Note - Dictate Date Seen: Jun 27, 2025 Medical Necessity Reason Pt with a Central, PICC or Fol: No Subjective PT WITH HYPOTENSION SS COMPLEX OF DIZZINESS CT HEAD NEGATIVE CAROTID DUPLEX NEGATIVE ECHO LVH EF >55% MILD MR PMH ; ORGANIC HD HX OF MA S/P PTCA STENT CAD HX OF CVA CAROTID DUPLEC NL CKD STAGE II SLEEP APNEA vital signs Vital Sign Date Time Temp Pulse Resp B/P (MAP) Pulse Ox O2 Delivery O2 Flow Rate FiO2 06/28/25 12:43 98.2 73 20 110/73 (85) 94 98.2 06/28/25 08:00 Room Air* 0 21 Total Intake and Output 06/27/25 06/27/25 06/28/25 15:00 23:00 07:00 Intake Total 486 ml 1600 ml 800 ml Output Total 600 ml 650 ml Balance 486 ml 1000 ml 150 ml medications Current Medications Medications Dose Ordered Sig/[place] Route Start Time Stop Time Status Last Admin Dose Admin Acetaminophen/ Hydrocodone Bitart 1 tab Q4HP PRN PO 06/22/25 12:15 Ondansetron HCl 4 mg Q4HP PRN IV 06/22/25 12:15 06/25/25 22:18 4 MG Docusate Sodium 100 mg BIDPRN PRN PO 06/22/25 12:15 06/26/25 13:56 100 MG Acetaminophen 650 mg Q6HP PRN PO 06/22/25 12:15 Nitroglycerin 0.4 mg Q5MINP PRN SL 06/22/25 12:15 Morphine Sulfate 2 mg Q30M PRN IV 06/22/25 12:15 06/28/25 10:34 2 MG Alprazolam 0.5 mg BID PRN PO 06/22/25 12:45 06/27/25 17:30 0.5 MG Clopidogrel Bisulfate 75 mg DAILY PO 06/23/25 10:00 06/28/25 10:25 75 MG Patient Own Medication 1 tab DAILY PO 06/23/25 10:00 Cancel Patient Own Medication 2 puff BID IN 06/22/25 22:00 Patient Own Medication 25 mg BID PO 06/22/25 22:00 UNV Diagnostic Test (Pha) 1 strip ACHS 06/22/25 17:00 06/28/25 06:27 1 STRIP Insulin Human Regular HS SC 06/22/25 22:00 06/27/25 21:53 2 UNITS Insulin Human Regular AC SC 06/22/25 17:00 06/28/25 06:30 3 UNITS Dextrose 50 ml UD PRN IV 06/22/25 13:00 Atorvastatin Calcium 40 mg HS PO 06/22/25 22:00 06/27/25 21:43 40 MG Ceftriaxone Sodium 50 ml @ 100 mls/hr DAILY@09 IV 06/23/25 09:00 06/28/25 09:06 100 MLS/HR Morphine Sulfate 1 mg Q4HP PRN IV 06/25/25 22:45 06/28/25 05:56 1 MG Colchicine 0.6 mg DAILY PO 06/27/25 10:00 06/28/25 10:24 0.6 MG laboratory and microbiology Laboratory Tests 06/28/25 05:32 06/24/25 03:20 Test 06/28/25 05:32 Range/Units Serum Glucose 130 H 74-106 mg/dL Problem List HYPOTENSION SS COMPLEX OF DIZZINESS CT HEAD NEGATIVE CAROTID DUPLEX NEGATIVE ECHO LVH EF >55% MILD MR PMH ; ORGANIC HD HX OF [place] S/P PTCA STENT CAD HX OF CVA CAROTID DUPLEC NL CKD STAGE II SLEEP APNEA GOUT Assessment/Plan ORTHOSTATIC BP IV FLUID AUTONOMIC DYSFUNCTION HOLD BP MEDS AMBULATE PT HOLD BP MEDS WILL CONTINUE TO MONITOR BP AND TITRATE BP MEDS NEEDED check orthostattic bp IF BP STABLE MAY DC HOME WITHOUT BP MEDS Dietary Evaluation Review Comments: 1) CCHO 75gm + renal specific 70gm 2) Refer Public Health Director for diabetes education Expected Outcomes/Goals: To meet >75% estimated needs Fu 3-5 days Plan discussed with: Patient DEBORAH ROMERO MD Jun 28, 2025 13:53
--- NOTE | 2025-06-28 15:34 | DVHPN2 ---
Progress Note Date Seen: Jun 28, 2025 Medical Necessity Reason Pt with a Central, PICC or Fol: No Subjective Patient reports: Other (c/o bodypains ) Review of Systems: HEENT:Normal, CVS:Normal, RESPIRATORY:Normal, GI:Normal, :Normal, MSK:Abnormal, NEURO:Normal Objective vital signs Vital Sign Date Time Temp Pulse Resp B/P (MAP) Pulse Ox O2 Delivery O2 Flow Rate FiO2 06/28/25 12:43 98.2 73 20 110/73 (85) 94 98.2 06/28/25 08:00 Room Air* 0 21 Total Intake and Output 06/27/25 06/27/25 06/28/25 15:00 23:00 07:00 Intake Total 486 ml 1600 ml 800 ml Output Total 600 ml 650 ml Balance 486 ml 1000 ml 150 ml medications Current Medications Medications Dose Ordered Sig/[place] Route Start Time Stop Time Status Last Admin Dose Admin Acetaminophen/ Hydrocodone Bitart 1 tab Q4HP PRN PO 06/22/25 12:15 Ondansetron HCl 4 mg Q4HP PRN IV 06/22/25 12:15 06/25/25 22:18 4 MG Docusate Sodium 100 mg BIDPRN PRN PO 06/22/25 12:15 06/26/25 13:56 100 MG Acetaminophen 650 mg Q6HP PRN PO 06/22/25 12:15 Nitroglycerin 0.4 mg Q5MINP PRN SL 06/22/25 12:15 Morphine Sulfate 2 mg Q30M PRN IV 06/22/25 12:15 06/28/25 10:34 2 MG Alprazolam 0.5 mg BID PRN PO 06/22/25 12:45 06/27/25 17:30 0.5 MG Clopidogrel Bisulfate 75 mg DAILY PO 06/23/25 10:00 06/28/25 10:25 75 MG Patient Own Medication 1 tab DAILY PO 06/23/25 10:00 Cancel Patient Own Medication 2 puff BID IN 06/22/25 22:00 Patient Own Medication 25 mg BID PO 06/22/25 22:00 UNV Diagnostic Test (Pha) 1 strip ACHS 06/22/25 17:00 06/28/25 06:27 1 STRIP Insulin Human Regular HS SC 06/22/25 22:00 06/27/25 21:53 2 UNITS Insulin Human Regular AC SC 06/22/25 17:00 06/28/25 06:30 3 UNITS Dextrose 50 ml UD PRN IV 06/22/25 13:00 Atorvastatin Calcium 40 mg HS PO 06/22/25 22:00 06/27/25 21:43 40 MG Ceftriaxone Sodium 50 ml @ 100 mls/hr DAILY@09 IV 06/23/25 09:00 06/28/25 09:06 100 MLS/HR Morphine Sulfate 1 mg Q4HP PRN IV 06/25/25 22:45 06/28/25 05:56 1 MG Colchicine 0.6 mg DAILY PO 06/27/25 10:00 06/28/25 10:24 0.6 MG Examination: GENERAL:Normal, HEENT:Normal, NECK:Normal, LUNGS:Normal, CVS:Normal, ABDOMEN:Normal, MSK:Normal, SKIN:Normal, NEURO:Normal, :Normal laboratory and microbiology Laboratory Tests 06/28/25 05:32 06/24/25 03:20 Test 06/28/25 05:32 Range/Units Serum Glucose 130 H 74-106 mg/dL Microbiology Date/Time Source Procedure Growth Status 06/24/25 17:13 Nose MRSA Screen - Final Complete 06/22/25 16:05 Blood Blood Culture - Final NO GROWTH AFTER 5 DAYS OF INCUBATION. Complete 06/22/25 11:26 Voided Urine Urine Culture - Final Complete Problem List/Assessment/Plan Problem List/Assessment/Plan Acute kidney injury hemodynamically mediated in the setting of hypotension Chronic kidney disease stage IIIB; Dr. Lau Coronary artery disease History of CVA Congestive heart failure recs Check uric acid , ESR, CRP Renal function stable Urine analysis noted Hypotension better Plan discussed with: Patient My Orders My Orders Orders - CAM LAU MD Procedure Category Date Status Time Uric Acid LAB 06/29/25 Verified 04:00 Erythrocyte LAB 06/29/25 Verified Sedimentation Rate 04:00 C-Reactive Protein LAB 06/29/25 Verified 04:00 Dietary Evaluation Review Comments: 1) CCHO 75gm + renal specific 70gm 2) Refer [employer] Popper for diabetes education Expected Outcomes/Goals: To meet >75% estimated needs Fu 3-5 days CAM LAU MD Jun 28, 2025 15:34
--- NOTE | 2025-06-28 15:55 | DVHPN2 ---
Subjective Patient has some behavioral issues, may be his baseline personality. Otherwise continues to complain of diffuse body aches. No specific symptoms. Reviewed: Care Plan, H&P, Labs, Medications Changes from previous H/P or p: No Changes General: Per HPI Eyes: No Pain, No Vision change, No Conjunctivae inflammation, No Eyelid inflammation, No Other, No Redness ENT: No Ear pain, No Ear discharge, No Nose pain, No Nose discharge, No Nose congestion, No Mouth pain, No Mouth swelling, No Throat pain, No Throat swelling, No Other Cardiovascular: No Chest Pain, No Palpitations, No Orthopnea, No Paroxysmal Noc. Dyspnea, No Edema, No Lt Headedness, No Other Respiratory: No Cough, No Dry, No Shortness of breath, No SOB with excertion, No Wheezing, No Hemoptysis, No Pleuritic Pain, No Sputum, No Other Gastrointestinal: No Nausea, No Vomiting, No Abdominal Pain, No Diarrhea, No Constipation, No Melena, No Hematochezia, No Other Genitourinary: No Dysuria, No Frequency, No Incontinence, No Hematuria, No Retention, No Other Musculoskeletal: No other, No neck pain, No shoulder pain, No arm pain, No back pain, No hand pain, No leg pain, No foot pain Skin: No Rash, No Lesions, No Jaundice, No Bruising, No Other Objective Vitals Vital Signs Date Time Temp Pulse Resp B/P (MAP) Pulse Ox O2 Delivery O2 Flow Rate FiO2 06/28/25 12:43 98.2 73 20 110/73 (85) 94 98.2 06/28/25 08:00 Room Air* 0 21 Intake/Output Intake and Output 06/28/25 07:00 Intake Total 2886 ml Output Total 1250 ml Balance 1636 ml Intake Oral 2836 ml IV Total 50 ml Output Urine Total 1250 ml Exam GEN: Healthy appearing, well-developed, NAD. HEENT: NC/AT; MMM. CV: RRR, no m/r/g. LUNGS: CTAB, no w/r/c. ABD: Soft, NT/ND, NBS, no masses or organomegaly. EXT: skin Warm, well perfused. no rashes. No clubbing, cyanosis, or edema. Left knee size increased compared to right. No obvious erythema, left knee is warmer NEURO: Ambulating with no limitations. No focal deficits. General Appearance: Alert, Oriented X3, Cooperative Cardiovascular: Regular rate, Normal S1, Normal S2 Neuro: Normal gait, Normal speech Medications Current Medications Medications Dose Ordered Sig/[place] Route Start Time Stop Time Status Last Admin Dose Admin Acetaminophen/ Hydrocodone Bitart 1 tab Q4HP PRN PO 06/22/25 12:15 Ondansetron HCl 4 mg Q4HP PRN IV 06/22/25 12:15 06/25/25 22:18 4 MG Docusate Sodium 100 mg BIDPRN PRN PO 06/22/25 12:15 06/26/25 13:56 100 MG Acetaminophen 650 mg Q6HP PRN PO 06/22/25 12:15 Nitroglycerin 0.4 mg Q5MINP PRN SL 06/22/25 12:15 Morphine Sulfate 2 mg Q30M PRN IV 06/22/25 12:15 06/28/25 10:34 2 MG Alprazolam 0.5 mg BID PRN PO 06/22/25 12:45 06/27/25 17:30 0.5 MG Clopidogrel Bisulfate 75 mg DAILY PO 06/23/25 10:00 06/28/25 10:25 75 MG Patient Own Medication 1 tab DAILY PO 06/23/25 10:00 Cancel Patient Own Medication 2 puff BID IN 06/22/25 22:00 Patient Own Medication 25 mg BID PO 06/22/25 22:00 UNV Diagnostic Test (Pha) 1 strip ACHS 06/22/25 17:00 06/28/25 06:27 1 STRIP Insulin Human Regular HS SC 06/22/25 22:00 06/27/25 21:53 2 UNITS Insulin Human Regular AC SC 06/22/25 17:00 06/28/25 06:30 3 UNITS Dextrose 50 ml UD PRN IV 06/22/25 13:00 Atorvastatin Calcium 40 mg HS PO 06/22/25 22:00 06/27/25 21:43 40 MG Ceftriaxone Sodium 50 ml @ 100 mls/hr DAILY@09 IV 06/23/25 09:00 06/28/25 09:06 100 MLS/HR Morphine Sulfate 1 mg Q4HP PRN IV 06/25/25 22:45 06/28/25 05:56 1 MG Colchicine 0.6 mg DAILY PO 06/27/25 10:00 06/28/25 10:24 0.6 MG Laboratory Results Laboratory Tests 06/24/25 03:20 06/28/25 05:32 Chemistry Test 06/28/25 05:32 Calcium Level 9.6 mg/dL (8.7-10.4) Urinalysis Test 06/22/25 11:26 Urine Color Yellow (Yellow) Urine Clarity Clear (Clear) Urine pH 5.5 (5.0-9.0) Urine Specific [place] 1.020 (1.001-1.035) Urine Protein Trace (Negative) H Urine Ketones Negative (Negative) Urine Blood Negative /uL (Negative) Urine Nitrite Negative (Negative) Urine Bilirubin Negative (Negative) Urine Urobilinogen Normal mg/dL (Negative) Urine Leukocyte Esterase Negative /uL (Negative) Urine RBC <1 /hpf (0 - 3) Urine Microscopic WBC < 1 /HPF (0-3) Urine Squamous Epithelial Cells None seen /hpf (<5) Urine Bacteria None seen /hpf (None Seen) Urine Glucose Normal mg/dL (Normal) Microbiology Microbiology Date/Time Source Procedure Growth Status 06/24/25 17:13 Nose MRSA Screen - Final Complete 06/22/25 16:05 Blood Blood Culture - Final NO GROWTH AFTER 5 DAYS OF INCUBATION. Complete 06/22/25 11:26 Voided Urine Urine Culture - Final Complete Labs and/or images reviewed: Labs reviewed by me, Image(s) reviewed by me Assessment/Plan Assessment/Plan Jose Morrell is a 55-year-old male with past medical history of CVA, chronic kidney disease, [place], hypertension, and hyperlipidemia, who came to the hospital due to dizziness. Patient states he started feeling bad last night. This morning he woke up dizzy and light headed. He thought he just needed to eat. He ate breakfast and was still feeling dizzy, lightheaded, and had blurry vision so he called EMS. Patient did not take any of his medications this morning. 06/23/2025 nephro consulted, cardio consulted 06/24/2025 symptoms improving 06/25/2025 seen by cardiology, no new BP meds 06/26/2025- worsening pain in left knee. unable to walk, PT consulted, if can ambulate well, possible d/c in AM 06/27/2025- pt states he is still feeling weak. PT to evaluate. possible d/c in 24 hours 06/28 blood pressure improved, taking over for Dr. fatima. Cardiology has signed off, okay to discharge with DC BP meds. Patient here for orthostatic hypotension. Nephrology following no new recommendations. Multiple blood pressure medications were discontinued and patient orthostatic hypotension has resolved. Patient has right IJ CBC. - he continues to complain of diffuse body aches and left knee pain. His left knee does appear to be more enlarged but no obvious effusion and it is warmer. We will get a left knee x-ray. Otherwise we will start baclofen 10 b.i.d. to see if his muscle is related to cramps. Continue some slow IV fluids. Continue pain analgesia prn. Hypotension, Unspecified, Syncope, acute on chronic kidney injury, Hyperlipidemia, Obstructive sleep apnea, weakness --continue ceftriaxone -p.r.n. analgesia -continue home beclomethasone, Xanax, Lipitor, Plavix, -start baclofen, 10 b.i.d. -. Daily colchicine, for his gout this should only be as a flare up medication. -moderate SSI a.c. HS. Plan discussed with: Patient Date of Service: Jun 28, 2025 Billing Provider: NORAH MEYER MD Common Visit Codes: [id number] INP/OBS CARE(HIGH) NORAH MEYER MD Jun 28, 2025 15:55
[2025-06-28] MEDS: BACLOFEN 10 MG TAB PO SCH (21:59)
[2025-06-28] MEDS: HYDROcodone-ACET 5/325MG TAB PO PRN (22:27)
[2025-06-29] VITALS (7 sets, daily range): BP systolic 92–107; BP diastolic 62–79; PULSE 67–97; RESP 15–21; TEMP 96.7–98.5; O2SAT 94–100
--- NOTE | 2025-06-29 06:26 | DVH ---
CLINICAL INDICATION: swollen knee TECHNIQUE: XY L KNEE 2V XRAY Comparison: XY L KNEE 3V XRAY on DOS: 09/02/23 FINDINGS/IMPRESSION: : There is no evidence of acute fracture or dislocation. Moderate suprapatellar effusion. Soft tissues are otherwise unremarkable.
[2025-06-29 07:36] LABS: Alanine Aminotransferase 14 U/L (7-40); Albumin 4.3 g/dL (3.2-4.8); Alkaline Phosphatase 78 U/L (46-116); Anion Gap 11 (5-15); BUN/Creatinine Ratio 17.4 (10.0-20.0); Calcium 9.9 mg/dL (8.7-10.4); Carbon Dioxide 25 mmol/L (20-31); Chloride 100 mmol/L (98-107); Sodium 136 mmol/L (136-145); Total Protein 7.2 g/dL (5.7-8.2)
[2025-06-29 07:37] LABS: Bilirubin, Total 0.8 mg/dL (0.2-1.0); Blood Urea Nitrogen 45 mg/dL (9-23); Creatine Kinase IFCC 27 U/L (46-171); Glucose 173 mg/dL (74-106); Potassium 3.4 mmol/L (3.5-5.1)
[2025-06-29 08:02] LABS: Hematocrit 38.8 % (41.0-53.0); Hemoglobin 14.0 g/dL (13.5-17.5); Mean Corpuscular Hemoglobin 32.0 pg (28.0-32.0); Mean Corpuscular Volume 88.8 fL (80.0-100.0); Nucleated Red Blood Cells % 0.1 %
[2025-06-29 08:43] LABS: Uric Acid 11.6 mg/dL (3.7-9.2)
--- NOTE | 2025-06-29 09:34 | DVHPN2 ---
Subjective Patient has some behavioral issues, may be his baseline personality. Otherwise continues to complain of diffuse body aches. No specific symptoms. Reviewed: Care Plan, H&P, Labs, Medications Changes from previous H/P or p: No Changes General: Per HPI Eyes: No Pain, No Vision change, No Conjunctivae inflammation, No Eyelid inflammation, No Other, No Redness ENT: No Ear pain, No Ear discharge, No Nose pain, No Nose discharge, No Nose congestion, No Mouth pain, No Mouth swelling, No Throat pain, No Throat swelling, No Other Cardiovascular: No Chest Pain, No Palpitations, No Orthopnea, No Paroxysmal Noc. Dyspnea, No Edema, No Lt Headedness, No Other Respiratory: No Cough, No Dry, No Shortness of breath, No SOB with excertion, No Wheezing, No Hemoptysis, No Pleuritic Pain, No Sputum, No Other Gastrointestinal: No Nausea, No Vomiting, No Abdominal Pain, No Diarrhea, No Constipation, No Melena, No Hematochezia, No Other Genitourinary: No Dysuria, No Frequency, No Incontinence, No Hematuria, No Retention, No Other Musculoskeletal: No other, No neck pain, No shoulder pain, No arm pain, No back pain, No hand pain, No leg pain, No foot pain Skin: No Rash, No Lesions, No Jaundice, No Bruising, No Other Objective Vitals Vital Signs Date Time Temp Pulse Resp B/P (MAP) Pulse Ox O2 Delivery O2 Flow Rate FiO2 06/29/25 08:43 97.8 72 17 98/68 (78) 95 97.8 06/29/25 08:00 Room Air* 0 21 Intake/Output Intake and Output 06/29/25 07:00 Intake Total 1190 ml Output Total 1850 ml Balance -660 ml Intake Oral 1140 ml IV Total 50 ml Output Urine Total 1850 ml Exam GEN: Healthy appearing, well-developed, NAD. HEENT: NC/AT; MMM. CV: RRR, no m/r/g. LUNGS: CTAB, no w/r/c. ABD: Soft, NT/ND, NBS, no masses or organomegaly. EXT: skin Warm, well perfused. no rashes. No clubbing, cyanosis, or edema. Left knee size increased compared to right. No obvious erythema, left knee is warmer NEURO: Ambulating with no limitations. No focal deficits. General Appearance: Alert, Oriented X3, Cooperative Cardiovascular: Regular rate, Normal S1, Normal S2 Neuro: Normal gait, Normal speech Medications Current Medications Medications Dose Ordered Sig/[place] Route Start Time Stop Time Status Last Admin Dose Admin Acetaminophen/ Hydrocodone Bitart 1 tab Q4HP PRN PO 06/22/25 12:15 06/29/25 06:55 1 TAB Ondansetron HCl 4 mg Q4HP PRN IV 06/22/25 12:15 06/25/25 22:18 4 MG Docusate Sodium 100 mg BIDPRN PRN PO 06/22/25 12:15 06/26/25 13:56 100 MG Acetaminophen 650 mg Q6HP PRN PO 06/22/25 12:15 Nitroglycerin 0.4 mg Q5MINP PRN SL 06/22/25 12:15 Morphine Sulfate 2 mg Q30M PRN IV 06/22/25 12:15 06/28/25 17:25 2 MG Alprazolam 0.5 mg BID PRN PO 06/22/25 12:45 06/28/25 22:27 0.5 MG Clopidogrel Bisulfate 75 mg DAILY PO 06/23/25 10:00 06/28/25 10:25 75 MG Patient Own Medication 1 tab DAILY PO 06/23/25 10:00 Cancel Patient Own Medication 2 puff BID IN 06/22/25 22:00 Patient Own Medication 25 mg BID PO 06/22/25 22:00 UNV Diagnostic Test (Pha) 1 strip ACHS 06/22/25 17:00 06/29/25 06:54 1 STRIP Insulin Human Regular HS SC 06/22/25 22:00 06/28/25 22:28 2 UNITS Insulin Human Regular AC SC 06/22/25 17:00 06/28/25 17:32 3 UNITS Dextrose 50 ml UD PRN IV 06/22/25 13:00 Atorvastatin Calcium 40 mg HS PO 06/22/25 22:00 06/28/25 21:58 40 MG Ceftriaxone Sodium 50 ml @ 100 mls/hr DAILY@09 IV 06/23/25 09:00 06/28/25 09:06 100 MLS/HR Morphine Sulfate 1 mg Q4HP PRN IV 06/25/25 22:45 06/28/25 05:56 1 MG Baclofen 10 mg BID PO 06/28/25 22:00 Sodium Chloride 1,000 ml @ 75 mls/hr [id number] IV 06/29/25 09:15 UNV Allopurinol 200 mg DAILY PO 06/29/25 10:00 UNV Laboratory Results Laboratory Tests 06/29/25 06:51 Chemistry Test 06/29/25 06:51 Albumin 4.3 g/dL (3.2-4.8) Calcium Level 9.9 mg/dL (8.7-10.4) Total Protein 7.2 g/dL (5.7-8.2) LFT Test 06/29/25 06:51 Alanine Aminotransferase (ALT) 14 U/L (7-40) Alkaline Phosphatase 78 U/L (46-116) Aspartate Amino Transferase (AST) 16 U/L (13-40) Total Bilirubin 0.8 mg/dL (0.2-1.0) Urinalysis Test 06/22/25 11:26 Urine Color Yellow (Yellow) Urine Clarity Clear (Clear) Urine pH 5.5 (5.0-9.0) Urine Specific [place] 1.020 (1.001-1.035) Urine Protein Trace (Negative) H Urine Ketones Negative (Negative) Urine Blood Negative /uL (Negative) Urine Nitrite Negative (Negative) Urine Bilirubin Negative (Negative) Urine Urobilinogen Normal mg/dL (Negative) Urine Leukocyte Esterase Negative /uL (Negative) Urine RBC <1 /hpf (0 - 3) Urine Microscopic WBC < 1 /HPF (0-3) Urine Squamous Epithelial Cells None seen /hpf (<5) Urine Bacteria None seen /hpf (None Seen) Urine Glucose Normal mg/dL (Normal) Microbiology Microbiology Date/Time Source Procedure Growth Status 06/24/25 17:13 Nose MRSA Screen - Final Complete 06/22/25 16:05 Blood Blood Culture - Final NO GROWTH AFTER 5 DAYS OF INCUBATION. Complete 06/22/25 11:26 Voided Urine Urine Culture - Final Complete Labs and/or images reviewed: Labs reviewed by me, Image(s) reviewed by me Assessment/Plan Assessment/Plan Jose Morrell is a 55-year-old male with past medical history of CVA, chronic kidney disease, [place], hypertension, and hyperlipidemia, who came to the hospital due to dizziness. Patient states he started feeling bad last night. This morning he woke up dizzy and light headed. He thought he just needed to eat. He ate breakfast and was still feeling dizzy, lightheaded, and had blurry vision so he called EMS. Patient did not take any of his medications this morning. 06/23/2025 nephro consulted, cardio consulted 06/24/2025 symptoms improving 06/25/2025 seen by cardiology, no new BP meds 06/26/2025- worsening pain in left knee. unable to walk, PT consulted, if can ambulate well, possible d/c in AM 06/27/2025- pt states he is still feeling weak. PT to evaluate. possible d/c in 24 hours 06/28 blood pressure improved, taking over for Dr. fatima. Cardiology has signed off, okay to discharge with DC BP meds. Patient here for orthostatic hypotension. Nephrology following no new recommendations. Multiple blood pressure medications were discontinued and patient orthostatic hypotension has resolved. Patient has right IJ CBC. - he continues to complain of diffuse body aches and left knee pain. His left knee does appear to be more enlarged but no obvious effusion and it is warmer. We will get a left knee x-ray. Otherwise we will start baclofen 10 b.i.d. to see if his muscle is related to cramps. Continue some slow IV fluids. Continue pain analgesia prn. 06/29 blood pressure stable, stopped blood pressure meds. Patient continues to have vague complaints, diffuse pains, weakness. Most issues appear to be outpatient related, concern for possible drug-seeking behavior. Left knee x-ray is showing effusion we will get orthopedic to evaluate. Nephrology following, uric acid level significantly elevated at 11.2, nephro starts allopurinol. 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 We will stop colchicine. Left knee might be gouty arthritis. He is not complaining of diffuse aches, possibly cessation of colchicine plus-minus addition of baclofen might be helping. We will give steroids today IV and then p.o. Dosepak at discharge. Ortho we will do arthrocentesis likely this evening. ESR CRP are elevated. We will start IV antibiotics because steroids being given while there is a swollen knee. Hypotension, Unspecified, Syncope, acute on chronic kidney injury, Hyperlipidemia, Obstructive sleep apnea, weakness --continue ceftriaxone -p.r.n. analgesia -continue home beclomethasone, Xanax, Lipitor, Plavix, -start baclofen, 10 b.i.d. -. Daily colchicine, for his gout this should only be as a flare up medication. -IV antibiotics -IV steroids, then p.o. at discharge -moderate SSI a.c. HS. Plan discussed with: Patient My Orders Orders - NORAH MEYER MD Procedure Category Date Status Time Baclofen Tablet PHA 06/28/25 In Process (Liorisal Tablet) 22:00 L Knee 2v Xray XY 06/29/25 Resulted 07:00 * Orthopedic Consult CONS 06/29/25 Transmitted 09:27 Date of Service: Jun 29, 2025 Billing Provider: NORAH MEYER MD Common Visit Codes: [id number] INP/OBS CARE(HIGH) NORAH MEYER MD Jun 29, 2025 09:34
[2025-06-29] MEDS: ALLOPURINOL 100 MG TAB PO SCH (09:44)
--- NOTE | 2025-06-29 12:22 | DVHPN2 ---
Progress Note - Dictate Date Seen: Jun 28, 2025 Medical Necessity Reason Pt with a Central, PICC or Fol: No Subjective PT WITH HYPOTENSION SS COMPLEX OF DIZZINESS CT HEAD NEGATIVE CAROTID DUPLEX NEGATIVE ECHO LVH EF >55% MILD MR PMH ; ORGANIC HD HX OF RI S/P PTCA STENT CAD HX OF CVA CAROTID DUPLEC NL CKD STAGE II SLEEP APNEA vital signs Vital Sign Date Time Temp Pulse Resp B/P (MAP) Pulse Ox O2 Delivery O2 Flow Rate FiO2 06/29/25 08:43 97.8 72 17 98/68 (78) 95 97.8 06/29/25 08:00 Room Air* 0 21 Total Intake and Output 06/28/25 06/28/25 06/29/25 15:00 23:00 07:00 Intake Total 50 ml 740 ml 400 ml Output Total 1850 ml Balance 50 ml -1110 ml 400 ml medications Current Medications Medications Dose Ordered Sig/[place] Route Start Time Stop Time Status Last Admin Dose Admin Acetaminophen/ Hydrocodone Bitart 1 tab Q4HP PRN PO 06/22/25 12:15 06/29/25 06:55 1 TAB Ondansetron HCl 4 mg Q4HP PRN IV 06/22/25 12:15 06/25/25 22:18 4 MG Docusate Sodium 100 mg BIDPRN PRN PO 06/22/25 12:15 06/26/25 13:56 100 MG Acetaminophen 650 mg Q6HP PRN PO 06/22/25 12:15 Nitroglycerin 0.4 mg Q5MINP PRN SL 06/22/25 12:15 Morphine Sulfate 2 mg Q30M PRN IV 06/22/25 12:15 06/25/25 21:57 2 MG Alprazolam 0.5 mg BID PRN PO 06/22/25 12:45 06/28/25 22:27 0.5 MG Clopidogrel Bisulfate 75 mg DAILY PO 06/23/25 10:00 06/29/25 09:44 75 MG Patient Own Medication 1 tab DAILY PO 06/23/25 10:00 Cancel Patient Own Medication 2 puff BID IN 06/22/25 22:00 Patient Own Medication 25 mg BID PO 06/22/25 22:00 UNV Diagnostic Test (Pha) 1 strip ACHS 06/22/25 17:00 06/29/25 11:46 1 STRIP Insulin Human Regular HS SC 06/22/25 22:00 06/28/25 22:28 2 UNITS Insulin Human Regular AC SC 06/22/25 17:00 06/29/25 12:05 2 UNITS Dextrose 50 ml UD PRN IV 06/22/25 13:00 Atorvastatin Calcium 40 mg HS PO 06/22/25 22:00 06/28/25 21:58 40 MG Ceftriaxone Sodium 50 ml @ 100 mls/hr DAILY@09 IV 06/23/25 09:00 06/29/25 09:44 100 MLS/HR Morphine Sulfate 1 mg Q4HP PRN IV 06/25/25 22:45 06/28/25 17:25 1 MG Baclofen 10 mg BID PO 06/28/25 22:00 Sodium Chloride 1,000 ml @ 75 mls/hr [id number] IV 06/29/25 09:15 Allopurinol 200 mg DAILY PO 06/29/25 10:00 06/29/25 09:44 200 MG laboratory and microbiology Laboratory Tests 06/29/25 06:51 Test 06/29/25 06:51 Range/Units Serum Glucose 173 H 74-106 mg/dL Problem List HYPOTENSION SS COMPLEX OF DIZZINESS CT HEAD NEGATIVE CAROTID DUPLEX NEGATIVE ECHO LVH EF >55% MILD MR PMH ; ORGANIC HD HX OF RI S/P PTCA STENT CAD HX OF CVA CAROTID DUPLEC NL CKD STAGE II SLEEP APNEA GOUT Assessment/Plan ORTHOSTATIC BP IV FLUID AUTONOMIC DYSFUNCTION HOLD BP MEDS AMBULATE PT HOLD BP MEDS WILL CONTINUE TO MONITOR BP AND TITRATE BP MEDS NEEDED check orthostattic bp IF BP STABLE MAY DC HOME WITHOUT BP MEDS Dietary Evaluation Review Comments: 1) CCHO 75gm + renal specific 70gm 2) Refer [employer] for diabetes education Expected Outcomes/Goals: To meet >75% estimated needs Fu 3-5 days Plan discussed with: Patient DEBORAH ROMERO MD Jun 29, 2025 12:22
--- NOTE | 2025-06-29 12:24 | DVHPN2 ---
Progress Note - Dictate Date Seen: Jun 29, 2025 Medical Necessity Reason Pt with a Central, PICC or Fol: No Subjective PT WITH HYPOTENSION SS COMPLEX OF DIZZINESS CT HEAD NEGATIVE CAROTID DUPLEX NEGATIVE ECHO LVH EF >55% MILD MR PMH ; ORGANIC HD HX OF NM S/P PTCA STENT CAD HX OF CVA CAROTID DUPLEC NL CKD STAGE II SLEEP APNEA vital signs Vital Sign Date Time Temp Pulse Resp B/P (MAP) Pulse Ox O2 Delivery O2 Flow Rate FiO2 06/29/25 08:43 97.8 72 17 98/68 (78) 95 97.8 06/29/25 08:00 Room Air* 0 21 Total Intake and Output 06/28/25 06/28/25 06/29/25 15:00 23:00 07:00 Intake Total 50 ml 740 ml 400 ml Output Total 1850 ml Balance 50 ml -1110 ml 400 ml medications Current Medications Medications Dose Ordered Sig/[place] Route Start Time Stop Time Status Last Admin Dose Admin Acetaminophen/ Hydrocodone Bitart 1 tab Q4HP PRN PO 06/22/25 12:15 06/29/25 06:55 1 TAB Ondansetron HCl 4 mg Q4HP PRN IV 06/22/25 12:15 06/25/25 22:18 4 MG Docusate Sodium 100 mg BIDPRN PRN PO 06/22/25 12:15 06/26/25 13:56 100 MG Acetaminophen 650 mg Q6HP PRN PO 06/22/25 12:15 Nitroglycerin 0.4 mg Q5MINP PRN SL 06/22/25 12:15 Morphine Sulfate 2 mg Q30M PRN IV 06/22/25 12:15 06/25/25 21:57 2 MG Alprazolam 0.5 mg BID PRN PO 06/22/25 12:45 06/28/25 22:27 0.5 MG Clopidogrel Bisulfate 75 mg DAILY PO 06/23/25 10:00 06/29/25 09:44 75 MG Patient Own Medication 1 tab DAILY PO 06/23/25 10:00 Cancel Patient Own Medication 2 puff BID IN 06/22/25 22:00 Patient Own Medication 25 mg BID PO 06/22/25 22:00 UNV Diagnostic Test (Pha) 1 strip ACHS 06/22/25 17:00 06/29/25 11:46 1 STRIP Insulin Human Regular HS SC 06/22/25 22:00 06/28/25 22:28 2 UNITS Insulin Human Regular AC SC 06/22/25 17:00 06/29/25 12:05 2 UNITS Dextrose 50 ml UD PRN IV 06/22/25 13:00 Atorvastatin Calcium 40 mg HS PO 06/22/25 22:00 06/28/25 21:58 40 MG Ceftriaxone Sodium 50 ml @ 100 mls/hr DAILY@09 IV 06/23/25 09:00 06/29/25 09:44 100 MLS/HR Morphine Sulfate 1 mg Q4HP PRN IV 06/25/25 22:45 06/28/25 17:25 1 MG Baclofen 10 mg BID PO 06/28/25 22:00 Sodium Chloride 1,000 ml @ 75 mls/hr [id number] IV 06/29/25 09:15 Allopurinol 200 mg DAILY PO 06/29/25 10:00 06/29/25 09:44 200 MG laboratory and microbiology Laboratory Tests 06/29/25 06:51 Test 06/29/25 06:51 Range/Units Serum Glucose 173 H 74-106 mg/dL Problem List HYPOTENSION SS COMPLEX OF DIZZINESS CT HEAD NEGATIVE CAROTID DUPLEX NEGATIVE ECHO LVH EF >55% MILD MR PMH ; ORGANIC HD HX OF NM S/P PTCA STENT CAD HX OF CVA CAROTID DUPLEC NL CKD STAGE II SLEEP APNEA GOUT Assessment/Plan ORTHOSTATIC BP IV FLUID AUTONOMIC DYSFUNCTION HOLD BP MEDS AMBULATE PT HOLD BP MEDS WILL CONTINUE TO MONITOR BP AND TITRATE BP MEDS NEEDED check orthostatic bp IF BP STABLE MAY DC HOME WITHOUT BP MEDS X RAY OF LEFT KNEE WITH SUPRAPATELLAR EFFUSION CONSIDER KENALOG INJECTION START LOW DOSE OF STEROIDS PLAN ON DISCHARGE Dietary Evaluation Review Comments: 1) CCHO 75gm + renal specific 70gm 2) Refer [employer] for diabetes education Expected Outcomes/Goals: To meet >75% estimated needs Fu 3-5 days Plan discussed with: Patient DEBORAH ROMERO MD Jun 29, 2025 12:24
[2025-06-29] MEDS: methylPREDNISolone SOD SUCC 40 MG/ML VL IV SCH (13:30)
[2025-06-29] MEDS: SODIUM CHLORIDE 0.9% 1,000 ML IV SCH (13:31)
--- NOTE | 2025-06-29 16:40 | DVHPN2 ---
Progress Note Date Seen: Jun 29, 2025 Medical Necessity Reason Pt with a Central, PICC or Fol: No Subjective Patient reports: No new complaints Review of Systems: MSK:Abnormal Objective vital signs Vital Sign Date Time Temp Pulse Resp B/P (MAP) Pulse Ox O2 Delivery O2 Flow Rate FiO2 06/29/25 16:33 98.5 74 21 106/79 (88) 96 98.5 06/29/25 08:00 Room Air* 0 21 Total Intake and Output 06/28/25 06/28/25 06/29/25 15:00 23:00 07:00 Intake Total 50 ml 740 ml 400 ml Output Total 1850 ml Balance 50 ml -1110 ml 400 ml medications Current Medications Medications Dose Ordered Sig/[place] Route Start Time Stop Time Status Last Admin Dose Admin Acetaminophen/ Hydrocodone Bitart 1 tab Q4HP PRN PO 06/22/25 12:15 06/29/25 12:38 1 TAB Ondansetron HCl 4 mg Q4HP PRN IV 06/22/25 12:15 06/29/25 12:37 4 MG Docusate Sodium 100 mg BIDPRN PRN PO 06/22/25 12:15 06/26/25 13:56 100 MG Acetaminophen 650 mg Q6HP PRN PO 06/22/25 12:15 Nitroglycerin 0.4 mg Q5MINP PRN SL 06/22/25 12:15 Morphine Sulfate 2 mg Q30M PRN IV 06/22/25 12:15 06/25/25 21:57 2 MG Alprazolam 0.5 mg BID PRN PO 06/22/25 12:45 06/29/25 14:08 0.5 MG Clopidogrel Bisulfate 75 mg DAILY PO 06/23/25 10:00 06/29/25 09:44 75 MG Patient Own Medication 1 tab DAILY PO 06/23/25 10:00 Cancel Patient Own Medication 2 puff BID IN 06/22/25 22:00 Patient Own Medication 25 mg BID PO 06/22/25 22:00 UNV Diagnostic Test (Pha) 1 strip ACHS 06/22/25 17:00 06/29/25 11:46 1 STRIP Insulin Human Regular HS SC 06/22/25 22:00 06/28/25 22:28 2 UNITS Insulin Human Regular AC SC 06/22/25 17:00 06/29/25 12:05 2 UNITS Dextrose 50 ml UD PRN IV 06/22/25 13:00 Atorvastatin Calcium 40 mg HS PO 06/22/25 22:00 06/28/25 21:58 40 MG Ceftriaxone Sodium 50 ml @ 100 mls/hr DAILY@09 IV 06/23/25 09:00 06/29/25 09:44 100 MLS/HR Morphine Sulfate 1 mg Q4HP PRN IV 06/25/25 22:45 06/28/25 17:25 1 MG Baclofen 10 mg BID PO 06/28/25 22:00 Sodium Chloride 1,000 ml @ 75 mls/hr [id number] IV 06/29/25 09:15 06/29/25 13:31 75 MLS/HR Allopurinol 200 mg DAILY PO 06/29/25 10:00 06/29/25 09:44 200 MG Methylprednisolone Sodium Succinate 40 mg DAILY IV 06/29/25 13:00 06/29/25 13:30 40 MG laboratory and microbiology Laboratory Tests 06/29/25 06:51 Test 06/29/25 06:51 Range/Units Serum Glucose 173 H 74-106 mg/dL Microbiology Date/Time Source Procedure Growth Status 06/24/25 17:13 Nose MRSA Screen - Final Complete 06/22/25 16:05 Blood Blood Culture - Final NO GROWTH AFTER 5 DAYS OF INCUBATION. Complete 06/22/25 11:26 Voided Urine Urine Culture - Final Complete Problem List/Assessment/Plan Problem List/Assessment/Plan Acute kidney injury hemodynamically mediated in the setting of hypotension Chronic kidney disease stage IIIB; Dr. Lau Coronary artery disease History of CVA Congestive heart failure recs high uric acid , ESR, CRP ivf ns steroids Urine analysis noted d/w Plan discussed with: Patient My Orders My Orders Orders - CAM LAU MD Procedure Category Date Status Time Demetra; Comprehensive LAB 06/29/25 In Process Panel 09:09 Sodium Chloride 0.9% PHA 06/29/25 In Process 09:15 Allopurinol Tablet PHA 06/29/25 In Process (Zyloprim Tablet) 10:00 Rheumatoid Arthritis LAB 06/29/25 In Process Factor 09:10 Methylprednisolone PHA 06/29/25 In Process Sod Succ (Solu Medrol 13:00 Dietary Evaluation Review Comments: 1) CCHO 75gm + renal specific 70gm 2) Refer Supervisor Cloth Winding for diabetes education Expected Outcomes/Goals: To meet >75% estimated needs Fu 3-5 days CAM LAU MD Jun 29, 2025 16:40
--- NOTE | 2025-06-29 18:45 | DVHINCON2 ---
Consult Note Consult Consult Note Reason for Consult: Evaluation of left knee pain and effusion in the setting of possible gout or traumatic insult following syncopal episode. --- HISTORY OF PRESENT ILLNESS: Mr. Reddy is an inpatient currently admitted for reasons other than musculoskeletal concerns/Dizziness. The orthopedic service was consulted for evaluation of left knee effusion and pain, reportedly ongoing for the past 34 days. The patient notes a syncopal episode in the emergency department prior to admission, during which he may have injured his knee. He denies systemic sympt oms such as fever, chills, nausea, or vomiting. Denies any injury or recent hx of injections/surgery to left knee. No DM2 hx. --- PAST MEDICAL HISTORY: Notable for elevated uric acid levels, raising suspicion for a gout flare. No known prior history of gout was mentioned. --- PHYSICAL EXAMINATION: Vital Signs: Reviewed; stable at time of examination General: Alert and oriented x3 Left Knee: Effusion noted Range of motion: 0110 degrees with pain at terminal arc No erythema, skin breakdown, or obvious warmth to suggest septic arthritis Mild warmth noted over the joint No ecchymosis or instability appreciated Grossly neurovascularly intact distally --- IMAGING: Left Knee X-Ray: Reviewed No fracture or dislocation seen. No acute bony abnormalities. Knee effusion is noted --- PROCEDURE PERFORMED: VERBAL CONSENT WAS OBTAINED Left Knee Arthrocentesis Sterile Technique: Maintained Fluid Characteristics: Total volume aspirated: ~60 mL Appearance: Serosanguinous (bloody-tinged), not cloudy Odor: None Viscosity: Normal Samples sent for: Cell count with differential, crystal analysis, Gram stain, and culture --- ASSESSMENT: 1. Left knee effusion, likely reactive versus crystal arthropathy (gout) 2. Suspected post-syncope traumatic joint insult 3. Rule out septic arthritis pending synovial fluid analysis 4. Elevated uric acid possible gout flare --- PLAN: Await synovial fluid cell count, culture, and crystal analysis results Inpatient medicine team to continue antibiotic coverage as precaution while septic arthritis is ruled out Recommend holding off on anti-gout therapy until final diagnosis is confirmed Re-evaluate once lab results are available ONCE LABS ARE COMPLETED WILL REVIEW TOMORROW MORNING, MEDICINE TEAM TO ALSO REVIEW AND IF LAB IS AVIALBLE CONTACT ORTHO FOR RECS Plan discussed with: Patient, Other (BEDSIDE NURSE) Visit Coding Surgery Date of Service if different f: Jun 29, 2025 Billing Provider: LIYA PLASENCIA PAC Surgery Visit Codes: 58420 - INP CONSULT <55 MIN LIYA PLASENCIA PAC Jun 29, 2025 18:45
[2025-06-30] VITALS (8 sets, daily range): BP systolic 114–120; BP diastolic 57–88; PULSE 72–119; RESP 15–21; TEMP 97.1–98.9; O2SAT 95–99
[2025-06-30 05:19] LABS: Hematocrit 39.1 % (41.0-53.0); Hemoglobin 14.1 g/dL (13.5-17.5); Mean Corpuscular Hemoglobin 32.0 pg (28.0-32.0); Mean Corpuscular Volume 88.9 fL (80.0-100.0); Nucleated Red Blood Cells % 0.1 %
[2025-06-30 05:30] LABS: Anion Gap 11 (5-15); Calcium 9.2 mg/dL (8.7-10.4); Carbon Dioxide 23 mmol/L (20-31); Chloride 99 mmol/L (98-107); Potassium 3.8 mmol/L (3.5-5.1)
[2025-06-30 05:31] LABS: Sodium 133 mmol/L (136-145)
[2025-06-30 05:36] LABS: BUN/Creatinine Ratio 21.7 (10.0-20.0)
[2025-06-30 05:40] LABS: Blood Urea Nitrogen 51 mg/dL (9-23); Glucose 166 mg/dL (74-106)
[2025-06-30 12:07] LABS: Anti-Centromere B Antibody <0.2 AI (0.0-0.9); Anti-Jo-1 Antibody <0.2 AI (0.0-0.9); Anti-dsDNA Antibody <1 IU/mL (0-9); Antichromatin Antibody <0.2 AI (0.0-0.9); Antiscleroderma-70 Antibody <0.2 AI (0.0-0.9); Sjogren's Anti-SS-A Antibody <0.2 AI (0.0-0.9); Sjogren's Anti-SS-B Antibody <0.2 AI (0.0-0.9)
[2025-06-30] MEDS: FAMOTIDINE 20 MG TAB PO SCH (12:17)
--- NOTE | 2025-06-30 13:02 | DVHPN2 ---
Progress Note - Dictate Date Seen: Jun 30, 2025 Medical Necessity Reason Pt with a Central, PICC or Fol: No Subjective PT WITH HYPOTENSION SS COMPLEX OF DIZZINESS CT HEAD NEGATIVE CAROTID DUPLEX NEGATIVE ECHO LVH EF >55% MILD MR PMH ; ORGANIC HD HX OF TX S/P PTCA STENT CAD HX OF CVA CAROTID DUPLEC NL CKD STAGE II SLEEP APNEA vital signs Vital Sign Date Time Temp Pulse Resp B/P (MAP) Pulse Ox O2 Delivery O2 Flow Rate FiO2 06/30/25 08:40 98.0 79 18 120/57 (78) 96 98.0 06/29/25 20:00 Room Air* 0 21 Total Intake and Output 06/29/25 06/29/25 06/30/25 14:59 22:59 06:59 Intake Total 50 ml 980 ml 700 ml Output Total 350 ml Balance 50 ml 980 ml 350 ml medications Current Medications Medications Dose Ordered Sig/[place] Route Start Time Stop Time Status Last Admin Dose Admin Acetaminophen/ Hydrocodone Bitart 1 tab Q4HP PRN PO 06/22/25 12:15 06/30/25 09:08 1 TAB Ondansetron HCl 4 mg Q4HP PRN IV 06/22/25 12:15 06/30/25 01:55 4 MG Docusate Sodium 100 mg BIDPRN PRN PO 06/22/25 12:15 06/26/25 13:56 100 MG Acetaminophen 650 mg Q6HP PRN PO 06/22/25 12:15 Nitroglycerin 0.4 mg Q5MINP PRN SL 06/22/25 12:15 Morphine Sulfate 2 mg Q30M PRN IV 06/22/25 12:15 06/25/25 21:57 2 MG Alprazolam 0.5 mg BID PRN PO 06/22/25 12:45 06/30/25 01:59 0.5 MG Clopidogrel Bisulfate 75 mg DAILY PO 06/23/25 10:00 06/30/25 10:30 75 MG Patient Own Medication 1 tab DAILY PO 06/23/25 10:00 Cancel Patient Own Medication 2 puff BID IN 06/22/25 22:00 Patient Own Medication 25 mg BID PO 06/22/25 22:00 UNV Diagnostic Test (Pha) 1 strip ACHS 06/22/25 17:00 06/30/25 06:35 1 STRIP Insulin Human Regular HS SC 06/22/25 22:00 06/29/25 22:27 6 UNITS Insulin Human Regular AC SC 06/22/25 17:00 06/30/25 07:00 3 UNITS Dextrose 50 ml UD PRN IV 06/22/25 13:00 Atorvastatin Calcium 40 mg HS PO 06/22/25 22:00 06/29/25 21:49 40 MG Ceftriaxone Sodium 50 ml @ 100 mls/hr DAILY@09 IV 06/23/25 09:00 06/30/25 09:14 100 MLS/HR Morphine Sulfate 1 mg Q4HP PRN IV 06/25/25 22:45 06/30/25 06:35 1 MG Baclofen 10 mg BID PO 06/28/25 22:00 Sodium Chloride 1,000 ml @ 75 mls/hr [id number] IV 06/29/25 09:15 06/29/25 21:51 75 MLS/HR Allopurinol 200 mg DAILY PO 06/29/25 10:00 06/30/25 10:30 200 MG Methylprednisolone Sodium Succinate 40 mg DAILY IV 06/29/25 13:00 06/30/25 10:30 40 MG Famotidine 20 mg DAILY PO 06/30/25 11:30 06/30/25 12:17 20 MG laboratory and microbiology Laboratory Tests 06/30/25 04:45 Test 06/30/25 04:45 Range/Units Serum Glucose 166 H 74-106 mg/dL Problem List HYPOTENSION SS COMPLEX OF DIZZINESS CT HEAD NEGATIVE CAROTID DUPLEX NEGATIVE ECHO LVH EF >55% MILD MR PMH ; ORGANIC HD HX OF TX S/P PTCA STENT CAD HX OF CVA CAROTID DUPLEC NL CKD STAGE II SLEEP APNEA GOUT Assessment/Plan ORTHOSTATIC BP IV FLUID AUTONOMIC DYSFUNCTION HOLD BP MEDS AMBULATE PT HOLD BP MEDS WILL CONTINUE TO MONITOR BP AND TITRATE BP MEDS NEEDED check orthostatic bp IF BP STABLE MAY DC HOME WITHOUT BP MEDS X RAY OF LEFT KNEE WITH SUPRAPATELLAR EFFUSION CONSIDER KENALOG INJECTION START LOW DOSE OF STEROIDS PLAN ON DISCHARGE Dietary Evaluation Review Comments: 1) CCHO 75gm + renal specific 70gm 2) Refer Automation Test Engineer for diabetes education Expected Outcomes/Goals: To meet >75% estimated needs Fu 3-5 days Plan discussed with: Patient DEBORAH ROMERO MD Jun 30, 2025 13:02
[2025-06-30] MEDS: SODIUM CHLORIDE 0.9% 400 ML IV SCH (14:32)
[2025-06-30] MEDS: FAMOTIDINE (10MG/ML) 2ML VL IV SCH (16:05)
--- NOTE | 2025-06-30 16:07 | DVHPN2 ---
Subjective Patient has some behavioral issues, may be his baseline personality. Otherwise continues to complain of diffuse body aches. No specific symptoms. Reviewed: Care Plan, H&P, Labs, Medications Changes from previous H/P or p: No Changes General: Per HPI Eyes: No Pain, No Vision change, No Conjunctivae inflammation, No Eyelid inflammation, No Other, No Redness ENT: No Ear pain, No Ear discharge, No Nose pain, No Nose discharge, No Nose congestion, No Mouth pain, No Mouth swelling, No Throat pain, No Throat swelling, No Other Cardiovascular: No Chest Pain, No Palpitations, No Orthopnea, No Paroxysmal Noc. Dyspnea, No Edema, No Lt Headedness, No Other Respiratory: No Cough, No Dry, No Shortness of breath, No SOB with excertion, No Wheezing, No Hemoptysis, No Pleuritic Pain, No Sputum, No Other Gastrointestinal: No Nausea, No Vomiting, No Abdominal Pain, No Diarrhea, No Constipation, No Melena, No Hematochezia, No Other Genitourinary: No Dysuria, No Frequency, No Incontinence, No Hematuria, No Retention, No Other Musculoskeletal: No other, No neck pain, No shoulder pain, No arm pain, No back pain, No hand pain, No leg pain, No foot pain Skin: No Rash, No Lesions, No Jaundice, No Bruising, No Other Objective Vitals Vital Signs Date Time Temp Pulse Resp B/P (MAP) Pulse Ox O2 Delivery O2 Flow Rate FiO2 06/30/25 08:40 98.0 79 18 120/57 (78) 96 98.0 06/30/25 08:20 Room Air* 0 21 Intake/Output Intake and Output 06/30/25 07:00 Intake Total 1730 ml Output Total 350 ml Balance 1380 ml Intake Oral 1680 ml IV Total 50 ml Output Urine Total 350 ml # Voids 1 Exam GEN: Healthy appearing, well-developed, NAD. HEENT: NC/AT; MMM. CV: RRR, no m/r/g. LUNGS: CTAB, no w/r/c. ABD: Soft, NT/ND, NBS, no masses or organomegaly. EXT: skin Warm, well perfused. no rashes. No clubbing, cyanosis, or edema. Left knee size increased compared to right. No obvious erythema, left knee is warmer NEURO: Ambulating with no limitations. No focal deficits. General Appearance: Alert, Oriented X3, Cooperative Cardiovascular: Regular rate, Normal S1, Normal S2 Neuro: Normal gait, Normal speech Medications Current Medications Medications Dose Ordered Sig/[place] Route Start Time Stop Time Status Last Admin Dose Admin Acetaminophen/ Hydrocodone Bitart 1 tab Q4HP PRN PO 06/22/25 12:15 06/30/25 09:08 1 TAB Ondansetron HCl 4 mg Q4HP PRN IV 06/22/25 12:15 06/30/25 01:55 4 MG Docusate Sodium 100 mg BIDPRN PRN PO 06/22/25 12:15 06/26/25 13:56 100 MG Acetaminophen 650 mg Q6HP PRN PO 06/22/25 12:15 Nitroglycerin 0.4 mg Q5MINP PRN SL 06/22/25 12:15 Morphine Sulfate 2 mg Q30M PRN IV 06/22/25 12:15 06/25/25 21:57 2 MG Alprazolam 0.5 mg BID PRN PO 06/22/25 12:45 06/30/25 01:59 0.5 MG Clopidogrel Bisulfate 75 mg DAILY PO 06/23/25 10:00 06/30/25 10:30 75 MG Patient Own Medication 1 tab DAILY PO 06/23/25 10:00 Cancel Patient Own Medication 2 puff BID IN 06/22/25 22:00 Patient Own Medication 25 mg BID PO 06/22/25 22:00 UNV Diagnostic Test (Pha) 1 strip ACHS 06/22/25 17:00 06/30/25 12:59 1 STRIP Insulin Human Regular HS SC 06/22/25 22:00 06/29/25 22:27 6 UNITS Insulin Human Regular AC SC 06/22/25 17:00 06/30/25 13:04 3 UNITS Dextrose 50 ml UD PRN IV 06/22/25 13:00 Atorvastatin Calcium 40 mg HS PO 06/22/25 22:00 06/29/25 21:49 40 MG Ceftriaxone Sodium 50 ml @ 100 mls/hr DAILY@09 IV 06/23/25 09:00 06/30/25 09:14 100 MLS/HR Morphine Sulfate 1 mg Q4HP PRN IV 06/25/25 22:45 06/30/25 06:35 1 MG Baclofen 10 mg BID PO 06/28/25 22:00 Sodium Chloride 1,000 ml @ 75 mls/hr [id number] IV 06/29/25 09:15 06/29/25 21:51 75 MLS/HR Allopurinol 200 mg DAILY PO 06/29/25 10:00 06/30/25 10:30 200 MG Methylprednisolone Sodium Succinate 40 mg DAILY IV 06/29/25 13:00 06/30/25 10:30 40 MG Metronidazole 100 ml @ 100 mls/hr Q8HR IV 06/30/25 22:00 Sodium Chloride 400 ml @ 200 mls/hr Q2H IV 06/30/25 13:30 06/30/25 14:32 200 MLS/HR Famotidine 20 mg BID IV 06/30/25 14:45 Laboratory Results Laboratory Tests 06/30/25 04:45 Chemistry Test 06/30/25 04:45 Calcium Level 9.2 mg/dL (8.7-10.4) Urinalysis Test 06/22/25 11:26 Urine Color Yellow (Yellow) Urine Clarity Clear (Clear) Urine pH 5.5 (5.0-9.0) Urine Specific [place] 1.020 (1.001-1.035) Urine Protein Trace (Negative) H Urine Ketones Negative (Negative) Urine Blood Negative /uL (Negative) Urine Nitrite Negative (Negative) Urine Bilirubin Negative (Negative) Urine Urobilinogen Normal mg/dL (Negative) Urine Leukocyte Esterase Negative /uL (Negative) Urine RBC <1 /hpf (0 - 3) Urine Microscopic WBC < 1 /HPF (0-3) Urine Squamous Epithelial Cells None seen /hpf (<5) Urine Bacteria None seen /hpf (None Seen) Urine Glucose Normal mg/dL (Normal) Microbiology Microbiology Date/Time Source Procedure Growth Status 06/29/25 18:20 Aspirate Gram Stain Pending Resulted 06/29/25 18:20 Aspirate Body Fluid Culture - Preliminary Resulted 06/24/25 17:13 Nose MRSA Screen - Final Complete 06/22/25 16:05 Blood Blood Culture - Final NO GROWTH AFTER 5 DAYS OF INCUBATION. Complete 06/22/25 11:26 Voided Urine Urine Culture - Final Complete Labs and/or images reviewed: Labs reviewed by me, Image(s) reviewed by me Assessment/Plan Assessment/Plan Jose Morrell is a 55-year-old male with past medical history of CVA, chronic kidney disease, [place], hypertension, and hyperlipidemia, who came to the hospital due to dizziness. Patient states he started feeling bad last night. This morning he woke up dizzy and light headed. He thought he just needed to eat. He ate breakfast and was still feeling dizzy, lightheaded, and had blurry vision so he called EMS. Patient did not take any of his medications this morning. 06/23/2025 nephro consulted, cardio consulted 06/24/2025 symptoms improving 06/25/2025 seen by cardiology, no new BP meds 06/26/2025- worsening pain in left knee. unable to walk, PT consulted, if can ambulate well, possible d/c in AM 06/27/2025- pt states he is still feeling weak. PT to evaluate. possible d/c in 24 hours 06/28/25 blood pressure improved, taking over for Dr. fatima. Cardiology has signed off, okay to discharge with DC BP meds. Patient here for orthostatic hypotension. Nephrology following no new recommendations. Multiple blood pressure medications were discontinued and patient orthostatic hypotension has resolved. Patient has right IJ CBC. - he continues to complain of diffuse body aches and left knee pain. His left knee does appear to be more enlarged but no obvious effusion and it is warmer. We will get a left knee x-ray. Otherwise we will start baclofen 10 b.i.d. to see if his muscle is related to cramps. Continue some slow IV fluids. Continue pain analgesia prn. 06/29/25 blood pressure stable, stopped blood pressure meds. Patient continues to have vague complaints, diffuse pains, weakness. Most issues appear to be outpatient related, concern for possible drug-seeking behavior. Left knee x-ray is showing effusion we will get orthopedic to evaluate. Nephrology following, uric acid level significantly elevated at 11.2, nephro starts allopurinol. 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 We will stop colchicine. Left knee might be gouty arthritis. He is not complaining of diffuse aches, possibly cessation of colchicine plus-minus addition of baclofen might be helping. We will give steroids today IV and then p.o. Dosepak at discharge. Ortho we will do arthrocentesis likely this evening. ESR CRP are elevated. We will start IV antibiotics because steroids being given while there is a swollen knee. 06/30/25- initial workup on arthrocentesis synovial fluid is not concerning for infection, crystal workup pending pathology review. There is loss of RBCs, possible this is traumatic knee as patient had a fall in the ER when patient initially presented. He appears comfortable but having wake complains of diffuse aches and pains. But he does endorse that the left knee is improving. Today he starts having nausea and vomiting 2 episodes, he described as dark but on evaluation there is no coffee-ground material and appears to be digested food products. Possible gastroenteritis, we will start antiemetics fluids and monitor patient for 1 more day. Hypotension, Unspecified, requiring vasopressor support Syncope, due to above Left knee effusion, suprapatellar,, SP arthrocentesis, likely traumatic knee effusion Gastroenteritis possible, infectious etiology likely, acute on chronic kidney injury, Hyperlipidemia, Obstructive sleep apnea, weakness --continue ceftriaxone -p.r.n. analgesia -continue home beclomethasone, Xanax, Lipitor, Plavix, -start baclofen, 10 b.i.d. -. Daily colchicine, for his gout this should only be as a flare up medication. -IV antibiotics -prn analgesia IV Zofran. -IV steroids, then p.o. at discharge -moderate SSI a.c. HS. Plan discussed with: Patient My Orders Orders - NORAH MEYER MD Procedure Category Date Status Time Metronidazole PHA 06/30/25 In Process 500mg/100ml (Flagyl 22:00 Full Liq Diet DIET 06/30/25 Transmitted Lunch Sodium Chloride 0.9% PHA 06/30/25 In Process 13:30 Famotidine Injection PHA 06/30/25 Logged (Pepcid Injection) 14:45 Date of Service: Jun 30, 2025 Billing Provider: NORAH MEYER MD Common Visit Codes: [id number] INP/OBS CARE(HIGH) NORAH MEYER MD Jun 30, 2025 16:07
--- NOTE | 2025-06-30 16:33 | DVHPN2 ---
Progress Note Date Seen: Jun 30, 2025 Medical Necessity Reason Pt with a Central, PICC or Fol: No Subjective Patient reports: Other Review of Systems: GI:Abnormal (vomitings) Objective vital signs Vital Sign Date Time Temp Pulse Resp B/P (MAP) Pulse Ox O2 Delivery O2 Flow Rate FiO2 06/30/25 16:25 98.9 119 21 116/88 (97) 97 98.9 06/30/25 08:20 Room Air* 0 21 Total Intake and Output 06/29/25 06/29/25 06/30/25 15:00 23:00 07:00 Intake Total 50 ml 980 ml 700 ml Output Total 350 ml Balance 50 ml 980 ml 350 ml medications Current Medications Medications Dose Ordered Sig/[place] Route Start Time Stop Time Status Last Admin Dose Admin Acetaminophen/ Hydrocodone Bitart 1 tab Q4HP PRN PO 06/22/25 12:15 06/30/25 09:08 1 TAB Ondansetron HCl 4 mg Q4HP PRN IV 06/22/25 12:15 06/30/25 01:55 4 MG Docusate Sodium 100 mg BIDPRN PRN PO 06/22/25 12:15 06/26/25 13:56 100 MG Acetaminophen 650 mg Q6HP PRN PO 06/22/25 12:15 Nitroglycerin 0.4 mg Q5MINP PRN SL 06/22/25 12:15 Morphine Sulfate 2 mg Q30M PRN IV 06/22/25 12:15 06/25/25 21:57 2 MG Alprazolam 0.5 mg BID PRN PO 06/22/25 12:45 06/30/25 01:59 0.5 MG Clopidogrel Bisulfate 75 mg DAILY PO 06/23/25 10:00 06/30/25 10:30 75 MG Patient Own Medication 1 tab DAILY PO 06/23/25 10:00 Cancel Patient Own Medication 2 puff BID IN 06/22/25 22:00 Patient Own Medication 25 mg BID PO 06/22/25 22:00 UNV Diagnostic Test (Pha) 1 strip ACHS 06/22/25 17:00 06/30/25 12:59 1 STRIP Insulin Human Regular HS SC 06/22/25 22:00 06/29/25 22:27 6 UNITS Insulin Human Regular AC SC 06/22/25 17:00 06/30/25 13:04 3 UNITS Dextrose 50 ml UD PRN IV 06/22/25 13:00 Atorvastatin Calcium 40 mg HS PO 06/22/25 22:00 06/29/25 21:49 40 MG Ceftriaxone Sodium 50 ml @ 100 mls/hr DAILY@09 IV 06/23/25 09:00 06/30/25 09:14 100 MLS/HR Morphine Sulfate 1 mg Q4HP PRN IV 06/25/25 22:45 06/30/25 06:35 1 MG Baclofen 10 mg BID PO 06/28/25 22:00 Sodium Chloride 1,000 ml @ 75 mls/hr [id number] IV 06/29/25 09:15 06/29/25 21:51 75 MLS/HR Allopurinol 200 mg DAILY PO 06/29/25 10:00 06/30/25 10:30 200 MG Methylprednisolone Sodium Succinate 40 mg DAILY IV 06/29/25 13:00 06/30/25 10:30 40 MG Metronidazole 100 ml @ 100 mls/hr Q8HR IV 06/30/25 22:00 Sodium Chloride 400 ml @ 200 mls/hr Q2H IV 06/30/25 13:30 06/30/25 14:32 200 MLS/HR Famotidine 20 mg BID IV 06/30/25 14:45 06/30/25 16:05 20 MG Examination: GENERAL:Normal, HEENT:Normal, NECK:Normal, LUNGS:Normal, CVS:Normal, ABDOMEN:Normal, MSK:Normal, SKIN:Normal, NEURO:Normal, :Normal laboratory and microbiology Laboratory Tests 06/30/25 04:45 Test 06/30/25 04:45 Range/Units Serum Glucose 166 H 74-106 mg/dL Microbiology Date/Time Source Procedure Growth Status 06/29/25 18:20 Aspirate Gram Stain Pending Resulted 06/29/25 18:20 Aspirate Body Fluid Culture - Preliminary Resulted 06/24/25 17:13 Nose MRSA Screen - Final Complete 06/22/25 16:05 Blood Blood Culture - Final NO GROWTH AFTER 5 DAYS OF INCUBATION. Complete 06/22/25 11:26 Voided Urine Urine Culture - Final Complete Problem List/Assessment/Plan Problem List/Assessment/Plan Acute kidney injury hemodynamically mediated in the setting of hypotension Chronic kidney disease stage IIIB; Dr. Lau [facility] Coronary artery disease History of CVA Congestive heart failure Rheumatoid factor + ,esr,crp+ recs ivf NS at 75cc/hr steroids Urine analysis noted need outpt rheumatology eval --d/w pt d/w Plan discussed with: Patient Dietary Evaluation Review Comments: 1) CCHO 75gm + renal specific 70gm 2) Refer Knife Setter Assembler for diabetes education Expected Outcomes/Goals: To meet >75% estimated needs Fu 3-5 days CAM LAU MD Jun 30, 2025 16:33
[2025-07-01] VITALS (7 sets, daily range): BP systolic 103–118; BP diastolic 68–90; PULSE 73–96; RESP 16–20; TEMP 36.8; O2SAT 92–99
[2025-07-01 07:47] LABS: Hematocrit 35.4 % (41.0-53.0); Hemoglobin 12.8 g/dL (13.5-17.5); Mean Corpuscular Hemoglobin 32.1 pg (28.0-32.0); Mean Corpuscular Volume 88.6 fL (80.0-100.0); Nucleated Red Blood Cells % 0.0 %
[2025-07-01 07:52] LABS: Calcium 9.3 mg/dL (8.7-10.4); Chloride 106 mmol/L (98-107); Sodium 139 mmol/L (136-145)
[2025-07-01 07:53] LABS: Anion Gap 11 (5-15); Carbon Dioxide 22 mmol/L (20-31)
[2025-07-01 07:56] LABS: Potassium 3.3 mmol/L (3.5-5.1)
[2025-07-01 07:58] LABS: BUN/Creatinine Ratio 23.7 (10.0-20.0); Blood Urea Nitrogen 52 mg/dL (9-23); Glucose 117 mg/dL (74-106)
--- NOTE | 2025-07-01 10:51 | DVHPN2 ---
Progress Note - Dictate Date Seen: Jul 01, 2025 Medical Necessity Reason Pt with a Central, PICC or Fol: No Subjective PT WITH HYPOTENSION SS COMPLEX OF DIZZINESS CT HEAD NEGATIVE CAROTID DUPLEX NEGATIVE ECHO LVH EF >55% MILD MR PMH ; ORGANIC HD HX OF [place] S/P PTCA STENT CAD HX OF CVA CAROTID DUPLEC NL CKD STAGE II SLEEP APNEA vital signs Vital Sign Date Time Temp Pulse Resp B/P (MAP) Pulse Ox O2 Delivery O2 Flow Rate FiO2 07/01/25 08:30 97.4 91 17 112/74 (87) 94 97.4 06/30/25 20:00 Room Air* 0 21 Total Intake and Output 06/30/25 06/30/25 07/01/25 15:00 23:00 07:00 Intake Total 50 ml 2950 ml 1500 ml Output Total 2400 ml 1000 ml Balance 50 ml 550 ml 500 ml medications Current Medications Medications Dose Ordered Sig/[place] Route Start Time Stop Time Status Last Admin Dose Admin Acetaminophen/ Hydrocodone Bitart 1 tab Q4HP PRN PO 06/22/25 12:15 06/30/25 09:08 1 TAB Ondansetron HCl 4 mg Q4HP PRN IV 06/22/25 12:15 07/01/25 06:24 4 MG Docusate Sodium 100 mg BIDPRN PRN PO 06/22/25 12:15 06/26/25 13:56 100 MG Acetaminophen 650 mg Q6HP PRN PO 06/22/25 12:15 Nitroglycerin 0.4 mg Q5MINP PRN SL 06/22/25 12:15 Morphine Sulfate 2 mg Q30M PRN IV 06/22/25 12:15 06/25/25 21:57 2 MG Alprazolam 0.5 mg BID PRN PO 06/22/25 12:45 06/30/25 21:38 0.5 MG Clopidogrel Bisulfate 75 mg DAILY PO 06/23/25 10:00 07/01/25 10:26 75 MG Patient Own Medication 1 tab DAILY PO 06/23/25 10:00 Cancel Patient Own Medication 2 puff BID IN 06/22/25 22:00 Patient Own Medication 25 mg BID PO 06/22/25 22:00 UNV Diagnostic Test (Pha) 1 strip ACHS 06/22/25 17:00 07/01/25 06:11 1 STRIP Insulin Human Regular HS SC 06/22/25 22:00 06/30/25 21:34 3 UNITS Insulin Human Regular AC SC 06/22/25 17:00 06/30/25 18:11 6 UNITS Dextrose 50 ml UD PRN IV 06/22/25 13:00 Atorvastatin Calcium 40 mg HS PO 06/22/25 22:00 06/30/25 21:38 40 MG Ceftriaxone Sodium 50 ml @ 100 mls/hr DAILY@09 IV 06/23/25 09:00 07/01/25 10:26 100 MLS/HR Morphine Sulfate 1 mg Q4HP PRN IV 06/25/25 22:45 07/01/25 06:24 1 MG Baclofen 10 mg BID PO 06/28/25 22:00 Sodium Chloride 1,000 ml @ 75 mls/hr [id number] IV 06/29/25 09:15 07/01/25 01:01 75 MLS/HR Allopurinol 200 mg DAILY PO 06/29/25 10:00 07/01/25 10:26 200 MG Methylprednisolone Sodium Succinate 40 mg DAILY IV 06/29/25 13:00 07/01/25 10:25 40 MG Metronidazole 100 ml @ 100 mls/hr Q8HR IV 06/30/25 22:00 07/01/25 06:04 100 MLS/HR Famotidine 20 mg BID IV 06/30/25 14:45 07/01/25 10:25 20 MG laboratory and microbiology Laboratory Tests 07/01/25 06:14 Test 07/01/25 06:14 Range/Units Serum Glucose 117 H 74-106 mg/dL Problem List HYPOTENSION SS COMPLEX OF DIZZINESS CT HEAD NEGATIVE CAROTID DUPLEX NEGATIVE ECHO LVH EF >55% MILD MR PMH ; ORGANIC HD HX OF [place] S/P PTCA STENT CAD HX OF CVA CAROTID DUPLEC NL CKD STAGE II SLEEP APNEA GOUT Assessment/Plan ORTHOSTATIC BP IV FLUID AUTONOMIC DYSFUNCTION HOLD BP MEDS AMBULATE PT HOLD BP MEDS WILL CONTINUE TO MONITOR BP AND TITRATE BP MEDS NEEDED check orthostatic bp IF BP STABLE MAY DC HOME WITHOUT BP MEDS X RAY OF LEFT KNEE WITH SUPRAPATELLAR EFFUSION CONSIDER KENALOG INJECTION START LOW DOSE OF STEROIDS PLAN ON DISCHARGE CORRECT HYPOKALEMIA Dietary Evaluation Review Comments: 1) CCHO 75gm + renal specific 70gm 2) Refer Automotive Paint Technician for diabetes education Expected Outcomes/Goals: To meet >75% estimated needs Fu 3-5 days Plan discussed with: Patient DEBORAH ROMERO MD Jul 01, 2025 10:51
[2025-07-01] MEDS ORDERED: TRIAMCINOLONE 40MG/ML 1ML VIAL IX ONE (11:00)
[2025-07-01] MEDS ORDERED: LIDOCAINE 2% (LOCAL ANESTH.) PF 5ml SDV IJ ONE (11:00)
[2025-07-01] MEDS: POTASSIUM EFFERVESENT TAB 25 MEQ PO ONE (11:20)
--- NOTE | 2025-07-01 15:54 | DVHPN2 ---
Progress Note Date Seen: Jul 01, 2025 Medical Necessity Reason Pt with a Central, PICC or Fol: No Subjective Patient reports: No new complaints Review of Systems: Deferred Objective vital signs Vital Sign Date Time Temp Pulse Resp B/P (MAP) Pulse Ox O2 Delivery O2 Flow Rate FiO2 07/01/25 13:14 83 18 109/66 07/01/25 12:30 96.7 99 96.7 07/01/25 08:30 Room Air* 0 21 Total Intake and Output 06/30/25 06/30/25 07/01/25 15:00 23:00 07:00 Intake Total 50 ml 2950 ml 1500 ml Output Total 2400 ml 1000 ml Balance 50 ml 550 ml 500 ml medications Current Medications Medications Dose Ordered Sig/[place] Route Start Time Stop Time Status Last Admin Dose Admin Ondansetron HCl 4 mg Q4HP PRN IV 06/22/25 12:15 07/01/25 06:24 4 MG Docusate Sodium 100 mg BIDPRN PRN PO 06/22/25 12:15 06/26/25 13:56 100 MG Acetaminophen 650 mg Q6HP PRN PO 06/22/25 12:15 Nitroglycerin 0.4 mg Q5MINP PRN SL 06/22/25 12:15 Alprazolam 0.5 mg BID PRN PO 06/22/25 12:45 06/30/25 21:38 0.5 MG Clopidogrel Bisulfate 75 mg DAILY PO 06/23/25 10:00 07/01/25 10:26 75 MG Patient Own Medication 1 tab DAILY PO 06/23/25 10:00 Cancel Patient Own Medication 2 puff BID IN 06/22/25 22:00 Patient Own Medication 25 mg BID PO 06/22/25 22:00 UNV Diagnostic Test (Pha) 1 strip ACHS 06/22/25 17:00 07/01/25 13:03 1 STRIP Insulin Human Regular HS SC 06/22/25 22:00 06/30/25 21:34 3 UNITS Insulin Human Regular AC SC 06/22/25 17:00 07/01/25 13:06 3 UNITS Dextrose 50 ml UD PRN IV 06/22/25 13:00 Atorvastatin Calcium 40 mg HS PO 06/22/25 22:00 06/30/25 21:38 40 MG Ceftriaxone Sodium 50 ml @ 100 mls/hr DAILY@09 IV 06/23/25 09:00 07/01/25 10:26 100 MLS/HR Morphine Sulfate 1 mg Q4HP PRN IV 06/25/25 22:45 07/01/25 13:14 1 MG Baclofen 10 mg BID PO 06/28/25 22:00 Sodium Chloride 1,000 ml @ 75 mls/hr [id number] IV 06/29/25 09:15 07/01/25 01:01 75 MLS/HR Allopurinol 200 mg DAILY PO 06/29/25 10:00 07/01/25 10:26 200 MG Metronidazole 100 ml @ 100 mls/hr Q8HR IV 06/30/25 22:00 07/01/25 06:04 100 MLS/HR Famotidine 20 mg BID IV 06/30/25 14:45 07/01/25 10:25 20 MG Examination: GENERAL:Normal, MSK:Abnormal laboratory and microbiology Laboratory Tests 07/01/25 06:14 Test 07/01/25 06:14 Range/Units Serum Glucose 117 H 74-106 mg/dL Microbiology Date/Time Source Procedure Growth Status 06/29/25 18:20 Aspirate Gram Stain Pending Resulted 06/29/25 18:20 Aspirate Body Fluid Culture - Preliminary Resulted 06/24/25 17:13 Nose MRSA Screen - Final Complete 06/22/25 16:05 Blood Blood Culture - Final NO GROWTH AFTER 5 DAYS OF INCUBATION. Complete 06/22/25 11:26 Voided Urine Urine Culture - Final Complete Problem List/Assessment/Plan Problem List/Assessment/Plan Acute kidney injury hemodynamically mediated in the setting of hypotension Chronic kidney disease stage IIIB; [facility] Coronary artery disease History of CVA Congestive heart failure Rheumatoid factor + ,esr,crp+ recs ibetter renal function with ivf steroids Urine analysis noted need outpt rheumatology eval --d/w pt d/w dr.aziz crow for dc from renal standpoint Plan discussed with: Patient Dietary Evaluation Review Comments: 1) CCHO 75gm + renal specific 70gm 2) Refer Navigation Teacher for diabetes education Expected Outcomes/Goals: To meet >75% estimated needs Fu 3-5 days CAM LAU MD Jul 01, 2025 15:54
[2025-07-01] MEDS ORDERED: LACT10SO3 PO (16:18)
[2025-07-01] MEDS ORDERED: BACL10TA PO (16:18)
[2025-07-01] MEDS ORDERED: FAMO20TA10 PO (16:18)
[2025-07-01] MEDS ORDERED: ALL100T PO (16:18)
[2025-07-01] MEDS ORDERED: DOCU-265 PO (16:18)
[2025-07-01] MEDS ORDERED: PRED20TA2 PO (16:18)
--- NOTE | 2025-07-01 16:28 | DVHDS2 ---
Discharge Summary Date of Admission Jun 22, 2025 at 12:11 Date of Discharge: Jul 01, 2025 Admitting Diagnosis Hypotension Labs/Diagnostic Data: Laboratory Results Test 07/01/25 12:41 07/01/25 06:14 06/29/25 18:20 06/29/25 11:05 POC Glucose 187 mg/dl (70-106) White Blood Count 10.3 10^3/uL (4.4-10.8) Red Blood Count 3.99 10^6/uL (4.5-5.90) Hemoglobin 12.8 g/dL (13.5-17.5) Hematocrit 35.4 % (41.0-53.0) Mean Corpuscular Volume 88.6 fL (80.0-100.0) Mean Corpuscular Hemoglobin 32.1 pg (28.0-32.0) Mean Corpuscular Hemoglobin Concent 36.2 g/dL (32.0-36.0) Red Cell Distribution Width 13.9 % (11.8-14.3) Platelet Count 351 10^3/uL (140-450) Mean Platelet Volume 6.9 fL (6.9-10.8) Neutrophils (%) (Auto) 70.5 % (37.0-80.0) Lymphocytes (%) (Auto) 18.4 % (10.0-50.0) Monocytes (%) (Auto) 10.4 % (0.0-12.0) Eosinophils (%) (Auto) 0.2 % (0.0-7.0) Basophils (%) (Auto) 0.5 % (0.0-2.0) Neutrophils # (Auto) 7.3 10 ^3/uL (1.6-8.6) Lymphocytes # (Auto) 1.9 10 ^3/uL (0.4-5.4) Monocytes # (Auto) 1.1 10 ^3/uL (0-1.3) Eosinophils # (Auto) 0 10 ^3/uL (0-0.8) Basophils # (Auto) 0.1 10 ^3/uL (0-0.2) Nucleated Red Blood Cells 0.0 % Sodium Level 139 mmol/L (136-145) Potassium Level 3.3 mmol/L (3.5-5.1) Chloride Level 106 mmol/L (98-107) Carbon Dioxide Level 22 mmol/L (20-31) Anion Gap 11 (5-15) Blood Urea Nitrogen 52 mg/dL (9-23) Creatinine 2.19 mg/dL (0.700-1.30) Glomerular Filtration Rate Calc 35 mL/min (>90) BUN/Creatinine Ratio 23.7 (10.0-20.0) Serum Glucose 117 mg/dL (74-106) Calcium Level 9.3 mg/dL (8.7-10.4) Body Fluid Source Knee fluid Body Fluid WBC (Manual) 3600 CUMM (0-200) Body Fluid RBC (Manual) 20204 CUMM (0-2000) Body Fluid Mononuclear Cells 22 % Body Fluid Polymorphonuclear Cells 78 % (0-25) Bile Fluid Crystals True gout Rheumatoid Factor 18.4 IU/mL (<14.0) Anti-Nuclear Antibody Comment Comment (.) SHILOH-1 Antibody <0.2 AI (0.0-0.9) SS-A/Ro Antibody <0.2 AI (0.0-0.9) SS-B/La Antibody <0.2 AI (0.0-0.9) Sm Antibody <0.2 AI (0.0-0.9) POLYMERIZATION OVEN TENDER Antibody 0.4 AI (0.0-0.9) Scl-70 (Scleroderma) Antibody <0.2 AI (0.0-0.9) Anti-Double Strand DNA Antibody <1 IU/mL (0-9) Chromatin Antibody <0.2 AI (0.0-0.9) Centromere B Antibody <0.2 AI (0.0-0.9) Test 06/29/25 06:51 06/24/25 03:20 06/22/25 13:48 06/22/25 11:26 Erythrocyte Sedimentation Rate 50 mm/hr (0-20) Uric Acid 11.6 mg/dL (3.7-9.2) Total Bilirubin 0.8 mg/dL (0.2-1.0) Aspartate Amino Transferase (AST) 16 U/L (13-40) Alanine Aminotransferase (ALT) 14 U/L (7-40) Alkaline Phosphatase 78 U/L (46-116) Creatine Kinase 27 U/L (46-171) C-Reactive Protein High Sensitivity 9.66 mg/dL (<1.0) Total Protein 7.2 g/dL (5.7-8.2) Albumin 4.3 g/dL (3.2-4.8) Phosphorus Level 2.7 mg/dL (2.4-5.1) Prothrombin Time 10.6 sec (9.3-11.8) Prothrombin Time INR 1.00 (0.9-1.15) Activated Partial Thromboplast Time 26.4 SEC (24.5-34.5) Urine Color Yellow (Yellow) Urine Clarity Clear (Clear) Urine pH 5.5 (5.0-9.0) Urine Specific [place] 1.020 (1.001-1.035) Urine Protein Trace (Negative) Urine Ketones Negative (Negative) Urine Blood Negative /uL (Negative) Urine Nitrite Negative (Negative) Urine Bilirubin Negative (Negative) Urine Urobilinogen Normal mg/dL (Negative) Urine Leukocyte Esterase Negative /uL (Negative) Urine RBC <1 /hpf (0 - 3) Urine Microscopic WBC < 1 /HPF (0-3) Urine Squamous Epithelial Cells None seen /hpf (<5) Urine Bacteria None seen /hpf (None Seen) Urine Glucose Normal mg/dL (Normal) Test 06/22/25 09:05 Hemoglobin A1c 6.4 % A1C (<5.7) Troponin I High Sensitivity 12 ng/L (</=54) Other Laboratory Tests 07/01/25 06:14 Brief Hx & Hospital Course: Lyle Dupontsugar is a 55-year-old male with past medical history of CVA, chronic kidney disease, ID, hypertension, and hyperlipidemia, who came to the hospital due to dizziness. Patient states he started feeling bad last night. This morning he woke up dizzy and light headed. He thought he just needed to eat. He ate breakfast and was still feeling dizzy, lightheaded, and had blurry vision so he called EMS. Patient did not take any of his medications this morning. 06/23/2025 nephro consulted, cardio consulted 06/24/2025 symptoms improving 06/25/2025 seen by cardiology, no new BP meds 06/26/2025- worsening pain in left knee. unable to walk, PT consulted, if can ambulate well, possible d/c in AM 06/27/2025- pt states he is still feeling weak. PT to evaluate. possible d/c in 24 hours 06/28/25 blood pressure improved, taking over for Dr. fatima. Cardiology has signed off, okay to discharge with DC BP meds. Patient here for orthostatic hypotension. Nephrology following no new recommendations. Multiple blood pressure medications were discontinued and patient orthostatic hypotension has resolved. Patient has right IJ CBC. - he continues to complain of diffuse body aches and left knee pain. His left knee does appear to be more enlarged but no obvious effusion and it is warmer. We will get a left knee x-ray. Otherwise we will start baclofen 10 b.i.d. to see if his muscle is related to cramps. Continue some slow IV fluids. Continue pain analgesia prn. 06/29/25 blood pressure stable, stopped blood pressure meds. Patient continues to have vague complaints, diffuse pains, weakness. Most issues appear to be outpatient related, concern for possible drug-seeking behavior. Left knee x-ray is showing effusion we will get orthopedic to evaluate. Nephrology following, uric acid level significantly elevated at 11.2, nephro starts allopurinol. 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 We will stop colchicine. Left knee might be gouty arthritis. He is not complaining of diffuse aches, possibly cessation of colchicine plus-minus addition of baclofen might be helping. We will give steroids today IV and then p.o. Dosepak at discharge. Ortho we will do arthrocentesis likely this evening. ESR CRP are elevated. We will start IV antibiotics because steroids being given while there is a swollen knee. 06/30/25- initial workup on arthrocentesis synovial fluid is not concerning for infection, crystal workup pending pathology review. There is loss of RBCs, possible this is traumatic knee as patient had a fall in the ER when patient initially presented. He appears comfortable but having wake complains of diffuse aches and pains. But he does endorse that the left knee is improving. Today he starts having nausea and vomiting 2 episodes, he described as dark but on evaluation there is no coffee-ground material and appears to be digested food products. Possible gastroenteritis, we will start antiemetics fluids and monitor patient for 1 more day. 07/01- while patient was here she was treated for gastroenteritis. the gastroenteritis could have partly have caused his low blood pressure but most mostly due to iatrogenic polypharmacy. All blood pressure meds were held and Cardiology improved. Initially patient was orthostatic but that resolved after removal of medications. Patient also had a fall in ER due to this orthostasis with left knee trauma, develops any fusion and Orthopedic was consulted to remove fluid which drained some blood-tinged serous fluid and on workup is negative for septic arthritis. Patient was given antibiotics but for gastroenteritis. Completed course. 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 We will need outpatient follow up. Patient was started on baclofen and prednisone which improved condition. Patient having nausea and vomiting on 06/30 controlled with antiemetics. Patient also IV constipation and denying enema and prefers home bowel regimen. Patient is stable for discharge signed off by Cardiology Nephrology, stable for discharge as per plan below. Diagnosis: Hypotension, Unspecified, requiring vasopressor support, Due iatrogenic and gastroenteritis possible ortho static hypotension, resolved Syncope, due to above Left knee effusion, suprapatellar,, SP arthrocentesis, likely traumatic knee effusion Gastroenteritis possible, infectious etiology likely, rheumatoid factor positive acute on chronic kidney injury, Hyperlipidemia, Obstructive sleep apnea, weakness discharge plan: - start allopurinol 200 mg daily, baclofen 10 mg daily for 10 days, Pepcid 20 mg twice daily, prednisone 20 mg daily for 5 days -Take bowel regimen, docusate 100 mg twice daily for 30 days and take lactulose 10 g powder solution twice daily for 10 days. - Stop taking Coreg, colchicine, nifedipine, Entresto - continue taking other home medications not mentioned above ( Xanax, Eliquis, Lipitor, beclomethasone inhaler, Plavix, tamsulosin) - continue use front wheel walker to ambulate - Take full liquid diet for 1-2 weeks until condition improving - follow up with Cardiology, possible may need intra-articular injection again with steroids. Cardiology to repeat medication reconciliation. - Follow up with Nephrology outpatient 1-2 weeks - Follow up with PCP to review discharge. - if condition is not improving and/or if symptoms start to return . consider returning to the nearest ER. Condition at Discharge: Fair Final Diagnosis/Problems List Diagnosis: Hypotension, Unspecified, requiring vasopressor support, Due iatrogenic and gastroenteritis possible ortho static hypotension, resolved Syncope, due to above Left knee effusion, suprapatellar,, SP arthrocentesis, likely traumatic knee effusion Gastroenteritis possible, infectious etiology likely, rheumatoid factor positive acute on chronic kidney injury, Hyperlipidemia, Obstructive sleep apnea, weakness Discharge Disposition: Home Discharge Instruct/Medications Diet: Consistent carbohydrate, Cardiac 2g Na,low cholest Diet comment: See below Activity: No Restrictions, As Tolerated Follow Up/Referral: See below Medications: See below Scheduled Allopurinol (Zyloprim Tablet), 100 MG PO DAILY Allopurinol (Zyloprim Tablet), 2 TAB PO DAILY Apixaban Base (Eliquis), 2.5 MG PO BID, (Reported) Atorvastatin Calcium (Atorvastatin Calcium), 1 TAB PO DAILY, (Reported) Baclofen (Baclofen), 10 MG PO DAILY Beclomethasone Dipropionate (Qvar Redihaler), 2 PUFF INH BID, (Reported) Carvedilol (Carvedilol), 25 MG PO BID Clopidogrel Bisulfate (Plavix), 1 TAB PO DAILY, (Reported) Colchicine (Colchicine), 0.6 MG PO DAILY Docusate Sodium (Docusate Sodium), 100 MG PO BID Famotidine (Pepcid Tablet), 1 TAB PO BID Lactulose (Lactulose), 10 GM PO BID Nifedipine (Nifedipine Er), 1 TAB PO BID, (Reported) Prednisone (Prednisone), 20 MG PO DAILY Sacubitril-Valsartan (Entresto 49-51 mg), 1 TAB PO TID Tamsulosin Hcl (Tamsulosin Hcl), 1 PO DAILY, (Reported) Scheduled PRN Albuterol Sulfate (Albuterol Sulfate Hfa), 2 PUFF INH Q4HR PRN for WHEEZING, (Reported) Alprazolam (Xanax), 1 TAB PO BID PRN Discharge Statement: "Patient was advised to return to the ER or call 911 if any headaches, dizziness, shortness of breath, chest pain, abdominal pain, bleeding, fevers, or worsening of medical condition. Patient was counseled about treatment plan, medications, possible side effects, patientverbalized understanding. All questions were answered to the best of my ability. This discharge took greater then 30 minutes in planning, reviewing documentation, counseling the patient, and discussing with other team members." ASSESSMENT ASSESSMENT Assessment Diagnosis: Hypotension, Unspecified, requiring vasopressor support, Due iatrogenic and gastroenteritis possible ortho static hypotension, resolved Syncope, due to above Left knee effusion, suprapatellar,, SP arthrocentesis, likely traumatic knee effusion Gastroenteritis possible, infectious etiology likely, rheumatoid factor positive acute on chronic kidney injury, Hyperlipidemia, Obstructive sleep apnea, weakness Date of Service: Jul 01, 2025 Billing Provider: NORAH MEYER MD Common Visit Codes: 40974-GJZ/[id number] DISCH DAY >30min NORAH MEYER MD Jul 01, 2025 16:28
== END 2025-07-01 19:35 | disposition home or self-care (01) | DRG 312 ==
LOC: EDBD 08:22 → ER 08:22 → OVERFLOW 12:11 → TELE-WESTW 14:05
PROVIDERS: ADMIT Student in an Organized Health Care Education/Training Program; ATTEND Student in an Organized Health Care Education/Training Program
PROC: 05HM33Z Insertion of Infusion Device into Right Internal Jugular Vein, Percutaneous Approach (ICD-10-PCS; principal; 2025-06-22)
DX: I95.1 Orthostatic hypotension (principal); J96.01 Acute respiratory failure with hypoxia; K52.9 Noninfective gastroenteritis and colitis, unspecified; I25.10 Atherosclerotic heart disease of native coronary artery without angina pectoris; E78.5 Hyperlipidemia, unspecified; G47.33 Obstructive sleep apnea (adult) (pediatric); I50.9 Heart failure, unspecified; E11.22 Type 2 diabetes mellitus with diabetic chronic kidney disease; M10.9 Gout, unspecified; G90.89 Other disorders of autonomic nervous system; M25.462 Effusion, left knee; E87.6 Hypokalemia; K59.00 Constipation, unspecified; Z86.73 Personal history of transient ischemic attack (TIA), and cerebral infarction without residual deficits; N18.9 Chronic kidney disease, unspecified; Z88.1 Allergy status to other antibiotic agents; Z79.01 Long term (current) use of anticoagulants; Z79.899 Other long term (current) drug therapy; I25.2 Old myocardial infarction; Z82.3 Family history of stroke; Z82.49 Family history of ischemic heart disease and other diseases of the circulatory system; Z95.5 Presence of coronary angioplasty implant and graft
CPT/HCPCS: 36415; 36556; 70450; 71045; 73560; 80048; 80053; 81001; 82550; 82962; 83036; 83516; 84100; 84484; 84550; 85025; 85610; 85652; 85730; 86141; 86225; 86235; 86431; 87040; 87077; 87081; 87086; 87186; 87205; 89051; 89060; 93005; 93306; 93886; 94660; 96365; 96375; 97110; 97163; 99291; 99292; G0378; J1815; J1885; J2405; J3490

== ENCOUNTER 2025-09-01 15:44 | Inpatient (IN) | payer MEDICARE, MEDICAID ==
[~2025-09-01] VITALS: Ht 172.7 cm; Wt 98.3 kg
[~2025-09-01 15:44] MED LIST changes: +BACL10TA PO; -CARV25TA55 PO; -COLC1CAP PO; +DOCU-265 PO; +FAMO20TA10 PO; +LACT10SO3 PO; -SACU1TAB7 PO; +TAMS0.4C39 PO; -TRAM-626 PO
--- NOTE | 2025-09-01 15:59 | ED.PDOC ---
HPI Comments HPI: This is a 55 year old male MIRANDA presenting to the ED with chief complaint of chest pain. Patient reports that he has been experiencing sudden onset of left sided chest pain that radiates into his left shoulder today. Patient relays that he was previously admitted on [facility] on 06/22/25. Patient states he was advised by his education reporter Dr. Starr not to take Aspirin due to already being on Plavix, so he had refused Aspirin en route to the ED. Patient notes he had taken his morning medication and is compliant with all his medication. Patient denies any SOB, dizziness, headache, N/V, or abdominal pain. Previous discharge final diagnoses on 07/01/25: Hypotension, Unspecified, requiring vasopressor support, Due iatrogenic and gastroenteritis possible Ortho static hypotension, resolved Syncope, due to above Left knee effusion, suprapatellar,, SP arthrocentesis, likely traumatic knee effusion Gastroenteritis possible, infectious etiology likely, Rheumatoid factor positive Acute on chronic kidney injury, Hyperlipidemia, Obstructive sleep apnea, Weakness Initial Vitals BP: HR: 120 RR: O2: Temp: Past Medical History: NH x6, CVA x6 with Lt sided deficits, HTN, HLD, CAD, CKF, PE Past Surgical History: Pacemaker, Cardiac Stents x6, Hernia repair Social History: Denies ETOH, smoking, and drug use. Medications: Reviewed Allergies: Amlodipine, Vancomycin HPI: Poor Historian. Past Medical History: Past Surgical History: REVIEW OF SYSTEMS: CONSTITUTIONAL: Denies acute: fever, diaphoresis, chills, HEAD: Denies acute: headache, photophobia Eyes: Denies acute: Double vision, vision loss, eye pain, eye discharge. EARS: Denies acute: tinnitus, hearing loss, ear discharge, ear pain, THROAT: Denies acute: sore throat, swelling, difficulty swallowing , pain with swallowing, change in voice. NECK: Denies acute: neck pain, neck swelling, stiff neck. HEART: Denies acute : palpitations, LUNGS: Denies acute: SOB, wheezing, cough, hemoptysis ABDOMEN: Denies acute: abdominal pain, Nausea, Vomiting, diarrhea, melena , hematemesis, hematochezia SKIN: Denies acute: rash, redness, lesions, itchiness. EXTREMITIES: Denies acute: calf pain, numbness, tingling, weakness, denies pain in extremity. Denies acute: Low back pain. Neuro: Denies acute: focal neurological deficit, motor or sensory focal neurological deficit, tremors, seizure like activity, confusion, dizziness, change in mental status, loss of bowel or bladder function, cauda equina like symptoms. : Denies acute: dysuria, hematuria, flank pain, increase in urinary frequency. PSYCH: Denies acute: hallucination, suicidal ideation, homicidal ideation. PHYSICAL EXAM: General: ----moderate----acute distress, awake and alert. Head: normocephalic, atraumatic. Neck: supple, trachea is midline, no swelling. Throat: Normal phonation. Eyes:, no erythema, no purulent discharge, no proptosis, no icterus. Heart: regular tachycardia, no significant murmur appreciated. Lungs: no apparent respiratory distress, Able to speak in full sentences. No wheezing, no rhonchi, no crackles. No stridors Clear to auscultation bilaterally. Abdomen: non tender to palpation, non distended, soft, no guarding, no rebound, + bowel sounds. Neuro: Awake, Alert, oriented to name, self, situation, follows commands GCS=15. Speech is normal. Skin: no petechia, no purpura, no cyanosis, non-pale, not jaundice. Lower extremities: --no - Pitting edema no deformity, no focal swelling, no calf TTP. Makes eye contact. moves all four extremities. Face: no apparent facial droop. ED COURSE: DISCLAIMER: This medical document was created using an electronic medical record system with voice recognition software and computerized dictation system. Although this document has been carefully reviewed, there might still be some phonetic and typographical errors. Occasional wrong-word or "sound-alike" substitutions may have occurred due to the inherent limitations of voice recognition software. These areas are purely typographical due to imperfections of the software programs and do not reflect any compromise in the patient's medical care. Please read the chart carefully and recognize, using context, where these substitutions have occurred. Time Seen by MD: 15:53 Primary Care Provider: UNKNOWN Reviewed Notes: Medications, Allergies Allergies: Coded Allergies: Amlodipine (Verified Allergy, Severe, 03/07/25) Vancomycin (Verified Allergy, Intermediate, 08/23/24) Lisinopril (Verified Allergy, Unknown, 09/01/25) Home Meds Active Scripts Docusate Sodium (Docusate Sodium) 100 Mg Cap, 100 MG PO BID for 30 Days, #60 CAP 0 Refills Prov:NORAH MEYER MD 07/01/25 Prednisone (Prednisone) 20 Mg Tab, 20 MG PO DAILY for 5 Days, #5 MG 0 Refills Prov:NORAH MEYER MD 07/01/25 Famotidine (PEPCID TABLET) 20 Mg Tb, 1 TAB PO BID, #60 TAB 1 Refill Prov:NORAH MEYER MD 07/01/25 Lactulose (Lactulose) 10 Gm/15 Ml Princess, 10 GM PO BID for 30 Days, #500 ML Prov:NORAH MEYER MD 07/01/25 Baclofen (Baclofen) 10 Mg Tab, 10 MG PO DAILY for 10 Days, #10 TAB 0 Refills Prov:NORAH MEYER MD 07/01/25 Allopurinol (ZYLOPRIM TABLET) 100 Mg Tb, 2 TAB PO DAILY, #60 TAB 1 Refill Prov:NORAH MEYER MD 07/01/25 Alprazolam (Xanax) 0.5 Mg Tb, 1 TAB PO BID PRN, #30 TAB Prov:DWAINE JOHN MD 01/10/24 Reported Medications Tamsulosin Hcl (Tamsulosin Hcl) 0.4 Mg Cap, 1 PO DAILY 06/22/25 Apixaban Base (ELIQUIS) 2.5 Mg Tab, 2.5 MG PO BID, TAB 03/08/25 Atorvastatin Calcium (ATORVASTATIN CALCIUM) 40 Mg Tab, 1 TAB PO DAILY 07/28/24 Clopidogrel Bisulfate (Plavix) 75 Mg Tab, 1 TAB PO DAILY, #90 TAB 1 Refill 03/25/24 Beclomethasone Dipropionate (Qvar Redihaler) 80 Mcg/Act Aer, 2 PUFF INH BID 03/06/24 Albuterol Sulfate (Albuterol Sulfate Hfa) 108 Mcg/Act Aer, 2 PUFF INH Q4HR PRN for WHEEZING 03/06/24 Information Source: Patient, Emergency Med Personnel Mode of Arrival: EMS EKG EKG : Pulse Rate (adult): 120 Cardiac Rhythm: ST Was a procedure done? Was a procedure done?: No CP Differential Dx Differential Diagnosis: N/A Differential Diagnosis: Other (DDX include renal disease, thyroid disease, electrolyte abnormality, increased salt intake, medications non-compliance, und iagnosed HTN, Hypertensive crisis, hypertensive urgency., drug toxicity.) Differential Diagnosis: Other (Ddx include but not limitied to gastritis, musculoskeletal pain, radiculopathy, atypical chest pain, dissection, aneurysm, ACS, unstable angina, hiatal hernia, GERD, anxiety, costochondritis, PE, pneumothroax, neoplasm, cardiac ischemia, drug abuse, anemia.) X-Ray, Labs, Meds, VS Vital Signs Date Time Temp Pulse Resp B/P (MAP) Pulse Ox O2 Delivery O2 Flow Rate FiO2 09/01/25 19:30 83 16 197/133 09/01/25 19:27 90 16 99 Room Air* 0 21 09/01/25 19:01 91 17 201/144 (163) 97 09/01/25 19:00 90 16 182/142 09/01/25 18:55 87 09/01/25 18:33 90 14 98 09/01/25 17:38 90 189/145 09/01/25 16:36 105 157/130 09/01/25 16:04 98.2 120 24 200/150 99 98.2 09/01/25 15:59 120 09/01/25 15:47 120 09/01/25 00:28 212/133 Lab Test 09/01/25 19:06 09/01/25 17:07 09/01/25 16:13 Range/Units Troponin I High Sensitivity 34 29 29 </=54 ng/L White Blood Count 7.3 4.4-10.8 10^3/uL Red Blood Count 5.27 4.5-5.90 10^6/uL Hemoglobin 16.5 13.5-17.5 g/dL Hematocrit 46.9 41.0-53.0 % Mean Corpuscular Volume 89.1 80.0-100.0 fL Mean Corpuscular Hemoglobin 31.3 28.0-32.0 pg Mean Corpuscular Hemoglobin Concent 35.1 32.0-36.0 g/dL Red Cell Distribution Width 14.6 H 11.8-14.3 % Platelet Count 339 140-450 10^3/uL Mean Platelet Volume 7.2 6.9-10.8 fL Neutrophils (%) (Auto) 64.0 37.0-80.0 % Lymphocytes (%) (Auto) 22.8 10.0-50.0 % Monocytes (%) (Auto) 11.4 0.0-12.0 % Eosinophils (%) (Auto) 1.0 0.0-7.0 % Basophils (%) (Auto) 0.8 0.0-2.0 % Neutrophils # (Auto) 4.7 1.6-8.6 10 ^3/uL Lymphocytes # (Auto) 1.7 0.4-5.4 10 ^3/uL Monocytes # (Auto) 0.8 0-1.3 10 ^3/uL Eosinophils # (Auto) 0.1 0-0.8 10 ^3/uL Basophils # (Auto) 0.1 0-0.2 10 ^3/uL Nucleated Red Blood Cells 0.2 % Sodium Level 141 136-145 mmol/L Potassium Level 3.5 3.5-5.1 mmol/L Chloride Level 108 H 98-107 mmol/L Carbon Dioxide Level 18 L 20-31 mmol/L Anion Gap 15 5-15 Blood Urea Nitrogen 24 H 9-23 mg/dL Creatinine 2.03 H 0.700-1.30 mg/dL Glomerular Filtration Rate Calc 38 >90 mL/min BUN/Creatinine Ratio 11.8 10.0-20.0 Serum Glucose 113 H 74-106 mg/dL Lactic Acid Level 1.4 0.4-2.0 mmol/L Calcium Level 9.4 8.7-10.4 mg/dL Magnesium Level 2.1 1.6-2.6 mg/dL Total Bilirubin 1.3 H 0.2-1.0 mg/dL Aspartate Amino Transferase (AST) 22 13-40 U/L Alanine Aminotransferase (ALT) 18 7-40 U/L Alkaline Phosphatase 95 46-116 U/L Total Protein 8.1 5.7-8.2 g/dL Albumin 4.5 3.2-4.8 g/dL [facility] [id number] [place] [id number] Ph: [phone] DIAGNOSTIC IMAGING Diagnostic Imaging Report : [id number] Signed PATIENT: LIBRADO HOLLOWAYT: [id number] UNIT: [id number] : 1970 LOC: ICU CENTRL ROOM / BED: [facility] / A AGE / SEX: 55 / M ADM STATUS: ADM IN SERVICE 07 ORDERING PHYSICIAN: NAGA GAXIOLA PROCEDURE(s): HWOCT - HEAD WITHOUT CONTRAST REASON: R/O STROKE ORDER NUMBER(s): [id number], ACCESSION NUMBER(s): [id number] EXAM: CT HEAD WITHOUT CONTRAST INDICATION: R/O STROKE TECHNIQUE: CT of the head without intravenous contrast. Coronal and sagittal reformatted images are submitted. Radiation Dose : 1. Head: CT Dose: CTDI volume is 56.43 mGy. Dose-length product is 1110.4 mGy*cm The dose indicators for CT are the volume Computed Tomography (CT) Dose Index (CTDIvol) and the Dose Length Product (DLP), and are measured in units of mGy and mGy-cm, respectively. These indicators are not patient dose, but values generated from the CT scanner acquisition factors. The report includes radiation exposure data for exposures received during this examination. All CT scans at this medical facility are performed using dose modulation techniques as appropriate to a performed exam including the following: Automated exposure control was utilized; adjustment of the MA and/or KV according to patient size; and use of iterative reconstruction technique. COMPARISON: CT HEAD WITHOUT CONTRAST on DOS: 06/22/25, CT HEAD WITHOUT CONTRAST on DOS: 03/11/25, MRI BRAIN HEAD WO CONTRAST on DOS: 07/29/24 FINDINGS: There is no evidence of acute intracranial hemorrhage, extra-axial collection, mass effect, midline shift, herniation or hydrocephalus. CSF density in the right basal ganglia may reflect a prominent perivascular space. There is encephalomalacia in the right frontal lobe The ventricles, sulci and cisterns are age appropriate. The spencer-white differentiation is intact. The visualized paranasal sinuses and mastoid air cells are clear. No depressed calvarial fracture. The surrounding soft tissues are unremarkable. IMPRESSION: 1. No evidence of acute intracranial abnormality. 2. Encephalomalacia in the right frontal lobe. ATED BY: SALIMA VEGA MD DICTATED DATE/TIME: 09/02/25851 SIGNED BY: SALIMA VEGA MD SIGNED DATE/TIME: 09/02/25851 CC: [place] [id number] Ph: [phone] DIAGNOSTIC IMAGING Diagnostic Imaging Report : [id number] Signed PATIENT: LIBRADO HOLLOWAY I ACCT: [id number] UNIT: [id number] : 1970 LOC: ER ROOM / BED: / AGE / SEX: 55 / M ADM STATUS: REG ER SERVICE 1554 ORDERING PHYSICIAN: SARAH WALTERS DO PROCEDURE(s): CXRP - CHEST PORTABLE REASON: cp ORDER NUMBER(s): [id number], ACCESSION NUMBER(s): [id number] CHEST RADIOGRAPH Indication: cp Technique: Single frontal view of the chest was obtained Comparison: XY CHEST XRAY 1 VIEW on DOS: 06/22/25, XY CHEST PORTABLE on DOS: 03/07/25, XY CHEST PORTABLE on DOS: 08/22/24 FINDINGS: Lines and Tubes: None Lungs: No focal consolidation. Image rotation to the right. Pleura: No effusion. No pneumothorax. Cardiomediastinal contours: Unremarkable. Left-sided approach dual lead pacemaker terminating within the right atrium and right ventricle. Bones: No acute osseous abnormality. IMPRESSION: No acute cardiopulmonary disease. ATED BY: ELISA GAMBOA DO DICTATED DATE/TIME: 09/01/251710 SIGNED BY: ELISA GAMBOA DO SIGNED DATE/TIME: 09/01/251710 CC: Time of 1ST Reevaluation: 16:52 Reevaluation 1ST: Unchanged Patient Education/Counseling: Diagnosis, Treatment Family Education/Counseling: No Family Present Comments MDM: patient presented with the above HPI.---cardiac---workup was initiated. patient was found with the above mentioned diagnosis. the following medications were ordered: please refer to order lists of meds and tests obtained by myself Dr. Walters. Patient ED course and VS have been stabilized. Patient has been reassessed in the ED and remained in a stable condition. Pertinent incidental findings were discussed with the patient and/or family. Patient/family voices understanding and is agreeable with plan. Patient has been observed in the ED adequate length of time to insure improvement/stability. Escalation of care considered: Consideration of escalation to observation or admission Patient was ADMITTED to the medicine team for further evaluation and treatment of their presentation. All the reports of any imaging studies that were ordered by myself were reviewed by myself. Departure 1 Departure Time of Disposition: 16:14 Impression: Primary Impression: Chest pain Additional Impression: Hypertensive crisis Disposition: ADMITTED INPATIENT Admit to: Tele Condition: Guarded Discharged With: Self Critical Care Note Critical Care Time?: No Heart Score Heart Score: Heart Score Response (Comments) Value History Highly Suspicious 2 EKG Normal 0 Age 45-64 1 Risk Factors >3 or Hx ASHD 2 Troponin Normal limit 0 Total 5 I personally scribed for SARAH WALTERS DO ([email or web address]) on 09/01/25 at 15:59. Electronically submitted by Darnell Calderon ([email or web address]). I personally scribed for SARAH WALTERS DO ([email or web address]) on 09/01/25 at 16:15. Electronically submitted by Darnell Calderon ([email or web address]). SARAH WALTERS DO Sep 01, 2025 15:59
[2025-09-01 16:35] LABS: Hematocrit 46.9 % (41.0-53.0); Hemoglobin 16.5 g/dL (13.5-17.5); Mean Corpuscular Hemoglobin 31.3 pg (28.0-32.0); Mean Corpuscular Volume 89.1 fL (80.0-100.0); Nucleated Red Blood Cells % 0.2 %
[2025-09-01] MEDS: LABETALOL HCL 20 MG/4 ML VL IV ONE ×2 (16:36→18:28)
[2025-09-01] MEDS: NITROGLYCERIN 0.4 MG SL TAB SL ONE (16:39)
[2025-09-01 16:42] LABS: Albumin 4.5 g/dL (3.2-4.8); Alkaline Phosphatase 95 U/L (46-116); Anion Gap 15 (5-15); BUN/Creatinine Ratio 11.8 (10.0-20.0); Calcium 9.4 mg/dL (8.7-10.4); Magnesium 2.1 mg/dL (1.6-2.6); Potassium 3.5 mmol/L (3.5-5.1); Sodium 141 mmol/L (136-145); Total Protein 8.1 g/dL (5.7-8.2)
[2025-09-01 16:48] LABS: Alanine Aminotransferase 18 U/L (7-40); Bilirubin, Total 1.3 mg/dL (0.2-1.0); Blood Urea Nitrogen 24 mg/dL (9-23); Carbon Dioxide 18 mmol/L (20-31); Chloride 108 mmol/L (98-107); Glucose 113 mg/dL (74-106)
--- NOTE | 2025-09-01 17:14 | DVH ---
CHEST RADIOGRAPH Indication: cp Technique: Single frontal view of the chest was obtained Comparison: XY CHEST XRAY 1 VIEW on DOS: 06/22/25, XY CHEST PORTABLE on DOS: 03/07/25, XY CHEST PORTABLE on DOS: 08/22/24 FINDINGS: Lines and Tubes: None Lungs: No focal consolidation. Image rotation to the right. Pleura: No effusion. No pneumothorax. Cardiomediastinal contours: Unremarkable. Left-sided approach dual lead pacemaker terminating within the right atrium and right ventricle. Bones: No acute osseous abnormality. IMPRESSION: No acute cardiopulmonary disease.
[2025-09-01] MEDS: MORPHINE SULFATE 4 MG/ML SYR/VIAL IV ONE (19:00)
[2025-09-01] MEDS: ONDANSETRON HCL 4 MG/2 ML VIAL IV ONE (19:09)
[2025-09-01 19:27] VITALS: PULSE 90; RESP 16; O2SAT 99
[2025-09-01] MEDS ORDERED: TEMAZEPAM 15 MG CAP PO PRN (19:45)
[2025-09-01] MEDS ORDERED: ACETAMINOPHEN 325 MG TAB PO PRN (19:45)
[2025-09-01] MEDS ORDERED: NITROGLYCERIN 0.4 MG SL TAB SL PRN (19:45)
[2025-09-01] MEDS: MORPHINE SULFATE 4 MG/ML SYR/VIAL IV PRN (20:11)
--- NOTE | 2025-09-01 21:43 | DVHHP2 ---
History of Present Illness Reason for Visit: Chest pain History of Present Illness 55-year-old male presents for evaluation of chest pain. Patient endorses a one day history of left-sided sharp chest pain that radiates to his left neck and jaw. He also reports bilateral arm numbness. No headache or blurred vision. Currently rates the pain at 7/10 intensity. Past Medical History OR, hypertension, CVA, dyslipidemia, CAD, chronic kidney disease, obstructive sleep apnea Past Surgical History Pacemaker, cardiac stent, hernia repair Family History Noncontributory Smoke: No ALCOHOL: none Drugs: None Lives: with Family Review of Systems Review of Systems Review of systems are currently negative otherwise addressed in HPI. Allergies: Coded Allergies: Amlodipine (Verified Allergy, Severe, 03/07/25) Vancomycin (Verified Allergy, Intermediate, 08/23/24) Lisinopril (Verified Allergy, Unknown, 09/01/25) Medications Current Medications Medications Dose Ordered Sig/Lincoln Route Start Time Stop Time Status Last Admin Dose Admin Apixaban 2.5 mg BID PO 09/01/25 22:00 Allopurinol 100 mg DAILY PO 09/02/25 10:00 Tamsulosin HCl 0.4 mg QPM PO 09/02/25 18:00 Clopidogrel Bisulfate 75 mg DAILY PO 09/02/25 10:00 Atorvastatin Calcium 40 mg HS PO 09/01/25 22:00 Temazepam 15 mg QHSP PRN PO 09/01/25 19:45 Ondansetron HCl 4 mg Q4HP PRN IV 09/01/25 19:45 Acetaminophen 650 mg Q6HP PRN PO 09/01/25 19:45 Nitroglycerin 0.4 mg Q5MINP PRN SL 09/01/25 19:45 Morphine Sulfate 2 mg Q30M PRN IV 09/01/25 19:45 09/01/25 20:11 2 MG Metoprolol Tartrate 25 mg BID PO 09/01/25 22:00 UNV Exam Vital Signs Vital Signs Date Time Temp Pulse Resp B/P (MAP) Pulse Ox O2 Delivery O2 Flow Rate FiO2 09/01/25 20:11 87 19 212/151 09/01/25 19:27 99 Room Air* 0 21 09/01/25 16:04 98.2 98.2 Exam Gen: 55-year-old male in mild distress. Skin: Warm, dry, normal color and texture, no rash. HEENT: Normocephalic atraumatic, mucous membranes moist and pink. Neck: Cervical and supraclavicular nodes normal without enlargement, trachea is midline, thyroid gland is normal without masses. Pulmonary: Clear to auscultation and percussion bilaterally. Cardiac: Regular rate and rhythm. No murmur Abdomen: Soft, nontender, nondistended, bowel sounds present all 4 quadrants, no guarding, no rigidity, no organomegaly. Extremities: No cyanosis, clubbing, no edema Neuro: Cranial nerves II through XII grossly intact, normal affect and speech, no focal motor deficits. Labs/Xrays ORDERING PHYSICIAN: SARAH WALTERS DO PROCEDURE(s): CXRP - CHEST PORTABLE REASON: cp ORDER NUMBER(s): [id number], ACCESSION NUMBER(s): [id number] CHEST RADIOGRAPH Indication: cp Technique: Single frontal view of the chest was obtained Comparison: XY CHEST XRAY 1 VIEW on DOS: 06/22/25, XY CHEST PORTABLE on DOS: 03/07/25, XY CHEST PORTABLE on DOS: 08/22/24 FINDINGS: Lines and Tubes: None Lungs: No focal consolidation. Image rotation to the right. Pleura: No effusion. No pneumothorax. Cardiomediastinal contours: Unremarkable. Left-sided approach dual lead pacemaker terminating within the right atrium and right ventricle. Bones: No acute osseous abnormality. IMPRESSION: No acute cardiopulmonary disease. Labs Test 09/01/25 19:06 09/01/25 16:13 Range/Units Troponin I High Sensitivity 34 </=54 ng/L White Blood Count 7.3 4.4-10.8 10^3/uL Red Blood Count 5.27 4.5-5.90 10^6/uL Hemoglobin 16.5 13.5-17.5 g/dL Hematocrit 46.9 41.0-53.0 % Mean Corpuscular Volume 89.1 80.0-100.0 fL Mean Corpuscular Hemoglobin 31.3 28.0-32.0 pg Mean Corpuscular Hemoglobin Concent 35.1 32.0-36.0 g/dL Red Cell Distribution Width 14.6 H 11.8-14.3 % Platelet Count 339 140-450 10^3/uL Mean Platelet Volume 7.2 6.9-10.8 fL Neutrophils (%) (Auto) 64.0 37.0-80.0 % Lymphocytes (%) (Auto) 22.8 10.0-50.0 % Monocytes (%) (Auto) 11.4 0.0-12.0 % Eosinophils (%) (Auto) 1.0 0.0-7.0 % Basophils (%) (Auto) 0.8 0.0-2.0 % Neutrophils # (Auto) 4.7 1.6-8.6 10 ^3/uL Lymphocytes # (Auto) 1.7 0.4-5.4 10 ^3/uL Monocytes # (Auto) 0.8 0-1.3 10 ^3/uL Eosinophils # (Auto) 0.1 0-0.8 10 ^3/uL Basophils # (Auto) 0.1 0-0.2 10 ^3/uL Nucleated Red Blood Cells 0.2 % Sodium Level 141 136-145 mmol/L Potassium Level 3.5 3.5-5.1 mmol/L Chloride Level 108 H 98-107 mmol/L Carbon Dioxide Level 18 L 20-31 mmol/L Anion Gap 15 5-15 Blood Urea Nitrogen 24 H 9-23 mg/dL Creatinine 2.03 H 0.700-1.30 mg/dL Glomerular Filtration Rate Calc 38 >90 mL/min BUN/Creatinine Ratio 11.8 10.0-20.0 Serum Glucose 113 H 74-106 mg/dL Lactic Acid Level 1.4 0.4-2.0 mmol/L Calcium Level 9.4 8.7-10.4 mg/dL Magnesium Level 2.1 1.6-2.6 mg/dL Total Bilirubin 1.3 H 0.2-1.0 mg/dL Aspartate Amino Transferase (AST) 22 13-40 U/L Alanine Aminotransferase (ALT) 18 7-40 U/L Alkaline Phosphatase 95 46-116 U/L Total Protein 8.1 5.7-8.2 g/dL Albumin 4.5 3.2-4.8 g/dL SEPSIS Sepsis Screen Date sepsis recognized/suspect: Sep 01, 2025 Time Sepsis recognized/suspect: 1542 Recent Procedure: No On Antibiotic Therapy: No Respiratory Rate >20: Yes Heart Rate >90: Yes Temp<36 C (96.8 F) or >38.3 C: No SBP <90 or MAP <65 mmHG: No New Acute Mental Status Change: No Is the patient on CPAP, BIPAP,: No Physician Orders Electrocardigram (09/01/25 15:52) Electrocardigram (09/01/25 16:52) Electrocardigram (09/01/25 18:52) Cloth Washer Back Tender (09/01/25 ) Chest Portable (09/01/25 15:54) Electrocardigram (09/01/25 10:35) Electrocardigram (09/01/25 12:35) Drug Screen (09/01/25 16:00) Apixaban (Eliquis) (09/01/25 22:00) Allopurinol Tablet (Zyloprim Tablet) (09/02/25 10:00) Tamsulosin Hydrochloride (Flomax) (09/02/25 18:00) Clopidogrel Bisulfate (Plavix) (09/02/25 10:00) Atorvastatin (Lipitor) (09/01/25 22:00) * Cardiology Consult (09/01/25 19:40) Basic Metabolic Panel (09/02/25 04:00) Admit (09/01/25 19:40) Renal Standard(2gna,3gk,Lopho) (09/02/25 Breakfast) Temazepam (Restoril) (09/01/25 19:45) Ondansetron Hcl (Zofran) (09/01/25 19:45) Cardiac Diet-2gna,Lofat,Lochol (09/02/25 Breakfast) Condition: Fair (09/01/25 19:40) Acetaminophen Tablet (Tylenol Tablet) (09/01/25 19:45) Bedrest With Bathroom Privileg (09/01/25 19:40) Nitroglycerin Sublingual (Ntrostat Subli (09/01/25 19:45) Stat Ekg For Chest Pain (09/01/25 19:40) Notify Of Changes From Base (09/01/25 19:40) Laborer Salvage For 24 Hours (09/01/25 19:40) Emergency Dysrhythmia Protocol (09/01/25 19:40) Rhythm Strips Once Every Shift (09/01/25 19:40) Oxygen By Nasal Cannula (09/01/25 19:40) Morphine Sulfate Injection (09/01/25 19:45) Metoprolol Tartrate Tablet (Lopressor Ta (09/01/25 22:00) Clonidine Hcl Tablet (Catapres Tablet) (09/01/25 21:45) Vital Signs Date Time Temp Pulse Resp B/P (MAP) Pulse Ox O2 Delivery O2 Flow Rate FiO2 09/01/25 20:11 87 19 212/151 09/01/25 19:27 90 16 99 Room Air* 0 21 09/01/25 19:00 90 16 182/142 09/01/25 18:55 87 09/01/25 18:33 90 14 98 09/01/25 17:38 90 189/145 09/01/25 16:36 105 157/130 09/01/25 16:04 98.2 120 24 200/150 99 98.2 09/01/25 15:59 120 09/01/25 15:47 120 Laboratory Tests Test 09/01/25 16:13 Lactic Acid Level 1.4 mmol/L (0.4-2.0) White Blood Count 7.3 10^3/uL (4.4-10.8) Medications Medications Dose Ordered Sig/Lincoln Route Start Time Stop Time Status Last Admin Dose Admin Labetalol HCl 5 mg ONCE ONCE IV 09/01/25 16:15 09/01/25 16:16 DC 09/01/25 16:36 5 MG Morphine Sulfate 2 mg Q30M PRN IV 09/01/25 19:45 09/01/25 20:11 2 MG Morphine Sulfate 4 mg ONCE ONCE IV 09/01/25 19:00 09/01/25 19:01 DC 09/01/25 19:00 4 MG Ondansetron HCl 4 mg ONCE ONCE IV 09/01/25 19:00 09/01/25 19:01 DC 09/01/25 19:09 4 MG Assessment/Plan Assessment/Plan Assessment Unstable angina Hypertensive crisis Chronic kidney disease History of OR Plan Admit the patient to telemetry to the hospitalist As needed antihypertensives Resume home medications Cardiology consult Continue treatment per orders. Plan discussed with: Patient My Orders Orders - LIBRADO DALY AGACNP Procedure Category Date Status Time Apixaban (Eliquis) PHA 09/01/25 In Process 22:00 Allopurinol Tablet PHA 09/02/25 In Process (Zyloprim Tablet) 10:00 Tamsulosin PHA 09/02/25 In Process Hydrochloride (Flomax) 18:00 Clopidogrel Bisulfate PHA 09/02/25 In Process (Plavix) 10:00 Atorvastatin (Lipitor) PHA 09/01/25 In Process 22:00 * Cardiology Consult CONS 09/01/25 Transmitted 19:40 Basic Metabolic Panel LAB 09/02/25 Verified 04:00 Admit ADMIT 09/01/25 Transmitted 19:40 Renal DIET 09/02/25 Transmitted Standard(2gna,3gk,Lopho) Breakfast Temazepam (Restoril) PHA 09/01/25 In Process 19:45 Ondansetron Hcl PHA 09/01/25 In Process (Zofran) 19:45 Cardiac DIET 09/02/25 Transmitted Diet-2gna,Lofat,Lochol Breakfast Condition: Fair GINNY 09/01/25 In Process 19:40 Acetaminophen Tablet PHA 09/01/25 In Process (Tylenol Tablet) 19:45 Bedrest With Bathroom GINNY 09/01/25 In Process Privileg 19:40 Nitroglycerin PHA 09/01/25 In Process Sublingual (Ntrostat 19:45 Stat Ekg For Chest GINNY 09/01/25 In Process Pain 19:40 Notify Md Of Changes [facility] 09/01/25 In Process From Base 19:40 Laborer Salvage For [facility] 09/01/25 In Process 24 Hours 19:40 Emergency Dysrhythmia [facility] 09/01/25 In Process Protocol 19:40 Rhythm Strips Once [facility] 09/01/25 In Process Every Shift 19:40 Oxygen By Nasal RT 09/01/25 Transmitted Cannula 19:40 Morphine Sulfate PHA 09/01/25 In Process Injection 19:45 Metoprolol Tartrate PHA 09/01/25 Logged Tablet (Lopressor Ta 22:00 Clonidine Hcl Tablet PHA 09/01/25 Logged (Catapres Tablet) 21:45 Date of Service: Sep 01, 2025 Billing Provider: LIBRADO DALY Common Visit Codes: [id number] INP/OBS CARE (HIGH) LIBRADO DALY Sep 01, 2025 21:42
[2025-09-01] MEDS: ATORVASTATIN 20 MG TAB PO SCH (22:00)
[2025-09-01] MEDS ORDERED: APIXABAN 2.5 MG TAB PO SCH (22:00)
[2025-09-01] MEDS: METOPROLOL TARTRATE 25 MG TAB PO SCH (22:00)
[2025-09-01] MEDS ORDERED: SACUBITRIL-VALSARTAN 24mg/26mg TAB PO SCH (22:00)
[2025-09-01] MEDS: APIXABAN 5 MG TAB PO SCH (22:00)
[2025-09-01 22:45] LABS: Amphetamine Screen, Urine Neg (NEGATIVE); Barbiturate Scree,Urine Neg (NEGATIVE); Benzodiazephine Screen, Urine Neg (NEGATIVE); Cannabinoid Screen, Urine Neg (NEGATIVE); Cocaine Screen, Urine Neg (NEGATIVE); Opiate Scree,Urine Neg (NEGATIVE); Phencyclidine Screen, Urine Neg (NEGATIVE)
[2025-09-02] VITALS (61 sets, daily range): BP systolic 118–152; BP diastolic 73–108; PULSE 67–113; RESP 9–22; TEMP 98–99.2; O2SAT 89–100
[2025-09-02] MEDS ORDERED: HYDROcodone-ACET 5/325MG TAB PO PRN
[2025-09-02 05:29] LABS: Hematocrit 44.7 % (41.0-53.0); Hemoglobin 15.7 g/dL (13.5-17.5); Mean Corpuscular Hemoglobin 31.5 pg (28.0-32.0); Mean Corpuscular Volume 89.7 fL (80.0-100.0); Nucleated Red Blood Cells % 0.1 %
[2025-09-02 05:42] LABS: Anion Gap 14 (5-15); Carbon Dioxide 22 mmol/L (20-31); Chloride 105 mmol/L (98-107); Sodium 141 mmol/L (136-145)
[2025-09-02 05:43] LABS: Calcium 8.7 mg/dL (8.7-10.4)
[2025-09-02 05:46] LABS: Potassium 3.1 mmol/L (3.5-5.1)
[2025-09-02 05:48] LABS: BUN/Creatinine Ratio 10.6 (10.0-20.0); Blood Urea Nitrogen 20 mg/dL (9-23)
[2025-09-02 05:59] LABS: Glucose 147 mg/dL (74-106)
[2025-09-02] MEDS: CALCIUM CARB 500 MG CHEW TAB PO SCH (06:18)
[2025-09-02] MEDS: ALLOPURINOL 100 MG TAB PO SCH (08:55)
--- NOTE | 2025-09-02 08:55 | DVH ---
EXAM: CT HEAD WITHOUT CONTRAST INDICATION: R/O STROKE TECHNIQUE: CT of the head without intravenous contrast. Coronal and sagittal reformatted images are s ubmitted. Radiation Dose : 1. Head: CT Dose: CTDI volume is 56.43 mGy. Dose-length product is 1110.4 mGy*cm The dose indicators for CT are the volume Computed Tomography (CT) Dose Index (CTDIvol) and the Dose Length Product (DLP), and are measured in units of mGy and mGy-cm, respectively. These indicators are not patient dose, but values generated from the CT scanner acquisition factors. The report includes radiation exposure data for exposures received during this examination. All CT scans at this medical facility are performed using dose modulation techniques as appropriate to a performed exam including the following: Automated exposure control was utilized; adjustment of the MA and/or KV according to patient size; and use of iterative reconstruction technique. COMPARISON: CT HEAD WITHOUT CONTRAST on DOS: 06/22/25, CT HEAD WITHOUT CONTRAST on DOS: 03/11/25, MRI B RAIN HEAD WO CONTRAST on DOS: 07/29/24 FINDINGS: There is no evidence of acute intracranial hemorrhage, extra-axial collection, mass effect, midline s hift, herniation or hydrocephalus. CSF density in the right basal ganglia may reflect a prominent perivascular space. There is encephalo malacia in the right frontal lobe The ventricles, sulci and cisterns are age appropriate. The spencer-white differentiation is intact. The visualized paranasal sinuses and mastoid air cells are clear. No depressed calvarial fracture. The surrounding soft tissues are unremarkable. IMPRESSION: 1. No evidence of acute intracranial abnormality. 2. Encephalomalacia in the right frontal lobe.
[2025-09-02] MEDS: POTASSIUM EFFERVESENT TAB 25 MEQ PO ONE (08:58)
[2025-09-02] MEDS: ATORVASTATIN 20 MG TAB PO SCH (08:58)
[2025-09-02] MEDS: CLOPIDOGREL BISULFATE 75 MG TAB PO SCH (08:58)
[2025-09-02] MEDS: TAMSULOSIN HYDROCHLORIDE 0.4 MG CAP PO SCH (16:56)
[2025-09-02] MEDS: SACUBITRIL-VALSARTAN 24mg/26mg TAB PO SCH (22:41)
[2025-09-02] MEDS: ENOXAPARIN SOD 60 MG/0.6 ML SYRINGE SC SCH (22:41)
[2025-09-03] VITALS (60 sets, daily range): BP systolic 109–151; BP diastolic 73–102; PULSE 69–109; RESP 12–25; TEMP 97.9–99.3; O2SAT 87–98
[2025-09-03 05:29] LABS: Hematocrit 43.9 % (41.0-53.0); Hemoglobin 15.5 g/dL (13.5-17.5); Mean Corpuscular Hemoglobin 31.5 pg (28.0-32.0); Mean Corpuscular Volume 89.4 fL (80.0-100.0); Nucleated Red Blood Cells % 0.1 %
[2025-09-03 05:46] LABS: Alanine Aminotransferase 17 U/L (7-40); Albumin 4.0 g/dL (3.2-4.8); Alkaline Phosphatase 87 U/L (46-116); Anion Gap 12 (5-15); BUN/Creatinine Ratio 12.3 (10.0-20.0); Calcium 9.6 mg/dL (8.7-10.4); Carbon Dioxide 25 mmol/L (20-31); Chloride 105 mmol/L (98-107); Magnesium 1.9 mg/dL (1.6-2.6); Potassium 3.9 mmol/L (3.5-5.1); Sodium 142 mmol/L (136-145); Total Protein 7.0 g/dL (5.7-8.2)
[2025-09-03 05:47] LABS: Bilirubin, Total 0.6 mg/dL (0.2-1.0)
[2025-09-03 06:11] LABS: Blood Urea Nitrogen 25 mg/dL (9-23); Glucose 130 mg/dL (74-106)
--- NOTE | 2025-09-03 09:08 | DVHPN2 ---
Progress Note - Dictate Date Seen: Sep 02, 2025 Medical Necessity Reason Pt with a Central, PICC or Fol: No Subjective PT WELL KNOWN TO ME ORGANIC HD CAD S/P PTCA STENT ACC HTN HYPERLIPIDEMIA SSS S/P DUAL PPI HX OF CO HX OF CVA COPD BPH GOUT NOW WITH CHEST PAIN ACC HTN SOB CHEST PAIN/LEFT SIDED vital signs Vital Sign Date Time Temp Pulse Resp B/P (MAP) Pulse Ox O2 Delivery O2 Flow Rate FiO2 09/03/25 06:45 82 15 145/101 (116) 09/03/25 06:30 96 09/03/25 06:00 Room Air* 0 21 09/03/25 04:00 97.9 97.9 Total Intake and Output 09/02/25 09/02/25 09/03/25 15:00 23:00 07:00 Intake Total 300 ml 225 ml 505 ml Output Total 900 ml 750 ml Balance 300 ml -675 ml -245 ml medications Current Medications Medications Dose Ordered Sig/Lincoln Route Start Time Stop Time Status Last Admin Dose Admin Allopurinol 100 mg DAILY PO 09/02/25 10:00 Tamsulosin HCl 0.4 mg QPM PO 09/02/25 18:00 09/02/25 16:56 0.4 MG Clopidogrel Bisulfate 75 mg DAILY PO 09/02/25 10:00 09/02/25 08:58 75 MG Temazepam 15 mg QHSP PRN PO 09/01/25 19:45 Ondansetron HCl 4 mg Q4HP PRN IV 09/01/25 19:45 Acetaminophen 650 mg Q6HP PRN PO 09/01/25 19:45 Nitroglycerin 0.4 mg Q5MINP PRN SL 09/01/25 19:45 Morphine Sulfate 2 mg Q30M PRN IV 09/01/25 19:45 09/02/25 21:49 2 MG Metoprolol Tartrate 25 mg BID PO 09/01/25 22:00 09/01/25 22:18 25 MG Apixaban 5 mg BID PO 09/01/25 22:00 Nicardipine/ Sodium Chloride 200 ml @ 50 mls/hr Q4H IV 09/01/25 23:45 09/02/25 23:03 25 MLS/HR Atorvastatin Calcium 40 mg DAILY PO 09/02/25 10:00 09/02/25 08:58 40 MG Acetaminophen/ Hydrocodone Bitart 1 tab Q8HPRN PRN PO 09/02/25 00:00 Calcium Carbonate 500 mg Q4HR PO 09/02/25 06:00 09/03/25 05:36 500 MG Sacubitril/ Valsartan 1 tab BID PO 09/02/25 22:00 09/02/25 22:41 1 TAB Enoxaparin Sodium 60 mg BID SC 09/02/25 22:00 09/02/25 22:41 60 MG laboratory and microbiology Laboratory Tests 09/03/25 04:59 Test 09/03/25 04:59 Range/Units Serum Glucose 130 H 74-106 mg/dL Problem List ORGANIC HD CAD S/P PTCA STENT ACC HTN HYPERLIPIDEMIA SSS S/P DUAL PPI HX OF [place] HX OF CVA COPD BPH GOUT NOW WITH CHEST PAIN ACC HTN SOB CHEST PAIN/LEFT SIDED Assessment/Plan TROPONIN NEGATIVE TITRATE OFF CARDENE CONSIDER [facility] Plan discussed with: Patient Critical Care Time(min): 35 DEBORAH ROMERO MD Sep 03, 2025 09:08
--- NOTE | 2025-09-03 09:10 | DVHPN2 ---
Progress Note - Dictate Date Seen: Sep 03, 2025 Medical Necessity Reason Pt with a Central, PICC or Fol: No Subjective PT WELL KNOWN TO ME ORGANIC HD CAD S/P PTCA STENT ACC HTN HYPERLIPIDEMIA SSS S/P DUAL PPI HX OF [place] HX OF CVA COPD BPH GOUT NOW WITH CHEST PAIN ACC HTN SOB CHEST PAIN/LEFT SIDED vital signs Vital Sign Date Time Temp Pulse Resp B/P (MAP) Pulse Ox O2 Delivery O2 Flow Rate FiO2 09/03/25 06:45 82 15 145/101 (116) 09/03/25 06:30 96 09/03/25 06:00 Room Air* 0 21 09/03/25 04:00 97.9 97.9 Total Intake and Output 09/02/25 09/02/25 09/03/25 15:00 23:00 07:00 Intake Total 300 ml 225 ml 505 ml Output Total 900 ml 750 ml Balance 300 ml -675 ml -245 ml medications Current Medications Medications Dose Ordered Sig/[place] Route Start Time Stop Time Status Last Admin Dose Admin Allopurinol 100 mg DAILY PO 09/02/25 10:00 Tamsulosin HCl 0.4 mg QPM PO 09/02/25 18:00 09/02/25 16:56 0.4 MG Clopidogrel Bisulfate 75 mg DAILY PO 09/02/25 10:00 09/02/25 08:58 75 MG Temazepam 15 mg QHSP PRN PO 09/01/25 19:45 Ondansetron HCl 4 mg Q4HP PRN IV 09/01/25 19:45 Acetaminophen 650 mg Q6HP PRN PO 09/01/25 19:45 Nitroglycerin 0.4 mg Q5MINP PRN SL 09/01/25 19:45 Morphine Sulfate 2 mg Q30M PRN IV 09/01/25 19:45 09/02/25 21:49 2 MG Metoprolol Tartrate 25 mg BID PO 09/01/25 22:00 09/01/25 22:18 25 MG Apixaban 5 mg BID PO 09/01/25 22:00 Nicardipine/ Sodium Chloride 200 ml @ 50 mls/hr Q4H IV 09/01/25 23:45 09/02/25 23:03 25 MLS/HR Atorvastatin Calcium 40 mg DAILY PO 09/02/25 10:00 09/02/25 08:58 40 MG Acetaminophen/ Hydrocodone Bitart 1 tab Q8HPRN PRN PO 09/02/25 00:00 Calcium Carbonate 500 mg Q4HR PO 09/02/25 06:00 09/03/25 05:36 500 MG Sacubitril/ Valsartan 1 tab BID PO 09/02/25 22:00 09/02/25 22:41 1 TAB Enoxaparin Sodium 60 mg BID SC 09/02/25 22:00 09/02/25 22:41 60 MG laboratory and microbiology Laboratory Tests 09/03/25 04:59 Test 09/03/25 04:59 Range/Units Serum Glucose 130 H 74-106 mg/dL Problem List ORGANIC HD CAD S/P PTCA STENT ACC HTN HYPERLIPIDEMIA SSS S/P DUAL PPI HX OF [place] HX OF CVA COPD BPH GOUT NOW WITH CHEST PAIN ACC HTN SOB CHEST PAIN/LEFT SIDED HYPOKALEMIA Assessment/Plan TROPONIN NEGATIVE TITRATE OFF CARDENE CONSIDER [facility] STILL HAVING CHEST PAIN ECG NEGATIVE TROPONIN NEGATIVE CORRECT HYPOKALEMIA Plan discussed with: Patient Critical Care Time(min): 35 DEBORAH ROMERO MD Sep 03, 2025 09:10
--- NOTE | 2025-09-03 09:32 | ECG ---
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
--- NOTE | 2025-09-03 09:57 | ECG ---
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
[2025-09-03] MEDS: ALPRAZolam 0.25 MG TAB PO SCH (13:34)
[2025-09-03] MEDS: MORPHINE SULFATE 4 MG/ML SYR/VIAL IV PRN (22:01)
[2025-09-04] VITALS (10 sets, daily range): BP systolic 125–147; BP diastolic 78–113; PULSE 77–113; RESP 10–25; TEMP 97.5–99.2; O2SAT 92–98
[2025-09-04] MEDS: ONDANSETRON HCL 4 MG/2 ML VIAL IV PRN (12:56)
[2025-09-05] VITALS (8 sets, daily range): BP systolic 123–168; BP diastolic 99–121; PULSE 78–99; RESP 15–18; TEMP 97.2–98.1; O2SAT 93–99
--- NOTE | 2025-09-05 09:20 | ECG ---
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
[2025-09-06] VITALS (7 sets, daily range): BP systolic 139–179; BP diastolic 96–137; PULSE 66–108; RESP 16–18; TEMP 97.3–99.2; O2SAT 92–97
--- NOTE | 2025-09-06 13:47 | DVHPN2 ---
Progress Note - Dictate Date Seen: Sep 04, 2025 Medical Necessity Reason Pt with a Central, PICC or Fol: No Subjective PT WELL KNOWN TO ME ORGANIC HD CAD S/P PTCA STENT ACC HTN HYPERLIPIDEMIA SSS S/P DUAL PPI HX OF [place] HX OF CVA COPD BPH GOUT NOW WITH CHEST PAIN ACC HTN SOB CHEST PAIN/LEFT SIDED vital signs Vital Sign Date Time Temp Pulse Resp B/P (MAP) Pulse Ox O2 Delivery O2 Flow Rate FiO2 09/06/25 09:57 71 16 169/96 09/06/25 09:00 97.3 96 97.3 09/06/25 08:00 Room Air* 0 21 Total Intake and Output 09/05/25 09/05/25 09/06/25 15:00 23:00 07:00 Intake Total 750 ml 450 ml Output Total 600 ml 1200 ml Balance 150 ml -750 ml medications Current Medications Medications Dose Ordered Sig/[place]incoln Route Start Time Stop Time Status Last Admin Dose Admin Allopurinol 100 mg DAILY PO 09/02/25 10:00 09/06/25 09:58 100 MG Tamsulosin HCl 0.4 mg QPM PO 09/02/25 18:00 09/03/25 17:15 0.4 MG Clopidogrel Bisulfate 75 mg DAILY PO 09/02/25 10:00 09/06/25 09:57 75 MG Temazepam 15 mg QHSP PRN PO 09/01/25 19:45 Ondansetron HCl 4 mg Q4HP PRN IV 09/01/25 19:45 09/05/25 17:20 4 MG Acetaminophen 650 mg Q6HP PRN PO 09/01/25 19:45 Nitroglycerin 0.4 mg Q5MINP PRN SL 09/01/25 19:45 Morphine Sulfate 2 mg Q30M PRN IV 09/01/25 19:45 09/06/25 09:57 2 MG Metoprolol Tartrate 25 mg BID PO 09/01/25 22:00 09/01/25 22:18 25 MG Apixaban 5 mg BID PO 09/01/25 22:00 Atorvastatin Calcium 40 mg DAILY PO 09/02/25 10:00 09/06/25 10:00 40 MG Acetaminophen/ Hydrocodone Bitart 1 tab Q8HPRN PRN PO 09/02/25 00:00 Calcium Carbonate 500 mg Q4HR PO 09/02/25 06:00 09/06/25 10:02 500 MG Sacubitril/ Valsartan 1 tab BID PO 09/02/25 22:00 09/06/25 10:01 1 TAB Enoxaparin Sodium 60 mg BID SC 09/02/25 22:00 09/06/25 09:56 60 MG Alprazolam 0.25 mg TID PO 09/03/25 14:00 09/06/25 05:45 0.25 MG Morphine Sulfate 2 mg Q4HPRN PRN IV 09/03/25 21:15 09/06/25 05:46 2 MG laboratory and microbiology Laboratory Tests 09/03/25 04:59 Test 09/03/25 04:59 Range/Units Serum Glucose 130 H 74-106 mg/dL Problem List ORGANIC HD CAD S/P PTCA STENT ACC HTN HYPERLIPIDEMIA SSS S/P DUAL PPI HX OF [place] HX OF CVA COPD BPH GOUT NOW WITH CHEST PAIN ACC HTN SOB CHEST PAIN/LEFT SIDED HYPOKALEMIA Assessment/Plan TROPONIN NEGATIVE TITRATE OFF CARDENE CONSIDER [facility] STILL HAVING CHEST PAIN ECG NEGATIVE TROPONIN NEGATIVE CORRECT HYPOKALEMIA Dietary Evaluation Review Recommendations by RD: Dietary education by RD, Protein Supplementation Comments: 1) Initiate Nepro qd 2) Encourage optimal PO intake 3) Refer to outpatient RD for weight management 4) Follow-up with cardiology and nephrology 5) Continue to monitor I&O, labs, and skin integrity Expected Outcomes/Goals: 1) appetite and labs to improve 2) gradual wt loss 3) f/u in 3-5 days Plan discussed with: Patient Critical Care Time(min): 35 DEBORAH ROMERO MD Sep 06, 2025 13:47
--- NOTE | 2025-09-06 13:49 | DVHPN2 ---
Progress Note - Dictate Date Seen: Sep 05, 2025 Medical Necessity Reason Pt with a Central, PICC or Fol: No Subjective PT WELL KNOWN TO ME ORGANIC HD CAD S/P PTCA STENT ACC HTN HYPERLIPIDEMIA SSS S/P DUAL PPI HX OF [place] HX OF CVA COPD BPH GOUT NOW WITH CHEST PAIN ACC HTN SOB CHEST PAIN/LEFT SIDED vital signs Vital Sign Date Time Temp Pulse Resp B/P (MAP) Pulse Ox O2 Delivery O2 Flow Rate FiO2 09/06/25 09:57 71 16 169/96 09/06/25 09:00 97.3 96 97.3 09/06/25 08:00 Room Air* 0 21 Total Intake and Output 09/05/25 09/05/25 09/06/25 15:00 23:00 07:00 Intake Total 750 ml 450 ml Output Total 600 ml 1200 ml Balance 150 ml -750 ml medications Current Medications Medications Dose Ordered Sig/[place] Route Start Time Stop Time Status Last Admin Dose Admin Allopurinol 100 mg DAILY PO 09/02/25 10:00 09/06/25 09:58 100 MG Tamsulosin HCl 0.4 mg QPM PO 09/02/25 18:00 09/03/25 17:15 0.4 MG Clopidogrel Bisulfate 75 mg DAILY PO 09/02/25 10:00 09/06/25 09:57 75 MG Temazepam 15 mg QHSP PRN PO 09/01/25 19:45 Ondansetron HCl 4 mg Q4HP PRN IV 09/01/25 19:45 09/05/25 17:20 4 MG Acetaminophen 650 mg Q6HP PRN PO 09/01/25 19:45 Nitroglycerin 0.4 mg Q5MINP PRN SL 09/01/25 19:45 Morphine Sulfate 2 mg Q30M PRN IV 09/01/25 19:45 09/06/25 09:57 2 MG Metoprolol Tartrate 25 mg BID PO 09/01/25 22:00 09/01/25 22:18 25 MG Apixaban 5 mg BID PO 09/01/25 22:00 Atorvastatin Calcium 40 mg DAILY PO 09/02/25 10:00 09/06/25 10:00 40 MG Acetaminophen/ Hydrocodone Bitart 1 tab Q8HPRN PRN PO 09/02/25 00:00 Calcium Carbonate 500 mg Q4HR PO 09/02/25 06:00 09/06/25 10:02 500 MG Sacubitril/ Valsartan 1 tab BID PO 09/02/25 22:00 09/06/25 10:01 1 TAB Enoxaparin Sodium 60 mg BID SC 09/02/25 22:00 09/06/25 09:56 60 MG Alprazolam 0.25 mg TID PO 09/03/25 14:00 09/06/25 05:45 0.25 MG Morphine Sulfate 2 mg Q4HPRN PRN IV 09/03/25 21:15 09/06/25 05:46 2 MG laboratory and microbiology Laboratory Tests 09/03/25 04:59 Test 09/03/25 04:59 Range/Units Serum Glucose 130 H 74-106 mg/dL Problem List ORGANIC HD CAD S/P PTCA STENT ACC HTN HYPERLIPIDEMIA SSS S/P DUAL PPI HX OF [place] HX OF CVA COPD BPH GOUT NOW WITH CHEST PAIN ACC HTN SOB CHEST PAIN/LEFT SIDED HYPOKALEMIA Assessment/Plan TROPONIN NEGATIVE TITRATE OFF CARDENE CONSIDER [facility] STILL HAVING CHEST PAIN ECG NEGATIVE TROPONIN NEGATIVE CORRECT HYPOKALEMIA TITRATE ENTRESTO CONSIDER [facility] Dietary Evaluation Review Recommendations by RD: Dietary education by RD, Protein Supplementation Comments: 1) Initiate Nepro qd 2) Encourage optimal PO intake 3) Refer to outpatient RD for weight management 4) Follow-up with cardiology and nephrology 5) Continue to monitor I&O, labs, and skin integrity Expected Outcomes/Goals: 1) appetite and labs to improve 2) gradual wt loss 3) f/u in 3-5 days Plan discussed with: Patient DEBORAH ROMERO MD Sep 06, 2025 13:49
[2025-09-06] MEDS: SACUBITRIL-VALSARTAN 24mg/26mg TAB PO SCH (16:35)
[2025-09-06] MEDS: INDOMETHACIN 25 MG CAP PO SCH (22:00)
[2025-09-07] VITALS (9 sets, daily range): BP systolic 127–157; BP diastolic 90–116; PULSE 83–113; RESP 9–20; TEMP 98.7–99.5; O2SAT 94–99
[2025-09-07] MEDS: IODIXANOL 320MG/ML 100ML BTL IV ONE (12:56)
--- NOTE | 2025-09-07 13:15 | DVHPN2 ---
Progress Note - Dictate Date Seen: Sep 06, 2025 Medical Necessity Reason Pt with a Central, PICC or Fol: No Subjective PT WELL KNOWN TO ME ORGANIC HD CAD S/P PTCA STENT ACC HTN HYPERLIPIDEMIA SSS S/P DUAL PPI HX OF [place] HX OF CVA COPD BPH GOUT NOW WITH CHEST PAIN ACC HTN SOB CHEST PAIN/LEFT SIDED vital signs Vital Sign Date Time Temp Pulse Resp B/P (MAP) Pulse Ox O2 Delivery O2 Flow Rate FiO2 09/07/25 08:00 Room Air* 0 21 09/07/25 06:46 92 18 154/115 (128) 09/06/25 23:00 99.2 97 99.2 Total Intake and Output 09/06/25 09/06/25 09/07/25 15:00 23:00 07:00 Intake Total 1170 ml 1000 ml Output Total 1225 ml 850 ml Balance -55 ml 150 ml medications Current Medications Medications Dose Ordered Sig/[place] Route Start Time Stop Time Status Last Admin Dose Admin Allopurinol 100 mg DAILY PO 09/02/25 10:00 09/07/25 09:38 100 MG Tamsulosin HCl 0.4 mg QPM PO 09/02/25 18:00 09/03/25 17:15 0.4 MG Clopidogrel Bisulfate 75 mg DAILY PO 09/02/25 10:00 09/07/25 09:41 75 MG Temazepam 15 mg QHSP PRN PO 09/01/25 19:45 Ondansetron HCl 4 mg Q4HP PRN IV 09/01/25 19:45 09/05/25 17:20 4 MG Acetaminophen 650 mg Q6HP PRN PO 09/01/25 19:45 Nitroglycerin 0.4 mg Q5MINP PRN SL 09/01/25 19:45 Morphine Sulfate 2 mg Q30M PRN IV 09/01/25 19:45 09/06/25 09:57 2 MG Metoprolol Tartrate 25 mg BID PO 09/01/25 22:00 09/01/25 22:18 25 MG Apixaban 5 mg BID PO 09/01/25 22:00 Atorvastatin Calcium 40 mg DAILY PO 09/02/25 10:00 09/07/25 09:39 40 MG Acetaminophen/ Hydrocodone Bitart 1 tab Q8HPRN PRN PO 09/02/25 00:00 Calcium Carbonate 500 mg Q4HR PO 09/02/25 06:00 09/07/25 09:45 500 MG Alprazolam 0.25 mg TID PO 09/03/25 14:00 09/06/25 23:34 0.25 MG Sacubitril/ Valsartan 2 tab BID PO 09/06/25 13:45 09/07/25 09:41 2 TAB Indomethacin 50 mg BID PO 09/06/25 22:00 Clonidine HCl 0.2 mg TID PRN PO 09/07/25 13:00 UNV laboratory and microbiology Laboratory Tests 09/03/25 04:59 Test 09/03/25 04:59 Range/Units Serum Glucose 130 H 74-106 mg/dL Problem List ORGANIC HD CAD S/P PTCA STENT ACC HTN HYPERLIPIDEMIA SSS S/P DUAL PPI HX OF [place] HX OF CVA COPD BPH GOUT NOW WITH CHEST PAIN ACC HTN SOB CHEST PAIN/LEFT SIDED HYPOKALEMIA Assessment/Plan TROPONIN NEGATIVE TITRATE OFF CARDENE CONSIDER [facility] STILL HAVING CHEST PAIN ECG NEGATIVE TROPONIN NEGATIVE CORRECT HYPOKALEMIA TITRATE ENTRESTO CONSIDER [facility] pt is non compliant CONSISTENTLY REFUSING MEDICATION ASKING FOR NARCOTICS POSITIVE GOUT INDOCIN STARTED HIGH BUN/ CR RATIO IV FLUID Dietary Evaluation Review Recommendations by RD: Dietary education by RD, Protein Supplementation Comments: 1) Initiate Nepro qd 2) Encourage optimal PO intake 3) Refer to outpatient RD for weight management 4) Follow-up with cardiology and nephrology 5) Continue to monitor I&O, labs, and skin integrity Expected Outcomes/Goals: 1) appetite and labs to improve 2) gradual wt loss 3) f/u in 3-5 days Plan discussed with: Patient DEBORAH ROMERO MD Sep 07, 2025 13:14
--- NOTE | 2025-09-07 13:16 | DVHPN2 ---
Progress Note - Dictate Date Seen: Sep 06, 2025 Medical Necessity Reason Pt with a Central, PICC or Fol: No Subjective PT WELL KNOWN TO ME ORGANIC HD CAD S/P PTCA STENT ACC HTN HYPERLIPIDEMIA SSS S/P DUAL PPI HX OF CT HX OF CVA COPD BPH GOUT NOW WITH CHEST PAIN ACC HTN SOB CHEST PAIN/LEFT SIDED vital signs Vital Sign Date Time Temp Pulse Resp B/P (MAP) Pulse Ox O2 Delivery O2 Flow Rate FiO2 09/07/25 08:00 Room Air* 0 21 09/07/25 06:46 92 18 154/115 (128) 09/06/25 23:00 99.2 97 99.2 Total Intake and Output 09/06/25 09/06/25 09/07/25 15:00 23:00 07:00 Intake Total 1170 ml 1000 ml Output Total 1225 ml 850 ml Balance -55 ml 150 ml medications Current Medications Medications Dose Ordered Sig/[place] Route Start Time Stop Time Status Last Admin Dose Admin Allopurinol 100 mg DAILY PO 09/02/25 10:00 09/07/25 09:38 100 MG Tamsulosin HCl 0.4 mg QPM PO 09/02/25 18:00 09/03/25 17:15 0.4 MG Clopidogrel Bisulfate 75 mg DAILY PO 09/02/25 10:00 09/07/25 09:41 75 MG Temazepam 15 mg QHSP PRN PO 09/01/25 19:45 Ondansetron HCl 4 mg Q4HP PRN IV 09/01/25 19:45 09/05/25 17:20 4 MG Acetaminophen 650 mg Q6HP PRN PO 09/01/25 19:45 Nitroglycerin 0.4 mg Q5MINP PRN SL 09/01/25 19:45 Morphine Sulfate 2 mg Q30M PRN IV 09/01/25 19:45 09/06/25 09:57 2 MG Metoprolol Tartrate 25 mg BID PO 09/01/25 22:00 09/01/25 22:18 25 MG Apixaban 5 mg BID PO 09/01/25 22:00 Atorvastatin Calcium 40 mg DAILY PO 09/02/25 10:00 09/07/25 09:39 40 MG Acetaminophen/ Hydrocodone Bitart 1 tab Q8HPRN PRN PO 09/02/25 00:00 Calcium Carbonate 500 mg Q4HR PO 09/02/25 06:00 09/07/25 09:45 500 MG Alprazolam 0.25 mg TID PO 09/03/25 14:00 09/06/25 23:34 0.25 MG Sacubitril/ Valsartan 2 tab BID PO 09/06/25 13:45 09/07/25 09:41 2 TAB Indomethacin 50 mg BID PO 09/06/25 22:00 Clonidine HCl 0.2 mg TID PRN PO 09/07/25 13:00 UNV Nifedipine 60 mg DAILY PO 09/08/25 10:00 UNV laboratory and microbiology Laboratory Tests 09/03/25 04:59 Test 09/03/25 04:59 Range/Units Serum Glucose 130 H 74-106 mg/dL Problem List ORGANIC HD CAD S/P PTCA STENT ACC HTN HYPERLIPIDEMIA SSS S/P DUAL PPI HX OF CT HX OF CVA COPD BPH GOUT NOW WITH CHEST PAIN ACC HTN SOB CHEST PAIN/LEFT SIDED HYPOKALEMIA Assessment/Plan TROPONIN NEGATIVE TITRATE OFF CARDENE CONSIDER [facility] STILL HAVING CHEST PAIN ECG NEGATIVE TROPONIN NEGATIVE CORRECT HYPOKALEMIA TITRATE ENTRESTO CONSIDER [facility] pt is non compliant CONSISTENTLY REFUSING MEDICATION ASKING FOR NARCOTICS POSITIVE GOUT INDOCIN STARTED HIGH BUN/ CR RATIO IV FLUID Dietary Evaluation Review Recommendations by RD: Dietary education by RD, Protein Supplementation Comments: 1) Initiate Nepro qd 2) Encourage optimal PO intake 3) Refer to outpatient RD for weight management 4) Follow-up with cardiology and nephrology 5) Continue to monitor I&O, labs, and skin integrity Expected Outcomes/Goals: 1) appetite and labs to improve 2) gradual wt loss 3) f/u in 3-5 days Plan discussed with: Patient DEBORAH ROMERO MD Sep 07, 2025 13:16
[2025-09-07 13:28] LABS: Hematocrit 51.9 % (41.0-53.0); Hemoglobin 17.4 g/dL (13.5-17.5); Mean Corpuscular Hemoglobin 30.9 pg (28.0-32.0); Mean Corpuscular Volume 92.0 fL (80.0-100.0); Nucleated Red Blood Cells % 0.0 %
[2025-09-07 13:37] LABS: Chloride 103 mmol/L (98-107); Potassium 3.7 mmol/L (3.5-5.1); Sodium 139 mmol/L (136-145)
[2025-09-07 13:38] LABS: Anion Gap 11 (5-15); Calcium 9.5 mg/dL (8.7-10.4); Carbon Dioxide 25 mmol/L (20-31)
[2025-09-07 13:42] LABS: INR 1.02 (0.9-1.15); Partial Thromboplastin Time 31.2 SEC (24.5-34.5); Prothrombin Time 10.8 sec (9.3-11.8)
[2025-09-07 13:43] LABS: BUN/Creatinine Ratio 10.9 (10.0-20.0); Blood Urea Nitrogen 21 mg/dL (9-23)
[2025-09-07 13:45] LABS: Glucose 115 mg/dL (74-106)
[2025-09-07] MEDS: ANGIOMAX 250 MG VIAL IV ONE (13:48)
[2025-09-07] MEDS: fentaNYL CITRATE 100 MCG/2 ML VL ONE (13:49)
[2025-09-07] MEDS: LIDOCAINE 2%HCL (LOCAL ANESTH.) INJ 20ML MDV ONE (13:49)
[2025-09-07] MEDS: SODIUM CHL 0.9% 0 ML ONE (13:49)
[2025-09-07] MEDS: MIDAZOLAM HCL 2MG/2ML 2ml VIAL (1mg/ml) ONE (13:49)
[2025-09-07] MEDS: NITROGLYCERIN 0.4MG/DOSE SPRAY 4.9GM ONE (14:35)
--- NOTE | 2025-09-07 14:41 | DVHOP ---
DATE OF SURGERY: 09/07/2025 HISTORY: The patient with chest pain initially. History of angiogram with angioplasty with stent placement to left anterior descending artery. The patient is now having chest discomfort, shortness of breath, marked elevation in blood pressure not responding to conventional therapy. The patient is now to undergo left heart catheterization. Further recommendations after the angiogram. DESCRIPTION OF PROCEDURE: The patient was prepped and draped in sterile condition. Conscious sedation was given to the patient. Using a Cook needle, right femoral artery was engaged with Seldinger technique. A 6-Amharic sheath was introduced to the right femoral artery. Using 6-Amharic JR4 catheter and 6-Amharic JL4 catheter, selective left and right coronary angiography was performed. Using 6-Amharic Pigtail catheter, ventriculogram was done. FFR of the left anterior descending artery was performed as well. Previous site of angioplasty a little more proximal to the previous intervention. There were no complications. The patient tolerated the procedure well. RESULTS: * Left main calcified. No flow-restrictive lesion. Left anterior descending artery, mild to moderate diffuse atheromatous plaquing, but no discrete lesions was noted. FFR of the mid LAD was greater than 0.89. Circumflex artery codominant system. Mild diffuse disease without any flow-restrictive lesion. Right coronary artery, moderate diffuse disease with aneurysmal changes noted with rapid tapering in the distal segment similar to the LAD. However, no discrete lesions were noted. At this time, LVEDP was around 30 to 35 mmHg with no gradient across the aortic valve. Thus, the patient with severe elevated LVEDP. Aggressive antihypertensive therapy should be initiated. * The patient had moderate diffuse disease with intimal irregularity throughout the LAD and right coronary artery with aneurysmal changes. Antiplatelet therapy should be continued. Anticoagulation also should be initiated. We will continue to follow the patient. Stable at this time. Right arteriotomy site was closed using the Angio-Seal device. Matty Reynolds MD SA/EKT TID: [id number] RECEIPT: [id number]
[2025-09-07] MEDS: SODIUM CHLORIDE 0.9% 1,000 ML IV SCH (16:19)
[2025-09-08] MEDS: OXYCODONE W/ ACETAMINOPHEN 5/325MG TABLET PO PRN (02:52)
[2025-09-08 05:00] VITALS: BP 148/105; PULSE 101; RESP 18; TEMP 98; O2SAT 97
[2025-09-08 08:00] VITALS: PULSE 71; PULSE 99; RESP 18; O2SAT 96
[2025-09-08 08:30] VITALS: BP 143/110; PULSE 99; RESP 19; TEMP 97.4; O2SAT 96
--- NOTE | 2025-09-08 13:40 | DVHPN2 ---
Progress Note - Dictate Date Seen: Sep 08, 2025 Medical Necessity Reason Pt with a Central, PICC or Fol: No Subjective PT WELL KNOWN TO ME ORGANIC HD CAD S/P PTCA STENT ACC HTN HYPERLIPIDEMIA SSS S/P DUAL PPI HX OF ND HX OF CVA COPD BPH GOUT NOW WITH CHEST PAIN ACC HTN SOB CHEST PAIN/LEFT SIDED vital signs Vital Sign Date Time Temp Pulse Resp B/P (MAP) Pulse Ox O2 Delivery O2 Flow Rate FiO2 09/08/25 10:00 88 143/110 09/08/25 08:30 97.4 19 96 97.4 09/08/25 08:00 Room Air* 0 21 Total Intake and Output 09/07/25 09/07/25 09/08/25 15:00 23:00 07:00 Intake Total 0 ml 1000 ml Balance 0 ml 1000 ml medications Current Medications Medications Dose Ordered Sig/Lincoln Route Start Time Stop Time Status Last Admin Dose Admin Allopurinol 100 mg DAILY PO 09/02/25 10:00 09/08/25 09:53 100 MG Tamsulosin HCl 0.4 mg QPM PO 09/02/25 18:00 09/03/25 17:15 0.4 MG Clopidogrel Bisulfate 75 mg DAILY PO 09/02/25 10:00 09/08/25 09:52 75 MG Temazepam 15 mg QHSP PRN PO 09/01/25 19:45 Ondansetron HCl 4 mg Q4HP PRN IV 09/01/25 19:45 09/05/25 17:20 4 MG Acetaminophen 650 mg Q6HP PRN PO 09/01/25 19:45 Nitroglycerin 0.4 mg Q5MINP PRN SL 09/01/25 19:45 Morphine Sulfate 2 mg Q30M PRN IV 09/01/25 19:45 09/06/25 09:57 2 MG Metoprolol Tartrate 25 mg BID PO 09/01/25 22:00 09/01/25 22:18 25 MG Apixaban 5 mg BID PO 09/01/25 22:00 Atorvastatin Calcium 40 mg DAILY PO 09/02/25 10:00 09/08/25 09:58 40 MG Acetaminophen/ Hydrocodone Bitart 1 tab Q8HPRN PRN PO 09/02/25 00:00 Calcium Carbonate 500 mg Q4HR PO 09/02/25 06:00 09/08/25 10:00 500 MG Alprazolam 0.25 mg TID PO 09/03/25 14:00 09/08/25 05:12 0.25 MG Sacubitril/ Valsartan 2 tab BID PO 09/06/25 13:45 09/08/25 09:51 2 TAB Indomethacin 50 mg BID PO 09/06/25 22:00 Clonidine HCl 0.2 mg TID PRN PO 09/07/25 13:00 Nifedipine 60 mg DAILY PO 09/08/25 10:00 09/08/25 09:57 60 MG Oxycodone/ Acetaminophen 2 tab Q8HR PRN PO 09/07/25 16:30 09/08/25 12:14 2 TAB laboratory and microbiology Laboratory Tests 09/07/25 13:05 Test 09/07/25 13:05 Range/Units Serum Glucose 115 H 74-106 mg/dL Problem List ORGANIC HD CAD S/P PTCA STENT ACC HTN HYPERLIPIDEMIA SSS S/P DUAL PPI HX OF ND HX OF CVA COPD BPH GOUT NOW WITH CHEST PAIN ACC HTN SOB CHEST PAIN/LEFT SIDED HYPOKALEMIA Assessment/Plan TROPONIN NEGATIVE TITRATE OFF CARDENE CONSIDER [facility] STILL HAVING CHEST PAIN ECG NEGATIVE TROPONIN NEGATIVE CORRECT HYPOKALEMIA TITRATE ENTRESTO CONSIDER [facility] pt is non compliant CONSISTENTLY REFUSING MEDICATION ASKING FOR NARCOTICS POSITIVE GOUT INDOCIN STARTED HIGH BUN/ CR RATIO IV FLUID LHC NEGATIVE FOR SIGNIFICANT CORONARY EPICARDIAL DISEASE PT STATE HE HAD AFALL BUT NOT WITNESS AN EXTERNAL INJURY Dietary Evaluation Review Recommendations by RD: Dietary education by RD, Protein Supplementation Comments: 1) Initiate Nepro qd 2) Encourage optimal PO intake 3) Refer to outpatient RD for weight management 4) Follow-up with cardiology and nephrology 5) Continue to monitor I&O, labs, and skin integrity Expected Outcomes/Goals: 1) appetite and labs to improve 2) gradual wt loss 3) f/u in 3-5 days Plan discussed with: Patient DEBORAH ROMERO MD Sep 08, 2025 13:39
[2025-09-08 16:05] VITALS: BP 139/98; PULSE 88; RESP 18; TEMP 97.9; O2SAT 96
--- NOTE | 2025-09-09 09:28 | ECG ---
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
--- NOTE | 2025-09-15 08:50 | ECG ---
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
--- NOTE | 2025-09-15 08:51 | ECG ---
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
== END 2025-09-08 17:00 | disposition home or self-care (01) | DRG 287 ==
LOC: EDBD 15:44 → EDUNIT# 15:44 → ER 15:44 → OVERFLOW 19:40 → ICU CENTRL 09-02 03:05 → TELE-CENTR 09-04 03:28
PROVIDERS: ADMIT Internal Medicine Cardiovascular Disease; ATTEND Internal Medicine Cardiovascular Disease
PROC: 4A023N7 Measurement of Cardiac Sampling and Pressure, Left Heart, Percutaneous Approach (ICD-10-PCS; principal; 2025-09-07)
PROC: B211YZZ Fluoroscopy of Multiple Coronary Arteries using Other Contrast (ICD-10-PCS; 2025-09-07)
PROC: B215YZZ Fluoroscopy of Left Heart using Other Contrast (ICD-10-PCS; 2025-09-07)
PROC: 4A033BC Measurement of Arterial Pressure, Coronary, Percutaneous Approach (ICD-10-PCS; 2025-09-07)
DX: I16.9 Hypertensive crisis, unspecified (principal); I25.110 Atherosclerotic heart disease of native coronary artery with unstable angina pectoris; E87.6 Hypokalemia; E78.5 Hyperlipidemia, unspecified; I12.9 Hypertensive chronic kidney disease with stage 1 through stage 4 chronic kidney disease, or unspecified chronic kidney disease; J44.9 Chronic obstructive pulmonary disease, unspecified; M10.9 Gout, unspecified; N18.9 Chronic kidney disease, unspecified; N40.0 Benign prostatic hyperplasia without lower urinary tract symptoms; Z95.5 Presence of coronary angioplasty implant and graft; Z86.73 Personal history of transient ischemic attack (TIA), and cerebral infarction without residual deficits; Z88.1 Allergy status to other antibiotic agents; I25.2 Old myocardial infarction; Z91.199 Patient's noncompliance with other medical treatment and regimen due to unspecified reason
CPT/HCPCS: 36415; 70450; 71045; 80048; 80053; 80307; 83605; 83735; 84484; 85025; 85610; 85730; 86850; 86900; 86901; 87081; 93005; 93458; 93571; 99152; G0378; J2250; J2405; Q9967

== ENCOUNTER 2025-10-13 20:55 | Inpatient (IN) | payer MEDICARE, MEDICAID ==
[~2025-10-13] VITALS: Ht 172.7 cm; Wt 105.3 kg
[2025-10-13 21:31] VITALS: PULSE 88; RESP 14; O2SAT 97
[2025-10-13 21:32] LABS: Hematocrit 42.5 % (41.0-53.0); Hemoglobin 14.7 g/dL (13.5-17.5); Mean Corpuscular Hemoglobin 30.7 pg (28.0-32.0); Mean Corpuscular Volume 88.8 fL (80.0-100.0); Nucleated Red Blood Cells % 0.1 %
[2025-10-13 21:37] LABS: Sodium 142 mmol/L (136-145)
[2025-10-13] MEDS: LABETALOL HCL 20 MG/4 ML VL IV ONE (21:37)
[2025-10-13 21:38] LABS: Anion Gap 13 (5-15); Calcium 9.0 mg/dL (8.7-10.4); Carbon Dioxide 22 mmol/L (20-31)
--- NOTE | 2025-10-13 21:41 | ED.PDOC ---
HPI Comments HPI: 55-year-old male brought in by ambulance with the chief complaint of chest pain. EMS report that the patient a sudden onset of chest pain at 3:30 p.m. which originally started to the left chest and radiated to the left jaw and bilateral hands numbness and tingling. Patient was picked up at home and took three nitroglycerin before EMS arrival and three in route via EMS. Patient took his Xanax prior to coming by ambulance. Vitals on scene Temperature: 97.9 Respiratory rate: 18 SpO2: 90% room air Blood pressure: 190/110 Past Medical History: KS x6, CVA x6 with Lt sided deficits, HTN, HLD, CAD, CKF, PE Past Surgical History: Pacemaker, Cardiac Stents x6, Hernia repair Social History: Denies any Medications: Plavix, Lipitor, carvedilol, nifedipine HPI: Poor Historian. REVIEW OF SYSTEMS: CONSTITUTIONAL: Denies acute: fever, diaphoresis, chills, generalized weakness. HEAD: Denies acute: headache, photophobia Eyes: Denies acute: Double vision, vision loss, eye pain, eye discharge. EARS: Denies acute: tinnitus, hearing loss, ear discharge, ear pain, THROAT: Denies acute: sore throat, swelling, difficulty swallowing , pain with swallowing, change in voice. NECK: Denies acute: neck pain, neck swelling, stiff neck. HEART: Denies acute : palpitations, LUNGS: Denies acute: SOB, wheezing, cough, hemoptysis ABDOMEN: Denies acute: abdominal pain, Nausea, Vomiting, diarrhea, melena , hematemesis, hematochezia SKIN: Denies acute: rash, redness, lesions, itchiness. EXTREMITIES: Denies acute: calf pain, numbness, tingling, weakness, denies pain in extremity. Denies acute: Low back pain. Neuro: Denies acute: focal neurological deficit, motor or sensory focal neurological deficit, tremors, seizure like activity, confusion, dizziness, change in mental status, loss of bowel or bladder function, cauda equina like symptoms. : Denies acute: dysuria, hematuria, flank pain, increase in urinary frequency. PSYCH: Denies acute: hallucination, suicidal ideation, homicidal ideation. PHYSICAL EXAM: General: -----mild---acute distress, awake and alert. Head: normocephalic, atraumatic. No raccoon's eyes, no álvarez sign. Neck: supple, trachea is midline, no swelling. Throat: Normal phonation. Eyes:, no erythema, no purulent discharge, no proptosis, no icterus. Heart: regular rate, regular rhythm, no significant murmur appreciated. Lungs: no apparent respiratory distress, Able to speak in full sentences. No wheezing, no rhonchi, no crackles. No stridors Clear to auscultation bilaterally. Abdomen: non tender to palpation, non distended, soft, no guarding, no rebound, + bowel sounds. Neuro: Awake, Alert, oriented to name, self, situation, follows commands GCS=15. Speech is normal. Skin: no petechia, no purpura, no cyanosis, non-pale, not jaundice. Lower extremities: --no - Pitting edema no deformity, no focal swelling, no calf TTP. Makes eye contact. moves all four extremities. Face: no apparent facial droop. ED COURSE: DISCLAIMER: This medical document was created using an electronic medical record system with voice recognition software and computerized dictation system. Although this document has been carefully reviewed, there might still be some phonetic and typographical errors. Occasional wrong-word or "sound-alike" substitutions may have occurred due to the inherent limitations of voice recognition software. These areas are purely typographical due to imperfections of the software programs and do not reflect any compromise in the patient's medical care. Please read the chart carefully and recognize, using context, where these substitutions have occurred. Chief Complaint: Chest Pain Time Seen by MD: 21:15 Primary Care Provider: UNKNOWN Reviewed Notes: Nurses Notes, Medications, Allergies Allergies: Coded Allergies: Amlodipine (Verified Allergy, Severe, 03/07/25) Vancomycin (Verified Allergy, Intermediate, 08/23/24) Lisinopril (Verified Allergy, Unknown, 09/01/25) Home Meds Active Scripts Docusate Sodium (Docusate Sodium) 100 Mg Cap, 100 MG PO BID for 30 Days, #60 CAP 0 Refills Prov:NORAH MEYER MD 07/01/25 Prednisone (Prednisone) 20 Mg Tab, 20 MG PO DAILY for 5 Days, #5 MG 0 Refills Prov:NORAH MEYER MD 07/01/25 Famotidine (PEPCID TABLET) 20 Mg Tb, 1 TAB PO BID, #60 TAB 1 Refill Prov:NORAH MEYER MD 07/01/25 Lactulose (Lactulose) 10 Gm/15 Ml Princess, 10 GM PO BID for 30 Days, #500 ML Prov:NORAH MEYER MD 07/01/25 Baclofen (Baclofen) 10 Mg Tab, 10 MG PO DAILY for 10 Days, #10 TAB 0 Refills Prov:NORAH MEYER MD 07/01/25 Allopurinol (ZYLOPRIM TABLET) 100 Mg Tb, 2 TAB PO DAILY, #60 TAB 1 Refill Prov:NORAH MEYER MD 07/01/25 Alprazolam (Xanax) 0.5 Mg Tb, 1 TAB PO BID PRN, #30 TAB Prov:DWAINE JOHN MD 01/10/24 Reported Medications Tamsulosin Hcl (Tamsulosin Hcl) 0.4 Mg Cap, 1 PO DAILY 06/22/25 Apixaban Base (ELIQUIS) 2.5 Mg Tab, 2.5 MG PO BID, TAB 03/08/25 Atorvastatin Calcium (ATORVASTATIN CALCIUM) 40 Mg Tab, 1 TAB PO DAILY 07/28/24 Clopidogrel Bisulfate (Plavix) 75 Mg Tab, 1 TAB PO DAILY, #90 TAB 1 Refill 03/25/24 Beclomethasone Dipropionate (Qvar Redihaler) 80 Mcg/Act Aer, 2 PUFF INH BID 03/06/24 Albuterol Sulfate (Albuterol Sulfate Hfa) 108 Mcg/Act Aer, 2 PUFF INH Q4HR PRN for WHEEZING 03/06/24 Information Source: Patient, Emergency Med Personnel Mode of Arrival: EMS EKG EKG : Pulse Rate (adult): 99 Trail: Normal Cardiac Rhythm: NSR Block: None Hypertrophy: None ST: Normal Was a procedure done? Was a procedure done?: No CP Differential Dx Differential Diagnosis: N/A Differential Diagnosis: Other (DDX include renal disease, thyroid disease, electrolyte abnormality, increased salt intake, medications non-compliance, undiagnosed HTN, Hypertensive crisis, hypertensive urgency., drug toxicity.) Differential Diagnosis: Other (Ddx include but not limitied to gastritis, musculoskeletal pain, radiculopathy, atypical chest pain, dissection, aneurysm, ACS, unstable angina, hiatal hernia, GERD, anxiety, costochondritis, PE, pneumothroax, neoplasm, cardiac ischemia, drug abuse, anemia.) X-Ray, Labs, Meds, VS Vital Signs Date Time Temp Pulse Resp B/P (MAP) Pulse Ox O2 Delivery O2 Flow Rate FiO2 10/13/25 23:00 76 20 186/124 (144) 95 10/13/25 23:00 196/122 10/13/25 22:00 71 11 196/122 (146) 97 10/13/25 21:59 69 10/13/25 21:41 99 10/13/25 21:37 87 191/139 10/13/25 21:31 98.6 88 14 191/139 (156) 97 98.6 10/13/25 21:31 88 14 97 Room Air* 0 21 10/13/25 20:56 99 10/13/25 20:55 97.9 74 18 190/140 98 97.9 Lab Test 10/13/25 21:55 10/13/25 21:00 Range/Units Troponin I High Sensitivity 49 50 </=54 ng/L White Blood Count 7.3 4.4-10.8 10^3/uL Red Blood Count 4.79 4.5-5.90 10^6/uL Hemoglobin 14.7 13.5-17.5 g/dL Hematocrit 42.5 41.0-53.0 % Mean Corpuscular Volume 88.8 80.0-100.0 fL Mean Corpuscular Hemoglobin 30.7 28.0-32.0 pg Mean Corpuscular Hemoglobin Concent 34.6 32.0-36.0 g/dL Red Cell Distribution Width 14.5 H 11.8-14.3 % Platelet Count 291 140-450 10^3/uL Mean Platelet Volume 7.4 6.9-10.8 fL Neutrophils (%) (Auto) 48.9 37.0-80.0 % Lymphocytes (%) (Auto) 34.0 10.0-50.0 % Monocytes (%) (Auto) 11.5 0.0-12.0 % Eosinophils (%) (Auto) 4.7 0.0-7.0 % Basophils (%) (Auto) 0.9 0.0-2.0 % Neutrophils # (Auto) 3.5 1.6-8.6 10 ^3/uL Lymphocytes # (Auto) 2.5 0.4-5.4 10 ^3/uL Monocytes # (Auto) 0.8 0-1.3 10 ^3/uL Eosinophils # (Auto) 0.3 0-0.8 10 ^3/uL Basophils # (Auto) 0.1 0-0.2 10 ^3/uL Nucleated Red Blood Cells 0.1 % Sodium Level 142 136-145 mmol/L Potassium Level 3.4 L 3.5-5.1 mmol/L Chloride Level 107 98-107 mmol/L Carbon Dioxide Level 22 20-31 mmol/L Anion Gap 13 5-15 Blood Urea Nitrogen 18 9-23 mg/dL Creatinine 1.92 H 0.700-1.30 mg/dL Glomerular Filtration Rate Calc 41 >90 mL/min BUN/Creatinine Ratio 9.4 L 10.0-20.0 Serum Glucose 172 H 74-106 mg/dL Calcium Level 9.0 8.7-10.4 mg/dL Current Medications Medications (Trade) Dose Ordered Sig/[place] Route Start Time Stop Time Status Last Admin Labetalol HCl (Labetalol HCl) 10 mg ONCE ONCE IV 10/13/25 21:15 10/13/25 21:16 DC 10/13/25 21:37 Nifedipine (Procardia Xl (Time-Release)) 60 mg ONCE ONCE PO 10/13/25 22:45 10/13/25 22:46 DC 10/13/25 23:00 [place] [id number] Ph: [phone] DIAGNOSTIC IMAGING Diagnostic Imaging Report : [id number] Signed PATIENT: LIBRADO HOLLOWAY IACCT: [id number] UNIT: [id number] : 1970 LOC: OVERFLOW ROOM / BED: [address] [place] [address] / AGE / SEX: 55 / M ADM STATUS: ADM IN SERVICE 20 ORDERING PHYSICIAN: LIBRADO DALY PROCEDURE(s): CXR1 - CHEST XRAY 1 VIEW REASON: chest pain ORDER NUMBER(s): [id number], ACCESSION NUMBER(s): [id number] MEDICAL RECORDS NUMBER: [id number] PROCEDURE: XY CHEST XRAY 1 VIEW DATE: 10/14/2025 12:01 AM HISTORY: chest pain Views:1 COMPARISON: XY CHEST PORTABLE on DOS: 09/01/25, XY CHEST XRAY 1 VIEW on DOS: 06/22/25, XY CHEST PORTABLE on DOS: 03/07/25, XY CHEST PORTABLE on DOS: 08/22/24, XY CHEST PORTABLE on DOS: 08/19/24 FINDINGS/IMPRESSION: Lungs: Allowing for overlying soft tissues, the lungs appear grossly clear. Mediastinum: Mediastinal structures appear unremarkable.A LEFT-sided pacing device is noted. No pneumothorax is seen. Skeletal: The skeletal structures appear unremarkable. 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 Patient takes nifedipine at home. I reviewed the patient's last hospitalization in the he was given nifedipine 60 mg p.o. keep saying pill here. He already received nitroglycerin earlier. Patient was given labetalol which he was hesitant about. ) Reevaluation 2ND: Unchanged Patient Education/Counseling: Diagnosis, Treatment Family Education/Counseling: No Family Present Comments MDM: patient presented with the above HPI.--chest pain/hypertension----workup was initiated. patient was found with the above mentioned diagnosis. the following medications were ordered: please refer to order lists of meds and tests obtained by myself Dr. Walters. Patient ED course and VS have been stabilized. Patient has been reassessed in the ED and remained in a stable condition. Pertinent incidental findings were discussed with the patient and/or family. Patient/family voices understanding and is agreeable with plan. Patient has been observed in the ED adequate length of time to insure improveme nt/stability. Escalation of care considered: Consideration of escalation to observation or admission Patient was ADMITTED to the medicine team for further evaluation and treatment of their presentation. All the reports of any imaging studies that were ordered by myself were reviewed by myself. SEPSIS Sepsis Screen Date sepsis recognized/suspect: Oct 13, 2025 Time Sepsis recognized/suspect: 2054 Recent Procedure: No On Antibiotic Therapy: No Respiratory Rate >20: No Heart Rate >90: No Temp<36 C (96.8 F) or >38.3 C: No SBP <90 or MAP <65 mmHG: No New Acute Mental Status Change: No Is the patient on CPAP, BIPAP,: No Physician Orders Thinner Sprayer (10/13/25 ) Vital Signs Date Time Temp Pulse Resp B/P (MAP) Pulse Ox O2 Delivery O2 Flow Rate FiO2 10/13/25 23:00 76 20 186/124 (144) 95 10/13/25 23:00 196/122 10/13/25 22:00 71 11 196/122 (146) 97 10/13/25 21:59 69 10/13/25 21:41 99 10/13/25 21:37 87 191/139 10/13/25 21:31 98.6 88 14 191/139 (156) 97 98.6 10/13/25 21:31 88 14 97 Room Air* 0 21 10/13/25 20:56 99 10/13/25 20:55 97.9 74 18 190/140 98 97.9 Laboratory Tests Test 10/13/25 21:00 White Blood Count 7.3 10^3/uL (4.4-10.8) Departure 1 Departure Time of Disposition: 21:53 Impression: Primary Impression: Chest pain Additional Impression: Hypertensive crisis Disposition: ADMITTED INPATIENT Admit to: [facility] Condition: Guarded Discharged With: Self Critical Care Note Critical Care Time?: Yes (35 min-critical care time only) Heart Score Heart Score: Heart Score Response (Comments) Value History Moderate Suspicious 1 EKG Normal 0 Age 45-64 1 Risk Factors >3 or Hx ASHD 2 Troponin Normal limit 0 Total 4 I personally scribed for SARAH WALTERS DO ([email or web address]) on 10/13/25 at 21:41. Electronically submitted by Domingo Dunlap ([email or web address]). SARAH WALTERS DO Oct 13, 2025 21:41
[2025-10-13 21:43] LABS: BUN/Creatinine Ratio 9.4 (10.0-20.0); Blood Urea Nitrogen 18 mg/dL (9-23)
[2025-10-13 21:55] LABS: Chloride 107 mmol/L (98-107); Glucose 172 mg/dL (74-106); Potassium 3.4 mmol/L (3.5-5.1)
[2025-10-13] MEDS: hydrALAZINE HCL 20 MG/ML VL IV ONE (22:21)
[2025-10-13] MEDS ORDERED: ACETAMINOPHEN 325 MG TAB PO PRN (23:30)
[2025-10-13] MEDS ORDERED: NITROGLYCERIN 0.4 MG SL TAB SL PRN (23:30)
[2025-10-13] MEDS ORDERED: ENALAPRILAT 1.25 MG/ML-1ML VIAL IV ONE (23:45)
--- NOTE | 2025-10-13 23:50 | DVHHP2 ---
History of Present Illness Reason for Visit: Chest pain History of Present Illness 55-year-old male presents for evaluation of chest pain. Patient reports developing left-sided sharp chest pain today in the afternoon with radiation to his left jaw and left arm. He also reports his blood pressure being elevated in the 180s. Reports mild shortness for breath. Also states having a nonproductive cough. No fever or chills. Past Medical History CVA, mi, hypertension, dyslipidemia, chronic kidney disease, PE Past Surgical History PTCA, hernia repair, pacemaker Family History Noncontributory Smoke: No ALCOHOL: none Drugs: None Lives: with Family Review of Systems Review of Systems Review of systems are currently negative otherwise addressed in HPI. Allergies: Coded Allergies: Amlodipine (Verified Allergy, Severe, 03/07/25) Vancomycin (Verified Allergy, Intermediate, 08/23/24) Lisinopril (Verified Allergy, Unknown, 09/01/25) Medications Current Medications Medications Dose Ordered Sig/[place]incoln Route Start Time Stop Time Status Last Admin Dose Admin Nitroglycerin 0.4 mg Q5MINP PRN SL 10/13/25 23:30 Morphine Sulfate 2 mg Q30M PRN IV 10/13/25 23:30 Exam Vital Signs Vital Signs Date Time Temp Pulse Resp B/P (MAP) Pulse Ox O2 Delivery O2 Flow Rate FiO2 10/13/25 23:00 196/122 10/13/25 21:59 69 10/13/25 21:31 98.6 14 97 98.6 10/13/25 21:31 Room Air* 0 21 Exam Gen: 55-year-old male in mild distress Skin: Warm, dry, normal color and texture, no rash. HEENT: Normocephalic atraumatic, mucous membranes moist and pink. Neck: Cervical and supraclavicular nodes normal without enlargement, trachea is midline, thyroid gland is normal without masses. Pulmonary: Clear to auscultation and percussion bilaterally. Cardiac: Regular rate and rhythm. No murmur Abdomen: Soft, nontender, nondistended, bowel sounds present all 4 quadrants, no guarding, no rigidity, no organomegaly. Extremities: No cyanosis, clubbing, no edema Neuro: Cranial nerves II through XII grossly intact, normal affect and speech, no focal motor deficits. Labs/Xrays ORDERING PHYSICIAN: SCHWING,BIGG R GIS TECHNICIAN PROCEDURE(s): ECIDC - ECHO 2D MODE CARDIAC DOP REASON: Hypotension, syncope ORDER NUMBER(s): [id number], ACCESSION NUMBER(s): [id number] APPROVED REPORT EXAM: Two-dimensional and M-mode echocardiogram with Doppler and color Doppler. Blood Pressure: 82/55 mmHg INDICATION Syncope hypotension RISK FACTORS Height: 70, Weight: 253 DIMENSIONS LVDd 3.9 (3.8-5.7cm) LA (2D) 4.0 (1.9-4.0cm) Aortic Root 4.2 (2.0- 3.7cm) LVDs 2.8 (2.5-4.0cm) LA (MM) (1.9-4.0cm) Aortic Cusp Exc 1.7 (1.5- 2.0cm) EF (%) 55.0 (55-70%) Rt. Atrium 4.0 (1.9-4.0cm) Asc. Aorta cm Mitral Valve Mitral Mitral Stenosis E wave 0.80m/s MV Mean GR. mmHg A wave 0.97m/s MV Peak GR. 56mmHg E/A ratio 0.8 2D MVA cm2 DECEL Time 239ms PRESS 1/2 Time 68ms IVRT ms Dop MVA 3.25cm2 Aortic Valve Aortic Valve Aortic Stenosis V1 0.97m/s AO Mean GR. 3mmHg V2 1.19m/s AO Peak GR. 6mmHg LVOT Diameter 1.9 (1.8-2.4cm) Doppler MANUEL 2.31cm2 AI P 1/2 Time 405.31ms Pulmonic Valve V2 0.83m/s Tricuspid Valve TR Velocity 1.57m/s RVSP 13mmHg Conclusion CONC LVH EF >55% SIGNED BY: DEBORAH ROMERO MD SIGNED DATE/TIME: 07/09/25 1520 Labs Test 10/13/25 21:55 10/13/25 21:00 Range/Units Troponin I High Sensitivity 49 </=54 ng/L White Blood Count 7.3 4.4-10.8 10^3/uL Red Blood Count 4.79 4.5-5.90 10^6/uL Hemoglobin 14.7 13.5-17.5 g/dL Hematocrit 42.5 41.0-53.0 % Mean Corpuscular Volume 88.8 80.0-100.0 fL Mean Corpuscular Hemoglobin 30.7 28.0-32.0 pg Mean Corpuscular Hemoglobin Concent 34.6 32.0-36.0 g/dL Red Cell Distribution Width 14.5 H 11.8-14.3 % Platelet Count 291 140-450 10^3/uL Mean Platelet Volume 7.4 6.9-10.8 fL Neutrophils (%) (Auto) 48.9 37.0-80.0 % Lymphocytes (%) (Auto) 34.0 10.0-50.0 % Monocytes (%) (Auto) 11.5 0.0-12.0 % Eosinophils (%) (Auto) 4.7 0.0-7.0 % Basophils (%) (Auto) 0.9 0.0-2.0 % Neutrophils # (Auto) 3.5 1.6-8.6 10 ^3/uL Lymphocytes # (Auto) 2.5 0.4-5.4 10 ^3/uL Monocytes # (Auto) 0.8 0-1.3 10 ^3/uL Eosinophils # (Auto) 0.3 0-0.8 10 ^3/uL Basophils # (Auto) 0.1 0-0.2 10 ^3/uL Nucleated Red Blood Cells 0.1 % Sodium Level 142 136-145 mmol/L Potassium Level 3.4 L 3.5-5.1 mmol/L Chloride Level 107 98-107 mmol/L Carbon Dioxide Level 22 20-31 mmol/L Anion Gap 13 5-15 Blood Urea Nitrogen 18 9-23 mg/dL Creatinine 1.92 H 0.700-1.30 mg/dL Glomerular Filtration Rate Calc 41 >90 mL/min BUN/Creatinine Ratio 9.4 L 10.0-20.0 Serum Glucose 172 H 74-106 mg/dL Calcium Level 9.0 8.7-10.4 mg/dL SEPSIS Sepsis Screen Date sepsis recognized/suspect: Oct 13, 2025 Time Sepsis recognized/suspect: 2150 Recent Procedure: No On Antibiotic Therapy: No Respiratory Rate >20: No Heart Rate >90: No Temp<36 C (96.8 F) or >38.3 C: No SBP <90 or MAP <65 mmHG: No New Acute Mental Status Change: No Is the patient on CPAP, BIPAP,: No Physician Orders Electrocardigram (10/13/25 21:01) Electrocardigram (10/13/25 22:01) Electrocardigram (10/14/25 00:01) Urinalysis (10/13/25 21:10) Troponin-I Hs (10/14/25 00:10) Cnc Specialist (10/13/25 ) Admit (10/13/25 23:19) Nitroglycerin Sublingual (Ntrostat Subli (10/13/25 23:30) Morphine Sulfate Injection (10/13/25 23:30) Stat Ekg For Chest Pain (10/13/25 23:19) Notify Md Of Changes From Base (10/13/25 23:) Teacher Tutor For 24 Hours (10/13/25 23:19) Emergency Dysrhythmia Protocol (10/13/25 23:19) Rhythm Strips Once Every Shift (10/13/25 23:19) Oxygen By Nasal Cannula (10/13/25 23:19) Clonidine Hcl Tablet (Catapres Tablet) (10/13/25 23:30) Chest Xray 1 View (10/13/25 23:21) Basic Metabolic Panel (10/14/25 04:00) Clopidogrel Bisulfate (Plavix) (10/14/25 10:00) Tamsulosin Hydrochloride (Flomax) (10/14/25 18:00) Metoprolol Tartrate Tablet (Lopressor Ta (10/14/25 10:00) Atorvastatin (Lipitor) (10/14/25 22:00) Sacubitril-Valsartan (Entresto 24-26 Mg (10/14/25 10:00) Nifedipine Er (Procardia Xl (Time-Releas (10/14/25 10:00) Hydrocodone-Acet 5/325mg Tab ([place] 5/32 (10/13/25 23:30) Ondansetron Hcl (Zofran) (10/13/25 23:30) Cardiac Diet-2gna,Lofat,Lochol (10/14/25 Breakfast) Condition: Fair (10/13/25 23:21) Acetaminophen Tablet (Tylenol Tablet) (10/13/25 23:30) Bedrest With Bathroom Privileg (10/13/25 23:21) Vital Signs Date Time Temp Pulse Resp B/P (MAP) Pulse Ox O2 Delivery O2 Flow Rate FiO2 10/13/25 23:00 196/122 10/13/25 21:59 69 10/13/25 21:41 99 10/13/25 21:37 87 191/139 10/13/25 21:31 98.6 88 14 191/139 (156) 97 98.6 10/13/25 21:31 88 14 97 Room Air* 0 21 10/13/25 20:56 99 10/13/25 20:55 97.9 74 18 190/140 98 97.9 Laboratory Tests Test 10/13/25 21:00 White Blood Count 7.3 10^3/uL (4.4-10.8) Medications Medications Dose Ordered Sig/[place] Route Start Time Stop Time Status Last Admin Dose Admin Labetalol HCl 10 mg ONCE ONCE IV 10/13/25 21:15 10/13/25 21:16 DC 10/13/25 21:37 10 MG Nifedipine 60 mg ONCE ONCE PO 10/13/25 22:45 10/13/25 22:46 DC 10/13/25 23:00 60 MG Assessment/Plan Assessment/Plan Assessment Chest pain rule out ACS Hypertensive urgency Chronic kidney disease History of CVA Plan Admit the patient to telemetry to the hospitalist Resume home medications Cardiology consultation Continue treatment per orders. Plan discussed with: Patient My Orders Orders - LIBRADO DALY AGACNP Procedure Category Date Status Time Admit ADMIT 10/13/25 Transmitted 23:19 Nitroglycerin [facility] 10/13/25 In Process Sublingual (Ntrostat 23:30 Morphine Sulfate [facility] 10/13/25 In Process Injection 23:30 Stat Ekg For Chest [facility] 10/13/25 In Process Pain 23:19 Notify Md Of Changes [facility] 10/13/25 In Process From Base 23:19 Teacher Tutor For [facility] 10/13/25 In Process 24 Hours 23:19 Emergency Dysrhythmia [facility] 10/13/25 In Process Protocol 23:19 Rhythm Strips Once [facility] 10/13/25 In Process Every Shift 23:19 Oxygen By Nasal RT 10/13/25 Transmitted Cannula 23:19 Clonidine Hcl Tablet [facility] 10/13/25 Logged (Catapres Tablet) 23:30 Chest Xray 1 View XY 10/13/25 Logged 23:21 Basic Metabolic Panel LAB 10/14/25 Verified 04:00 Clopidogrel Bisulfate PHA 10/14/25 Logged (Plavix) 10:00 Tamsulosin PHA 10/14/25 Logged Hydrochloride (Flomax) 18:00 Metoprolol Tartrate PHA 10/14/25 Transmitted Tablet (Lopressor Ta 10:00 Atorvastatin (Lipitor) [facility]A 10/14/25 Transmitted 22:00 Sacubitril-Valsartan PHA 10/14/25 Transmitted (Entresto 24-26 Mg 10:00 Nifedipine Er PHA 10/14/25 Transmitted (Procardia Xl 10:00 Hydrocodone-Acet PHA 10/13/25 Transmitted 5/325mg Tab ([place] 23:30 Ondansetron Hcl PHA 10/13/25 Transmitted (Zofran) 23:30 Cardiac DIET 10/14/25 Transmitted Diet-2gna,Lofat,Lochol Breakfast Condition: Fair [facility] 10/13/25 In Process 23:21 Acetaminophen Tablet [facility] 10/13/25 Transmitted (Tylenol Tablet) 23:30 Bedrest With Bathroom [facility] 10/13/25 In Process Privileg 23:21 Date of Service: Oct 13, 2025 Billing Provider: LIBRADO DALY Common Visit Codes: [id number] INP/OBS CARE (HIGH) LIBRADO ADLY Oct 13, 2025 23:50
--- NOTE | 2025-10-14 00:58 | DVH ---
MEDICAL RECORDS NUMBER: [id number] PROCEDURE: XY CHEST XRAY 1 VIEW DATE: 10/14/2025 12:01 AM HISTORY: chest pain Views:1 COMPARISON: XY CHEST PORTABLE on DOS: 09/01/25, XY CHEST XRAY 1 VIEW on DOS: 06/22/25, XY CHEST PORTABLE on DOS: 03/07/25, XY CHEST PORTABLE on DOS: 08/22/24, XY CHEST PORTABLE on DOS: 08/19/24 FINDINGS/IMPRESSION: Lungs: Allowing for overlying soft tissues, the lungs appear grossly clear. Mediastinum: Mediastinal structures appear unremarkable.A LEFT-sided pacing device is noted. No pneumothorax is seen. Skeletal: The skeletal structures appear unremarkable.
[2025-10-14 04:23] LABS: Urine Protein, UAD 1+ (Negative)
[2025-10-14] MEDS: ONDANSETRON HCL 4 MG/2 ML VIAL IV PRN (04:26)
[2025-10-14] MEDS: MORPHINE SULFATE 4 MG/ML SYR/VIAL ONE ×2 (04:26→10:31)
[2025-10-14] MEDS: MORPHINE SULFATE INJ 2 MG/ml SYRG IV PRN (04:26)
[2025-10-14] MEDS: POTASSIUM CHL 20 Meq TABLET PO ONE (04:38)
[2025-10-14 05:58] LABS: Anion Gap 14 (5-15); Carbon Dioxide 20 mmol/L (20-31); Sodium 142 mmol/L (136-145)
[2025-10-14 05:59] LABS: Calcium 8.9 mg/dL (8.7-10.4)
[2025-10-14 06:00] LABS: Chloride 108 mmol/L (98-107); Potassium 3.4 mmol/L (3.5-5.1)
[2025-10-14 06:04] LABS: BUN/Creatinine Ratio 8.8 (10.0-20.0); Blood Urea Nitrogen 15 mg/dL (9-23)
[2025-10-14 06:11] LABS: Glucose 116 mg/dL (74-106)
--- NOTE | 2025-10-14 07:10 | ECG ---
[facility] Test Date: 2025-10-13 Test Time: 23:57:54 Pat Name: LIBRADO BAEZ Department: ED Room: 0239T Gender: M Actionscript Developer: CAREN : 1970 Requested By: EMERGENCY EMERGENCY Order Number: [id number] Reading MD: Marcus Boyce Measurements Intervals [place] Rate: 73 P: 45 ME: 179 QRS: 27 QRSD: 96 T: 92 QT: 404 QTc: 446 Interpretive Statements Sinus rhythm Left atrial enlargement Consider anterior infarct Nonspecific T abnormalities, lateral leads Electronically Signed On 10-15-2025 15:45:47 PST by Marcus Boyce Please click the below link to view image of tracing.
--- NOTE | 2025-10-14 07:11 | ECG ---
[facility] Test Date: 2025-10-13 Test Time: 21:59:02 Pat Name: LIBRADO BAEZ Department: ED Room: 0239T Gender: M Form Presser: CAREN : 1970 Requested By: EMERGENCY EMERGENCY Order Number: [id number] Reading MD: Marcus Boyce Measurements Intervals [place] Rate: 69 P: 38 [place]: 180 QRS: 23 QRSD: 97 T: 117 QT: 407 QTc: 436 Interpretive Statements Sinus rhythm LAE, consider biatrial enlargement Anterior infarct, old Abnormal T, consider ischemia, lateral leads ST elevation, consider inferior injury Electronically Signed On 10-15-2025 15:45:16 PST by Marcus Boyce Please click the below link to view image of tracing.
--- NOTE | 2025-10-14 07:12 | ECG ---
[facility] Test Date: 2025-10-13 Test Time: 20:56:12 Pat Name: LIBRADO BAEZ Department: ER Room: 0239T Gender: M Gas Mask Inspector: CAREN : 1970 Requested By: EMERGENCY EMERGENCY Order Number: [id number] Reading MD: Marcus Boyce Measurements Intervals [place] Rate: 99 P: 64 AK: 201 QRS: 44 QRSD: 92 T: 98 QT: 342 QTc: 439 Interpretive Statements Sinus rhythm Left atrial enlargement Anteroseptal infarct, old Electronically Signed On 10-15-2025 15:45:06 PST by Marcus Boyce Please click the below link to view image of tracing.
[2025-10-14 07:30] VITALS: PULSE 99; RESP 13; O2SAT 97
[2025-10-14] MEDS: METOPROLOL TARTRATE 25 MG TAB PO SCH (10:00)
[2025-10-14] MEDS: SACUBITRIL-VALSARTAN 24mg/26mg TAB PO SCH (10:00)
[2025-10-14] MEDS: CLOPIDOGREL BISULFATE 75 MG TAB PO SCH (10:06)
--- NOTE | 2025-10-14 12:45 | DVHPN2 ---
Subjective Still having some chest pain Reviewed: H&P Changes from previous H/P or p: No Changes Objective Vitals Vital Signs Date Time Temp Pulse Resp B/P (MAP) Pulse Ox O2 Delivery O2 Flow Rate FiO2 10/14/25 12:30 76 14 98/67 (77) 90 10/14/25 12:00 97.7 97.7 10/14/25 07:30 Room Air* 0 21 General Appearance: Alert, Oriented X3 HEENT: Atraumatic Cardiovascular: Regular rate, Normal S1, Normal S2 Abdomen: Normal bowel sounds Medications Current Medications Medications Dose Ordered Sig/[place] Route Start Time Stop Time Status Last Admin Dose Admin Nitroglycerin 0.4 mg Q5MINP PRN SL 10/13/25 23:30 Morphine Sulfate 2 mg Q30M PRN IV 10/13/25 23:30 10/14/25 10:24 2 MG Clonidine HCl 0.2 mg Q6HP PRN PO 10/13/25 23:30 10/14/25 04:15 0.2 MG Clopidogrel Bisulfate 75 mg DAILY PO 10/14/25 10:00 10/14/25 10:06 75 MG Tamsulosin HCl 0.4 mg QPM PO 10/14/25 18:00 Metoprolol Tartrate 25 mg BID PO 10/14/25 10:00 Atorvastatin Calcium 40 mg HS PO 10/14/25 22:00 Sacubitril/ Valsartan 2 tab BID PO 10/14/25 10:00 Nifedipine 60 mg DAILY PO 10/14/25 10:00 10/14/25 10:06 60 MG Acetaminophen/ Hydrocodone Bitart 1 tab Q4HP PRN PO 10/13/25 23:30 Ondansetron HCl 4 mg Q4HP PRN IV 10/13/25 23:30 10/14/25 04:26 4 MG Acetaminophen 650 mg Q6HP PRN PO 10/13/25 23:30 Nicardipine/ Sodium Chloride 200 ml @ 50 mls/hr Q4H IV 10/14/25 07:30 10/14/25 10:17 100 MLS/HR Laboratory Results Laboratory Tests 10/13/25 21:00 10/14/25 05:00 Chemistry Test 10/13/25 21:00 10/14/25 05:00 Calcium Level 9.0 mg/dL (8.7-10.4) 8.9 mg/dL (8.7-10.4) Urinalysis Test 10/14/25 04:00 Urine Color Light-yellow (Yellow) Urine Clarity Clear (Clear) Urine pH 5.5 (5.0-9.0) Urine Specific [place] 1.017 (1.001-1.035) Urine Protein 1+ (Negative) H Urine Ketones Negative (Negative) Urine Blood Negative /uL (Negative) Urine Nitrite Negative (Negative) Urine Bilirubin Negative (Negative) Urine Urobilinogen Normal mg/dL (Negative) Urine Leukocyte Esterase Negative /uL (Negative) Urine RBC None seen /hpf (0 - 3) Urine Microscopic WBC < 1 /HPF (0-3) Urine Squamous Epithelial Cells Few /hpf (<5) Urine Bacteria None seen /hpf (None Seen) Urine Glucose Normal mg/dL (Normal) Assessment/Plan Assessment/Plan #HTN emergency #SKIP #History of CAD Continue nicardipine drip and wean off Continue home cardiac medications plavix, statin Discussed with Dr Starr and he will consult for cardiology, no stress test and control BP Plan discussed with: Patient My Orders Orders - QUINTEN NIELSON MD Procedure Category Date Status Time * Cardiology Consult CONS 10/14/25 Transmitted 11:52 Date of Service: Oct 14, 2025 Billing Provider: QUINTEN NIELSON MD Common Visit Codes: [id number] INP/OBS CARE(HIGH) QUINTEN NIELSON MD Oct 14, 2025 12:45
[2025-10-14 16:38] VITALS: BP 99/65; PULSE 86; RESP 16; TEMP 98.4; O2SAT 94
[2025-10-14] MEDS: TAMSULOSIN HYDROCHLORIDE 0.4 MG CAP PO SCH (18:00)
--- NOTE | 2025-10-14 19:40 | ECG ---
[facility] Test Date: 2025-10-14 Test Time: 19:37:55 Pat Name: LIBRADO BAEZ Department: Respiratoy Room: 0239T Gender: M Rn Paralegal: YARELIS GOODE : 1970 Requested By: QUINTEN NIELSON Order Number: [id number] Reading MD: Marcus Boyce Measurements Intervals [place] Rate: 74 P: 38 [place]: 179 QRS: 28 QRSD: 102 T: 123 QT: 431 QTc: 479 Interpretive Statements Sinus rhythm Consider left atrial enlargement Abnormal T, consider ischemia, lateral leads Electronically Signed On 10-15-2025 15:33:04 PST by Marcus Boyce Please click the below link to view image of tracing.
[2025-10-14 20:00] VITALS: PULSE 78; PULSE 80; RESP 18
[2025-10-14] MEDS: ATORVASTATIN 20 MG TAB PO SCH (22:29)
[2025-10-15] VITALS (7 sets, daily range): BP systolic 104–140; BP diastolic 73–95; PULSE 66–107; RESP 17–20; TEMP 97.5–98; O2SAT 93–97
--- NOTE | 2025-10-15 12:59 | DVHPN2 ---
Progress Note - Dictate Date Seen: Oct 15, 2025 Medical Necessity Reason Pt with a Central, PICC or Fol: No Subjective PT WITH CHEST PAIN HYPOKALEMIA TROPONIN NEGATIVE PT WELL KNOWN TO ME ORGANIC HD CAD S/P PTCA STENT ACC HTN HYPERLIPIDEMIA SSS S/P DUAL PPI HX OF CT HX OF CVA COPD BPH GOUT NOW WITH CHEST PAIN ACC HTN SOB CHEST PAIN/LEFT SIDED vital signs Vital Sign Date Time Temp Pulse Resp B/P (MAP) Pulse Ox O2 Delivery O2 Flow Rate FiO2 10/15/25 10:10 79 16 143/92 10/15/25 08:00 Room Air* 0 21 10/15/25 04:29 97.8 95 97.8 Total Intake and Output 10/14/25 10/14/25 10/15/25 15:00 23:00 07:00 Intake Total 100 ml 0 ml Balance 100 ml 0 ml medications Current Medications Medications Dose Ordered Sig/[place] Route Start Time Stop Time Status Last Admin Dose Admin Nitroglycerin 0.4 mg Q5MINP PRN SL 10/13/25 23:30 Morphine Sulfate 2 mg Q30M PRN IV 10/13/25 23:30 10/15/25 10:10 2 MG Clonidine HCl 0.2 mg Q6HP PRN PO 10/13/25 23:30 10/14/25 04:15 0.2 MG Clopidogrel Bisulfate 75 mg DAILY PO 10/14/25 10:00 10/15/25 10:09 75 MG Tamsulosin HCl 0.4 mg QPM PO 10/14/25 18:00 Metoprolol Tartrate 25 mg BID PO 10/14/25 10:00 10/15/25 10:09 25 MG Atorvastatin Calcium 40 mg HS PO 10/14/25 22:00 10/14/25 22:29 40 MG Sacubitril/ Valsartan 2 tab BID PO 10/14/25 10:00 10/15/25 10:06 2 TAB Nifedipine 60 mg DAILY PO 10/14/25 10:00 10/15/25 10:09 60 MG Acetaminophen/ Hydrocodone Bitart 1 tab Q4HP PRN PO 10/13/25 23:30 Ondansetron HCl 4 mg Q4HP PRN IV 10/13/25 23:30 10/14/25 04:26 4 MG Acetaminophen 650 mg Q6HP PRN PO 10/13/25 23:30 laboratory and microbiology Laboratory Tests 10/14/25 05:00 10/13/25 21:00 Test 10/14/25 05:00 Range/Units Serum Glucose 116 H 74-106 mg/dL Problem List CHEST PAIN TROPONIN NEGATIVE ORGANIC HD CAD S/P PTCA STENT ACC HTN HYPERLIPIDEMIA SSS S/P DUAL PPI HX OF CT HX OF CVA COPD BPH GOUT NOW WITH CHEST PAIN ACC HTN SOB CHEST PAIN/LEFT SIDED HYPOKALEMIA Assessment/Plan TROPONIN NEGATIVE TITRATE OFF CARDENE [facility]SID[facility] STILL HAVING CHEST PAIN ECG NEGATIVE TROPONIN NEGATIVE CORRECT HYPOKALEMIA TITRATE ENTRESTO [facility]SID[facility] pt is non compliant CONSISTENTLY REFUSING MEDICATION ASKING FOR NARCOTICS POSITIVE GOUT INDOCIN STARTED HIGH BUN/ CR RATIO IV FLUID REVIEWED LABS: WBC. RBC, AND HGB ARE NORMAL Plan discussed with: Other Critical Care Time(min): 35 DEBORAH ROMERO MD Oct 15, 2025 12:59
--- NOTE | 2025-10-15 14:01 | DVH ---
Indication: neck pain Technique: CT axial images of the cervical spine are obtained without contrast. Coronal and sagittal reformats were obtained. Radiation Dose Information: CTDI volume is 24.14 mGy. Dose-length product is 585.17 mGy*cm Comparison: None FINDINGS: The cervical vertebral body heights are maintained. Cervical alignment is maintained. There is mild to moderate multilevel disc space narrowing. No prevertebral edema. Facet articulations demonstrate mild facet hypertrophic changes . The atlantooccipital, atlantoaxial articulations are intact. Subcent imeter thyroid nodules. IMPRESSION: [id number] cervical degenerative disc disease. Subcentimeter thyroid nodules which can be further evaluated with thyroid ultrasound in the nonemergent setting.
--- NOTE | 2025-10-15 18:09 | DVHPN2 ---
Subjective Still having some chest pain Reviewed: H&P Changes from previous H/P or p: No Changes Objective Vitals Vital Signs Date Time Temp Pulse Resp B/P (MAP) Pulse Ox O2 Delivery O2 Flow Rate FiO2 10/15/25 17:45 98.0 82 133/82 (99) 97 98.0 10/15/25 17:45 18 10/15/25 08:00 Room Air* 0 21 Intake/Output Intake and Output 10/15/25 05:00 Intake Total 100 ml Balance 100 ml Intake Oral 100 ml General Appearance: Alert, Oriented X3 HEENT: Atraumatic Cardiovascular: Regular rate, Normal S1, Normal S2 Abdomen: Normal bowel sounds Medications Current Medications Medications Dose Ordered Sig/[place] Route Start Time Stop Time Status Last Admin Dose Admin Nitroglycerin 0.4 mg Q5MINP PRN SL 10/13/25 23:30 Morphine Sulfate 2 mg Q30M PRN IV 10/13/25 23:30 10/15/25 17:45 2 MG Clonidine HCl 0.2 mg Q6HP PRN PO 10/13/25 23:30 10/14/25 04:15 0.2 MG Clopidogrel Bisulfate 75 mg DAILY PO 10/14/25 10:00 10/15/25 10:09 75 MG Tamsulosin HCl 0.4 mg QPM PO 10/14/25 18:00 10/15/25 17:44 0.4 MG Metoprolol Tartrate 25 mg BID PO 10/14/25 10:00 10/15/25 10:09 25 MG Atorvastatin Calcium 40 mg HS PO 10/14/25 22:00 10/14/25 22:29 40 MG Sacubitril/ Valsartan 2 tab BID PO 10/14/25 10:00 10/15/25 10:06 2 TAB Nifedipine 60 mg DAILY PO 10/14/25 10:00 10/15/25 10:09 60 MG Acetaminophen/ Hydrocodone Bitart 1 tab Q4HP PRN PO 10/13/25 23:30 Ondansetron HCl 4 mg Q4HP PRN IV 10/13/25 23:30 10/14/25 04:26 4 MG Acetaminophen 650 mg Q6HP PRN PO 10/13/25 23:30 Laboratory Results Laboratory Tests 10/13/25 21:00 10/14/25 05:00 Urinalysis Test 10/14/25 04:00 Urine Color Light-yellow (Yellow) Urine Clarity Clear (Clear) Urine pH 5.5 (5.0-9.0) Urine Specific [place] 1.017 (1.001-1.035) Urine Protein 1+ (Negative) H Urine Ketones Negative (Negative) Urine Blood Negative /uL (Negative) Urine Nitrite Negative (Negative) Urine Bilirubin Negative (Negative) Urine Urobilinogen Normal mg/dL (Negative) Urine Leukocyte Esterase Negative /uL (Negative) Urine RBC None seen /hpf (0 - 3) Urine Microscopic WBC < 1 /HPF (0-3) Urine Squamous Epithelial Cells Few /hpf (<5) Urine Bacteria None seen /hpf (None Seen) Urine Glucose Normal mg/dL (Normal) Assessment/Plan Assessment/Plan #HTN emergency #SKIP #History of CAD Continue nicardipine drip and wean off Continue home cardiac medications plavix, statin Discussed with Dr Starr and he will consult for cardiology, no stress test and control BP Having some neck pain>CT C spine Plan discussed with: Patient My Orders Orders - QUINTEN NIELSON MD Procedure Category Date Status Time Cervical Without CT 10/15/25 Resulted Contrast 12:35 Date of Service: Oct 15, 2025 Billing Provider: QUINTEN NIELSON MD Common Visit Codes: [id number] INP/OBS CARE(HIGH) QUINTEN NIELSON MD Oct 15, 2025 18:09
[2025-10-15] MEDS: HYDROcodone-ACET 5/325MG TAB PO PRN (20:14)
[2025-10-15] MEDS: THROAT LOZENGES(CEPASTAT) MT PRN (23:11)
[2025-10-16 01:00] VITALS: BP 123/90; PULSE 87; RESP 18; TEMP 98.1; O2SAT 96
[2025-10-16 05:00] VITALS: BP 113/78; PULSE 70; RESP 18; TEMP 98.1; O2SAT 96
[2025-10-16 05:26] LABS: Calcium 8.9 mg/dL (8.7-10.4); Carbon Dioxide 26 mmol/L (20-31)
[2025-10-16 05:30] LABS: Anion Gap 11 (5-15); Chloride 105 mmol/L (98-107); Sodium 142 mmol/L (136-145)
[2025-10-16 05:31] LABS: BUN/Creatinine Ratio 10.6 (10.0-20.0); Blood Urea Nitrogen 20 mg/dL (9-23)
[2025-10-16 05:37] LABS: Glucose 137 mg/dL (74-106); Potassium 3.4 mmol/L (3.5-5.1)
[2025-10-16 08:00] VITALS: PULSE 70; PULSE 75; RESP 17
[2025-10-16 10:32] VITALS: BP 145/97; PULSE 77; RESP 17; TEMP 98.7; O2SAT 96
[2025-10-16] MEDS: POTASSIUM CHL 20MEQ/100ML 100 ML IV SCH (12:07)
[2025-10-16] MEDS ORDERED: NIFE1TAB31 PO (12:55)
[2025-10-16] MEDS ORDERED: MET25T PO (12:55)
[2025-10-16] MEDS ORDERED: SACU1TAB PO (12:55)
[2025-10-16 12:59] VITALS: TEMP 97.6
--- NOTE | 2025-10-16 13:31 | DVHDS2 ---
Discharge Summary Date of Admission Oct 13, 2025 at 23:19 Date of Discharge: Oct 16, 2025 Labs/Diagnostic Data: Laboratory Results Test 10/16/25 04:45 10/14/25 04:00 10/14/25 00:31 10/13/25 21:00 Sodium Level 142 mmol/L (136-145) Potassium Level 3.4 mmol/L (3.5-5.1) Chloride Level 105 mmol/L (98-107) Carbon Dioxide Level 26 mmol/L (20-31) Anion Gap 11 (5-15) Blood Urea Nitrogen 20 mg/dL (9-23) Creatinine 1.89 mg/dL (0.700-1.30) Glomerular Filtration Rate Calc 42 mL/min (>90) BUN/Creatinine Ratio 10.6 (10.0-20.0) Serum Glucose 137 mg/dL (74-106) Calcium Level 8.9 mg/dL (8.7-10.4) Urine Color Light-yellow (Yellow) Urine Clarity Clear (Clear) Urine pH 5.5 (5.0-9.0) Urine Specific [place] 1.017 (1.001-1.035) Urine Protein 1+ (Negative) Urine Ketones Negative (Negative) Urine Blood Negative /uL (Negative) Urine Nitrite Negative (Negative) Urine Bilirubin Negative (Negative) Urine Urobilinogen Normal mg/dL (Negative) Urine Leukocyte Esterase Negative /uL (Negative) Urine RBC None seen /hpf (0 - 3) Urine Microscopic WBC < 1 /HPF (0-3) Urine Squamous Epithelial Cells Few /hpf (<5) Urine Bacteria None seen /hpf (None Seen) Urine Glucose Normal mg/dL (Normal) Troponin I High Sensitivity 45 ng/L (</=54) White Blood Count 7.3 10^3/uL (4.4-10.8) Red Blood Count 4.79 10^6/uL (4.5-5.90) Hemoglobin 14.7 g/dL (13.5-17.5) Hematocrit 42.5 % (41.0-53.0) Mean Corpuscular Volume 88.8 fL (80.0-100.0) Mean Corpuscular Hemoglobin 30.7 pg (28.0-32.0) Mean Corpuscular Hemoglobin Concent 34.6 g/dL (32.0-36.0) Red Cell Distribution Width 14.5 % (11.8-14.3) Platelet Count 291 10^3/uL (140-450) Mean Platelet Volume 7.4 fL (6.9-10.8) Neutrophils (%) (Auto) 48.9 % (37.0-80.0) Lymphocytes (%) (Auto) 34.0 % (10.0-50.0) Monocytes (%) (Auto) 11.5 % (0.0-12.0) Eosinophils (%) (Auto) 4.7 % (0.0-7.0) Basophils (%) (Auto) 0.9 % (0.0-2.0) Neutrophils # (Auto) 3.5 10 ^3/uL (1.6-8.6) Lymphocytes # (Auto) 2.5 10 ^3/uL (0.4-5.4) Monocytes # (Auto) 0.8 10 ^3/uL (0-1.3) Eosinophils # (Auto) 0.3 10 ^3/uL (0-0.8) Basophils # (Auto) 0.1 10 ^3/uL (0-0.2) Nucleated Red Blood Cells 0.1 % Other Laboratory Tests 10/16/25 04:45 10/13/25 21:00 Brief Hx & Hospital Course: 55-year-old male presents for evaluation of chest pain. Patient reports developing left-sided sharp chest pain today in the afternoon with radiation to his left jaw and left arm. He also reports his blood pressure being elevated in the 180s. Reports mild shortness for breath. Also states having a nonproductive cough. No fever or chills. Chest pain non cardiac BP controlled and pain got better Condition at Discharge: Good Final Diagnosis/Problems List chest pain musculoskeletal in nature HTN urgency Discharge Disposition: Home Discharge Instruct/Medications Diet: Regular Activity: No Restrictions, As Tolerated Follow Up/Referral: Dr Starr in 7 days Medications: nifedipine, entresto, metoprolol Scheduled Allopurinol (Zyloprim Tablet), 2 TAB PO DAILY Apixaban Base (Eliquis), 2.5 MG PO BID, (Reported) Atorvastatin Calcium (Atorvastatin Calcium), 1 TAB PO DAILY, (Reported) Baclofen (Baclofen), 10 MG PO DAILY Beclomethasone Dipropionate (Qvar Redihaler), 2 PUFF INH BID, (Reported) Clopidogrel Bisulfate (Plavix), 1 TAB PO DAILY, (Reported) Docusate Sodium (Docusate Sodium), 100 MG PO BID Famotidine (Pepcid Tablet), 1 TAB PO BID Lactulose (Lactulose), 10 GM PO BID Metoprolol Tartrate (Lopressor), 25 MG PO BID Nifedipine (Nifedipine Er), 60 MG PO DAILY Prednisone (Prednisone), 20 MG PO DAILY Sacubitril-Valsartan (Entresto 24-26 mg), 2 TAB PO BID Tamsulosin Hcl (Tamsulosin Hcl), 1 PO DAILY, (Reported) Scheduled PRN Albuterol Sulfate (Albuterol Sulfate Hfa), 2 PUFF INH Q4HR PRN for WHEEZING, (Reported) Alprazolam (Xanax), 1 TAB PO BID PRN Discharge Statement: "Patient was advised to return to the ER or call 911 if any headaches, dizziness, shortness of breath, chest pain, abdominal pain, bleeding, fevers, or worsening of medical condition. Patient was counseled about treatment plan, medications, possible side effects, patientverbalized understanding. All questions were answered to the best of my ability. This discharge took greater then 30 minutes in planning, reviewing documentation, counseling the patient, and discussing with other team members." ASSESSMENT ASSESSMENT Assessment chest pain musculoskeletal in nature HTN urgency Date of Service: Oct 16, 2025 Billing Provider: QUINTEN NIELSON MD Common Visit Codes: 55011-ICN/OBS DISCH DAY >30min QUINTEN NIELSON MD Oct 16, 2025 13:31
[2025-10-16 14:13] VITALS: BP 130/95; PULSE 95; RESP 17; TEMP 36.4; O2SAT 97
[2025-10-16 14:14] LABS: COVID19 ANTIGEN SOFIA FIA NEGATIVE (NEGATIVE)
[2025-10-16] MEDS: POTASSIUM CHL 20 Meq TABLET PO ONE (15:07)
--- NOTE | 2025-10-17 13:30 | ECG ---
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
--- NOTE | 2025-10-19 08:06 | ECG ---
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
== END 2025-10-16 15:38 | disposition home or self-care (01) | DRG 305 ==
LOC: ER 20:55 → EDBD 20:55 → OVERFLOW 23:19 → TELE-EAST 10-14 16:50
PROVIDERS: ADMIT Hospitalist; ATTEND Hospitalist
DX: I16.0 Hypertensive urgency (principal); N17.9 Acute kidney failure, unspecified; N18.9 Chronic kidney disease, unspecified; J44.9 Chronic obstructive pulmonary disease, unspecified; I12.9 Hypertensive chronic kidney disease with stage 1 through stage 4 chronic kidney disease, or unspecified chronic kidney disease; I25.10 Atherosclerotic heart disease of native coronary artery without angina pectoris; Z20.822 Contact with and (suspected) exposure to COVID-19; E87.6 Hypokalemia; R07.89 Other chest pain; E78.5 Hyperlipidemia, unspecified; N40.0 Benign prostatic hyperplasia without lower urinary tract symptoms; M10.9 Gout, unspecified; I25.2 Old myocardial infarction; Z88.1 Allergy status to other antibiotic agents; Z86.711 Personal history of pulmonary embolism; Z95.5 Presence of coronary angioplasty implant and graft; Z86.73 Personal history of transient ischemic attack (TIA), and cerebral infarction without residual deficits; Z91.199 Patient's noncompliance with other medical treatment and regimen due to unspecified reason
CPT/HCPCS: 36415; 71045; 72125; 80048; 81001; 84484; 85025; 87426; 93005; 96374; 99291; G0378; J2405; J3480

== ENCOUNTER 2025-10-25 15:41 | Inpatient (IN) | payer MEDICARE, MEDICAID ==
[~2025-10-25] VITALS: Ht 177.8 cm; Wt 105.8 kg
[~2025-10-25 15:41] MED LIST changes: +MET25T PO; +NIFE1TAB31 PO; +SACU1TAB PO
--- NOTE | 2025-10-25 16:00 | ECG ---
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
--- NOTE | 2025-10-25 16:40 | ED.PDOC ---
HPI Comments 55 year old male with PMHx CAD, CKF, CVA, HLD, HTN, KS, PE, cardiac stent x6, pacemaker presents to the ED via EMS with a chief complaint of chest pain onset 3 days. Patient was discharged from [facility] on 10/16/25 was admitted for chest pain. Patient states he began experiencing LT sided chest pain, described as a pressure sensation, radiating to LT jaw and LT shoulder, rates pain 8/10. Patient is currently on Plavix, is compliant with medication. Patient has not taken Xanax, states he experiences similar symptoms when he does not take it. Prior to EMS arrival, patient took 2 doses of Nitro, no improvement of symptoms, in route to ED he was given 0.4 mg Nitro by EMS with no improvement. Social Work Nurse is Dr. Starr. Denies fever, chills, shortness for breath, dizziness, nausea, vomiting, diarrhea, headache, numbness/tingling. No other symptoms or modifying factors present at this time. Patient states that he is on disability due to anxiety. He has a psychiatrist who endorses him using Xanax for chest pain. Chief Complaint: Chest Pain Time Seen by : 16:05 Primary Care Provider: UNKNOWN Reviewed Notes: Medications, Allergies Allergies: Coded Allergies: Amlodipine (Verified Allergy, Severe, 03/07/25) Vancomycin (Verified Allergy, Intermediate, 08/23/24) Lisinopril (Verified Allergy, Unknown, 09/01/25) Home Meds Active Scripts Sacubitril-Valsartan (Entresto 24-26 mg) 1 Tab Tab, 2 TAB PO BID for 90 Days, #360 TAB Prov:QUINTEN NIELSON MD 10/16/25 Metoprolol Tartrate (Lopressor) 25 Mg Tb, 25 MG PO BID for 90 Days, #180 TAB Prov:QUINTEN NIELSON MD 10/16/25 Nifedipine (Nifedipine Er) 30 Mg Tab, 60 MG PO DAILY for 90 Days, #180 TAB Prov:QUINTEN NIELSON MD 10/16/25 Docusate Sodium (Docusate Sodium) 100 Mg Cap, 100 MG PO BID for 30 Days, #60 CAP 0 Refills Prov:NORAH MEYER MD 07/01/25 Prednisone (Prednisone) 20 Mg Tab, 20 MG PO DAILY for 5 Days, #5 MG 0 Refills Prov:NORAH MEYER MD 07/01/25 Famotidine (PEPCID TABLET) 20 Mg Tb, 1 TAB PO BID, #60 TAB 1 Refill Prov:NORAH MEYER MD 07/01/25 Lactulose (Lactulose) 10 Gm/15 Ml [place], 10 GM PO BID for 30 Days, #500 ML Prov:NORAH MEYER MD 07/01/25 Baclofen (Baclofen) 10 Mg Tab, 10 MG PO DAILY for 10 Days, #10 TAB 0 Refills Prov:NORAH MEYER MD 07/01/25 Allopurinol (ZYLOPRIM TABLET) 100 Mg Tb, 2 TAB PO DAILY, #60 TAB 1 Refill Prov:NORAH MEYER MD 07/01/25 Alprazolam (Xanax) 0.5 Mg Tb, 1 TAB PO BID PRN, #30 TAB Prov:DWAINE JOHN MD 01/10/24 Reported Medications Tamsulosin Hcl (Tamsulosin Hcl) 0.4 Mg Cap, 1 PO DAILY 06/22/25 Apixaban Base (ELIQUIS) 2.5 Mg Tab, 2.5 MG PO BID, TAB 03/08/25 Atorvastatin Calcium (ATORVASTATIN CALCIUM) 40 Mg Tab, 1 TAB PO DAILY 07/28/24 Clopidogrel Bisulfate (Plavix) 75 Mg Tab, 1 TAB PO DAILY, #90 TAB 1 Refill 03/25/24 Beclomethasone Dipropionate (Qvar Redihaler) 80 Mcg/Act Aer, 2 PUFF INH BID 03/06/24 Albuterol Sulfate (Albuterol Sulfate Hfa) 108 Mcg/Act Aer, 2 PUFF INH Q4HR PRN for WHEEZING 03/06/24 Information Source: Patient, Emergency Med Personnel Mode of Arrival: EMS Severity: Moderate Timing: Days Duration: Since onset Prehospital treatment: Other (nitro ) Location: Chest (L) Radiation: Jaw, Shoulder (L) Quality: Pressure Onset: At Rest Cardiac Risk Factors: Hyperlipidemia, HTN PE Risk Factors: None History of: Similar pain in past, KS Modifying Factors: Nothing Past Medical History PAST MEDICAL HISTORY: CAD, CKF, CVA, High Lipids, HTN, KS, PE Surgical History: Hernia Repair, Pacemaker, PTCA Family History Family History: Reviewed,noncontributory to illness, Family hx of Cancer, Family hx of stroke Social History Smoker: Non-Smoker Alcohol: Denies ETOH Use Drugs: Denies Drug Use Lives In: Home Constitutional: denies: chills, diaphoresis, fatigue, fever, malaise, sweats, weakness, others EENTM: denies: blurred vision, double vision, ear bleeding, ear discharge, ear drainage, ear pain, ear ringing, eye pain, eye redness, hearing loss, mouth pain, mouth swelling, nasal discharge, nose bleeding, nose congestion, nose pain, photophobia, tearing, throat pain, throat swelling, voice changes, others Respiratory: denies: cough, hemoptysis, orthopnea, SOB at rest, shortness of breath, SOB with excertion, stridor, wheezing, others Cardiovascular: reports: chest pain; denies: dizzy spells, diaphoresis, Dyspnea on exertion, edema, irregular heart beat, left arm pain, lightheadedness, palpitations, PND, syncope, others Gastrointestinal: denies: abdomen distended, abdominal pain, blood streaked bowels, constipated, diarrhea, dysphagia, difficulty swallowing, hematemesis, melena, nausea, poor appetite, poor fluid intake, rectal bleeding, rectal pain, vomiting, others Genitourinary: denies: burning, dysuria, flank pain, frequency, hematuria, incontinence, penile discharge, penile sore, pain, testicle pain, testicle swelling, urgency, others Neurological: denies: dizziness, fainting, headache, left sided numbness, left sided weakness, numbness, paresthesia, pre-existing deficit, right sided numbness, right sided weakness, seizure, speech problems, tingling, tremors, weakness, others Musculoskeletal: reports: others (LT jaw pain, LT shoulder pain); denies: back pain, gout, joint pain, joint swelling, muscle pain, muscle stiffness, neck pain Integumetry: denies: bruises, change in color, change in hair/nails, dryness, laceration, lesions, lumps, rash, wounds, others Allergic/Immunocompromised: denies: Difficulty Healing, Frequent Infections, Hives, Itching, others Hematologic/Lymphatic: denies: anemia, blood clots, easy bleeding, easy bruising, swollen glands, others Endocrine: denies: excessive hunger, excessive sweating, excessive thirst, excessive urination, flushing, intolerance to cold, intolerance to heat, unexplained weight gain, unexplained weight loss, others Psychiatric: denies: anxiety, bipolar disorder, depression, hopeless, panic disorder, schizophrenia, sleepless, suicidal, others All Other Systems: Reviewed and Negative Physical Exam General Appearance: Normal HEENT: Normal ENT Inspection, Pharynx Normal, TMs Normal Neck: Full Range of Motion, Non-Tender, Normal, Normal Inspection Respiratory: Chest Non-Tender, Lungs Clear, No Accessory Muscle Use, No Respiratory Distress, Normal Breath Sounds Cardiovascular: No Edema, No JVD, No Murmur, No Gallop, Normal Peripheral Pulses, Regular Rate/Rhythm Breast Exam: Deferred Gastrointestinal: No Organomegaly, Non Tender, No Pulsatile Mass, Normal Bowel Sounds, Soft Genitalia: Deferred Pelvic: Deferred Rectal: Deferred Extremities: No calf tenderness, Normal capillary refill, Normal inspection, Normal range of motion, Non-tender, No pedal edema Musculoskeletal : Apperance: Normal Neurologic: Alert, people greeter II-XII nml as Tested, No Motor Deficits, Normal Affect, Normal Mood, No Sensory Deficits Cerebellar Function: Normal Reflexes: Normal Skin: Dry, Normal Color, Warm Lymphatic: No Adenopathy Was a procedure done? Was a procedure done?: No CP Differential Dx Differential Diagnosis: Other Differential Diagnosis: Other Differential Diagnosis: Angina, Chest Wall Pain, Costochondritis, Myocardial Infarction, Pericarditis, Pneumonia, Pneumothorax, Other (Anxiety) X-Ray, Labs, Meds, VS Vital Signs Date Time Temp Pulse Resp B/P (MAP) Pulse Ox O2 Delivery O2 Flow Rate FiO2 10/25/25 17:24 78 14 114/58 (76) 93 10/25/25 17:05 81 10/25/25 16:38 69 10/25/25 15:59 103 10/25/25 15:41 98.7 106 16 174/123 96 98.7 Lab Test 10/25/25 17:56 10/25/25 16:28 Range/Units Troponin I High Sensitivity Pending 36 </=54 ng/L White Blood Count 8.3 4.4-10.8 10^3/uL Red Blood Count 4.57 4.5-5.90 10^6/uL Hemoglobin 14.0 13.5-17.5 g/dL Hematocrit 41.1 41.0-53.0 % Mean Corpuscular Volume 89.9 80.0-100.0 fL Mean Corpuscular Hemoglobin 30.7 28.0-32.0 pg Mean Corpuscular Hemoglobin Concent 34.2 32.0-36.0 g/dL Red Cell Distribution Width 14.4 H 11.8-14.3 % Platelet Count 274 140-450 10^3/uL Mean Platelet Volume 7.5 6.9-10.8 fL Neutrophils (%) (Auto) 66.3 37.0-80.0 % Lymphocytes (%) (Auto) 20.6 10.0-50.0 % Monocytes (%) (Auto) 10.4 0.0-12.0 % Eosinophils (%) (Auto) 1.8 0.0-7.0 % Basophils (%) (Auto) 0.9 0.0-2.0 % Neutrophils # (Auto) 5.5 1.6-8.6 10 ^3/uL Lymphocytes # (Auto) 1.7 0.4-5.4 10 ^3/uL Monocytes # (Auto) 0.9 0-1.3 10 ^3/uL Eosinophils # (Auto) 0.2 0-0.8 10 ^3/uL Basophils # (Auto) 0.1 0-0.2 10 ^3/uL Nucleated Red Blood Cells 0.1 % Sodium Level 142 136-145 mmol/L Potassium Level 4.1 3.5-5.1 mmol/L Chloride Level 105 98-107 mmol/L Carbon Dioxide Level 24 20-31 mmol/L Anion Gap 13 5-15 Blood Urea Nitrogen 29 H 9-23 mg/dL Creatinine 2.23 H 0.700-1.30 mg/dL Glomerular Filtration Rate Calc 34 >90 mL/min BUN/Creatinine Ratio 13.0 10.0-20.0 Serum Glucose 129 H 74-106 mg/dL Calcium Level 8.8 8.7-10.4 mg/dL [16:40] Spoke with Dr. Starr, stated patient is stable for discharge if all coronaries are clean. Patient should be advised to follow up with Dr. Starr as an outpatient. Time of 1ST Reevaluation: 16:35 Reevaluation 1ST: Unchanged Time of 2ND Reevaluation: 18:10 Reevaluation 2ND: Improved Patient Education/Counseling: Diagnosis, Treatment, Prognosis, Need For Follow Up Family Education/Counseling: No Family Present Comments This is a patient who has frequent chest pains. He was recently seen by Dr. Bernal. Dr. Bernal knows this patient well. I consulted Dr. Bernal regarding this case. Under CIWA feels the patient is stable for discharge to follow up with him. Patient also reports that when he does not get his Xanax he tends to have this type of chest pain. This is quite atypical for angina. His cardiac workup is unremarkable. He is stable for discharge. SEPSIS Sepsis Screen Date sepsis recognized/suspect: Oct 25, 2025 Time Sepsis recognized/suspect: 155 Recent Procedure: No On Antibiotic Therapy: No Respiratory Rate >20: No Heart Rate >90: Yes Temp<36 C (96.8 F) or >38.3 C: No SBP <90 or MAP <65 mmHG: No New Acute Mental Status Change: No Is the patient on CPAP, BIPAP,: No Physician Orders Troponin-I Hs (10/25/25 16:53) Troponin-I Hs (10/25/25 18:53) Electrocardigram (10/25/25 18:53) Chest Portable (10/25/25 16:17) Vital Signs Date Time Temp Pulse Resp B/P (MAP) Pulse Ox O2 Delivery O2 Flow Rate FiO2 10/25/25 17:24 78 14 114/58 (76) 93 10/25/25 17:05 81 10/25/25 16:38 69 10/25/25 15:59 103 10/25/25 15:41 98.7 106 16 174/123 96 98.7 Laboratory Tests Test 10/25/25 16:28 White Blood Count 8.3 10^3/uL (4.4-10.8) Departure 1 Departure Time of Disposition: 18:10 Impression: Primary Impression: Atypical chest pain Additional Impression: Chronic renal failure Disposition: 01 HOME / SELF CARE / HOMELESS Condition: Good Discharged With: Self Critical Care Note Critical Care Time?: No Stability Stability form required: No Heart Score Heart Score: Heart Score Response (Comments) Value History Slightly Suspicious 0 EKG Normal 0 Age 45-64 1 Risk Factors >3 or Hx ASHD 2 Troponin Normal limit 0 Total 3 I personally scribed for TD LUNDY MD ([email or web address]) on 10/25/25 at 16:40. Electronically submitted by Hedy Valles ([email or web address]). I personally scribed for TD LUNDY MD ([email or web address]) on 10/25/25 at 16:47. Electronically submitted by Hedy Valles ([email or web address]). TD LUNDY MD Oct 25, 2025 16:40
--- NOTE | 2025-10-25 17:05 | DVH ---
CHEST RADIOGRAPH Indication: cp Technique: Single frontal view of the chest was obtained Comparison: XY CHEST XRAY 1 VIEW on DOS: 10/14/25, XY CHEST PORTABLE on DOS: 09/01/25, XY CHEST XRAY 1 VIEW on DOS: 06/22/25 FINDINGS: Lines and Tubes: None. Left-sided approach dual lead pacemaker terminating in the right atrium and right ventricle. Lungs: No focal consolidation. Pleura: No effusion. No pneumothorax. Cardiomediastinal contours: Mild cardiomegaly. Bones: No acute osseous abnormality. IMPRESSION: No acute cardiopulmonary disease.
--- NOTE | 2025-10-25 17:08 | ECG ---
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
[2025-10-25 17:28] LABS: Chloride 105 mmol/L (98-107); Potassium 4.1 mmol/L (3.5-5.1); Sodium 142 mmol/L (136-145)
[2025-10-25 17:29] LABS: Anion Gap 13 (5-15); Calcium 8.8 mg/dL (8.7-10.4); Carbon Dioxide 24 mmol/L (20-31)
[2025-10-25 17:33] LABS: Hematocrit 41.1 % (41.0-53.0); Hemoglobin 14.0 g/dL (13.5-17.5); Mean Corpuscular Hemoglobin 30.7 pg (28.0-32.0); Mean Corpuscular Volume 89.9 fL (80.0-100.0); Nucleated Red Blood Cells % 0.1 %
[2025-10-25 17:34] LABS: BUN/Creatinine Ratio 13.0 (10.0-20.0)
[2025-10-25 18:02] LABS: Blood Urea Nitrogen 29 mg/dL (9-23); Glucose 129 mg/dL (74-106)
[2025-10-25] MEDS ORDERED: ALBUTEROL SULF 2.5 MG/0.5ML(0.5%) NEB SOLN NEB PRN (19:30)
[2025-10-25] MEDS ORDERED: MORPHINE SULFATE INJ 2 MG/ml SYRG IV PRN (19:30)
[2025-10-25] MEDS ORDERED: ALPRAZolam 0.5 MG TAB PO PRN (19:30)
[2025-10-25] MEDS ORDERED: ACETAMINOPHEN 325 MG TAB PO PRN (19:30)
[2025-10-25] MEDS ORDERED: NITROGLYCERIN 0.4 MG SL TAB SL PRN (19:30)
[2025-10-25 20:08] VITALS: O2SAT 91
[2025-10-25 20:09] VITALS: BP 95/54; PULSE 69; RESP 14; TEMP 98.4; O2SAT 91
[2025-10-25 20:28] VITALS: PULSE 18; RESP 18; O2SAT 95
--- NOTE | 2025-10-25 20:56 | DVHHP2 ---
History of Present Illness Reason for Visit: Chest pain History of Present Illness 55-year-old male presents for evaluation of chest pain. Patient endorses a two day history of substernal pressure-like chest pain that radiates to his left chest. He also reports shortness for breath. Denies fever or chills. No GI or symptoms. Past Medical History CVA, dyslipidemia, chronic kidney disease, CAD, hypertension, mi, PE Past Surgical History Pacemaker, PTCA, hernia repair Family History Noncontributory Smoke: No ALCOHOL: none Drugs: None Lives: with Family Review of Systems Review of Systems Review of systems are currently negative otherwise addressed in HPI. Allergies: Coded Allergies: Amlodipine (Verified Allergy, Severe, 03/07/25) Vancomycin (Verified Allergy, Intermediate, 08/23/24) Lisinopril (Verified Allergy, Unknown, 09/01/25) Medications Current Medications Medications Dose Ordered Sig/[place] Route Start Time Stop Time Status Last Admin Dose Admin Nitroglycerin 0.4 mg Q5MINP PRN SL 10/25/25 19:30 UNV Morphine Sulfate 2 mg Q30M PRN IV 10/25/25 19:30 UNV Atorvastatin Calcium 40 mg HS PO 10/25/25 22:00 UNV Clopidogrel Bisulfate 75 mg DAILY PO 10/26/25 10:00 UNV Apixaban 2.5 mg BID PO 10/25/25 22:00 UNV Allopurinol 200 mg DAILY PO 10/26/25 10:00 UNV Albuterol 2.5 mg Q6HPRN PRN NEB 10/25/25 19:30 UNV Acetaminophen/ Hydrocodone Bitart 1 tab Q4HP PRN PO 10/25/25 19:30 UNV Ondansetron HCl 4 mg Q4HP PRN IV 10/25/25 19:30 UNV Acetaminophen 650 mg Q6HP PRN PO 10/25/25 19:30 UNV Alprazolam 0.5 mg [id number] PRN PO 10/25/25 19:30 UNV Exam Vital Signs Vital Signs Date Time Temp Pulse Resp B/P (MAP) Pulse Ox O2 Delivery O2 Flow Rate FiO2 10/25/25 20:28 18 18 95 Room Air* 0 21 10/25/25 20:09 98.4 95/54 98.4 Exam Gen: 55-year-old male in no apparent distress. Skin: Warm, dry, normal color and texture, no rash. HEENT: Normocephalic atraumatic, mucous membranes moist and pink. Neck: Cervical and supraclavicular nodes normal without enlargement, trachea is midline, thyroid gland is normal without masses. Pulmonary: Clear to auscultation and percussion bilaterally. Cardiac: Regular rate and rhythm. No murmur Abdomen: Soft, nontender, nondistended, bowel sounds present all 4 quadrants, no guarding, no rigidity, no organomegaly. Extremities: No cyanosis, clubbing, no edema Neuro: Cranial nerves II through XII grossly intact, normal affect and speech, no focal motor deficits. Labs/Xrays ORDERING PHYSICIAN: BIGG MURPHY PROCEDURE(s): ECIDC - ECHO 2D MODE CARDIAC DOP REASON: Hypotension, syncope ORDER NUMBER(s): [id number], ACCESSION NUMBER(s): [id number] APPROVED REPORT EXAM: Two-dimensional and M-mode echocardiogram with Doppler and color Doppler. Blood Pressure: 82/55 mmHg INDICATION Syncope hypotension RISK FACTORS Height: 70, Weight: 253 DIMENSIONS LVDd 3.9 (3.8-5.7cm) LA (2D) 4.0 (1.9-4.0cm) Aortic Root 4.2 (2.0- 3.7cm) LVDs 2.8 (2.5-4.0cm) LA (MM) (1.9-4.0cm) Aortic Cusp Exc 1.7 (1.5- 2.0cm) EF (%) 55.0 (55-70%) Rt. Atrium 4.0 (1.9-4.0cm) Asc. Aorta cm Mitral Valve Mitral Mitral Stenosis E wave 0.80m/s MV Mean GR. mmHg A wave 0.97m/s MV Peak GR. 56mmHg E/A ratio 0.8 2D MVA cm2 DECEL Time 239ms PRESS 1/2 Time 68ms IVRT ms Dop MVA 3.25cm2 Aortic Valve Aortic Valve Aortic Stenosis V1 0.97m/s AO Mean GR. 3mmHg V2 1.19m/s AO Peak GR. 6mmHg LVOT Diameter 1.9 (1.8-2.4cm) Doppler MANUEL 2.31cm2 AI P /2 Time 405.31ms Pulmonic Valve V2 0.83m/s Tricuspid Valve TR Velocity 1.57m/s RVSP 13mmHg Conclusion CONC LVH EF >55% SIGNED BY: DEBORAH ROMERO MD SIGNED DATE/TIME: 07/09/25 1520 CC: ORDERING PHYSICIAN: TD LUNDY MD PROCEDURE(s): CXRP - CHEST PORTABLE REASON: cp ORDER NUMBER(s): [id number], ACCESSION NUMBER(s): [id number] CHEST RADIOGRAPH Indication: cp Technique: Single frontal view of the chest was obtained Comparison: XY CHEST XRAY 1 VIEW on DOS: 10/14/25, XY CHEST PORTABLE on DOS: 09/01/25, XY CHEST XRAY 1 VIEW on DOS: 06/22/25 FINDINGS: Lines and Tubes: None. Left-sided approach dual lead pacemaker terminating in the right atrium and right ventricle. Lungs: No focal consolidation. Pleura: No effusion. No pneumothorax. Cardiomediastinal contours: Mild cardiomegaly. Bones: No acute osseous abnormality. IMPRESSION: No acute cardiopulmonary disease. ATED BY: ELISA GAMBOA DO Labs Test 10/25/25 19:30 10/25/25 16:28 Range/Units Troponin I High Sensitivity 39 </=54 ng/L White Blood Count 8.3 4.4-10.8 10^3/uL Red Blood Count 4.57 4.5-5.90 10^6/uL Hemoglobin 14.0 13.5-17.5 g/dL Hematocrit 41.1 41.0-53.0 % Mean Corpuscular Volume 89.9 80.0-100.0 fL Mean Corpuscular Hemoglobin 30.7 28.0-32.0 pg Mean Corpuscular Hemoglobin Concent 34.2 32.0-36.0 g/dL Red Cell Distribution Width 14.4 H 11.8-14.3 % Platelet Count 274 140-450 10^3/uL Mean Platelet Volume 7.5 6.9-10.8 fL Neutrophils (%) (Auto) 66.3 37.0-80.0 % Lymphocytes (%) (Auto) 20.6 10.0-50.0 % Monocytes (%) (Auto) 10.4 0.0-12.0 % Eosinophils (%) (Auto) 1.8 0.0-7.0 % Basophils (%) (Auto) 0.9 0.0-2.0 % Neutrophils # (Auto) 5.5 1.6-8.6 10 ^3/uL Lymphocytes # (Auto) 1.7 0.4-5.4 10 ^3/uL Monocytes # (Auto) 0.9 0-1.3 10 ^3/uL Eosinophils # (Auto) 0.2 0-0.8 10 ^3/uL Basophils # (Auto) 0.1 0-0.2 10 ^3/uL Nucleated Red Blood Cells 0.1 % Sodium Level 142 136-145 mmol/L Potassium Level 4.1 3.5-5.1 mmol/L Chloride Level 105 98-107 mmol/L Carbon Dioxide Level 24 20-31 mmol/L Anion Gap 13 5-15 Blood Urea Nitrogen 29 H 9-23 mg/dL Creatinine 2.23 H 0.700-1.30 mg/dL Glomerular Filtration Rate Calc 34 >90 mL/min BUN/Creatinine Ratio 13.0 10.0-20.0 Serum Glucose 129 H 74-106 mg/dL Calcium Level 8.8 8.7-10.4 mg/dL SEPSIS Sepsis Screen Date sepsis recognized/suspect: Oct 25, 2025 Time Sepsis recognized/suspect: 1924 Recent Procedure: No On Antibiotic Therapy: No Respiratory Rate >20: No Heart Rate >90: No Temp<36 C (96.8 F) or >38.3 C: No SBP <90 or MAP <65 mmHG: No New Acute Mental Status Change: No Is the patient on CPAP, BIPAP,: No Physician Orders Electrocardigram (10/25/25 18:53) Chest Portable (10/25/25 16:17) Admit (10/25/25 19:20) Nitroglycerin Sublingual (Ntrostat Subli (10/25/25 19:30) Morphine Sulfate Injection (10/25/25 19:30) Stat Ekg For Chest Pain (10/25/25 19:20) Notify Of Changes From Base (10/25/25 19:20) Integrated Campaign Manager For 24 Hours (10/25/25 19:20) Emergency Dysrhythmia Protocol (10/25/25 19:20) Rhythm Strips Once Every Shift (10/25/25 19:20) Oxygen By Nasal Cannula (10/25/25 19:20) Atorvastatin (Lipitor) (10/25/25 22:00) Clopidogrel Bisulfate (Plavix) (10/26/25 10:00) Apixaban (Eliquis) (10/25/25 22:00) Allopurinol Tablet (Zyloprim Tablet) (10/26/25 10:00) Albuterol Medneb (Ventolin Medneb) (10/25/25 19:30) Basic Metabolic Panel (10/26/25 04:00) Renal Standard(2gna,3gk,Lopho) (10/26/25 Breakfast) Hydrocodone-Acet 5/325mg Tab (Crumrod 5/32 (10/25/25 19:30) Cardiac Diet-2gna,Lofat,Lochol (10/26/25 Breakfast) Condition: Fair (10/25/25 19:22) Acetaminophen Tablet (Tylenol Tablet) (10/25/25 19:30) Bedrest With Bathroom Privileg (10/25/25 19:22) Alprazolam Tablet (Xanax Tablet) (10/25/25 19:30) Ondansetron Hcl (Zofran) (10/25/25 19:30) Vital Signs Date Time Temp Pulse Resp B/P (MAP) Pulse Ox O2 Delivery O2 Flow Rate FiO2 10/25/25 20:28 18 18 95 Room Air* 0 21 10/25/25 20:09 98.4 69 14 95/54 91 0.0 21 98.4 10/25/25 20:08 91 Room Air 10/25/25 20:08 91 Room Air* 0 21 10/25/25 19:25 75 18 101/57 (72) 95 10/25/25 19:11 69 10/25/25 19:07 70 14 95/54 (68) 91 10/25/25 17:24 78 14 114/58 (76) 93 10/25/25 17:05 81 10/25/25 16:38 69 10/25/25 15:59 103 10/25/25 15:41 98.7 106 16 174/123 96 98.7 Laboratory Tests Test 10/25/25 16:28 White Blood Count 8.3 10^3/uL (4.4-10.8) Assessment/Plan Assessment/Plan Assessment Unstable angina Atypical chest pain Anxiety Hypotension,? Polypharmacy Chronic kidney disease Plan Admit the patient to telemetry to the hospitalist Resume home medications Hold antihypertensives Continue treatment per orders Plan discussed with: Patient My Orders Orders - LIBRADO DALY Procedure Category Date Status Time Admit ADMIT 10/25/25 Transmitted 19:20 Nitroglycerin PHA 10/25/25 Logged Sublingual (Ntrostat 19:30 Morphine Sulfate PHA 10/25/25 Logged Injection 19:30 Stat Ekg For Chest [facility] 10/25/25 In Process Pain 19:20 Notify Of Changes [facility] 10/25/25 In Process From Base 19:20 Integrated Campaign Manager For [facility] 10/25/25 In Process 24 Hours 19:20 Emergency Dysrhythmia [facility] 10/25/25 In Process Protocol 19:20 Rhythm Strips Once [facility] 10/25/25 In Process Every Shift 19:20 Oxygen By Nasal RT 10/25/25 Transmitted Cannula 19:20 Atorvastatin (Lipitor) PHA 10/25/25 Logged 22:00 Clopidogrel Bisulfate PHA 10/26/25 Logged (Plavix) 10:00 Apixaban (Eliquis) PHA 10/25/25 Logged 22:00 Allopurinol Tablet PHA 10/26/25 Logged (Zyloprim Tablet) 10:00 Albuterol Medneb PHA 10/25/25 Logged (Ventolin Medneb) 19:30 Basic Metabolic Panel LAB 10/26/25 Verified 04:00 Renal DIET 10/26/25 Transmitted Standard(2gna,3gk,Lopho) Breakfast Hydrocodone-Acet PHA 10/25/25 Logged 5/325mg Tab (Crumrod 19:30 Cardiac DIET 10/26/25 Transmitted Diet-2gna,Lofat,Lochol Breakfast Condition: Fair [facility] 10/25/25 In Process 19:22 Acetaminophen Tablet PHA 10/25/25 Logged (Tylenol Tablet) 19:30 Bedrest With Bathroom [facility] 10/25/25 In Process Privileg 19:22 Alprazolam Tablet PHA 10/25/25 Logged (Xanax Tablet) 19:30 Ondansetron Hcl PHA 10/25/25 Logged (Zofran) 19:30 Date of Service: Oct 25, 2025 Billing Provider: LIBRADO DALY Common Visit Codes: [id number] INP/OBS CARE (HIGH) LIBRADO DALY Oct 25, 2025 20:56
[2025-10-25 21:03] VITALS: BP 91/57; PULSE 69; RESP 18; TEMP 97.4; O2SAT 97
[2025-10-25] MEDS: APIXABAN 2.5 MG TAB PO SCH (21:44)
[2025-10-25] MEDS: ATORVASTATIN 20 MG TAB PO SCH (21:44)
--- NOTE | 2025-10-25 23:04 | ECG ---
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
[2025-10-26] VITALS (9 sets, daily range): BP systolic 91–112; BP diastolic 55–67; PULSE 69–81; RESP 17–18; TEMP 96.6–97.5; O2SAT 91–97
[2025-10-26] MEDS: HYDROcodone-ACET 5/325MG TAB PO PRN (01:26)
[2025-10-26 07:46] LABS: Chloride 106 mmol/L (98-107); Sodium 141 mmol/L (136-145)
[2025-10-26 07:47] LABS: Anion Gap 12 (5-15); Calcium 8.8 mg/dL (8.7-10.4); Carbon Dioxide 23 mmol/L (20-31)
[2025-10-26 07:50] LABS: Potassium 3.4 mmol/L (3.5-5.1)
[2025-10-26 07:52] LABS: BUN/Creatinine Ratio 11.5 (10.0-20.0); Blood Urea Nitrogen 30 mg/dL (9-23); Glucose 143 mg/dL (74-106)
[2025-10-26] MEDS: CLOPIDOGREL BISULFATE 75 MG TAB PO SCH (09:50)
[2025-10-26] MEDS: ALLOPURINOL 100 MG TAB PO SCH (09:51)
[2025-10-26] MEDS: CALCIUM CARB 500 MG CHEW TAB PO PRN (18:08)
[2025-10-27 01:00] VITALS: BP 109/69; PULSE 75; RESP 16; TEMP 97.7; O2SAT 96
[2025-10-27 08:00] VITALS: PULSE 70; O2SAT 99
[2025-10-27] MEDS: ONDANSETRON HCL 4 MG/2 ML VIAL IV PRN (08:05)
[2025-10-27 13:00] VITALS: BP 105/68; PULSE 76; RESP 19; TEMP 98.1; O2SAT 93
[2025-10-27 17:00] VITALS: BP 111/67; PULSE 78; RESP 17; TEMP 98.1; O2SAT 95
[2025-10-27 20:00] VITALS: PULSE 81; O2SAT 96
[2025-10-27 21:00] VITALS: BP 104/71; PULSE 77; RESP 18; TEMP 97.4; O2SAT 94
[2025-10-27] MEDS: MORPHINE SULFATE INJ 2 MG/ml SYRG IV PRN (21:36)
[2025-10-28 05:00] VITALS: BP 105/60; PULSE 74; RESP 18; TEMP 97.6; O2SAT 93
[2025-10-28 08:00] VITALS: PULSE 74
[2025-10-28 09:00] VITALS: BP 102/72; PULSE 78; RESP 17; TEMP 98.1; O2SAT 97
[2025-10-28 09:19] VITALS: BP 106/70; PULSE 72; RESP 18
--- NOTE | 2025-10-28 15:53 | DVHDS2 ---
Discharge Summary Date of Admission Oct 25, 2025 at 19:20 Date of Discharge: Oct 28, 2025 Labs/Diagnostic Data: Laboratory Results Test 10/26/25 07:00 10/25/25 19:30 10/25/25 16:28 Sodium Level 141 mmol/L (136-145) Potassium Level 3.4 mmol/L (3.5-5.1) Chloride Level 106 mmol/L (98-107) Carbon Dioxide Level 23 mmol/L (20-31) Anion Gap 12 (5-15) Blood Urea Nitrogen 30 mg/dL (9-23) Creatinine 2.61 mg/dL (0.700-1.30) Glomerular Filtration Rate Calc 28 mL/min (>90) BUN/Creatinine Ratio 11.5 (10.0-20.0) Serum Glucose 143 mg/dL (74-106) Calcium Level 8.8 mg/dL (8.7-10.4) Troponin I High Sensitivity 39 ng/L (</=54) White Blood Count 8.3 10^3/uL (4.4-10.8) Red Blood Count 4.57 10^6/uL (4.5-5.90) Hemoglobin 14.0 g/dL (13.5-17.5) Hematocrit 41.1 % (41.0-53.0) Mean Corpuscular Volume 89.9 fL (80.0-100.0) Mean Corpuscular Hemoglobin 30.7 pg (28.0-32.0) Mean Corpuscular Hemoglobin Concent 34.2 g/dL (32.0-36.0) Red Cell Distribution Width 14.4 % (11.8-14.3) Platelet Count 274 10^3/uL (140-450) Mean Platelet Volume 7.5 fL (6.9-10.8) Neutrophils (%) (Auto) 66.3 % (37.0-80.0) Lymphocytes (%) (Auto) 20.6 % (10.0-50.0) Monocytes (%) (Auto) 10.4 % (0.0-12.0) Eosinophils (%) (Auto) 1.8 % (0.0-7.0) Basophils (%) (Auto) 0.9 % (0.0-2.0) Neutrophils # (Auto) 5.5 10 ^3/uL (1.6-8.6) Lymphocytes # (Auto) 1.7 10 ^3/uL (0.4-5.4) Monocytes # (Auto) 0.9 10 ^3/uL (0-1.3) Eosinophils # (Auto) 0.2 10 ^3/uL (0-0.8) Basophils # (Auto) 0.1 10 ^3/uL (0-0.2) Nucleated Red Blood Cells 0.1 % Other Laboratory Tests 10/26/25 07:00 10/25/25 16:28 Brief Hx & Hospital Course: 55-year-old male presents for evaluation of chest pain. Patient endorses a two day history of substernal pressure-like chest pain that radiates to his left chest. He also reports shortness for breath. Denies fever or chills. No GI or symptoms. Past Medical History CVA, dyslipidemia, chronic kidney disease, CAD, hypertension, mi, PE Past Surgical History Pacemaker, PTCA, hernia repair This patient was assigned to me today. Patient left against medical advice before I came to see the patient. Condition at Discharge: Undetermined Final Diagnosis/Problems List Patient's left against medical advice Discharge Disposition: AMA SNF Discharge Will this Physician continue t: No Discharge Instruct/Medications Scheduled Allopurinol (Zyloprim Tablet), 2 TAB PO DAILY Apixaban Base (Eliquis), 2.5 MG PO BID, (Reported) Atorvastatin Calcium (Atorvastatin Calcium), 1 TAB PO DAILY, (Reported) Baclofen (Baclofen), 10 MG PO DAILY Beclomethasone Dipropionate (Qvar Redihaler), 2 PUFF INH BID, (Reported) Clopidogrel Bisulfate (Plavix), 1 TAB PO DAILY, (Reported) Docusate Sodium (Docusate Sodium), 100 MG PO BID Famotidine (Pepcid Tablet), 1 TAB PO BID Lactulose (Lactulose), 10 GM PO BID Metoprolol Tartrate (Lopressor), 25 MG PO BID Nifedipine (Nifedipine Er), 60 MG PO DAILY Prednisone (Prednisone), 20 MG PO DAILY Sacubitril-Valsartan (Entresto 24-26 mg), 2 TAB PO BID Tamsulosin Hcl (Tamsulosin Hcl), 1 PO DAILY, (Reported) Scheduled PRN Albuterol Sulfate (Albuterol Sulfate Hfa), 2 PUFF INH Q4HR PRN for WHEEZING, (Reported) Alprazolam (Xanax), 1 TAB PO BID PRN Discharge Statement: "Patient was advised to return to the ER or call 911 if any headaches, dizziness, shortness of breath, chest pain, abdominal pain, bleeding, fevers, or worsening of medical condition. Patient was counseled about treatment plan, medications, possible side effects, patientverbalized understanding. All questions were answered to the best of my ability. This discharge took greater then 30 minutes in planning, reviewing documentation, counseling the patient, and discussing with other team members." ASSESSMENT ASSESSMENT Assessment Date of Service: Oct 28, 2025 Billing Provider: ANNEMARIE MOLINA MD Common Visit Codes: [id number] DISCH DAY <30MIN ANNEMARIE MOLINA MD Oct 28, 2025 15:53
== END 2025-10-28 12:25 | disposition left against medical advice (07) | DRG 313 ==
LOC: EDUNIT# 15:41 → EDBD 15:41 → ER 15:41 → OVERFLOW 19:20 → TELE-WESTW 21:03
PROVIDERS: ADMIT Nurse Practitioner Acute Care; ATTEND Nurse Practitioner Acute Care
DX: R07.9 Chest pain, unspecified (principal); I25.110 Atherosclerotic heart disease of native coronary artery with unstable angina pectoris; E78.5 Hyperlipidemia, unspecified; N18.9 Chronic kidney disease, unspecified; I12.9 Hypertensive chronic kidney disease with stage 1 through stage 4 chronic kidney disease, or unspecified chronic kidney disease; Z53.29 Procedure and treatment not carried out because of patient's decision for other reasons; F41.9 Anxiety disorder, unspecified; Z86.73 Personal history of transient ischemic attack (TIA), and cerebral infarction without residual deficits; I25.2 Old myocardial infarction; Z88.1 Allergy status to other antibiotic agents
CPT/HCPCS: 36415; 71045; 80048; 84484; 85025; 93005; G0378; J2405

== ENCOUNTER 2025-11-17 23:15 | Inpatient (IN) | payer MEDICARE, MEDICAID ==
[~2025-11-17] VITALS: Ht 177.8 cm; Wt 101.4 kg
[2025-11-18] VITALS (12 sets, daily range): BP systolic 130–141; BP diastolic 92–93; PULSE 50–92; RESP 14–23; TEMP 97.3–97.8; O2SAT 93–100
--- NOTE | 2025-11-18 01:29 | DVH ---
CHEST RADIOGRAPH INDICATION: Suspected pacemaker damage TECHNIQUE: Single frontal view of the chest was obtained COMPARISON: XY CHEST PORTABLE on DOS: 10/25/25, XY CHEST XRAY 1 VIEW on DOS: 10/14/25, XY CHEST PORTABLE on DOS: 09/01/25, XY CHEST XRAY 1 VIEW on DOS: 06/22/25, XY CHEST PORTABLE on DOS: 03/07/25 FINDINGS: Lines and Tubes: None. Left anterior chest wall dual lead cardiac pacing device. Lungs: Clear Pleura: No effusion. No pneumothorax. Cardiomediastinal contours: Unremarkable Bones: Unremarkable IMPRESSION: 1. No acute cardiopulmonary disease.
[2025-11-18] MEDS: hydrALAZINE HCL 20 MG/ML VL IV ONE ×2 (01:30→02:06)
[2025-11-18] MEDS: ACETAMINOPHEN 500 MG TAB or CAP PO ONE (02:06)
[2025-11-18] MEDS: LABETALOL HCL 20 MG/4 ML VL IV ONE ×2 (02:32→03:37)
[2025-11-18] MEDS: ALPRAZolam 0.5 MG TAB PO ONE (02:48)
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
[2025-11-18 06:42] LABS: Hematocrit 42.2 % (41.0-53.0); Hemoglobin 14.5 g/dL (13.5-17.5); Mean Corpuscular Hemoglobin 30.6 pg (28.0-32.0); Mean Corpuscular Volume 89.1 fL (80.0-100.0); Nucleated Red Blood Cells % 0.0 %
[2025-11-18 06:44] LABS: Sodium 141 mmol/L (136-145)
[2025-11-18 06:45] LABS: Anion Gap 11 (5-15); Calcium 8.9 mg/dL (8.7-10.4); Carbon Dioxide 22 mmol/L (20-31)
[2025-11-18 06:50] LABS: BUN/Creatinine Ratio 8.7 (10.0-20.0); Blood Urea Nitrogen 16 mg/dL (9-23)
[2025-11-18 06:51] LABS: Chloride 108 mmol/L (98-107); Glucose 110 mg/dL (74-106); Potassium 3.4 mmol/L (3.5-5.1)
[2025-11-18] MEDS ORDERED: NITROGLYCERIN 0.4 MG SL TAB SL PRN (07:15)
[2025-11-18] MEDS ORDERED: ALPRAZolam 0.5 MG TAB PO PRN (07:15)
[2025-11-18] MEDS ORDERED: DOCUSATE SOD 100 MG CAP PO PRN (07:15)
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
--- NOTE | 2025-11-18 08:27 | DVH ---
EXAM: CT HEAD WITHOUT CONTRAST HISTORY: headache after syncope COMPARISON: CT HEAD WITHOUT CONTRAST on DOS: 09/02/25, CT HEAD WITHOUT CONTRAST on DOS: 06/22/25, CT HEAD WITHOUT CONTRAST on DOS: 03/11/25, CT HEAD WITHOUT CONTRAST on DOS: 07/27/24, CT HEAD WITHOUT CONTRAST on DOS: 03/04/24 TECHNIQUE: Noncontrast axial CT images of the head were performed. Sagittal and coronal reformatted images were obtained. This CT exam was performed using 1 or more of the following dose reduction techniques: Automated exposure control, adjustment of the mA and/or kv according to patient size, or the use of iterative reconstruction techniques. Radiation Dose: CTDI volume is 60.09 mGy. Dose-length product is 1182.42 mGy*cm FINDINGS: No intracranial hemorrhage, mass, midline shift, hydrocephalus, or evidence of acute large vessel infarct. There is an old lacunar infarct of the right frontal periventricular white matter (image 37, series 2). There is an old lacunar infarct versus prominent perivascular space along the caudal margin of the right basal ganglia (image 30, series 2). The partially-visualized paranasal sinuses are clear. The bilateral mastoid air cells and middle ear spaces are clear. No cranial fracture or scalp edema. There are multiple left maxillary dental caries (images 36 and 39, series 602). IMPRESSION: 1. Chronic ischemic changes without evidence of acute intracranial process. 2. Multiple dental caries. Recommend outpatient dental consultation.
[2025-11-18] MEDS: LACTULOSE 20Gm/30ML SOLN PO SCH (10:00)
[2025-11-18] MEDS: SACUBITRIL-VALSARTAN 24mg/26mg TAB PO SCH (10:00)
[2025-11-18] MEDS: METOPROLOL TARTRATE 25 MG TAB PO SCH (10:00)
[2025-11-18] MEDS: APIXABAN 2.5 MG TAB PO SCH (10:00)
[2025-11-18] MEDS: TAMSULOSIN HYDROCHLORIDE 0.4 MG CAP PO SCH (10:00)
[2025-11-18] MEDS: DOCUSATE SOD 100 MG CAP PO SCH (10:00)
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
--- NOTE | 2025-11-18 10:00 | DVHPN2 ---
Progress Note - Dictate Date Seen: Nov 17, 2025 Medical Necessity Reason Pt with a Central, PICC or Fol: No Subjective PT WITH CHEST PAIN SECONDARY TO PHYSICAL COMPRESSION OF CHEST POSSIBLE SYNCOPE FROM MECHANICAL INTRA THORACIC PRESSURE WITH VASOVAGAL RESPONSE CHEST PAIN HYPOKALEMIA TROPONIN NEGATIVE PT WELL KNOWN TO ME ORGANIC HD CAD S/P PTCA STENT ACC HTN HYPERLIPIDEMIA SSS S/P DUAL PPI HX OF [place] HX OF CVA COPD BPH GOUT NOW WITH CHEST PAIN ACC HTN SOB CHEST PAIN/LEFT SIDED CHEST PAIN vital signs Vital Sign Date Time Temp Pulse Resp B/P (MAP) Pulse Ox O2 Delivery O2 Flow Rate FiO2 11/18/25 08:31 79 18 191/118 (142) 94 11/18/25 03:42 97.8 97.8 11/18/25 01:36 Room Air* 0 21 medications Current Medications Medications Dose Ordered Sig/Lincoln Route Start Time Stop Time Status Last Admin Dose Admin Allopurinol 200 mg DAILY PO 11/18/25 10:00 Alprazolam 0.5 mg BID PRN PO 11/18/25 07:15 Apixaban 2.5 mg BID PO 11/18/25 10:00 Baclofen 10 mg DAILY PO 11/18/25 10:00 Clopidogrel Bisulfate 75 mg DAILY PO 11/18/25 10:00 Docusate Sodium 100 mg BID PO 11/18/25 10:00 Famotidine 20 mg BID PO 11/18/25 10:00 Metoprolol Tartrate 25 mg BID PO 11/18/25 10:00 Nifedipine 60 mg DAILY PO 11/18/25 10:00 Sacubitril/ Valsartan 2 tab BID PO 11/18/25 10:00 Tamsulosin HCl 0.4 mg DAILY PO 11/18/25 10:00 Atorvastatin Calcium 40 mg HS PO 11/18/25 22:00 Budesonide 0.5 mg BID NEB 11/18/25 10:00 Lactulose 15 ml BID PO 11/18/25 10:00 Labetalol HCl 20 mg Q2HPRN PRN IV 11/18/25 07:15 Ondansetron HCl 4 mg Q4HP PRN IV 11/18/25 07:15 Docusate Sodium 100 mg BIDPRN PRN PO 11/18/25 07:15 Morphine Sulfate 2 mg Q4HPRN PRN IV 11/18/25 07:15 Nitroglycerin 0.4 mg Q5MINP PRN SL 11/18/25 07:15 laboratory and microbiology Laboratory Tests 11/18/25 06:00 Test 11/18/25 06:00 Range/Units Serum Glucose 110 H 74-106 mg/dL Problem List HEST PAIN SECONDARY TO PHYSICAL COMPRESSION OF CHEST POSSIBLE SYNCOPE FROM MECHANICAL INTRA THORACIC PRESSURE WITH VASOVAGAL RESPONSE CHEST PAIN HYPOKALEMIA TROPONIN NEGATIVE PT WELL KNOWN TO ME ORGANIC HD CAD S/P PTCA STENT ACC HTN HYPERLIPIDEMIA SSS S/P DUAL PPI HX OF [place] HX OF CVA COPD BPH GOUT NOW WITH CHEST PAIN ACC HTN SOB CHEST PAIN/LEFT SIDED TROPONIN NEGATIVE Assessment/Plan CORRECT HYPOKALEMIA MAY DC HOME IN AM Plan discussed with: Patient DEBORAH ROMERO MD Nov 18, 2025 10:00
--- NOTE | 2025-11-18 10:01 | DVHPN2 ---
Progress Note - Dictate Date Seen: Nov 18, 2025 Medical Necessity Reason Pt with a Central, PICC or Fol: No Subjective PT WITH CHEST PAIN SECONDARY TO PHYSICAL COMPRESSION OF CHEST POSSIBLE SYNCOPE FROM MECHANICAL INTRA THORACIC PRESSURE WITH VASOVAGAL RESPONSE CHEST PAIN HYPOKALEMIA TROPONIN NEGATIVE PT WELL KNOWN TO ME ORGANIC HD CAD S/P PTCA STENT ACC HTN HYPERLIPIDEMIA SSS S/P DUAL PPI HX OF [place] HX OF CVA COPD BPH GOUT NOW WITH CHEST PAIN ACC HTN SOB CHEST PAIN/LEFT SIDED CHEST PAIN vital signs Vital Sign Date Time Temp Pulse Resp B/P (MAP) Pulse Ox O2 Delivery O2 Flow Rate FiO2 11/18/25 08:31 79 18 191/118 (142) 94 11/18/25 03:42 97.8 97.8 11/18/25 01:36 Room Air* 0 21 medications Current Medications Medications Dose Ordered Sig/Lincoln Route Start Time Stop Time Status Last Admin Dose Admin Allopurinol 200 mg DAILY PO 11/18/25 10:00 Alprazolam 0.5 mg BID PRN PO 11/18/25 07:15 Apixaban 2.5 mg BID PO 11/18/25 10:00 Baclofen 10 mg DAILY PO 11/18/25 10:00 Clopidogrel Bisulfate 75 mg DAILY PO 11/18/25 10:00 Docusate Sodium 100 mg BID PO 11/18/25 10:00 Famotidine 20 mg BID PO 11/18/25 10:00 Metoprolol Tartrate 25 mg BID PO 11/18/25 10:00 Nifedipine 60 mg DAILY PO 11/18/25 10:00 Sacubitril/ Valsartan 2 tab BID PO 11/18/25 10:00 Tamsulosin HCl 0.4 mg DAILY PO 11/18/25 10:00 Atorvastatin Calcium 40 mg HS PO 11/18/25 22:00 Budesonide 0.5 mg BID NEB 11/18/25 10:00 Lactulose 15 ml BID PO 11/18/25 10:00 Labetalol HCl 20 mg Q2HPRN PRN IV 11/18/25 07:15 Ondansetron HCl 4 mg Q4HP PRN IV 11/18/25 07:15 Docusate Sodium 100 mg BIDPRN PRN PO 11/18/25 07:15 Morphine Sulfate 2 mg Q4HPRN PRN IV 11/18/25 07:15 Nitroglycerin 0.4 mg Q5MINP PRN SL 11/18/25 07:15 laboratory and microbiology Laboratory Tests 11/18/25 06:00 Test 11/18/25 06:00 Range/Units Serum Glucose 110 H 74-106 mg/dL Problem List HEST PAIN SECONDARY TO PHYSICAL COMPRESSION OF CHEST POSSIBLE SYNCOPE FROM MECHANICAL INTRA THORACIC PRESSURE WITH VASOVAGAL RESPONSE CHEST PAIN HYPOKALEMIA TROPONIN NEGATIVE PT WELL KNOWN TO ME ORGANIC HD CAD S/P PTCA STENT ACC HTN HYPERLIPIDEMIA SSS S/P DUAL PPI HX OF [place] HX OF CVA COPD BPH GOUT NOW WITH CHEST PAIN ACC HTN SOB CHEST PAIN/LEFT SIDED TROPONIN NEGATIVE Assessment/Plan CORRECT HYPOKALEMIA MAY DC HOME MONITOR MORPHINE SULFATE 2MG, IV Plan discussed with: Patient DEBORAH ROMERO MD Nov 18, 2025 10:01
[2025-11-18] MEDS: CLOPIDOGREL BISULFATE 75 MG TAB PO SCH (10:50)
[2025-11-18] MEDS: BACLOFEN 10 MG TAB PO SCH (10:50)
[2025-11-18] MEDS: FAMOTIDINE 20 MG TAB PO SCH (10:51)
[2025-11-18] MEDS: ALLOPURINOL 100 MG TAB PO SCH (10:52)
[2025-11-18] MEDS ORDERED: LORazepam 2MG/ML-1ML VIAL IV PRN (11:00)
[2025-11-18 11:15] LABS: Cholesterol 135 mg/dL (< 200); HDL Cholesterol 30 mg/dL (40-59); Triglycerides 152 mg/dL (< 150)
--- NOTE | 2025-11-18 12:14 | DVH ---
Carotid Duplex Date: 11/18/2025 11:19 AM CLINICAL HISTORY: cva COMPARISON: US CAROTID DUPLX W COLOR DOP on DOS: 06/22/25, US CAROTID DUPLX W COLOR DOP on DOS: 07/28/24, US CAROTID DUPLX W COLOR DOP on DOS: 08/29/23 TECHNIQUE: Duplex Doppler evaluation of the extracranial carotid and vertebral arteries including color Doppler and spectral/pulsed waveform analysis was performed. FINDINGS: Velocities and ratios within normal limits IMPRESSION: No hemodynamically significant stenosis noted in the right carotid system. No hemodynamically significant stenosis noted in the left carotid system. Reference: Radiology 2003; [id number]
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
[2025-11-18] MEDS: LABETALOL HCL 20 MG/4 ML VL IV PRN (13:21)
[2025-11-18] MEDS: MORPHINE SULFATE INJ 2 MG/ml SYRG IV PRN (14:26)
[2025-11-18] MEDS: MORPHINE SULFATE 4 MG/ML SYR/VIAL ONE (14:48)
[2025-11-18] MEDS: BUDESONIDE (INHALATION) 0.5 MG/2 ML NEB NEB SCH (16:06)
[2025-11-18] MEDS: ONDANSETRON HCL 4 MG/2 ML VIAL IV PRN (17:14)
[2025-11-18] MEDS: ATORVASTATIN 20 MG TAB PO SCH (21:05)
[2025-11-18] MEDS: MORPHINE SULFATE 4 MG/ML SYR/VIAL IV PRN (22:04)
[2025-11-19] VITALS (12 sets, daily range): BP systolic 118–164; BP diastolic 88–105; PULSE 56–68; RESP 17–20; TEMP 96.2–98; O2SAT 95–100
[2025-11-19 06:20] LABS: Hematocrit 44.2 % (41.0-53.0); Hemoglobin 14.8 g/dL (13.5-17.5); Mean Corpuscular Hemoglobin 30.2 pg (28.0-32.0); Mean Corpuscular Volume 89.9 fL (80.0-100.0); Nucleated Red Blood Cells % 0.0 %
[2025-11-19 06:31] LABS: Alanine Aminotransferase 19 U/L (7-40); Albumin 3.9 g/dL (3.2-4.8); Alkaline Phosphatase 90 U/L (46-116); Anion Gap 12 (5-15); BUN/Creatinine Ratio 7.8 (10.0-20.0); Bilirubin, Total 0.8 mg/dL (0.2-1.0); Blood Urea Nitrogen 14 mg/dL (9-23); Calcium 9.0 mg/dL (8.7-10.4); Carbon Dioxide 23 mmol/L (20-31); Chloride 106 mmol/L (98-107); Potassium 3.9 mmol/L (3.5-5.1); Sodium 141 mmol/L (136-145); Total Protein 7.1 g/dL (5.7-8.2)
[2025-11-19 06:33] LABS: Glucose 118 mg/dL (74-106)
[2025-11-19] MEDS: PANTOPRAZOLE 40 MG/10 ML VIAL INJ IV ONE (10:30)
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
[2025-11-19] MEDS: LACTATED RINGER'S 1,000 ML IV SCH (10:42)
--- NOTE | 2025-11-19 12:01 | ECG ---
[facility] Test Date: 2025-11-17 Test Time: 23:17:43 Pat Name: LIBRADO BAEZ Department: Room: 0207T Gender: M Circuit Tester: CAREN : 1970 Requested By: NANNETTE MENDOZA Order Number: [id number] Reading MD: Marcus Boyce Measurements Intervals [place] Rate: 89 P: 58 KS: 167 QRS: 57 QRSD: 102 T: 32 QT: 384 QTc: 468 Interpretive Statements Sinus rhythm Left atrial enlargement Probable anteroseptal infarct, old Baseline wander in lead(s) II,III,aVR,aVL,aVF,V5,V6 Electronically Signed On 11-22-2025 15:20:48 PST by Marcus Boyce Please click the below link to view image of tracing.
--- NOTE | 2025-11-19 12:42 | DVHINCON2 ---
GI Consult Consult Note GI consult note Date of Consultation: 11/19/2025 Chief Complaint: Nausea and vomiting Referring Physician: Dr. Zahida landis H&P: 55-year-old male admitted with complains of chest pain, syncope and possible head injury patient being seen by Cardiology and Neurology Now patient is complaining of nausea and vomiting for two days, especially nausea is worsening when patient is also feeling dizzy. One episode of vomiting today mostly food, denies hematemesis. Last bowel movement two days ago. No melena or red blood in stool. No EGD or colonoscopy in past. Patient admits to having four maternal aunts diagnosed with colon cancer Past Medical History: CAD, CKF, CVA, High Lipids, HTN, CA, PE, dementia, PE on Eliquis Past Surgical History: Hernia repair, pacemaker, PTCA Social History: NO smoking, drinking ETOH and use of illegal drugs. Family History: Maternal aunts diagnosed with colon cancer Review of Systems: Constitutional: no fever, chill, weight loss HEENT: no eye pain, no hearing loss, no oral lesion, no scleral icterus Heart: no chest pain, no chest pressure Lung: no cough, no dyspnea with exertion Abdomen: see HPI Physical exam: General: NAD, AAOX3 Chest: lung huynh clear to auscultation Heart: RRR, no murmur Abdomen: non-distended, no tenderness to palpation, +BS Labs: Labs Test 11/19/25 05:00 11/18/25 10:21 Range/Units White Blood Count 6.4 4.4-10.8 10^3/uL Red Blood Count 4.92 4.5-5.90 10^6/uL Hemoglobin 14.8 13.5-17.5 g/dL Hematocrit 44.2 41.0-53.0 % Mean Corpuscular Volume 89.9 80.0-100.0 fL Mean Corpuscular Hemoglobin 30.2 28.0-32.0 pg Mean Corpuscular Hemoglobin Concent 33.6 32.0-36.0 g/dL Red Cell Distribution Width 14.6 H 11.8-14.3 % Platelet Count 225 140-450 10^3/uL Mean Platelet Volume 7.6 6.9-10.8 fL Neutrophils (%) (Auto) 63.1 37.0-80.0 % Lymphocytes (%) (Auto) 22.4 10.0-50.0 % Monocytes (%) (Auto) 10.1 0.0-12.0 % Eosinophils (%) (Auto) 3.8 0.0-7.0 % Basophils (%) (Auto) 0.6 0.0-2.0 % Neutrophils # (Auto) 4.1 1.6-8.6 10 ^3/uL Lymphocytes # (Auto) 1.4 0.4-5.4 10 ^3/uL Monocytes # (Auto) 0.6 0-1.3 10 ^3/uL Eosinophils # (Auto) 0.2 0-0.8 10 ^3/uL Basophils # (Auto) 0 0-0.2 10 ^3/uL Nucleated Red Blood Cells 0.0 % Sodium Level 141 136-145 mmol/L Potassium Level 3.9 3.5-5.1 mmol/L Chloride Level 106 98-107 mmol/L Carbon Dioxide Level 23 20-31 mmol/L Anion Gap 12 5-15 Blood Urea Nitrogen 14 9-23 mg/dL Creatinine 1.80 H 0.700-1.30 mg/dL Glomerular Filtration Rate Calc 44 >90 mL/min BUN/Creatinine Ratio 7.8 L 10.0-20.0 Serum Glucose 118 H 74-106 mg/dL Calcium Level 9.0 8.7-10.4 mg/dL Total Bilirubin 0.8 0.2-1.0 mg/dL Aspartate Amino Transferase (AST) 19 13-40 U/L Alanine Aminotransferase (ALT) 19 7-40 U/L Alkaline Phosphatase 90 46-116 U/L Total Protein 7.1 5.7-8.2 g/dL Albumin 3.9 3.2-4.8 g/dL Lipase 28 12-53 U/L Troponin I High Sensitivity 26 </=54 ng/L Triglycerides Level 152 H < 150 mg/dL Cholesterol Level 135 < 200 mg/dL LDL Cholesterol 87 < 100 mg/dL HDL Cholesterol 30 L 40-59 mg/dL Imaging: Assessment: Nausea and vomiting Chest pain History of CVA Plan: Discussed with Dr. Byrne CT abdomen and pelvis without contrast Zofran, Protonix and Carafate We will continue to monitor Plan discussed with patient and RN Thank you for this consult Date of Service: Nov 19, 2025 Billing Provider: JAVIER LANDIS Common Visit Codes: CONSULT ONLY Consultation Codes: [id number] CONSULT <60MIN JAVIER LANDIS Nov 19, 2025 12:42
--- NOTE | 2025-11-19 13:59 | DVHPN2 ---
Progress Note - Dictate Date Seen: Nov 19, 2025 Medical Necessity Reason Pt with a Central, PICC or Fol: No Subjective PT WITH CHEST PAIN SECONDARY TO PHYSICAL COMPRESSION OF CHEST POSSIBLE SYNCOPE FROM MECHANICAL INTRA THORACIC PRESSURE WITH VASOVAGAL RESPONSE CHEST PAIN HYPOKALEMIA TROPONIN NEGATIVE PT WELL KNOWN TO ME ORGANIC HD CAD S/P PTCA STENT ACC HTN HYPERLIPIDEMIA SSS S/P DUAL PPI HX OF ME HX OF CVA COPD BPH GOUT NOW WITH CHEST PAIN ACC HTN SOB CHEST PAIN/LEFT SIDED CHEST PAIN vital signs Vital Sign Date Time Temp Pulse Resp B/P (MAP) Pulse Ox O2 Delivery O2 Flow Rate FiO2 11/19/25 13:20 59 16 146/86 11/19/25 12:41 97.0 97 97.0 11/19/25 09:44 Room Air 0.0 11/19/25 09:44 21 Total Intake and Output 11/18/25 11/18/25 11/19/25 15:00 23:00 07:00 Intake Total 0 ml 300 ml Balance 0 ml 300 ml medications Current Medications Medications Dose Ordered Sig/Lincoln Route Start Time Stop Time Status Last Admin Dose Admin Allopurinol 200 mg DAILY PO 11/18/25 10:00 11/19/25 10:54 200 MG Apixaban 2.5 mg BID PO 11/18/25 10:00 11/19/25 10:54 2.5 MG Baclofen 10 mg DAILY PO 11/18/25 10:00 11/19/25 10:52 10 MG Clopidogrel Bisulfate 75 mg DAILY PO 11/18/25 10:00 11/19/25 10:55 75 MG Docusate Sodium 100 mg BID PO 11/18/25 10:00 11/18/25 21:03 100 MG Metoprolol Tartrate 25 mg BID PO 11/18/25 10:00 11/19/25 10:54 25 MG Nifedipine 60 mg DAILY PO 11/18/25 10:00 11/19/25 10:52 60 MG Sacubitril/ Valsartan 2 tab BID PO 11/18/25 10:00 11/19/25 10:52 2 TAB Tamsulosin HCl 0.4 mg DAILY PO 11/18/25 10:00 11/19/25 10:54 0.4 MG Atorvastatin Calcium 40 mg HS PO 11/18/25 22:00 11/18/25 21:05 40 MG Budesonide 0.5 mg BID NEB 11/18/25 10:00 11/19/25 09:44 0.5 MG Lactulose 15 ml BID PO 11/18/25 10:00 11/18/25 21:02 15 ML Labetalol HCl 20 mg Q2HPRN PRN IV 11/18/25 07:15 Ondansetron HCl 4 mg Q4HP PRN IV 11/18/25 07:15 11/19/25 07:07 4 MG Docusate Sodium 100 mg BIDPRN PRN PO 11/18/25 07:15 Nitroglycerin 0.4 mg Q5MINP PRN SL 11/18/25 07:15 Lorazepam 1 mg ONCE PRN IV 11/18/25 11:00 Clonidine HCl 0.2 mg Q6HP PRN PO 11/18/25 15:45 11/19/25 12:22 0.2 MG Morphine Sulfate 2 mg Q4HPRN PRN IV 11/18/25 21:00 11/19/25 12:29 2 MG Alprazolam 1 mg TID PO 11/19/25 14:00 Pantoprazole Sodium 40 mg DAILY IV 11/20/25 10:00 Lactated Ringer's 1,000 ml @ 125 mls/hr Q8H IV 11/19/25 10:45 11/19/25 10:42 125 MLS/HR laboratory and microbiology Laboratory Tests 11/19/25 05:00 Test 11/19/25 05:00 Range/Units Serum Glucose 118 H 74-106 mg/dL Problem List HEST PAIN SECONDARY TO PHYSICAL COMPRESSION OF CHEST POSSIBLE SYNCOPE FROM MECHANICAL INTRA THORACIC PRESSURE WITH VASOVAGAL RESPONSE CHEST PAIN HYPOKALEMIA TROPONIN NEGATIVE PT WELL KNOWN TO ME ORGANIC HD CAD S/P PTCA STENT ACC HTN HYPERLIPIDEMIA SSS S/P DUAL PPI HX OF ME HX OF CVA COPD BPH GOUT NOW WITH CHEST PAIN ACC HTN SOB CHEST PAIN/LEFT SIDED TROPONIN NEGATIVE Assessment/Plan CORRECT HYPOKALEMIA MAY DC HOME PT ADMITTED NON CARDIAC ISSUE MONITOR MORPHINE SULFATE 2MG, IV DC HOME Plan discussed with: Patient DEBORAH ROMERO MD Nov 19, 2025 13:59
--- NOTE | 2025-11-19 14:35 | DVH ---
EXAM: CT CT AB PEL WO CON-NO ORAL OR IV HISTORY: nausea/vomiting COMPARISON STUDY: CT CT AB PEL WO CON-NO ORAL OR IV on DOS: 08/31/23 TECHNIQUE: Multidetector CT of the abdomen and pelvis was performed from lung bases to pubic symphysis. Imaging was performed without IV contrast. Axial, coronal, and sagittal multiplanar reformats were obtained from the axial data set by the technologist. RADIATION DOSE: CTDI vol 20.0 mGy. DLP 1212.6 mGy.cm FINDINGS: Limited evaluation of the solid organs in the absence of IV contrast. Lungs: The lung bases are clear. Liver: Unremarkable. Spleen: Unremarkable. Pancreas: Unremarkable. Gallbladder: Unremarkable. Adrenals: 13 mm fat containing left adrenal lesion. Kidneys: Right renal cysts. No hydronephrosis. Pelvic Viscera: Unremarkable. Vasculature: Atherosclerotic aortoiliac calcification. Retroperitoneum: Unremarkable. Bowel: Colonic diverticulosis without CT evidence of diverticulitis. No bowel obstruction. The appendix is normal. Musculoskeletal: Unremarkable. Soft tissues: Unremarkable IMPRESSION: 1. No acute abdominopelvic abnormality. 2. Incidental findings as detailed.
[2025-11-19] MEDS: ALPRAZolam 0.5 MG TAB PO SCH (15:09)
[2025-11-20 08:00] VITALS: PULSE 61
--- NOTE | 2025-11-20 08:13 | DVHPN2 ---
Reviewed: Care Plan, H&P, Labs, Medications, Previous Orders, Radiology Changes from previous H/P or p: No Changes Eyes: No Pain, No Vision change, No Conjunctivae inflammation, No Eyelid inflammation, No Other, No Redness ENT: No Ear pain, No Ear discharge, No Nose pain, No Nose discharge, No Nose congestion, No Mouth pain, No Mouth swelling, No Throat pain, No Throat swelling, No Other Cardiovascular: Chest Pain; No Palpitations, No Orthopnea, No Paroxysmal Noc. Dyspnea, No Edema, No Lt Headedness, No Other Respiratory: No Cough, No Dry, No Shortness of breath, No SOB with excertion, No Wheezing, No Hemoptysis, No Pleuritic Pain, No Sputum, No Other Gastrointestinal: No Nausea, No Vomiting, No Abdominal Pain, No Diarrhea, No Constipation, No Melena, No Hematochezia, No Other Genitourinary: No Dysuria, No Frequency, No Incontinence, No Hematuria, No Retention, No Other Musculoskeletal: No other, No neck pain, No shoulder pain, No arm pain, No back pain, No hand pain, No leg pain, No foot pain Skin: No Rash, No Lesions, No Jaundice, No Bruising, No Other Objective Vitals Vital Signs Date Time Temp Pulse Resp B/P (MAP) Pulse Ox O2 Delivery O2 Flow Rate FiO2 11/19/25 23:20 68 146/99 11/19/25 22:23 20 100 11/19/25 22:13 Room Air* 0 21 11/19/25 21:00 98.0 98.0 Intake/Output Intake and Output 11/20/25 07:00 Intake Total 1695 ml Output Total 1000 ml Balance 695 ml Intake Oral 1695 ml Output Urine Total 1000 ml # Voids 6 Medications Current Medications Medications Dose Ordered Sig/Lincoln Route Start Time Stop Time Status Last Admin Dose Admin Allopurinol 200 mg DAILY PO 11/18/25 10:00 11/19/25 10:54 200 MG Apixaban 2.5 mg BID PO 11/18/25 10:00 11/19/25 22:20 2.5 MG Baclofen 10 mg DAILY PO 11/18/25 10:00 11/19/25 10:52 10 MG Clopidogrel Bisulfate 75 mg DAILY PO 11/18/25 10:00 11/19/25 10:55 75 MG Docusate Sodium 100 mg BID PO 12/18/25 10:00 11/18/25 21:03 100 MG Metoprolol Tartrate 25 mg BID PO 11/18/25 10:00 11/19/25 22:20 25 MG Nifedipine 60 mg DAILY PO 11/18/25 10:00 11/19/25 10:52 60 MG Sacubitril/ Valsartan 2 tab BID PO 11/18/25 10:00 11/19/25 22:22 2 TAB Tamsulosin HCl 0.4 mg DAILY PO 11/18/25 10:00 11/19/25 10:54 0.4 MG Atorvastatin Calcium 40 mg HS PO 11/18/25 22:00 11/19/25 22:22 40 MG Budesonide 0.5 mg BID NEB 11/18/25 10:00 11/19/25 22:13 0.5 MG Lactulose 15 ml BID PO 11/18/25 10:00 11/18/25 21:02 15 ML Labetalol HCl 20 mg Q2HPRN PRN IV 11/18/25 07:15 11/19/25 17:10 20 MG Ondansetron HCl 4 mg Q4HP PRN IV 11/18/25 07:15 11/19/25 21:24 4 MG Docusate Sodium 100 mg BIDPRN PRN PO 11/18/25 07:15 Nitroglycerin 0.4 mg Q5MINP PRN SL 11/18/25 07:15 Lorazepam 1 mg ONCE PRN IV 11/18/25 11:00 Clonidine HCl 0.2 mg Q6HP PRN PO 11/18/25 15:45 11/19/25 12:22 0.2 MG Morphine Sulfate 2 mg Q4HPRN PRN IV 11/18/25 21:00 11/19/25 21:23 2 MG Alprazolam 1 mg TID PO 11/19/25 14:00 11/19/25 22:21 1 MG Pantoprazole Sodium 40 mg DAILY IV 11/20/25 10:00 Lactated Ringer's 1,000 ml @ 125 mls/hr Q8H IV 11/19/25 10:45 11/20/25 05:54 125 MLS/HR Laboratory Results Laboratory Tests 11/19/25 05:00 Labs and/or images reviewed: Labs reviewed by me, Image(s) reviewed by me Assessment/Plan Assessment/Plan Acute chest pain secondary to physical compression discharged: Cardiology consult by Dr. Bernal appreciated Possible syncope from mechanical intrathoracic pressure with vasovagal response Chest pain troponin negative Hypokalemia CAD Status post stents Accelerated hypertension BP 231/144 Hyperlipidemia Sick sinus syndrome status post dual chamber pacemaker implantation History of CVA COPD BPH Gout History of [place] Higher level of anxiety: Xanax 1 mg PO TID (patient was under the treatment of a psychiatrist until one year ago) Patient complaining of dizziness nausea and vomiting abdominal pain; LR 125 mL/hour check lipase normal CT abdomen pelvis without contrast negative GI consult by Dr. Lina Byrne appreciated Plan discussed with: Patient My Orders Orders - ZULAY DUTTA MD Procedure Category Date Status Time Alprazolam Tablet PHA 11/19/25 In Process (Xanax Tablet) 14:00 Pantoprazole PHA 11/20/25 In Process (Protonix) 10:00 * Gi Dvh Sap Basis Administrator CONS 11/19/25 Transmitted 10:27 Lactated Ringer's PHA 11/19/25 In Process 10:45 Date of Service: Nov 20, 2025 Billing Provider: ZULAY DUTTA MD Common Visit Codes: [id number] INP/OBS CARE(HIGH) ZULAY DUTTA MD Nov 20, 2025 08:13
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
[2025-11-20] MEDS ORDERED: ZOFR4T PO (08:19)
[2025-11-20] MEDS ORDERED: PANT40T PO (08:19)
[2025-11-20 09:00] VITALS: BP 165/117; PULSE 65; RESP 18; TEMP 97; O2SAT 97
[2025-11-20] MEDS: PANTOPRAZOLE 40 MG/10 ML VIAL INJ IV SCH (09:19)
[2025-11-20 10:25] VITALS: BP 155/108
[2025-11-20 11:24] VITALS: PULSE 65; RESP 18; TEMP 36.1
--- NOTE | 2025-11-20 13:23 | DVHSR ---
APPROVED REPORT EXAM: LIMITED Two-dimensional and M-mode echocardiogram with Doppler and color Doppler. Blood Pressure: 166/115 mmHg INDICATION CVA/TIA: RISK FACTORS Height: 5' 10", Weight: 220 DIMENSIONS LVDd 4.6 (3.8-5.7cm) LA (2D) 4.0 (1.9-4.0cm) Aortic Root 3.9 (2.0-3.7cm) LVDs 3.3 (2.5-4.0cm) LA (MM) (1.9-4.0cm) Aortic Cusp Exc 2.0 (1.5-2.0cm) EF (%) 55.0 (55-70%) Rt. Atrium 3.6 (1.9-4.0cm) Asc. Aorta cm IVSd 1.5 (0.7-1.1cm) RV (D) (1.8-2.4cm) PWd 1.1 (0.7-1.1cm) Mitral Valve Mitral Mitral Stenosis E wave 0.60m/s MV Mean GR. mmHg A wave 1.00m/s MV Peak GR. mmHg E/A ratio 0.6 2D MVA cm2 Aortic Valve Aortic Valve Aortic Stenosis V1 1.00m/s AO Mean GR. 4mmHg V2 1.20m/s AO Peak GR. 6mmHg LVOT Diameter 2.2 (1.8-2.4cm) Doppler MANUEL 3.17cm2 AI P 1/2 Time 754.40ms Other Information Quality : Technically Limited Rhythm : Technically limited study due to body habitus. Conclusion 1-Normal right and left ventricle systolic function with estimated ejection fraction of 55%. There is mild left ventricle hypertrophy. Normal LV wall motion 2-Trace aortic regurgitation 3-Mild aortic root dilatation diameter measures -3.9 cm
--- NOTE | 2025-11-23 07:33 | ECG ---
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
== END 2025-11-20 14:24 | disposition home or self-care (01) | DRG 305 ==
LOC: EDBD 23:15 → ER 23:15 → EDSEX 23:15 → OVERFLOW 11-18 07:14 → TELE-WESTW 11-18 16:32 → TELE-CENTR 11-19 20:52
PROVIDERS: ADMIT Family Medicine; ATTEND Family Medicine
PROC: 5A09357 Assistance with Respiratory Ventilation, Less than 24 Consecutive Hours, Continuous Positive Airway Pressure (ICD-10-PCS; principal; 2025-11-18)
DX: I16.0 Hypertensive urgency (principal); I49.5 Sick sinus syndrome; Z79.01 Long term (current) use of anticoagulants; Z79.02 Long term (current) use of antithrombotics/antiplatelets; I69.354 Hemiplegia and hemiparesis following cerebral infarction affecting left non-dominant side; J44.9 Chronic obstructive pulmonary disease, unspecified; F03.90 Unspecified dementia, unspecified severity, without behavioral disturbance, psychotic disturbance, mood disturbance, and anxiety; N18.9 Chronic kidney disease, unspecified; I12.9 Hypertensive chronic kidney disease with stage 1 through stage 4 chronic kidney disease, or unspecified chronic kidney disease; I25.10 Atherosclerotic heart disease of native coronary artery without angina pectoris; E78.5 Hyperlipidemia, unspecified; E87.6 Hypokalemia; N40.0 Benign prostatic hyperplasia without lower urinary tract symptoms; M10.9 Gout, unspecified; F41.9 Anxiety disorder, unspecified; G47.30 Sleep apnea, unspecified; F17.200 Nicotine dependence, unspecified, uncomplicated; I25.2 Old myocardial infarction; Z79.899 Other long term (current) drug therapy; Z82.3 Family history of stroke; Z82.49 Family history of ischemic heart disease and other diseases of the circulatory system; Z86.711 Personal history of pulmonary embolism; Z88.1 Allergy status to other antibiotic agents; Z95.0 Presence of cardiac pacemaker; Z98.61 Coronary angioplasty status; Z88.8 Allergy status to other drugs, medicaments and biological substances; Y04.0XXA Assault by unarmed brawl or fight, initial encounter
CPT/HCPCS: 36415; 70450; 71045; 74176; 80048; 80053; 80061; 83690; 84484; 85025; 93005; 93306; 93886; 94640; 94660; 96374; 96375; G0378; J2405; J2470